=== PATIENT | male | born 1960 | race Caucasian/White ===

== ENCOUNTER 2024-03-27 12:11 | Emergency (ER) | payer BC, MEDICARE, SELFPAY ==
[2024-03-27 12:14] VITALS: BP 118/51; PULSE 88; TEMP 37.5; O2SAT 97; BMI 34.0
--- NOTE | 2024-03-27 12:28 | CT_ITS ---
[address] [address] Patient Name: BHARTI EWST MRN: [id number] date: 1960 Sex: M Assigned Patient Location: ER Current Patient Location: ER Accession/Order Number: [id number] Exam Date: 03/27/2024 13:10 Report Date: 03/27/2024 13:44 At the request of: OMID HOPKINS Procedure: CT abdomen pelvis w con EXAMINATION: CT abdomen pelvis w con HISTORY: abd pain , nausea, vomiting, diarrhea COMPARISON: No relevant comparison available. TECHNIQUE: CT images were created with IV contrast. Axial, Coronal, and Sagittal images. Dose reduction techniques were achieved by using automated exposure control and/or adjustment of mA and/or kV according to patient size and/or use of iterative reconstruction technique. FINDINGS: LUNG BASES: No visible pulmonary or pleural disease. LIVER: No enlargement, atrophy, abnormal density, or significant focal lesion. BILIARY: No visible dilatation or calcification. PANCREAS: No lesion, fluid collection, ductal dilatation, or atrophy. SPLEEN: No enlargement or focal lesion. ADRENALS: No mass or enlargement. KIDNEYS: No mass, obstruction, or calcification. BOWEL/MESENTERY: Moderate wall thickening involving the descending and sigmoid colon with some mild hyperemia and mesenteric stranding. Moderate stool in the right colon. Nonobstructive bowel gas pattern. Normal appendix. AORTA/VASCULAR: No aneurysm or dissection. RETROPERITONEUM: No mass or adenopathy. LYMPH NODES: No adenopathy. URINARY BLADDER: No visible focal wall thickening, lesion, or calculus. PELVIC ORGANS: No visible mass. Pelvic organs appropriate for patient age. ABDOMINAL WALL: No mass or hernia. BONES: No bony lesion or fracture. OTHER: Negative. CT/CT abdomen pelvis w con IMPRESSION: Moderate wall thickening of the descending and sigmoid colon with mild hyperemia and mesenteric stranding. Consider colitis. Electronically authenticated by: LORI PARRY Date: 03/27/2024 13:44
--- NOTE | 2024-03-27 12:31 | ED_ITS ---
HPI - Abdominal Pain General Chief Complaint: Abdominal Pain Stated Complaint: ABDOMINAL PAIN Time Seen by Provider: 03/27/24 12:14 Source: patient Mode of arrival: walk-in History of Present Illness HPI narrative: Six 3-year-old male presents for abdominal pain. He has been having the sharp abdominal pains for months and he is not sure what was different today. He thinks he might be bound up and had a small bowel movement last night. No vomiting or injury. He has not had fever. The sharp pains are all over the abdomen and are intermittent. Related Data Home Medications ?Medication ?Instructions ?Recorded ?Confirmed aspirin 81 mg tablet,delayed 81 mg PO DAILY 03/27/24 03/27/24 release (Adult Low Dose Aspirin) benztropine 2 mg tablet 2 mg PO BID 03/27/24 03/27/24 clozapine 100 mg tablet 150 mg PO QPM 03/27/24 03/27/24 finasteride 5 mg tablet 5 mg PO DAILY 03/27/24 03/27/24 furosemide 20 mg tablet 20 mg PO DAILY 03/27/24 03/27/24 insulin aspart U-100 100 unit/mL 1 sliding scale dose subcut QID 03/27/24 03/27/24 (3 mL) subcutaneous pen (Novolog FlexPen U-100 Insulin aspart) insulin degludec 200 unit/mL (3 70 unit subcut QPM 03/27/24 03/27/24 mL) subcutaneous pen (Tresiba FlexTouch U-200 insulin) levothyroxine 25 mcg tablet 25 mcg PO QAM 03/27/24 03/27/24 lisinopril 10 mg tablet 10 mg PO DAILY 03/27/24 03/27/24 metformin 1,000 mg tablet 1,000 mg PO BID 03/27/24 03/27/24 metoprolol succinate 50 mg 50 mg PO DAILY 03/27/24 03/27/24 tablet,extended release 24 hr multivitamin 1 tab PO DAILY 03/27/24 03/27/24 penicillin V potassium 500 mg 500 mg PO QID 03/27/24 03/27/24 tablet semaglutide 0.25 mg or 0.5 mg (2 0.5 mg subcut QWEEK 03/27/24 03/27/24 mg/3 mL) subcutaneous pen injector (Ozempic) simvastatin 20 mg tablet 20 mg PO QPM 03/27/24 03/27/24 tamsulosin 0.4 mg capsule 0.4 mg PO DAILY 03/27/24 03/27/24 Previous Rx's ?Medication ?Instructions ?Recorded ciprofloxacin HCl 500 mg tablet 500 mg PO Q12H #20 tabs 03/27/24 (Cipro) metronidazole 500 mg tablet 500 mg PO TID #30 tabs 03/27/24 Allergies Allergy/AdvReac Type Severity Reaction Status Date / Time Sulfa (Sulfonamide Allergy Severe Hives Verified 03/27/24 12:19 Antibiotics) Review of Systems ROS Narrative A ten point review of systems is negative except as noted above. PFSH PFSH Social History Little interest or pleasure in doing things: not at all Feeling down, depressed, or hopeless: not at all Exam Narrative Exam Narrative: Nurses note and vital signs reviewed and patient is not hypoxic. General: The patient appears well and in no apparent distress. Patient is resting comfortably on cart. Skin: Warm, dry, no pallor noted. There is no rash noted. Head: Normocephalic, atraumatic Eye: Normal conjunctiva, no drainage Ears, Nose, Mouth, and Throat: oral mucosa is moist. Nares patent. Cardiovascular: Regular Rate and Rhythm Respiratory: Patient is in no distress, no accessory muscle use, lungs are clear to auscultation, no wheezing, rales or rhonchi Back: non-tender, no CVA tenderness bilaterally to percussion. GI: Abdomen is globus. He has no appreciable tenderness on palpation no masses or distention. Musculoskeletal: The patient has no evidence of calf tenderness, no pitting edema, symmetrical pulses noted bilaterally Neurological: A&O, normal speech Psychiatric: Cooperative Constitutional Vital Signs, click to edit/add: Last Vital Signs Temp 99.5 F 03/27/24 12:14 Pulse 88 03/27/24 12:14 Resp 22 H 03/27/24 12:14 BP 118/51 03/27/24 12:14 Pulse Ox 97 03/27/24 12:14 O2 Del Method Room Air 03/27/24 12:14 Course Vital Signs Vital signs: Vital Signs Temperature 99.5 F 03/27/24 12:14 Pulse Rate 88 03/27/24 12:14 Respiratory Rate 22 H 03/27/24 12:14 Blood Pressure 118/51 03/27/24 12:14 Pulse Oximetry 97 03/27/24 12:14 Oxygen Delivery Method Room Air 03/27/24 12:14 Temperature 99.5 F 03/27/24 12:14 Pulse Rate 88 03/27/24 12:14 Respiratory Rate 22 H 03/27/24 12:14 Blood Pressure 118/51 03/27/24 12:14 Pulse Oximetry 97 03/27/24 12:14 Oxygen Delivery Method Room Air 03/27/24 12:14 MDM - Abdominal Pain MDM Narrative Medical decision making narrative: Blood work is nonspecific. WBC is 11,000. CT scan shows mild colitis. At this point I do not not feel that he needs to be admitted to the hospital and he will be discharged home on oral Cipro and Flagyl. Follow-up with his doctor in 1 week, return to ED if symptoms worsen. Treatment diagnosis and follow-up were discussed with the patient. Differential Diagnosis Differential diagnosis: Likely abdominal pain, constipation, diverticulitis, gastroenteritis, pancreatitis and other (Colitis) Lab Data Attestation: I reviewed the patient's lab results. Labs: Lab Results 03/27/24 Range/Units 12:30 WBC 11.3 H (4.0-11.0) 10^3/uL RBC 3.98 L (4.70-6.10) 10^6/uL Hgb 11.8 L (14.0-18.0) g/dL Hct 35.1 L (42.0-54.0) % MCV 88.2 (80.0-94.0) fL MCH 29.6 (25.9-34.0) pg MCHC 33.6 (29.9-35.2) g/dL RDW 12.4 (11.0-15.0) % Plt Count 296 (150-450) 10^3/uL MPV 9.8 (9.5-13.5) fL Neut % (Auto) 73.9 (43.0-75.0) % Lymph % (Auto) 19.2 L (20.5-60.0) % [place] % (Auto) 5.2 (1.7-12.0) % Eos % (Auto) 1.1 (0.9-7.0) % Baso % (Auto) 0.4 (0.2-2.0) % Neut # (Auto) 8.4 H (1.4-6.5) 10^3/uL Lymph # (Auto) 2.2 (1.2-3.8) 10^3/uL [place] # (Auto) 0.6 (0.3-0.8) 10^3/uL Eos # (Auto) 0.1 (0.0-0.7) 10^3/uL Baso # (Auto) 0.0 (0.0-0.1) 10^3/uL Abs Immat Gran (auto) 0.02 (0.00-0.03) 10^3/uL Imm/Tot Granulo (auto) 0.2 (0.0-0.5) % Sodium 138 (136-145) mmol/L Potassium 4.0 (3.5-5.1) mmol/L Chloride 101 (98-107) mmol/L Carbon Dioxide 26.9 (21.0-32.0) mmol/L Anion Gap 14.1 BUN 20.0 H (7.0-18.0) mg/dL Creatinine 1.42 H (0.70-1.30) mg/dL Est GFR ( Amer) >60 (>=60 mL/min/1.73m^2) Est GFR (Non-Af Amer) 50 L (>=60 mL/min/1.73m^2) BUN/Creatinine Ratio 14.1 Glucose 201 H (74-106) mg/dL Calcium 8.5 (8.5-10.1) mg/dL Total Bilirubin 0.5 (0.2-1.0) mg/dL Direct Bilirubin 0.1 (0.0-0.2) mg/dL AST 12 L (15-37) U/L ALT 20 (16-63) U/L Alkaline Phosphatase 73 (46-116) U/L Total Protein 6.4 (6.4-8.2) g/dL Albumin 3.3 L (3.4-5.0) g/dL Globulin 3.1 g/dL Albumin/Globulin Ratio 1.1 Amylase 33 (25-115) U/L Lipase 15.0 L (16.0-77.0) U/L Imaging Data CT scan - abdomen: Radiologist's impression: ITS Impressions Abdomen/Pelvis CT 03/27/24 12:28 IMPRESSION: Moderate wall thickening of the descending and sigmoid colon with mild hyperemia and mesenteric stranding. Consider colitis. Electronically authenticated by: LORI PARRY Date: 03/27/2024 13:44 Discharge Plan Discharge Chief Complaint: Abdominal Pain Clinical Impression: Colitis Patient Disposition: Home, Self-Care Time of Disposition Decision: 13:57 Condition: Good Mode of Transportation: Private Vehicle Prescriptions / Home Meds: New metronidazole 500 mg tablet 500 mg PO TID Qty: 30 0RF ciprofloxacin HCl [Cipro] 500 mg tablet 500 mg PO Q12H Qty: 20 0RF No Action benztropine 2 mg tablet 2 mg PO BID clozapine 100 mg tablet 150 mg PO QPM finasteride 5 mg tablet 5 mg PO DAILY furosemide 20 mg tablet 20 mg PO DAILY insulin aspart U-100 [Novolog FlexPen U-100 Insulin] 100 unit/mL (3 mL) insulin pen 1 sliding scale dose SUBCUT QID insulin degludec [Tresiba FlexTouch U-200] 200 unit/mL (3 mL) insulin pen 70 unit SUBCUT QPM levothyroxine 25 mcg tablet 25 mcg PO QAM metformin 1,000 mg tablet 1,000 mg PO BID metoprolol succinate 50 mg tablet extended release 24 hr 50 mg PO DAILY Ozempic 0.25 mg or 0.5 mg (2 mg/3 mL) pen injector 0.5 mg SUBCUT QWEEK simvastatin 20 mg tablet 20 mg PO QPM tamsulosin 0.4 mg capsule 0.4 mg PO DAILY aspirin [Adult Low Dose Aspirin] 81 mg tablet,delayed release (DR/EC) 81 mg PO DAILY lisinopril 10 mg tablet 10 mg PO DAILY multivitamin Tablet 1 tab PO DAILY penicillin V potassium 500 mg tablet 500 mg PO QID Print Language: [place] Instructions: Colitis (ED) Additional Instructions: See your family doctor in 1 week. Return to ED if symptoms worsen. Referrals: Physician,Non-Staff, MD [Primary Care Provider] - 1 week
[2024-03-27 12:40] LABS: Basophils Percent Auto 0.4 % (0.2-2.0); Eosinophils Absolute Auto 0.1 10^3/uL (0.0-0.7); Eosinophils Percent Auto 1.1 % (0.9-7.0); Hematocrit 35.1 % (42.0-54.0); Hemoglobin 11.8 g/dL (14.0-18.0); Immature Granulocytes Abs Auto 0.02 10^3/uL (0.00-0.03); Immature Granulocytes Pct Auto 0.2 % (0.0-0.5); Lymphocytes Absolute Auto 2.2 10^3/uL (1.2-3.8); Lymphocytes Percent Auto 19.2 % (20.5-60.0); Mean Corpuscular HGB Conc 33.6 g/dL (29.9-35.2); Mean Corpuscular Hemoglobin 29.6 pg (25.9-34.0); Mean Corpuscular Volume 88.2 fL (80.0-94.0); Mean Platelet Volume 9.8 fL (9.5-13.5); Monocytes Absolute Auto 0.6 10^3/uL (0.3-0.8); Monocytes Percent Auto 5.2 % (1.7-12.0); Neutrophils Absolute Auto 8.4 10^3/uL (1.4-6.5); Neutrophils Percent Auto 73.9 % (43.0-75.0); Platelet Count 296 10^3/uL (150-450); Red Blood Count 3.98 10^6/uL (4.70-6.10); Red Cell Distribution Width 12.4 % (11.0-15.0); White Blood Count 11.3 10^3/uL (4.0-11.0)
[2024-03-27 12:57] LABS: Anion Gap 14.1; BUN Creatinine Ratio 14.1; Calcium 8.5 mg/dL (8.5-10.1); Carbon Dioxide 26.9 mmol/L (21.0-32.0); Chloride 101 mmol/L (98-107); Estimated GFR (African America >60 (>=60 mL/min/1.73m^2); Estimated GFR (Non-African Ame 50 (>=60 mL/min/1.73m^2); Glucose 201 mg/dL (74-106); Sodium 138 mmol/L (136-145)
[2024-03-27 12:59] LABS: Alanine Aminotransferase 20 U/L (16-63); Albumin Globulin Ratio 1.1; Albumin Level 3.3 g/dL (3.4-5.0); Alkaline Phosphatase 73 U/L (46-116); Amylase 33 U/L (25-115); Aspartate Amino Transferase 12 U/L (15-37); Bilirubin Direct 0.1 mg/dL (0.0-0.2); Bilirubin Total 0.5 mg/dL (0.2-1.0); Globulin 3.1 g/dL; Total Protein 6.4 g/dL (6.4-8.2)
[2024-03-27 14:02] VITALS: BP 136/87; PULSE 84; O2SAT 99
== END 2024-03-27 14:02 | disposition home or self-care (01) ==
PROVIDERS: Emergency Provider Emergency Medicine
DX: K52.9 Noninfective gastroenteritis and colitis, unspecified (principal)
CPT/HCPCS: 36415; 74177; 80048; 80076; 81001; 82150; 83690; 85025; 99284; Q9967

== ENCOUNTER 2024-12-10 18:16 | Inpatient (IN) | payer MEDICARE, BC, SELFPAY ==
[2024-12-10] VITALS (35 sets, daily range): BP systolic 101–148; BP diastolic 64–68; PULSE 83–104; TEMP 37.4; O2SAT 94–98; BMI 35.4
--- NOTE | 2024-12-10 18:26 | ECG_ITS ---
[facility] Test Date: 2024-12-10 Pat Name: BHARTI WEST Department: Room: - Gender: Male [employer]: : 1960 Requested By: [id number] Order Number: [id number] Reading MD: COLLEEN AKBAR Measurements Intervals [place] Rate: 102 P: 39 TN: 146 QRS: 75 QRSD: 74 T: -10 QT: 340 QTc: 399 Interpretive Statements [address] T wave abnormality consider inferolateral ischemia 9140 abnormal rhythm ECG Compared to ECG 12/15/2020 17:41:32 Sinus rhythm no longer present Electronically Signed On 12-12-2024 13:47:05 EDT by COLLEEN AKBAR
--- NOTE | 2024-12-10 18:26 | XR_ITS ---
[place] [address] Patient Name: BHARTI WEST MRN: [id number] date: 1960 Sex: M Assigned Patient Location: ED.MAIN Current Patient Location: MS Accession/Order Number: [id number] Exam Date: 12/10/2024 19:17 Report Date: 12/11/2024 07:36 At the request of: DAKOTAH ORTIZ MD Procedure: XR chest 1V XR chest 1V 12/10/2024 7:29 PM SIGNS AND SYMPTOMS: ^chest pain after episodes of vomiting PROTOCOL: Frontal radiograph of the chest COMPARISON: 11/16/2018 FINDINGS: The trachea is midline. The heart and mediastinal structures are within normal limits. The lung parenchyma is clear. The bony thorax is intact. Degenerative changes are noted in the shoulders and thoracic spine. XR/XR chest 1V IMPRESSION: No acute cardiopulmonary pathology. Impression dictated by: Brandan Jackson M.D. 12/11/2024 7:36 AM Dictation Location: [facility] Electronically authenticated by: [id number] Y Date: 12/11/2024 07:36
--- OUTSIDE RECORDS SUMMARY | 2024-12-10 18:27 | XMS_ITS | CCD ---
Author Organization [facility] Care Team Providers Care Artist Manager Name Role Phone PHYSICIAN, DEFAULT Unavailable Unavailable PHYSICIAN, DEFAULT Unavailable Unavailable EBRAHEIM, NELA Unavailable Unavailable EBRAHEIM, NELA Unavailable Unavailable SELF, REFERRED Unavailable Unavailable SELF, REFERRED Unavailable Unavailable EBRAHEIM, NELA Unavailable Unavailable EBRAHEIM, NELA Unavailable Unavailable UNKNOWN, PHYSICIAN Unavailable Unavailable SELF, REFERRED Unavailable Unavailable EBRAHEIM, NELA Unavailable Unavailable EBRAHEIM, NELA Unavailable Unavailable SELF, REFERRED Unavailable Unavailable SELF, REFERRED Unavailable Unavailable DE Unavailable Unavailable EBRAHEIM, NELA Unavailable Unavailable DE Unavailable Unavailable NEWTON NINO Unavailable Unavailable CHERIE SHEA Unavailable Unavailable CHERIE SHEA Unavailable Unavailable UNKNOWN, PHYSICIAN Unavailable Unavailable UNKNOWN, PHYSICIAN Unavailable Unavailable Crystal Watson Primary Care Physician Unavaila ble Naun Vieira Attending Physician Unavailable Kim Barargan Admitting Physician Unavailable Kim Barragan Attending Physician Unavailable David Andrade Rounding Physician Unavailable Unavailable Primary Care Provider Unavailaleyda e CRYSTAL WATSON Referring Unavailable DIXON DICKINSON Attending Unavailable JAHAIRA JIMENEZ Consulting Unavailable DR COLIN ZARCO Primary Care Unavailable DIXON DICKINSON Admitting Unavailable DIXON DICKINSON Consulting Unavailable CHENG SHAHID Consulting Unavailable Judy Vieiraa Unavailable MD Crystal Watson Primary Care Provider MD Brendon Garsia Attending Provider [phone] AURELIO Vieira Attending Provider [phone] Whitney Hunt DO Unavailable Samantha Dawn MD Primary Care Provider Whitney Hunt DO Unavailable Crystal Watson MD Primary Care Provider Brendon Garsia MD Attending Provider DEE DEE TIMMONS Attending Unavailable ANA, IMELDA Sanchez Attending Unavailab alexandra TIMMONS, DEE DEE Sanchez Attending Unavailable PEREZ, IMELDA Sanchez Attending Unavailab le ANA, IMELDA Sanchez Attending Unavailab alexandra TIMMONS, DEE DEE Sanchez Attending Unavailable Brendon Garsia Admitting Unavailab Brendon Banda Attending Unavailab Crystal Pollack Primary Care Unavailable MAPUS, TONDRA K Referring Unavailable PCP, NOT IN SYSTEM Primary Care Unavailable ABDULLAHI, TARSHA M Referring Unavailable PCP, NOT IN SYSTEM Primary Care Unavailable ABDULLAHI, TARSHA M Referring Unavailable PCP, NOT IN SYSTEM Primary Care Unavailable ABDULLAHI, TARSHA M Referring Unavailable PCP, NOT IN SYSTEM Primary Care Unavailable MAPUS, TONDRA K Referring Unavailable PCP, NOT IN SYSTEM Primary Care Unavailable ABDULLAHI, TARSHA M Referring Unavailable PCP, NOT IN SYSTEM Primary Care Unavailable ABDULLAHI, TARSHA M Referring Unavailable PCP, NOT IN SYSTEM Primary Care Unavailable ABDULLAHI, TARSHA M Referring Unavailable PCP, NOT IN SYSTEM Primary Care Unavailable ABDULLAHI, TARSHA M Referring Unavailable PCP, NOT IN SYSTEM Primary Care Unavailable ABDULLAHI, TARSHA M Referring Unavailable PCP, NOT IN SYSTEM Primary Care Unavailable ABDULLAHI, TARSHA M Referring Unavailable PCP, NOT IN SYSTEM Primary Care Unavailable ABDULLAHI, TARSHA M Referring Unavailable PCP, NOT IN SYSTEM Primary Care Unavailable ABDULLAHI, TARSHA M Referring Unavailable PCP, NOT IN SYSTEM Primary Care Unavailable Allergies Allergy Classification Reported Allergen(s) Allergy Type Date of Onset Reaction(s) Facility (4 sources) Sulfonamides (Antibiotic); Translations: [SULFA (SULFONAMIDE ANTIBIOTICS)] Drug allergy (disorder) 04-21-19 18 Hives [facility] Repository (1 source) No Known Allergies; Translations: [No Known Allergies] Propensity to adverse reactions (disorder) [facility]ository (13 sources) Sulfamethoxazole / Trimethoprim Drug Allergy Unknown [facility] [employer] Other (1 source) Sulfamethoxazole Drug Allergy 02-09-20 [facility] (1 source) Trimethoprim Drug Allergy 02-09-20 [facility] (16 sources) Sulfonamides (Antibiotic) Drug Allergy 08-12-19 [facility] (17 sources) Iodinated Contrast Media; Translations: [IODINATED CONTRAST MEDIA] Drug Intolerance 11-01-19 [facility] (1 source) Sulfonamides (Antibiotic) Drug allergy (disorder) 09-28-19 [facility] Repository Medications Current Medications Medication Drug Class(es) Dates Sig (Normalized) Sig (Original) Accu-Chek Samreen Plus - (9 sources) Accu-Chek Samreen Plus - USE DIRECTED 4 TIMES A DAY for 90 Active [id number] 200 actuat albuterol 0.09 mg/actuat metered dose inhaler (5 sources) beta2-Adrenergic Agonist Start: 06-19-2024 End: 06-19-2025 take 2 puff(s) by inhalation every four hours for wheezing albuterol HFA 90 mcg/act inhaler Indications: Bronchitis Inhale 2 puffs every 4 (four) hours if needed for wheezing 18 g 06/19/2024 06/19/2025 Active amoxicillin 875 mg / clavulanate 125 mg oral tablet (2 sources) Penicillin-class Antibacterial Start: 06-19-2024 End: 06-26-2024 take 1 tablet by mouth in the morning amoxicillin-clav ulanate (Augmentin) 875-125 MG tablet Indications: Acute right otitis media Take 1 tablet (875 mg) by mouth in the morning and 1 tablet (875 mg) before bedtime. Do all this for 7 days. 14 tablet 06/19/2024 06/26/2024 Active aspirin 81 mg chewable tablet (20 sources) Platelet Aggregation Inhibitor, Nonsteroidal Anti-inflammatory Drug Start: 08-23-2023 take 1 tablet by mouth once daily Aspirin 81 mg tablet,chewable Active 81 MG PO Daily August 23, 2023 12:00am take 1 tablet by mouth once darcie y aspirin (ASPIR) 81 MG EC tablet Take 81 mg by mouth Daily Active take 1 tablet by hellen th every twenty-four hours Aspirin 81 MG 1 tablet Orally Once a day Active benzonatate 100 mg oral capsule (2 sources) Non-narcotic Antitussive Start: 06-19-2024 End: 06-26-2024 take 1 capsule by mouth three times daily as needed for cough benzonatate (Tessalon Perles) 100 MG capsule Indications: Bronchitis Take 1 capsule (100 mg) by mouth 3 (three) times a day as needed for cough for up to 7 days Do not crush or chew. 20 capsule 06/19/2024 06/26/2024 Active benztropine mesylate 2 mg oral tablet (20 sources) Anticholinergic, Antihistamine Start: 03-06-2024 take 1 tablet by mouth twice daily Benztropine 2 mg tablet Active 2 MG PO Twice daily March 06, 2024 1:00am Start: 08-23-2023 End: 03-06-2024 take 1 tablet by mouth twice daily Benztropine 1 mg tablet Discontinued 1 MG PO Twice daily August 23, 2023 12:00am March 06, 2024 3:06pm Start: 11-17-2018 End: 12-09-2018 take 1 mg by mouth at bedtime Benztropine 1 MG Oral Be dtime November 17, 2018 Discontinued Blood-Glucose Sensor (Dexcom G6 Sensor) device (3 sources) Start: 12-19-2023 Blood-Glucose Sensor (Dexcom G6 Sensor) device Active 0 .ROUTE .MEDSUPPLY December 19, 2023 7:14am As directed Change every 10 days SQ Start: 08-23-2023 End: 12-19-2023 Blood-Glucose Sensor (Dexcom G6 Sensor) device Discontinued 0 .ROUTE .MEDSUPPLY August 23, 2023 3:06pm December 19, 2023 7:15am As directed Change every 10 days SQ Start: 07-25-2023 End: 08-23-2023 Blood-Glucose Sensor (Dexcom G6 Sensor) device Discontinued 0 .ROUTE .MEDSUPPLY July 25, 2023 12:00am August 23, 2023 3:07pm As directed Change every 10 days SQ Blood-Glucose Transmitter (Dexcom G6 Transmitter) device (3 sources) Start: 12-19-2023 Blood-Glucose Transmitter (Dexcom G6 Transmitter) device Active 0 .Route December 19, 2023 12:00am As directed Change every 90 days Start: 08-23-2023 End: 11-29-2023 Blood-Glucose Transmitter (D excom G6 Transmitter) device Discontinued 0 .Route August 23, 2023 3:05pm November 29, 2023 1:59pm As directed Change every 90 days Start: 07-25-2023 End: 08-23-2023 Blood-Glucose Transmitter (D excom G6 Transmitter) device Discontinued 0 .Route 1 July 25, 2023 12:00am August 23, 2023 3:07pm As directed Change every 90 days cloZAPine 100 mg oral tablet (20 sources) Atypical Antipsychotic Start: 12-26-2018 take 1 tablet by mouth once daily at bedtime Clozapine 100 mg tablet Active 150 MG PO Daily at bedtime December 26, 2018 12:00am Start: 12-26-2018 take 150 mg by mouth once daily at bedtime Clozapine 150 MG Oral Daily at bedtime December 26, 2018 Active Start: 12-09-2018 End: 12-11-2018 take 1 tablet by mouth once daily at bedtime Clozapine 100 mg Tablet Discontinued 200 MG PO Daily at bedtime December 09, 2018 12:00am December 11, 2018 3:19pm Start: 12-09-2018 End: 12-11-2018 take 200 mg by mouth once daily at bedtime Clozapine 200 MG Oral Daily at bedtime December 09, 2018 December 11, 2018 Discontinued cloZAPine (Cloza ril) 100 MG tablet Take 150 mg by mouth at bedtime Active take 5.5 tablets by mouth once daily cloZAPine 100 MG 11/2 tablet Orally Once a day Active Continuous Blood Gluc Sensor (Dexcom G6 Sensor) misc (16 sources) Start: 08-23-2022 Continuous Blo od Gluc Sensor (Dexcom G6 Sensor) [facility] 08/[facility]/2022 Active Start: 08-23-2022 Continuous Blo od Gluc Sensor (Dexcom G6 Sensor) misc USE DIRECTED AND CHANGE EVERY 10 DAYS 30 08/23/2022 Active Continuous Blood Gluc Transm it (Dexcom G6 transmitter) misc (16 sources) Start: 07-13-2022 Continuous Blo od Gluc Transmit (Dexcom G6 transmitter) misc 07/13/2022 Active Start: 07-13-2022 Continuous Blo od Gluc Transmit (Dexcom G6 transmitter) misc USE DIRECTED UNDER THE SKIN AND CHANGE EVERY 90 DAYS 07/13/2022 Active Dexcom G6 Calender Feeder - (13 sources) Start: 04-21-2020 Dexcom G6 Rece iver - as directed SQ Daily for 365 days Apr, Active Dexcom G6 Sensor - (13 sources) Start: 04-21-2020 Dexcom G6 Sens or - as directed SQ change q 10 days for 90 day(s) E11.8 11 Apr, 2020 Active Dexcom G6 Sensor - USE DIRECTED AND CHANGE EVERY 10 DAYS 30 for 30 Active Dexcom G6 Sensor - USE DIRECTED AND CHANGE EVERY 10 DAYS for 30 Active Dexcom G6 Transmitter - (13 sources) Start: 04-21-2020 Dexcom G6 Whitney smitter - as directed SQ change every 90 days for 90 day(s) E11.65 11 Apr, 2020 Active Start: 04-21-2020 Dexcom G6 Whitney smitter - as directed SQ change Q 3 MO for 90 day(s) E11.8 11 Apr, 2020 Active Dexcom G6 Transm itter - USE DIRECTED UNDER THE SKIN AND CHANGE EVERY 90 DAYS SQ change Q 3 MO for 90 days Active Dexcom G6 Transm itter - USE DIRECTED UNDER THE SKIN AND CHANGE EVERY 90 DAYS for 90 Active docosahexaenoic acid 120 mg / eicosapentaenoic acid 180 mg oral capsule (16 sources) take 1 capsule by mouth once daily omega-3 (Fish Oil) 1000 MG capsule Take 1,000 mg by mouth Daily Active finasteride 5 mg oral tablet (20 sources) 5-alpha Reductase Inhibitor Start: 08-23-19 24 End: 06-06-19 25 take 1 tablet by mouth once daily finasteride (Proscar) 5 MG tablet Indications: Benign prostatic hyperplasia with lower urinary tract symptoms TAKE 1 TABLET BY MOUTH EVERY DAY 90 tablet 3 06/06/2024 Active take 1 tablet by hellen th every twenty-four hours Finasteride 5 MG 1 tablet Orally Once a day for 30 day(s) Active furosemide 20 mg oral tablet (20 sources) Loop Diuretic Start: 07-04-2024 take 1 tablet by mouth once daily furosemide (Lasix) 20 MG tablet Indications: Edema, unspecified type TAKE 1 TABLET BY MOUTH EVERY DAY 90 tablet 1 07/04/2024 Active Start: 12-11-2018 End: 12-11-2018 Furosemide 40 mg Tablet Disc ontinued 20 MG PO Daily 0 December 11, 2018 3:18pm December 11, 2018 10:20pm Start: 12-11-2018 End: 12-12-2018 take 20 mg by mouth once daily Furosemide Discontinued 20 MG PO Daily 0 December 11, 2018 2:18pm December 11, 2018 9:20pm Start: 12-11-2018 End: 03-12-2024 take 1 tablet by mouth once daily furosemide (Lasix) 20 MG tablet Indications: Edema, unspecified type TAKE 1 TABLET BY MOUTH EVERY DAY 90 tablet 1 03/12/2024 Active Start: 12-09-2018 End: 12-11-2018 Furosemide 40 mg Tablet Disc ontinued 20 MG PO BID@0800,1600 December 09, 2018 12:00am December 11, 2018 3:19pm Start: 12-09-2018 End: 12-11-2018 take 20 mg by mouth twice daily Furosemide 20 MG Oral BID@0800,1600 December 09, 2018 Discontinued Start: 11-17-2018 End: 12-09-2018 take 1 tablet by mouth once daily Furosemide 40 mg tablet Discontinued 1 TAB PO Daily November 17, 2018 12:00am December 09, 2018 10:02am Start: 11-17-2018 End: 12-09-2018 take 1 tablet by mouth once daily Furosemide 1 TAB Oral Daily November 17, 2018 December 09, 2018 Discontinued Insulin Aspart U-100 (Novolo g Flexpen U-100 Insulin) 100 unit/mL (3 mL) insulin pen (3 sources) Start: 03-06-2024 Insulin Aspart U-100 (Novolog Flexpen U-100 Insulin) 100 unit/mL (3 mL) insulin pen Active 0 SUBCUT .COMPLEX 105 March 06, 2024 3:33pm 20 units bk, 24 lunch, 32 supper plus ISS 1:7 ac, (hs if >200 half dose) (expect up to 120/day) subcutaneously Start: 06-22-2023 End: 03-06-2024 Insulin Aspart U-100 (Novolo g Flexpen U-100 Insulin) 100 unit/mL (3 mL) insulin pen Discontinued 0 SUBCUT .COMPLEX 105 June 22, 2023 7:52am March 06, 2024 3:34pm 20 units bk, 26 lunch, 32 supper plus ISS 1:7 ac, (hs if >200 half dose) (expect up to 120/day) subcutaneously Start: 06-22-2023 End: 06-22-2023 Insulin Aspart U-100 (Novolo g Flexpen U-100 Insulin) 100 unit/mL (3 mL) insulin pen Discontinued SUBCUT June 22, 2023 12:00am June 22, 2023 7:56am [employer] units bk, 26 lunch, 32 supper plus ISS 1:7 ac, (hs if >200 half dose) (expect up to 120/day) Subcutaneous as directed; Note: Source Status: Taking; Refills: 3; Qty: 105 Milliliter; Provider: Dariel Cleveland Insulin Degludec (Tresiba Flextouch U-200) 200 unit/mL (3 mL) insulin pen (6 sources) Start: 06-14-2024 Insulin Deglud ec (Tresiba Flextouch U-200) 200 unit/mL (3 mL) insulin pen Active 64 UNIT SUBCUT Daily at bedtime June 14, 2024 4:30pm 64 units SQ qhs; (titrate up to max 70 units/day) Start: 03-06-2024 End: 06-14-2024 Insulin Degludec (Tresiba Fl extouch U-200) 200 unit/mL (3 mL) insulin pen Discontinued 70 UNIT SUBCUT Daily at bedtime March 06, 2024 3:04pm June 14, 2024 4:31pm 70 units SQ qhs; (titrate up to max 90 units/day) Start: 11-29-2023 End: 03-06-2024 Insulin Degludec (Tresiba Fl extouch U-200) 200 unit/mL (3 mL) insulin pen Discontinued 68 UNIT SUBCUT Daily at bedtime 45 November 29, 2023 2:23pm March 06, 2024 3:08pm 70 units SQ qhs; (titrate up to max 90 units/day) Start: 11-29-2023 End: 11-29-2023 Insulin Degludec (Tresiba Fl extouch U-200) 200 unit/mL (3 mL) insulin pen Discontinued 68 UNIT SUBCUT Daily at bedtime November 29, 2023 2:15pm November 29, 2023 2:24pm 70 units SQ qhs; (titrate up to max 90 units/day) Start: 11-29-2023 End: 11-29-2023 Insulin Degludec (Tresiba Fl extouch U-200) 200 unit/mL (3 mL) insulin pen Discontinued 70 UNIT SUBCUT Daily at bedtime November 29, 2023 1:55pm November 29, 2023 2:15pm 70 units SQ qhs; (titrate up to max 90 units/day) Start: 06-22-2023 End: 11-29-2023 Insulin Degludec (Tresiba Fl extouch U-200) 200 unit/mL (3 mL) insulin pen Discontinued UNIT SUBCUT June 22, 2023 12:00am November 29, 2023 1:58pm [employer] units SQ qhs; Note: Source Status: Start(titrate up to max 90 units/day); Refills: 3; Qty: 42 Milliliter; Provider: Dariel Magallon ( ) lactulose 667 mg/ml oral solution (16 sources) Osmotic Laxative Start: 01-25-2022 take 10 g by mouth every twenty-four hours as needed lactulose (Chronulac) 10 GM/15ML solution Take 10 g by mouth Daily as needed (for constipation) 01/25/2022 Active levothyroxine sodium 0.025 mg oral tablet (18 sources) l-Thyroxine Start: 11-29-2023 take 1 capsule by mouth once daily Levothyroxine 25 mcg capsule Active 25 MCG PO Daily November 29, 2023 12:00am Start: 01-13-2023 End: 01-09-2024 take 1 tablet by mouth once daily in the morning levothyroxine (Synthroid, Levoxyl) 25 MCG tablet Indications: Acquired hypothyroidism (CMS/HCC) TAKE 1 TABLET BY MOUTH EVERY DAY IN THE MORNING ON EMPTY STOMACH FOR 90 DAYS 90 tablet 3 01/09/2024 Active lisinopril 10 mg oral tablet (20 sources) Angiotensin Converting Enzyme Inhibitor Start: 03-06-2024 take 1 tablet by mouth once daily Lisinopril 10 mg tablet Active 10 MG PO Daily March 06, 2024 1:00am Start: 12-11-2018 End: 11-29-2023 take 1 tablet by mouth once daily Lisinopril 10 mg Tablet Discontinued 10 MG PO Daily December 11, 2018 12:00am November 29, 2023 1:56pm Start: 12-09-2018 End: 12-11-2018 take 1 tablet by mouth once daily Lisinopril 5 mg Tablet Discontinued 5 MG PO Daily December 09, 2018 12:00am December 11, 2018 3:19pm Start: 11-17-2018 End: 12-09-2018 take 1 tablet by mouth once daily Lisinopril 20 mg tablet Discontinued 20 MG PO Daily November 17, 2018 12:00am December 09, 2018 10:01am losartan potassium 25 mg oral tablet (19 sources) Angiotensin 2 Receptor Faye Start: 12-29-2022 End: 01-08-2025 take 1 tablet by mouth once daily in the morning losartan (Cozaar) 25 MG tablet Indications: Essential hypertension (CMS/HCC) TAKE 1 TABLET BY MOUTH EVERY DAY IN THE MORNING 90 tablet 3 01/09/2024 01/08/2025 Active metFORMIN hydrochloride 1000 mg oral tablet (20 sources) Biguanide Start: 11-17-2018 End: 11-29-2023 metFORMIN (Glucophage) 1000 MG tablet Indications: Type 2 diabetes mellitus with stage 2 chronic kidney disease, with long-term current use of insulin (CMS/HCC) TAKE 1 TABLET BY MOUTH TWICE A DAY WITH MEALS 180 tablet 3 12/16/2022 Active 24 hr metoprolol succinate 50 mg extended release oral tablet (20 sources) beta-Adrenergic Faye Start: 12-20-2022 End: 12-13-2023 take 1 tablet by mouth once daily metoprolol succinate XL (Toprol-XL) 50 MG 24 hr tablet Indications: Essential (primary) hypertension (CMS/HCC) TAKE 1 TABLET BY MOUTH EVERY DAY 90 tablet 3 12/13/2023 Active Start: 11-17-2018 End: 08-23-2023 take 1 tablet by mouth once daily Metoprolol Succinate 100 mg tablet extended release 24 hr Discontinued 1 TAB PO Daily November 17, 2018 12:00am August 23, 2023 2:09pm Start: 11-17-2018 take 1 tablet by hellen th once daily Metoprolol Succinate 1 TAB Oral Daily November 17, 2018 Active Multiple Vitamin (multivitamin) tablet (16 sources) take 1 tablet by mouth once daily Multiple Vitamin (multivitamin) tablet Take 1 tablet by mouth Daily Active Multivitamin (One Daily Multivitamin) tablet (1 source) Start: 08-23-2023 take 1 tablet by mouth once daily Multivitamin (One Daily Multivitamin) tablet Active 1 TAB PO Daily August 23, 2023 12:00am Multivitamin preparation (13 sources) take 1 tablet by mouth once daily Multi Vitamin - 1 tablet Orally Once a day Active ozempic (0.25 or 0.5 mg/dose) 2 mg/3ml solution pen-injector (1 source) Start: 05-17-2023 Ozempic (0.25 or 0.5 MG/DOSE) 2 MG/3ML as directed Subcutaneous once weekly for 84 days stop trulicity 4.5mg May, Active Ozempic, 0.25 or 0.5 MG/DOSE, 2 MG/3ML solution pen-injector (16 sources) Start: 08-24-2023 Ozempic, 0.25 or 0.5 MG/DOSE, 2 MG/3ML solution pen-injector 08/24/2023 Active Start: 08-24-2023 inject 0.5 mg by sub cutaneous injection every week Ozempic, 0.25 or 0.5 MG/DOSE, 2 MG/3ML solution pen-injector INJECT 0.5 MG (0.736 ML) SUBCUTANEOUSLY EVERY WEEK FOR 84 DAYS 08/24/2023 Active pen needle, diabetic (BD Lesli 2nd Gen Pen Needle) (1 source) Start: 08-23-2023 pen needle, di abetic (BD Lesli 2nd Gen Pen Needle) Active .Route August 23, 2023 12:00am penicillin v potassium 500 mg oral tablet (1 source) Start: 03-06-2024 End: 06-14-2024 take 1 tablet by mouth four times daily Penicillin V Potassium 500 mg tablet Discontinued 500 MG PO Four times daily March 06, 2024 1:00am June 14, 2024 4:09pm Semaglutide (3 sources) Start: 02-02-2024 Semaglutide (O zempic) 0.25 mg or 0.5 mg (2 mg/3 mL) pen injector Active 0.5 MG SUBCUT every week 9 February 02, 2024 7:38am Start: 08-23-2023 End: 02-02-2024 Semaglutide (Ozempic) 0.25 m g or 0.5 mg (2 mg/3 mL) pen injector Discontinued 0.5 MG SUBCUT every week 9 August 23, 2023 3:04pm February 02, 2024 7:39am Start: 08-23-2023 End: 08-23-2023 Semaglutide (Ozempic) 0.25 m g or 0.5 mg (2 mg/3 mL) pen injector Discontinued 0.5 MG SUBCUT every week August 23, 2023 12:00am August 23, 2023 3:05pm simvastatin 20 mg oral tablet (20 sources) HMG-CoA Reductase Inhibitor Start: 08-23-2023 take 1 tablet by mouth once daily in the evening simvastatin (Zocor) 20 MG tablet Indications: Mixed hyperlipidemia (CMS/HCC) TAKE 1 TABLET BY MOUTH EVERY DAY IN THE EVENING 90 tablet 3 09/30/2023 Active Start: 11-17-2018 End: 12-09-2018 take 1 tablet by mouth once daily Simvastatin 40 mg tablet Discontinued 1 TAB PO Daily November 17, 2018 12:00am December 09, 2018 10:05am take 1 tablet by hellen th every twenty-four hours Simvastatin 20 MG 1 tablet in the evening Orally Once a day Active tamsulosin hydrochloride 0.4 mg oral capsule (20 sources) alpha-Adrenergic Faye Start: 11-29-2023 take 1 capsule by mouth once daily Tamsulosin 0.4 mg capsule Active 0.4 MG PO Daily November 29, 2023 12:00am Start: 01-13-2023 End: 01-09-2024 take 1 capsule by mouth twice daily tamsulosin (Flomax) 0.4 MG 24 hr capsule Indications: Benign prostatic hyperplasia with lower urinary tract symptoms TAKE 1 CAPSULE BY MOUTH TWICE A DAY 180 capsule 3 01/09/2024 Active Start: 12-26-2018 End: 08-23-2023 take 2 capsules by mouth once daily Tamsulosin 0.4 mg Capsule Discontinued 0.8 MG PO Daily December 26, 2018 12:00am August 23, 2023 2:09pm Start: 12-26-2018 take 0.8 mg by mouth once darcie y Tamsulosin 0.8 MG Oral Daily December 26, 2018 Active Start: 12-09-2018 End: 12-26-2018 take 1 capsule by mouth once daily Tamsulosin 0.4 mg Capsule Discontinued 0.4 MG PO Daily December 09, 2018 12:00am December 26, 2018 11:50am Completed/Discontinued Medications Medication Drug Class(es) Dates Sig (Normalized) Sig (Original) acetaminophen 325 mg oral tablet (10 sources) Start: 12-09-2018 End: 12-11-2018 take 2 tablets by mouth every six hours as needed for pain Acetaminophen 325 mg Tablet Discontinued 650 MG PO Q6H as needed for Fever Or Pain December 09, 2018 12:00am December 11, 2018 3:19pm Start: 12-09-2018 End: 12-11-2018 take 650 mg by mouth every six hours as needed for pain Acetaminophen 650 MG Oral Q6H PRN For Fever Or Pain December 09, 2018 December 11, 2018 Discontinued ARIPiprazole 5 mg oral tablet (10 sources) Atypical Antipsychotic Start: 11-17-2018 End: 12-09-2018 take 1 tablet by mouth at bedtime Aripiprazole 5 mg tablet Discontinued 5 MG PO Bedtime November 17, 2018 12:00am December 09, 2018 10:01am atorvastatin 20 mg oral tablet (10 sources) HMG-CoA Reductase Inhibitor Start: 12-09-2018 End: 08-23-2023 take 1 tablet by mouth once daily at bedtime Atorvastatin 20 mg Tablet Discontinued 20 MG PO Daily at bedtime December 09, 2018 12:00am August 23, 2023 2:03pm blood-glucose transmitter (Dexcom G6 Transmitter) (1 source) Start: 08-23-2023 End: 03-06-2024 blood-glucose transmitter (Dexcom G6 Transmitter) Discontinued .Route August 23, 2023 12:00am March 06, 2024 3:10pm cefTRIAXone 1000 mg injection (10 sources) Cephalosporin Antibacterial Start: 12-09-2018 End: 12-11-2018 take 1 g intravenously every twenty-four hours Ceftriaxone 1 gram Recon Soln Discontinued 1 GM IV Q24H December 09, 2018 12:00am December 11, 2018 3:19pm dapagliflozin 10 mg oral tablet (20 sources) Sodium-Glucose Cotransporter 2 Inhibitor Start: 11-17-2018 End: 12-11-2018 take 1 tablet by mouth once daily Dapagliflozin Propanediol 10 mg tablet Discontinued 1 TAB PO Daily November 17, 2018 12:00am December 11, 2018 3:19pm docusate sodium 100 mg oral capsule (10 sources) Start: 12-09-2018 End: 12-26-2018 take 1 capsule by mouth twice daily Docusate Sodium 100 mg Capsule Discontinued 100 MG PO Twice daily December 09, 2018 12:00am December 26, 2018 9:16am 0.5 ml dulaglutide 3 mg/ml auto-injector (20 sources) GLP-1 Receptor Agonist Start: 11-17-2018 End: 08-23-2023 Dulaglutide 1.5 mg/0.5 mL Pen Injector Discontinued 1.5 MG SUBCUT every week December 11, 2018 12:00am August 23, 2023 2:04pm inject 4.5 mg by sub cutaneous injection every week Trulicity 4.5 MG/0.5ML INJECT 4.5MG UNDE R THE SKIN ONCE WEEKLY for 84 E11.65 Active Trulicity 4.5 MG /0.5ML as directed Subcutaneous weekly for 84 days Active famotidine 40 mg oral tablet (10 sources) Histamine-2 Receptor Antagonist Start: 11-17-2018 End: 11-17-2018 Famotidine November 17, 2018 Discontinued Start: 11-17-2018 End: 11-17-2018 Famotidine November 17, 2018 Au inez 2018 Discontinued Start: 11-17-2018 End: 11-17-2018 Famotidine November 17, 2018 Au inez 2018 Discontinued Start: 11-17-2018 End: 11-17-2018 Famotidine November 17, 2018 Di scontinued Start: 11-17-2018 End: 11-17-2018 Famotidine November 17, 2018 Di scontinued Start: 11-17-2018 End: 11-17-2018 Famotidine November 17, 2018 Au inez 2018 Discontinued Start: 11-17-2018 End: 11-17-2018 Famotidine November 17, 2018 Di scontinued Start: 11-17-2018 End: 11-17-2018 Famotidine November 17, 2018 Au inez 2018 Discontinued Start: 11-17-2018 End: 11-17-2018 Famotidine 40 mg tablet Disc ontinued TABLET November 17, 2018 12:00am November 17, 2018 9:00am Start: 11-17-2018 End: 11-17-2018 Famotidine Discontinued TABL ET November 16, 2018 11:00pm November 17, 2018 8:00am FreeStyle Ruddy 2 Sensor Systm - (7 sources) Start: 04-21-2020 FreeStyle Ruddy 2 Sensor Systm - as directed use with ruddy reader change q 14 days, check glucose ac, hs and prn for 28 days Apr, Not-Taking hydrALAZINE hydrochloride 50 mg oral tablet (10 sources) Arteriolar Vasodilator Start: 11-17-2018 End: 12-09-2018 take 1 tablet by mouth twice daily at mealtime Hydralazine 50 mg Tablet Discontinued 50 MG PO Twice daily November 17, 2018 12:00am December 09, 2018 10:01am take with food 3 ml insulin degludec 200 unt/ml pen injector (20 sources) Insulin Analog Start: 11-17-2018 End: 11-17-2018 Insulin Degludec November 17, 2018 Discontinued Start: 11-17-2018 End: 11-17-2018 Insulin Degludec [Tresiba Flextouch U-200] November 17, 2018 November 17, 2018 Discontinued Start: 11-17-2018 End: 11-17-2018 Insulin Degludec [Tresiba Flextouch U-200] November 17, 2018 November 17, 2018 Discontinued Start: 11-17-2018 End: 11-17-2018 Insulin Degludec November 17 019 Discontinued Start: 11-17-2018 End: 11-17-2018 Insulin Degludec November 17 019 Discontinued Start: 11-17-2018 End: 11-17-2018 Insulin Degludec [Tresiba Flextouch U-200] November 17, 2018 November 17, 2018 Discontinued Start: 11-17-2018 End: 11-17-2018 Insulin Degludec November 17 019 Discontinued Start: 11-17-2018 End: 11-17-2018 Insulin Degludec [Tresiba Flextouch U-200] November 17, 2018 November 17, 2018 Discontinued Start: 11-17-2018 End: 11-17-2018 Insulin Degludec (Tresiba Flextouch U-200) 200 unit/mL (3 mL) insulin pen Discontinued November 17, 2018 12:00am November 17, 2018 8:54am Start: 11-17-2018 End: 12-09-2018 Insulin Degludec (Tresiba Flextouch U-200) 200 unit/mL (3 mL) Insulin Pen Discontinued 70 UNIT SUBCUT Bedtime November 17, 2018 12:00am December 09, 2018 10:03am insulin degludec (Tresiba FlexTouch) 100 UNIT/ML injection Inject 90 Units under the skin at bedtime. Active inject 70 [IU] by coleman bcutaneous injection once daily at bedtime Tresiba FlexTouch 200 UNIT/ML 70 units SQ qhs for 90 days (titrate up to max 90 units/day) Active inject 68 [IU] by coleman bcutaneous injection once daily at bedtime Tresiba FlexTouch 200 UNIT/ML 68 units SQ qhs for 90 days (titrate up to 90 units/day) Active inject 88 [IU] by coleman bcutaneous injection once daily at bedtime Tresiba FlexTouch 200 UNIT/ML 88 units SQ qhs for 90 days (titrate up to 100 units/day) Active inject 90 [IU] by coleman bcutaneous injection once daily at bedtime Tresiba FlexTouch 200 UNIT/ML 90 units SQ qhs for 90 day(s) (titrate up to 100 units/day) Active inject 86 [IU] by coleman bcutaneous injection once daily at bedtime Tresiba FlexTouch 200 UNIT/ML 86 units SQ qhs (titrate up to 100 units/day) Active inject 85 [IU] by coleman bcutaneous injection once daily at bedtime Tresiba FlexTouch 200 UNIT/ML 85 units Subcutaneous qhs for 90 day(s) titrate up to 100 units/day Active 3 ml insulin detemir 100 unt/ml pen injector (20 sources) Insulin Analog Start: 12-26-2018 End: 06-22-2023 Insulin Detemir U-100 (Levemir Flextouch U-100 Insuln) 100 unit/mL (3 mL) Insulin Pen Discontinued 45 UNITS SUBCUT Twice daily 2 December 26, 2018 12:00am June 22, 2023 7:43am Start: 12-11-2018 End: 12-26-2018 Insulin Detemir U-100 (Levem ir Flextouch U100 Insulin) 100 unit/mL (3 mL) Insulin Pen Discontinued 35 UNIT SUBCUT Twice daily 0 December 11, 2018 3:18pm December 26, 2018 11:49am Start: 12-09-2018 End: 12-11-2018 Insulin Detemir U-100 (Levem ir Flextouch U-100 Insuln) 100 unit/mL (3 mL) Insulin Pen Discontinued 70 UNITS SUBCUT Every morning December 09, 2018 12:00am December 11, 2018 3:19pm Start: 12-09-2018 End: 12-11-2018 Insulin Detemir U-100 (Levem ir Flextouch U-100 Insuln) 100 unit/mL (3 mL) Insulin Pen Discontinued 60 UNITS SUBCUT Daily at bedtime December 09, 2018 12:00am December 11, 2018 3:19pm 3 ml insulin aspart, human 100 unt/ml pen injector (20 sources) Insulin Analog Start: 11-17-2018 End: 06-22-2023 Insulin Aspart U-100 (Novolog Flexpen U-100 Insulin) 100 unit/mL (3 mL) Insulin Pen Discontinued 0 UNITS SUBCUT Before meals and at bedtime as needed for Hyperglycemia December 11, 2018 12:00am December 11, 2018 11:39pm Please contact the information source for Protocol details. Start: 11-17-2018 End: 12-09-2018 inject 17 [IU] by subcutaneous injection once daily at breakfast Insulin Aspart U-100 100 unit/mL (3 mL) insulin pen Discontinued 17 UNITS SUBCUT Daily with breakfast November 17, 2018 12:00am December 09, 2018 10:02am Start: 11-17-2018 End: 12-09-2018 inject 22 [IU] by subcutaneous injection once daily at lunch Insulin Aspart U-100 100 unit/mL (3 mL) insulin pen Discontinued 22 UNITS SUBCUT Daily with lunch November 17, 2018 12:00am December 09, 2018 10:03am Start: 11-17-2018 End: 12-11-2018 inject 28 [IU] by subcutaneous injection once daily Insulin Aspart U-100 100 unit/mL (3 mL) insulin pen Discontinued 28 UNITS SUBCUT Daily with supper November 17, 2018 12:00am December 09, 2018 10:03am Start: 11-17-2018 End: 12-11-2018 Insulin Aspart U-100 100 uni t/mL (3 mL) insulin pen Discontinued 0 units SUBCUT THREE TIMES DAILY WITH MEALS November 17, 2018 12:00am December 11, 2018 3:19pm Please contact the information source for Protocol details. NovoLOG FlexPen 100 UNIT/ML 20 units bk, 26 lunch, 32 supper plus ISS 1:7 ac, (hs if >200 half dose) (expect up to 120/day) Subcutaneous as directed for 90 day(s) Active levoFLOXacin 750 mg oral tablet (6 sources) Quinolone Antimicrobial Start: 12-11-2018 End: 12-26-2018 take 1 tablet by mouth every twenty-four hours Levofloxacin 750 mg Tablet Discontinued 750 MG PO Q24H 7 7 December 11, 2018 12:00am December 26, 2018 9:16am meloxicam 15 mg oral tablet (10 sources) Nonsteroidal Anti-inflammatory Drug Start: 11-17-2018 End: 11-17-2018 Meloxicam November 17, 2018 Discontinued Start: 11-17-2018 End: 11-17-2018 Meloxicam November 17, 2018Nov Discontinued Start: 11-17-2018 End: 11-17-2018 Meloxicam November 17, 2018Nov Discontinued Start: 11-17-2018 End: 11-17-2018 Meloxicam November 17, 2018 Dis continued Start: 11-17-2018 End: 11-17-2018 Meloxicam November 17, 2018 Dis continued Start: 11-17-2018 End: 11-17-2018 Meloxicam November 17, 2018Nov Discontinued Start: 11-17-2018 End: 11-17-2018 Meloxicam November 17, 2018 Dis continued Start: 11-17-2018 End: 11-17-2018 Meloxicam November 17, 2018Nov us2018 Discontinued Start: 11-17-2018 End: 11-17-2018 Meloxicam 15 mg tablet Disco ntinued TABLET November 17, 2018 12:00am November 17, 2018 8:58am Start: 11-17-2018 End: 11-17-2018 Meloxicam Discontinued TABLE T November 16, 2018 11:00pm November 17, 2018 7:58am OLANZapine 5 mg oral tablet (6 sources) Atypical Antipsychotic Start: 12-11-2018 End: 12-26-2018 take 1 tablet by mouth once daily at bedtime Olanzapine (Zyprexa) 5 mg Tablet Discontinued 5 MG PO Daily at bedtime December 11, 2018 12:00am December 26, 2018 9:16am sucralfate 100 mg/ml oral suspension (10 sources) Aluminum Complex Start: 11-17-2018 End: 11-17-2018 Sucralfate [Carafate] November 17, 2018 November 17, 2018 Discontinued Start: 11-17-2018 End: 11-17-2018 Sucralfate November 17, 2018 Di scontinued Start: 11-17-2018 End: 11-17-2018 Sucralfate November 17, 2018 Di scontinued Start: 11-17-2018 End: 11-17-2018 Sucralfate [Carafate] November 17, 2018 November 17, 2018 Discontinued Start: 11-17-2018 End: 11-17-2018 Sucralfate [Carafate] November 17, 2018 November 17, 2018 Discontinued Start: 11-17-2018 End: 11-17-2018 Sucralfate November 17, 2018 Di scontinued Start: 11-17-2018 End: 11-17-2018 Sucralfate [Carafate] November 17, 2018 November 17, 2018 Discontinued Start: 11-17-2018 End: 11-17-2018 Sucralfate November 17, 2018 Di scontinued Start: 11-17-2018 End: 11-17-2018 Sucralfate (Carafate) 100 mg /mL suspension Discontinued SUSPENSION November 17, 2018 12:00am November 17, 2018 8:59am traZODone hydrochloride 50 mg oral tablet (20 sources) Serotonin Reuptake Inhibitor Start: 11-17-2018 End: 11-22-2018 take 1 tablet by mouth once daily at bedtime Trazodone 100 mg Tablet Discontinued 100 MG PO Daily at bedtime November 17, 2018 12:00am November 22, 2018 8:35am Start: 11-17-2018 End: 11-22-2018 take 1 tablet by mouth at bedtime Trazodone 50 mg tablet Discontinued 50 MG PO Bedtime November 17, 2018 12:00am November 22, 2018 8:35am insomnia Problems Active Problems Problem Classification Problem Date Documented Da te Episodic/Chronic Abdominal pain (1 source) Left lower quadrant pain; Translations: [LEFT LOWER QUADRANT PAIN] Onset: 12-25-2020 Episodic Acute and unspecified renal failure (3 sources) Acute kidney failure, unspecified; Translations: [Acute renal failure syndrome] Onset: 12-25-2020 11-18-2018 Episodic Administrative/social admission (20 sources) Dietary management surveillance; Translations: [Dietary counseling and surveillance] Onset: 02-17-2021 Resolved: 12-23-2021 Episodic Chronic kidney disease (20 sources) Chronic kidney disease stage 3; Translations: [Stage 3 chronic kidney disease] Onset: 08-11-2022 12-15-2018 Chronic Chronic obstructive pulmonary disease and bronchiectasis (2 sources) Bronchitis; Translations: [Bronchitis, not specified as acute or chronic] 06-19-2024 Episodic Crushing injury or internal injury (4 sources) Injury of kidney Episodic Diabetes mellitus with complications (20 sources) Disorder due to type 2 diabetes mellitus; Translations: [Type 2 diabetes mellitus with unspecified complications] Onset: 10-26-2016 Resolved: 08-31-2023 Chronic Diabetes mellitus without complication (20 sources) Type 2 diabetes mellitus without complications; Translations: [Diabetes mellitus] Onset: 10-10-2017 12-15-2018 Chronic Diseases of white blood cells (3 sources) Leukocytosis; Translations: [Elevated white blood cell count, unspecified] 12-18-2018 Chronic Disorders of lipid metabolism (20 sources) Hyperlipidemia; Translations: [Hyperlipidemia, unspecified] Onset: 12-25-2020 Resolved: 12-23-2021 Chronic Esophageal disorders (1 source) Gastro-esophageal reflux disease without esophagitis; Translations: [GASTRO-ESOPHAGEAL REFLUX DISEASE WITHOUT ESOPHAGITIS] Onset: 10-10-2017 Chronic Essential hypertension (20 sources) Essential (primary) hypertension; Translations: [Hypertensive disorder] Onset: 10-10-2017 Resolved: 12-23-2021 Chronic Fever of unknown origin (8 sources) Fever; Translations: [Fever, unspecified] 12-19-2018 Episodic Fluid and electrolyte disorders (7 sources) Hyponatremia; Translations: [Dehydration] Onset: 12-25-2020 12-15-2018 Episodic Genitourinary symptoms and ill-defined conditions (19 sources) Retention of urine; Translations: [Painful urging to urinate] Onset: 02-17-2021 Resolved: 12-23-2021 Episodic Hyperplasia of prostate (20 sources) Benign prostatic hyperplasia; Translations: [Benign prostatic hyperplasia with lower urinary tract symptoms] Onset: 01-07-2020 08-11-2022 Chronic Influenza (2 sources) Influenza due to Influenza A virus; Translations: [Influenza due to other identified influenza virus with other respiratory manifestations] 06-19-2024 Episodic Mycoses (3 sources) Onychomycosis due to dermatophyte ; Translations: [Tinea unguium] 01-02-2024 Episodic Noninfectious gastroenteritis (3 sources) Noninfective gastroenteritis and colitis, unspecified; Translations: [NONINFECTIVE GE AND COLITIS UNS] Onset: 12-15-2020 Episodic Nutritional deficiencies (20 sources) Vitamin D deficiency; Translations: [Vitamin D deficiency, unspecified] Onset: 08-11-2022 08-11-2022 Chronic Other aftercare (2 sources) long term care pharmacist (current) use of aspirin; Translations: [UNDERGROUND DISTRIBUTION ENGINEER (CURRENT) USE OF ASPIRIN] Onset: 10-10-2017 Episodic Other connective tissue disease (4 sources) Unspecified rotator cuff tear or rupture of right shoulder, not specified as traumatic; Translations: [UNSP ROTATR-CUFF TEAR/RUPTR OF RIGHT SHOULDER, NOT TRAUMA] Onset: 01-19-2018 Episodic Other connective tissue disease (6 sources) Pain in toe; Translations: [Pain in right toe(s)] 01-02-2024 Episodic Other diseases of bladder and urethra (16 sources) Neurogenic bladder; Translations: [Neuromuscular dysfunction of bladder, unspecified] Onset: 08-11-2022 08-11-2022 Chronic Other endocrine disorders (13 sources) Drug-induced hypoglycemia without coma; Translations: [Drug-induced hypoglycemia without coma] Chronic Other gastrointestinal disorders (16 sources) Chronic idiopathic constipation; Translations: [Chronic idiopathic constipation] Onset: 08-11-2022 08-11-2022 Chronic Other gastrointestinal disorders (3 sources) Diarrhea; Translations: [Diarrhea, unspecified] 12-15-2018 Episodic Other hematologic conditions (6 sources) ESR raised; Translations: [Elevated erythrocyte sedimentation rate] 12-04-2018 Episodic Other hereditary and degenerative nervous system conditions (16 sources) Extrapyramidal disease; Translations: [Extrapyramidal and movement disorder, unspecified] Onset: 08-11-2022 08-11-2022 Chronic Other hereditary and degenerative nervous system conditions (16 sources) Extrapyramidal movements; Translations: [Extrapyramidal and movement disorder, unspecified] Onset: 01-07-2018 09-02-2022 Chronic Other nervous system disorders (4 sources) Lesion of ulnar nerve, right upper limb; Translations: [LESION OF ULNAR NERVE, RIGHT UPPER LIMB] Onset: 10-10-2017 Chronic Other nutritional; endocrine; and metabolic disorders (1 source) Morbid (severe) obesity due to excess calories; Translations: [MORBID SEVERE OBES D/T EXCESS NANCY] Onset: 12-25-2020 Chronic Other nutritional; endocrine; and metabolic disorders (3 sources) Body mass index (BMI) 35.0-35.9, adult; Translations: [BODY MASS INDEX BMI 35.0-35.9 ADULT] Onset: 12-25-2020 Resolved: 09-22-2021 Chronic Other nutritional; endocrine; and metabolic disorders (13 sources) Obesity; Translations: [Obesity, unspecified] Chronic Other nutritional; endocrine; and metabolic disorders (20 sources) Obese class II; Translations: [Body mass index (BMI) 37.0-37.9, adult] Chronic Other nutritional; endocrine; and metabolic disorders (13 sources) Obese class I; Translations: [Body mass index (BMI) 34.0-34.9, adult] Chronic Other nutritional; endocrine; and metabolic disorders (4 sources) Body mass index (BMI) 36.0-36.9, adult Onset: 02-17-2021 Resolved: 12-23-2021 Chronic Other nutritional; endocrine; and metabolic disorders (4 sources) Body mass index (BMI) 37.0-37.9, adult; Translations: [Body Mass Index 37.0-37.9, adult] Chronic Other nutritional; endocrine; and metabolic disorders (18 sources) Morbid obesity; Translations: [Morbid (severe) obesity due to excess calories] Onset: 08-11-2022 08-11-2022 Chronic Other nutritional; endocrine; and metabolic disorders (2 sources) Body mass index 30+ - obesity; Translations: [Body mass index (BMI) 36.0-36.9, adult] 11-29-2023 Chronic Other screening for suspected conditions (not mental disorders or infectious disease) (3 sources) Raised prostate specific antigen; Translations: [Elevated prostate specific antigen [PSA]] 12-20-2018 Episodic Other skin disorders (13 sources) Foot callus; Translations: [Corns and callosities] Episodic Other skin disorders (3 sources) Dystrophia unguium; Translations: [Nail dystrophy] 01-02-2024 Episodic Other upper respiratory infections (2 sources) Viral upper respiratory tract infection; Translations: [Acute upper respiratory infection, unspecified] 06-19-2024 Episodic Otitis media and related conditions (2 sources) Acute right otitis media; Translations: [Otitis media, unspecified, right ear] 06-19-2024 Episodic Residual codes; unclassified (4 sources) Transient altered mental status Episodic Residual codes; unclassified (2 sources) Transient alteration of awareness; Translations: [Transient alteration of awareness] 11-29-2018 Episodic Residual codes; unclassified (1 source) Edema; Translations: [Edema, unspecified] 03-07-2024 Episodic Schizophrenia and other psychotic disorders (20 sources) Schizophrenia; Translations: [Schizoaffective disorder] Onset: 12-23-2017 08-11-2022 Chronic Schizophrenia and other psychotic disorders (2 sources) Acute schizophrenic episode; Translations: [Brief psychotic disorder] 12-15-2018 Episodic Septicemia (except in labor) (8 sources) Sepsis; Translations: [Sepsis, unspecified organism] 12-09-2018 Episodic Spondylosis; intervertebral disc disorders; other back problems (1 source) Other cervical disc degeneration at C5-C6 level; Translations: [OTHER CERVICAL DISC DEGENERATION AT C5-C6 LEVEL] Onset: 09-08-2017 Thyroid disorders (17 sources) Acquired hypothyroidism; Translations: [Hypothyroidism, unspecified] Onset: 08-11-2022 08-11-2022 Chronic Unclassified (2 sources) Unknown / UNK(Unknown) Onset: 09-08-2017 Unclassified (1 source) CONTACT W/AND (SUSP) EXPOS COVID-19; Translations: [CONTACT W/AND (SUSP) EXPOS COVID-19] Onset: 12-25-2020 Urinary tract infections (6 sources) Urinary tract infectious disease; Translations: [Urinary tract infection, site not specified] 12-15-2018 Episodic Past or Other Problems Problem Classification Problem Date Documented Da te Episodic/Chronic Allergic reactions (1 source) Allergy status to sulfonamides status; Translations: [ALLERGY STATUS TO SULFONAMIDES STATUS] Onset: 10-10-2017 Episodic Diseases of mouth; excluding dental (16 sources) Excessive salivation; Translations: [Disturbances of salivary secretion] Onset: 08-11-2022 Resolved: 08-30-2024 08-11-2022 Episodic Nutritional deficiencies (12 sources) Deficiency of other specified B group vitamins; Translations: [Cobalamin deficiency] Onset: 02-17-2021 Resolved: 12-23-2021 Episodic Other aftercare (12 sources) nursing home (current) use of insulin; Translations: [UNDERGROUND DISTRIBUTION ENGINEER (CURRENT) USE OF INSULIN] Onset: 10-10-2017 Resolved: 12-23-2021 Episodic Other aftercare (2 sources) Other rat exterminator (current) drug therapy; Translations: [OTH UNDERGROUND DISTRIBUTION ENGINEER CURRENT DRUG THERAPY] Onset: 12-25-2020 Episodic Other aftercare (20 sources) Long-term current use of insulin; Translations: [long term care pharmacist (current) use of insulin] Onset: 02-16-2016 09-02-2022 Episodic Other and unspecified benign neoplasm (16 sources) History of polyp of colon; Translations: [History of colonic polyps] Onset: 01-08-2021 09-02-2022 Episodic Other diseases of kidney and ureters (16 sources) Disorder of urinary tract; Translations: [Other obstructive and reflux uropathy] Onset: 08-11-2022 08-11-2022 Episodic Other non-traumatic joint disorders (4 sources) Pain in unspecified shoulder; Translations: [PAIN IN UNSPECIFIED SHOULDER] Onset: 09-08-2017 Episodic Other non-traumatic joint disorders (16 sources) Shoulder pain; Translations: [Pain in unspecified shoulder] Onset: 09-08-2017 Resolved: 08-31-2023 08-31-2023 Episodic Residual codes; unclassified (16 sources) Acute confusion; Translations: [Disorientation, unspecified] Onset: 10-29-2017 Resolved: 08-30-2024 09-02-2022 Episodic Residual codes; unclassified (16 sources) Confusional state; Translations: [Disorientation, unspecified] Onset: 12-23-2017 Resolved: 08-30-2024 09-02-2022 Episodic Screening or history of mental health and substance abuse (1 source) Personal history of nicotine dependence; Translations: [PERSONAL HISTORY OF NICOTINE DEPENDENCE] Onset: 10-10-2017 Episodic Results Test Name Value Interpretation Reference Range Facility CBC WITH AUTO DIFFERENTIALon 11-09-2024 BASOPHILS ABSOLUTE COUNT (10*3/UL) BY AUTOMATED COUNT 0.1 10*3/uL Normal 0.0-0.2 [facility] Comment on above: Performed By: #### 2 4331-1, CMP, TSHR, 2131-12 #### [facility] ([id number]) [address], [address] [place] [address] BASOPHILS RELATIVE PERCENT BY AUTOMATED COUNT 1.0 % Normal [facility] Comment on above: Performed By: #### 2 4331-1, CMP, TSHR, 2131-12 #### [facility] ([id number]) [address] [place] [address] CELLAVISION DIFFERENTIAL TYPE AUTOMATED DIFFERENTIAL Normal [facility] Comment on above: Performed By: #### 2 4331-1, CMP, TSHR, 2131-12 #### [facility] ([id number]) [address] [address] Eosinophils (Bld) [#/Vol] 0.3 10*3/uL Normal 0.0-0.4 [facility] Comment on above: Performed By: #### 2 4331-1, CMP, TSHR, 2131-12 #### [facility] ([id number]) [address] [place] [address] EOSINOPHILS RELATIVE PERCENT BY AUTOMATED COUNT 3.3 % Normal [facility] Comment on above: Performed By: #### 2 4331-1, CMP, TSHR, 2131-12 #### [facility] ([id number]) [address] [address] [place] [address] Erythrocyte distribution width (RBC) [Ratio] 13.6 % Normal 11.5-15 [facility] Comment on above: Performed By: #### 2 4331-1, CMP, TSHR, 2131-12 #### [facility] ([id number]) [address] [place] [address] Hematocrit (Bld) [Volume fraction] 37.5 % Low 39-50 [facility] Comment on above: Performed By: #### 2 4331-1, CMP, TSHR, 2131-12 #### [facility] ([id number]) [address] [facility] [place] [address] Hemoglobin (Bld) [Mass/Vol] 12.9 g/dL Low 13-17 [facility] Comment on above: Performed By: #### 2 4331-1, CMP, TSHR, 2131-12 #### [facility] ([id number]) [address] [facility] [address] [place] [address] LYMPHOCYTES ABSOLUTE COUNT (10*3/UL) BY AUTOMATED COUNT 2.9 10*3/uL Normal 1.0-3.5 [facility] Comment on above: Performed By: #### 2 4331-1, CMP, TSHR, 2131-12 #### [facility] ([id number]) [address] [facility] [address] [place] [address] LYMPHOCYTES RELATIVE PERCENT BY AUTOMATED COUNT 31.4 % Normal [facility] Comment on above: Performed By: #### 2 4331-1, CMP, TSHR, 2131-12 #### [facility] ([id number]) [address] [address] [place] [address] MCH (RBC) [Entitic mass] 30.0 pg Normal 27-34 [facility] Comment on above: Performed By: #### 2 4331-1, CMP, TSHR, 2131-12 #### [facility] ([id number]) [address] [place] [address] MCHC (RBC) [Mass/Vol] 34.5 g/dL Normal 32-36 [facility] Comment on above: Performed By: #### 2 4331-1, CMP, TSHR, 2131-12 #### [facility] ([id number]) [address] [address] [place] [address] MCV (RBC) [Entitic vol] 87 fL Normal 80-100 [facility] Comment on above: Performed By: #### 2 4331-1, CMP, TSHR, 2131-12 #### [facility] ([id number]) [address] [place] [address] MONOCYTES ABSOLUTE COUNT (10*3/UL) BY AUTOMATED COUNT 0.7 10*3/uL Normal 0.0-0.9 [facility] Comment on above: Performed By: #### 2 4331-1, CMP, TSHR, 2131-12 #### [facility] ([id number]) [address] [place] [address] MONOCYTES RELATIVE PERCENT BY AUTOMATED COUNT 7.6 % Normal [facility] Comment on above: Performed By: #### 2 4331-1, CMP, TSHR, 2131-12 #### [facility] ([id number]) [address] [facility] [address] [place] [address] NEUTROPHILS ABSOLUTE COUNT BY AUTOMATED COUNT 5.2 10*3/uL Normal 1.5-6.6 [facility] Comment on above: Performed By: #### 2 4331-1, CMP, TSHR, 2131-12 #### [facility] ([id number]) [address] [place] [address] NEUTROPHILS RELATIVE PERCENT BY AUTOMATED COUNT 56.7 % Normal [facility] Comment on above: Performed By: #### 2 4331-1, CMP, TSHR, 2131-12 #### [facility] ([id number]) [address] [address] [place] [address] Platelet mean volume (Bld) [Entitic vol] 8.2 fL Normal 7-12 [facility] Comment on above: Performed By: #### 2 4331-1, CMP, TSHR, 2131-12 #### [facility] ([id number]) [address] [address] [place] [address] Platelets (Bld) [#/Vol] 294 10*3/uL Normal 150-450 [facility] Comment on above: Performed By: #### 2 4331-1, CMP, TSHR, 2131-12 #### [facility] ([id number]) [address], [address] [place] [address] RBC COUNT 4.31 X10E12/L Normal 4.1-5.7 [facility] Comment on above: Performed By: #### 2 4331-1, CMP, TSHR, 2131-12 #### [facility] ([id number]) [address], [address] [place] [address] WBC (Bld) [#/Vol] 9.2 10*3/uL Normal 4-11 [facility] Comment on above: Performed By: #### 2 4331-1, CMP, TSHR, 2131-12 #### [facility] ([id number]) [address], [facility] [address] [place] [address] CBC WITH AUTO DIFFERENTIALon 10-08-2024 BASOPHILS ABSOLUTE COUNT (10*3/UL) BY AUTOMATED COUNT 0.1 10*3/uL Normal 0.0-0.2 [facility] Comment on above: Performed By: #### 2 4331-1, CMP, TSHR, 2131-12 #### [facility] ([id number]) [address], [facility] [address] [place] [address] BASOPHILS RELATIVE PERCENT BY AUTOMATED COUNT 1.0 % Normal [facility] Comment on above: Performed By: #### 2 4331-1, CMP, TSHR, 2131-12 #### [facility] ([id number]) [address], [facility] [address] [place] [address] CELLAVISION DIFFERENTIAL TYPE AUTOMATED DIFFERENTIAL Normal [facility] Comment on above: Performed By: #### 2 4331-1, CMP, TSHR, 2131-12 #### [facility] ([id number]) [address] [address] [place] [address] Eosinophils (Bld) [#/Vol] 0.3 10*3/uL Normal 0.0-0.4 [facility] Comment on above: Performed By: #### 2 4331-1, CMP, TSHR, 2131-12 #### [facility] ([id number]) [address], [address] [place] [address] EOSINOPHILS RELATIVE PERCENT BY AUTOMATED COUNT 3.5 % Normal [facility] Comment on above: Performed By: #### 2 4331-1, CMP, TSHR, 2131-12 #### [facility] ([id number]) [address], [facility] [address] [place] [address] Erythrocyte distribution width (RBC) [Ratio] 13.6 % Normal 11.5-15 [facility] Comment on above: Performed By: #### 2 4331-1, CMP, TSHR, 2131-12 #### [facility] ([id number]) [address] [address] [place] [address] Hematocrit (Bld) [Volume fraction] 36.6 % Low 39-50 [facility] Comment on above: Performed By: #### 2 4331-1, CMP, TSHR, 2131-12 #### [facility] ([id number]) [address] [address] [place] [address] Hemoglobin (Bld) [Mass/Vol] 12.7 g/dL Low 13-17 [facility] Comment on above: Performed By: #### 2 4331-1, CMP, TSHR, 2131-12 #### [facility] ([id number]) [address], [address] [place] [address] LYMPHOCYTES ABSOLUTE COUNT (10*3/UL) BY AUTOMATED COUNT 2.4 10*3/uL Normal 1.0-3.5 [facility] Comment on above: Performed By: #### 2 4331-1, CMP, TSHR, 2131-12 #### [facility] ([id number]) [address] [address] [place] [address] LYMPHOCYTES RELATIVE PERCENT BY AUTOMATED COUNT 33.5 % Normal [facility] Comment on above: Performed By: #### 2 4331-1, CMP, TSHR, 2131-12 #### [facility] ([id number]) [address], [address] [place] [address] MCH (RBC) [Entitic mass] 30.0 pg Normal 27-34 [facility] Comment on above: Performed By: #### 2 4331-1, CMP, TSHR, 2131-12 #### [facility] ([id number]) [address], [address] [place] [address] MCHC (RBC) [Mass/Vol] 34.6 g/dL Normal 32-36 [facility] Comment on above: Performed By: #### 2 4331-1, CMP, TSHR, 2131-12 #### [facility] ([id number]) [address], [address] [place] [address] MCV (RBC) [Entitic vol] 87 fL Normal 80-100 [facility] Comment on above: Performed By: #### 2 4331-1, CMP, TSHR, 2131-12 #### [facility] ([id number]) [address], [address] [place] [address] MONOCYTES ABSOLUTE COUNT (10*3/UL) BY AUTOMATED COUNT 0.4 10*3/uL Normal 0.0-0.9 [facility] Comment on above: Performed By: #### 2 4331-1, CMP, TSHR, 2131-12 #### [facility] ([id number]) [address], [address] [place] [address] MONOCYTES RELATIVE PERCENT BY AUTOMATED COUNT 5.7 % Normal [facility] Comment on above: Performed By: #### 2 4331-1, CMP, TSHR, 2131-12 #### [facility] ([id number]) [address], [address] [place] [address] NEUTROPHILS ABSOLUTE COUNT BY AUTOMATED COUNT 4.1 10*3/uL Normal 1.5-6.6 [facility] Comment on above: Performed By: #### 2 4331-1, CMP, TSHR, 2131-12 #### [facility] ([id number]) [address] [address] NEUTROPHILS RELATIVE PERCENT BY AUTOMATED COUNT 56.3 % Normal [facility] Comment on above: Performed By: #### 2 4331-1, CMP, TSHR, 2131-12 #### [facility] ([id number]) [address] [address] Platelet mean volume (Bld) [Entitic vol] 8.1 fL Normal 7-12 [facility] Comment on above: Performed By: #### 2 4331-1, CMP, TSHR, 2131-12 #### [facility] ([id number]) [address] [address] Platelets (Bld) [#/Vol] 246 10*3/uL Normal 150-450 [facility] Comment on above: Performed By: #### 2 4331-1, CMP, TSHR, 2131-12 #### [facility] ([id number]) [address] [address] RBC COUNT 4.22 X10E12/L Normal 4.1-5.7 [facility] Comment on above: Performed By: #### 2 4331-1, CMP, TSHR, 2131-12 #### [facility] ([id number]) [address] [address] WBC (Bld) [#/Vol] 7.2 10*3/uL Normal 4-11 [facility] Comment on above: Performed By: #### 2 4331-1, CMP, TSHR, 2131-12 #### [facility] ([id number]) [address] [address] CBC WITH AUTO DIFFERENTIALon 09-10-2024 BASOPHILS ABSOLUTE COUNT (10*3/UL) BY AUTOMATED COUNT 0.1 10*3/uL Normal 0.0-0.2 [facility] Comment on above: Performed By: #### 2 4331-1, CMP, TSHR, 2131-12 #### [facility] ([id number]) [address] [address] [place] [address] BASOPHILS RELATIVE PERCENT BY AUTOMATED COUNT 1.9 % Normal [facility] Comment on above: Performed By: #### 2 4331-1, CMP, TSHR, 2131-12 #### [facility] ([id number]) [address] [address] [place] [address] CELLAVISION DIFFERENTIAL TYPE AUTOMATED DIFFERENTIAL Normal [facility] Comment on above: Performed By: #### 2 4331-1, CMP, TSHR, 2131-12 #### [facility] ([id number]) [address] [address] [place] [address] Eosinophils (Bld) [#/Vol] 0.3 10*3/uL Normal 0.0-0.4 [facility] Comment on above: Performed By: #### 2 4331-1, CMP, TSHR, 2131-12 #### [facility] ([id number]) [address] [address] [place] [address] EOSINOPHILS RELATIVE PERCENT BY AUTOMATED COUNT 4.1 % Normal [facility] Comment on above: Performed By: #### 2 4331-1, CMP, TSHR, 2131-12 #### [facility] ([id number]) [address] [address] [place] [address] Erythrocyte distribution width (RBC) [Ratio] 13.9 % Normal 11.5-15 [facility] Comment on above: Performed By: #### 2 4331-1, CMP, TSHR, 2131-12 #### [facility] ([id number]) [address], [facility] [address] [place] [address] Hematocrit (Bld) [Volume fraction] 36.4 % Low 39-50 [facility] Comment on above: Performed By: #### 2 4331-1, CMP, TSHR, 2131-12 #### [facility] ([id number]) [address], [facility] [address] [place] [address] Hemoglobin (Bld) [Mass/Vol] 12.4 g/dL Low 13-17 [facility] Comment on above: Performed By: #### 2 4331-1, CMP, TSHR, 2131-12 #### [facility] ([id number]) [address], [facility] [address] [place] [address] LYMPHOCYTES ABSOLUTE COUNT (10*3/UL) BY AUTOMATED COUNT 2.7 10*3/uL Normal 1.0-3.5 [facility] Comment on above: Performed By: #### 2 4331-1, CMP, TSHR, 2131-12 #### [facility] ([id number]) [address] [address] [place] [address] LYMPHOCYTES RELATIVE PERCENT BY AUTOMATED COUNT 35.2 % Normal [facility] Comment on above: Performed By: #### 2 4331-1, CMP, TSHR, 2131-12 #### [facility] ([id number]) [address], [facility] [address] [place] [address] MCH (RBC) [Entitic mass] 29.7 pg Normal 27-34 [facility] Comment on above: Performed By: #### 2 4331-1, CMP, TSHR, 2131-12 #### [facility] ([id number]) [address] [address] [place] [address] MCHC (RBC) [Mass/Vol] 34.0 g/dL Normal 32-36 [facility] Comment on above: Performed By: #### 2 4331-1, CMP, TSHR, 2131-12 #### [facility] ([id number]) [address], [address] [place] [address] MCV (RBC) [Entitic vol] 88 fL Normal 80-100 [facility] Comment on above: Performed By: #### 2 4331-1, CMP, TSHR, 2131-12 #### [facility] ([id number]) [address], [facility] [address] [place] [address] MONOCYTES ABSOLUTE COUNT (10*3/UL) BY AUTOMATED COUNT 0.5 10*3/uL Normal 0.0-0.9 [facility] Comment on above: Performed By: #### 2 4331-1, CMP, TSHR, 2131-12 #### [facility] ([id number]) [address], [facility] [address] [place] [address] MONOCYTES RELATIVE PERCENT BY AUTOMATED COUNT 6.7 % Normal [facility] Comment on above: Performed By: #### 2 4331-1, CMP, TSHR, 2131-12 #### [facility] ([id number]) [address] [address] [place] [address] NEUTROPHILS ABSOLUTE COUNT BY AUTOMATED COUNT 4.0 10*3/uL Normal 1.5-6.6 [facility] Comment on above: Performed By: #### 2 4331-1, CMP, TSHR, 2131-12 #### [facility] ([id number]) [address], [facility] [address] [place] [address] NEUTROPHILS RELATIVE PERCENT BY AUTOMATED COUNT 52.1 % Normal [facility] Comment on above: Performed By: #### 2 4331-1, CMP, TSHR, 2131-12 #### [facility] ([id number]) [address] [address] [place] [address] Platelet mean volume (Bld) [Entitic vol] 8.3 fL Normal 7-12 [facility] Comment on above: Performed By: #### 2 4331-1, CMP, TSHR, 2131-12 #### [facility] ([id number]) [address], [address] [place] [address] Platelets (Bld) [#/Vol] 235 10*3/uL Normal 150-450 [facility] Comment on above: Performed By: #### 2 4331-1, CMP, TSHR, 2131-12 #### [facility] ([id number]) [address], [address] [place] [address] RBC COUNT 4.16 X10E12/L Normal 4.1-5.7 [facility] Comment on above: Performed By: #### 2 4331-1, CMP, TSHR, 2131-12 #### [facility] ([id number]) [address], [address] [place] [address] WBC (Bld) [#/Vol] 7.6 10*3/uL Normal 4-11 [facility] Comment on above: Performed By: #### 2 4331-1, CMP, TSHR, 2131-12 #### [facility] ([id number]) [address] [place] [address] CBC WITH AUTO DIFFERENTIALon 08-10-2024 BASOPHILS ABSOLUTE COUNT (10*3/UL) BY AUTOMATED COUNT 0.1 10*3/uL Normal [facility] Comment on above: Performed By: #### 2 4331-1, CMP, TSHR, 2131-12 #### [facility] ([id number]) [address] [place] [address] BASOPHILS RELATIVE PERCENT BY AUTOMATED COUNT 1.0 % Normal [facility] Comment on above: Performed By: #### 2 4331-1, CMP, TSHR, 2131-12 #### [facility] ([id number]) [address], [address] [place] [address] CELLAVISION DIFFERENTIAL TYPE AUTOMATED DIFFERENTIAL Normal [facility] Comment on above: Performed By: #### 2 4331-1, CMP, TSHR, 2131-12 #### [facility] ([id number]) [address] [address] [place] [address] Eosinophils (Bld) [#/Vol] 0.3 10*3/uL Normal [facility] Comment on above: Performed By: #### 2 4331-1, CMP, TSHR, 2131-12 #### [facility] ([id number]) [address], [facility] [address] [place] [address] EOSINOPHILS RELATIVE PERCENT BY AUTOMATED COUNT 4.1 % Normal [facility] Comment on above: Performed By: #### 2 4331-1, CMP, TSHR, 2131-12 #### [facility] ([id number]) [address] [address] [place] [address] Erythrocyte distribution width (RBC) [Ratio] 14.0 % Normal 11.5-15 [facility] Comment on above: Performed By: #### 2 4331-1, CMP, TSHR, 2131-12 #### [facility] ([id number]) [address] [address] [place] [address] Hematocrit (Bld) [Volume fraction] 36.8 % Low 39-50 [facility] Comment on above: Performed By: #### 2 4331-1, CMP, TSHR, 2131-12 #### [facility] ([id number]) [address] [address] [place] [address] Hemoglobin (Bld) [Mass/Vol] 12.3 g/dL Low 13-17 [facility] Comment on above: Performed By: #### 2 4331-1, CMP, TSHR, 2131-12 #### [facility] ([id number]) [address] [address] [place] [address] LYMPHOCYTES ABSOLUTE COUNT (10*3/UL) BY AUTOMATED COUNT 2.3 10*3/uL Normal [facility] Comment on above: Performed By: #### 2 4331-1, CMP, TSHR, 2131-12 #### [facility] ([id number]) [address] [address] [place] [address] LYMPHOCYTES RELATIVE PERCENT BY AUTOMATED COUNT 31.3 % Normal [facility] Comment on above: Performed By: #### 2 4331-1, CMP, TSHR, 2131-12 #### [facility] ([id number]) [address] [address] [place] [address] MCH (RBC) [Entitic mass] 29.6 pg Normal 27-34 [facility] Comment on above: Performed By: #### 2 4331-1, CMP, TSHR, 2131-12 #### [facility] ([id number]) [address] [address] [place] [address] MCHC (RBC) [Mass/Vol] 33.5 g/dL Normal 32-36 [facility] Comment on above: Performed By: #### 2 4331-1, CMP, TSHR, 2131-12 #### [facility] ([id number]) [address] [address] [place] [address] MCV (RBC) [Entitic vol] 88 fL Normal 80-100 [facility] Comment on above: Performed By: #### 2 4331-1, CMP, TSHR, 2131-12 #### [facility] ([id number]) [address] [address] [place] [address] MONOCYTES ABSOLUTE COUNT (10*3/UL) BY AUTOMATED COUNT 0.5 10*3/uL Normal [facility] Comment on above: Performed By: #### 2 4331-1, CMP, TSHR, 2131-12 #### [facility] ([id number]) [address] [address] [place] [address] MONOCYTES RELATIVE PERCENT BY AUTOMATED COUNT 7.3 % Normal [facility] Comment on above: Performed By: #### 2 4331-1, CMP, TSHR, 2131-12 #### [facility] ([id number]) [address] [address] [place] [address] NEUTROPHILS ABSOLUTE COUNT BY AUTOMATED COUNT 4.1 10*3/uL Normal [facility] Comment on above: Performed By: #### 2 4331-1, CMP, TSHR, 2131-12 #### [facility] ([id number]) [address] [address] [place] [address] NEUTROPHILS RELATIVE PERCENT BY AUTOMATED COUNT 56.3 % Normal [facility] Comment on above: Performed By: #### 2 4331-1, CMP, TSHR, 2131-12 #### [facility] ([id number]) [address] [address] [place] [address] Platelet mean volume (Bld) [Entitic vol] 8.8 fL Normal 7-12 [facility] Comment on above: Performed By: #### 2 4331-1, CMP, TSHR, 2131-12 #### [facility] ([id number]) [address] [address] [place] [address] Platelets (Bld) [#/Vol] 253 10*3/uL Normal 150-450 [facility] Comment on above: Performed By: #### 2 4331-1, CMP, TSHR, 2131-12 #### [facility] ([id number]) [address] [address] [place] [address] RBC COUNT 4.17 X10E12/L Normal 4.1-5.7 [facility] Comment on above: Performed By: #### 2 4331-1, CMP, TSHR, 2131-12 #### [facility] ([id number]) [address] [address] [place] [address] WBC (Bld) [#/Vol] 7.3 10*3/uL Normal 4-11 [facility] Comment on above: Performed By: #### 2 4331-1, CMP, TSHR, 2131-12 #### [facility] ([id number]) [address] [place] [address] HbA1c HPLC (Bld) [Mass fract ion]on 06-14-2024 HbA1c (Bld) [Mass fraction] Hemoglobin A1c/Hemoglobin.total in Blood by HPLC [facility] No Panel Informationon 06-14 Bedside Glucose 119 [facility] CBC AND AUTO DIFFon 06-10-19 25 ABSOLUTE BASOPHIL 0.1 X10E9/L Normal 0.0-0.2 [facility] Comment on above: Performed By: #### 2 4331-1, CMP, TSHR, 2131-12 #### [facility] ([id number]) [address], [address] [place] [address] ABSOLUTE NEUTROPHIL 4.1 X10E9/L Normal 1.5-6.6 [facility] Comment on above: Performed By: #### 2 4331-1, CMP, TSHR, 2131-12 #### [facility] ([id number]) [address] [place] [address] Basophils/100 WBC (Bld) 0.8 % Normal [facility] Comment on above: Performed By: #### 2 4331-1, CMP, TSHR, 2131-12 #### [facility] ([id number]) [address] [place] [address] Eosinophils (Bld) [#/Vol] 0.2 10*3/uL Normal 0.0-0.4 [facility] Comment on above: Performed By: #### 2 4331-1, CMP, TSHR, 2131-12 #### [facility] ([id number]) [address] [place] [address] Eosinophils/100 WBC (Bld) 2.7 % Normal [facility] Comment on above: Performed By: #### 2 4331-1, CMP, TSHR, 2131-12 #### [facility] ([id number]) [address] [address] [place] [address] Erythrocyte distribution width (RBC) [Ratio] 14.0 % Normal 11.5-15.0 [facility] Comment on above: Performed By: #### 2 4331-1, CMP, TSHR, 2131-12 #### [facility] ([id number]) [address] [address] [place] [address] Hematocrit (Bld) [Volume fraction] 36.7 % Low 39-49 [facility] Comment on above: Performed By: #### 2 4331-1, CMP, TSHR, 2131-12 #### [facility] ([id number]) [address] [address] [place] [address] Hemoglobin (Bld) [Mass/Vol] 12.3 g/dL Low 13.0-17.0 [facility] Comment on above: Performed By: #### 2 4331-1, CMP, TSHR, 2131-12 #### [facility] ([id number]) [address] [address] [place] [address] Lymphocytes (Bld) [#/Vol] 2.7 10*3/uL Normal 1.0-3.5 [facility] Comment on above: Performed By: #### 2 4331-1, CMP, TSHR, 2131-12 #### [facility] ([id number]) [address] [address] [place] [address] Lymphocytes/100 WBC (Bld) 36.4 % Normal [facility] Comment on above: Performed By: #### 2 4331-1, CMP, TSHR, 2131-12 #### [facility] ([id number]) [address] [address] [place] [address] MCH (RBC) [Entitic mass] 30.1 pg Normal 27-34 [facility] Comment on above: Performed By: #### 2 4331-1, CMP, TSHR, 2131-12 #### [facility] ([id number]) [address] [place] [address] MCHC (RBC) [Mass/Vol] 33.6 g/dL Normal 32-36 [facility] Comment on above: Performed By: #### 2 4331-1, CMP, TSHR, 2131-12 #### [facility] ([id number]) [address] [facility] [address] [place] [address] MCV (RBC) [Entitic vol] 90 fL Normal 80-100 [facility] Comment on above: Performed By: #### 2 4331-1, CMP, TSHR, 2131-12 #### [facility] ([id number]) [address], [facility] [address] [place] [address] Monocytes (Bld) [#/Vol] 0.4 10*3/uL Normal 0-0.9 [facility] Comment on above: Performed By: #### 2 4331-1, CMP, TSHR, 2131-12 #### [facility] ([id number]) [address], [facility] [address] [place] [address] Monocytes/100 WBC (Bld) 5.3 % Normal [facility] Comment on above: Performed By: #### 2 4331-1, CMP, TSHR, 2131-12 #### [facility] ([id number]) [address], [facility] [address] [place] [address] Neutrophils/100 WBC (Bld) 54.8 % Normal [facility] Comment on above: Performed By: #### 2 4331-1, CMP, TSHR, 2131-12 #### [facility] ([id number]) [address] [place] [address] Platelet mean volume (Bld) [Entitic vol] 8.2 fL Normal 7-12 [facility] Comment on above: Performed By: #### 2 4331-1, CMP, TSHR, 2131-12 #### [facility] ([id number]) [address], [facility] [address] [place] [address] Platelets (Bld) [#/Vol] 262 10*3/uL Normal 150-450 [facility] Comment on above: Performed By: #### 2 4331-1, CMP, TSHR, 2131-12 #### [facility] ([id number]) [address], [facility] [address] [place] [address] RBC COUNT 4.10 X10E12/L Normal 4.10-5.70 [facility] Comment on above: Performed By: #### 2 4331-1, CMP, TSHR, 2131-12 #### [facility] ([id number]) [address], [facility] [address] [place] [address] WBC (Bld) [#/Vol] 7.5 10*3/uL Normal 4.0-11.0 [facility] Comment on above: Performed By: #### 2 4331-1, CMP, TSHR, 2131-12 #### [facility] ([id number]) [address], [facility] [address] [place] [address] CBC AND AUTO DIFFon 05-14-19 25 ABSOLUTE BASOPHIL 0.0 X10E9/L Normal 0.0-0.2 [facility] Comment on above: Performed By: #### 2 4331-1, CMP, TSHR, 2131-12 #### [facility] ([id number]) [address], [facility] [address] [place] [address] ABSOLUTE NEUTROPHIL 4.5 X10E9/L Normal 1.5-6.6 [facility] Comment on above: Performed By: #### 2 4331-1, CMP, TSHR, 2131-12 #### [facility] ([id number]) [address], [address] [place] [address] Basophils/100 WBC (Bld) 0.6 % Normal [facility] Comment on above: Performed By: #### 2 4331-1, CMP, TSHR, 2131-12 #### [facility] ([id number]) [address], [address] [place] [address] Eosinophils (Bld) [#/Vol] 0.3 10*3/uL Normal 0.0-0.4 [facility] Comment on above: Performed By: #### 2 4331-1, CMP, TSHR, 2131-12 #### [facility] ([id number]) [address], [address] [place] [address] Eosinophils/100 WBC (Bld) 4.0 % Normal [facility] Comment on above: Performed By: #### 2 4331-1, CMP, TSHR, 2131-12 #### [facility] ([id number]) [address] [address] [place] [address] Erythrocyte distribution width (RBC) [Ratio] 14.2 % Normal 11.5-15.0 [facility] Comment on above: Performed By: #### 2 4331-1, CMP, TSHR, 2131-12 #### [facility] ([id number]) [address], [address] [place] [address] Hematocrit (Bld) [Volume fraction] 36.2 % Low 39-49 [facility] Comment on above: Performed By: #### 2 4331-1, CMP, TSHR, 2131-12 #### [facility] ([id number]) [address], [address] [place] [address] Hemoglobin (Bld) [Mass/Vol] 12.2 g/dL Low 13.0-17.0 [facility] Comment on above: Performed By: #### 2 4331-1, CMP, TSHR, 2131-12 #### [facility] ([id number]) [address] [address] [place] [address] Lymphocytes (Bld) [#/Vol] 1.9 10*3/uL Normal 1.0-3.5 [facility] Comment on above: Performed By: #### 2 4331-1, CMP, TSHR, 2131-12 #### [facility] ([id number]) [address] [address] [place] [address] Lymphocytes/100 WBC (Bld) 25.8 % Normal [facility] Comment on above: Performed By: #### 2 4331-1, CMP, TSHR, 2131-12 #### [facility] ([id number]) [address] [address] [place] [address] MCH (RBC) [Entitic mass] 30.4 pg Normal 27-34 [facility] Comment on above: Performed By: #### 2 4331-1, CMP, TSHR, 2131-12 #### [facility] ([id number]) [address] [address] [place] [address] MCHC (RBC) [Mass/Vol] 33.8 g/dL Normal 32-36 [facility] Comment on above: Performed By: #### 2 4331-1, CMP, TSHR, 2131-12 #### [facility] ([id number]) [address] [address] [place] [address] MCV (RBC) [Entitic vol] 90 fL Normal 80-100 [facility] Comment on above: Performed By: #### 2 4331-1, CMP, TSHR, 2131-12 #### [facility] ([id number]) [address], [address] [place] [address] Monocytes (Bld) [#/Vol] 0.5 10*3/uL Normal 0-0.9 [facility] Comment on above: Performed By: #### 2 4331-1, CMP, TSHR, 2131-12 #### [facility] ([id number]) [address], [address] [place] [address] Monocytes/100 WBC (Bld) 6.7 % Normal [facility] Comment on above: Performed By: #### 2 4331-1, CMP, TSHR, 2131-12 #### [facility] ([id number]) [address], [address] [place] [address] Neutrophils/100 WBC (Bld) 62.9 % Normal [facility] Comment on above: Performed By: #### 2 4331-1, CMP, TSHR, 2131-12 #### [facility] ([id number]) [address], [address] [place] [address] Platelet mean volume (Bld) [Entitic vol] 8.9 fL Normal 7-12 [facility] Comment on above: Performed By: #### 2 4331-1, CMP, TSHR, 2131-12 #### [facility] ([id number]) [address], [address] [place] [address] Platelets (Bld) [#/Vol] 269 10*3/uL Normal 150-450 [facility] Comment on above: Performed By: #### 2 4331-1, CMP, TSHR, 2131-12 #### [facility] ([id number]) [address], [address] [place] [address] RBC COUNT 4.03 X10E12/L Low 4.10-5.70 [facility] Comment on above: Performed By: #### 2 4331-1, CMP, TSHR, 2131-12 #### [facility] ([id number]) [address], [address] [place] [address] WBC (Bld) [#/Vol] 7.2 10*3/uL Normal 4.0-11.0 [facility] Comment on above: Performed By: #### 2 4331-1, CMP, TSHR, 2131-12 #### [facility] ([id number]) [address], [address] [place] [address] CBC AND AUTO DIFFon 04-12-19 25 ABSOLUTE BASOPHIL 0.1 X10E9/L Normal 0.0-0.2 [facility] Comment on above: Performed By: #### 2 4331-1, CMP, TSHR, 2131-12 #### [facility] ([id number]) [address], [address] [place] [address] ABSOLUTE NEUTROPHIL 6.2 X10E9/L Normal 1.5-6.6 [facility] Comment on above: Performed By: #### 2 4331-1, CMP, TSHR, 2131-12 #### [facility] ([id number]) [address], [address] [place] [address] Basophils/100 WBC (Bld) 0.7 % Normal [facility] Comment on above: Performed By: #### 2 4331-1, CMP, TSHR, 2131-12 #### [facility] ([id number]) [address], [address] [place] [address] Eosinophils (Bld) [#/Vol] 0.3 10*3/uL Normal 0.0-0.4 [facility] Comment on above: Performed By: #### 2 4331-1, CMP, TSHR, 2131-12 #### [facility] ([id number]) [address], [address] [place] [address] Eosinophils/100 WBC (Bld) 3.4 % Normal [facility] Comment on above: Performed By: #### 2 4331-1, CMP, TSHR, 2131-12 #### [facility] ([id number]) [address] [address] [place] [address] Erythrocyte distribution width (RBC) [Ratio] 14.0 % Normal 11.5-15.0 [facility] Comment on above: Performed By: #### 2 4331-1, CMP, TSHR, 2131-12 #### [facility] ([id number]) [address] [address] [place] [address] Hematocrit (Bld) [Volume fraction] 39.2 % Normal 39-49 [facility] Comment on above: Performed By: #### 2 4331-1, CMP, TSHR, 2131-12 #### [facility] ([id number]) [address] [address] [place] [address] Hemoglobin (Bld) [Mass/Vol] 13.1 g/dL Normal 13.0-17.0 [facility] Comment on above: Performed By: #### 2 4331-1, CMP, TSHR, 2131-12 #### [facility] ([id number]) [address] [address] Lymphocytes (Bld) [#/Vol] 2.2 10*3/uL Normal 1.0-3.5 [facility] Comment on above: Performed By: #### 2 4331-1, CMP, TSHR, 2131-12 #### [facility] ([id number]) [address] [address] [place] [address] Lymphocytes/100 WBC (Bld) 23.4 % Normal [facility] Comment on above: Performed By: #### 2 4331-1, CMP, TSHR, 2131-12 #### [facility] ([id number]) [address] [address] [place] [address] MCH (RBC) [Entitic mass] 30.1 pg Normal 27-34 [facility] Comment on above: Performed By: #### 2 4331-1, CMP, TSHR, 2131-12 #### [facility] ([id number]) [address], [address] [place] [address] MCHC (RBC) [Mass/Vol] 33.5 g/dL Normal 32-36 [facility] Comment on above: Performed By: #### 2 4331-1, CMP, TSHR, 2131-12 #### [facility] ([id number]) [address], [facility] [address] [place] [address] MCV (RBC) [Entitic vol] 90 fL Normal 80-100 [facility] Comment on above: Performed By: #### 2 4331-1, CMP, TSHR, 2131-12 #### [facility] ([id number]) [address] [address] [place] [address] Monocytes (Bld) [#/Vol] 0.7 10*3/uL Normal 0-0.9 [facility] Comment on above: Performed By: #### 2 4331-1, CMP, TSHR, 2131-12 #### [facility] ([id number]) [address], [facility] [address] [place] [address] Monocytes/100 WBC (Bld) 7.3 % Normal [facility] Comment on above: Performed By: #### 2 4331-1, CMP, TSHR, 2131-12 #### [facility] ([id number]) [address], [facility] [address] [place] [address] Neutrophils/100 WBC (Bld) 65.2 % Normal [facility] Comment on above: Performed By: #### 2 4331-1, CMP, TSHR, 2131-12 #### [facility] ([id number]) [address], [address] [place] [address] Platelet mean volume (Bld) [Entitic vol] 8.6 fL Normal 7-12 [facility] Comment on above: Performed By: #### 2 4331-1, CMP, TSHR, 2131-12 #### [facility] ([id number]) [address], [address] [place] [address] Platelets (Bld) [#/Vol] 251 10*3/uL Normal 150-450 [facility] Comment on above: Performed By: #### 2 4331-1, CMP, TSHR, 2131-12 #### [facility] ([id number]) [address], [address] [place] [address] RBC COUNT 4.36 X10E12/L Normal 4.10-5.70 [facility] Comment on above: Performed By: #### 2 4331-1, CMP, TSHR, 2131-12 #### [facility] ([id number]) [address] [place] [address] WBC (Bld) [#/Vol] 9.5 10*3/uL Normal 4.0-11.0 [facility] Comment on above: Performed By: #### 2 4331-1, CMP, TSHR, 2131-12 #### [facility] ([id number]) [address], [address] [place] [address] CBC AND AUTO DIFFon 03-19-20 24 ABSOLUTE BASOPHIL 0.1 X10E9/L Normal 0.0-0.2 [facility] Comment on above: Performed By: #### 2 4331-1, CMP, TSHR, 2131-12 #### [facility] ([id number]) [address], [address] [place] [address] ABSOLUTE NEUTROPHIL 5.0 X10E9/L Normal 1.5-6.6 [facility] Comment on above: Performed By: #### 2 4331-1, CMP, TSHR, 2131-12 #### [facility] ([id number]) [address], [address] [place] [address] Basophils/100 WBC (Bld) 1.5 % Normal [facility] Comment on above: Performed By: #### 2 4331-1, CMP, TSHR, 2131-12 #### [facility] ([id number]) [address] [address] [place] [address] Eosinophils (Bld) [#/Vol] 0.3 10*3/uL Normal 0.0-0.4 [facility] Comment on above: Performed By: #### 2 4331-1, CMP, TSHR, 2131-12 #### [facility] ([id number]) [address] [address] [place] [address] Eosinophils/100 WBC (Bld) 3.7 % Normal [facility] Comment on above: Performed By: #### 2 4331-1, CMP, TSHR, 2131-12 #### [facility] ([id number]) [address], [facility] [address] [place] [address] Erythrocyte distribution width (RBC) [Ratio] 13.4 % Normal 11.5-15.0 [facility] Comment on above: Performed By: #### 2 4331-1, CMP, TSHR, 2131-12 #### [facility] ([id number]) [address] [address] [place] [address] Hematocrit (Bld) [Volume fraction] 38.5 % Low 39-49 [facility] Comment on above: Performed By: #### 2 4331-1, CMP, TSHR, 2131-12 #### [facility] ([id number]) [address] [address] [place] [address] Hemoglobin (Bld) [Mass/Vol] 12.8 g/dL Low 13.0-17.0 [facility] Comment on above: Performed By: #### 2 4331-1, CMP, TSHR, 2131-12 #### [facility] ([id number]) [address], [address] [place] [address] Lymphocytes (Bld) [#/Vol] 3.1 10*3/uL Normal 1.0-3.5 [facility] Comment on above: Performed By: #### 2 4331-1, CMP, TSHR, 2131-12 #### [facility] ([id number]) [address] [address] Lymphocytes/100 WBC (Bld) 33.8 % Normal [facility] Comment on above: Performed By: #### 2 4331-1, CMP, TSHR, 2131-12 #### [facility] ([id number]) [address] [address] MCH (RBC) [Entitic mass] 30.2 pg Normal 27-34 [facility] Comment on above: Performed By: #### 2 4331-1, CMP, TSHR, 2131-12 #### [facility] ([id number]) [address] [address] MCHC (RBC) [Mass/Vol] 33.3 g/dL Normal 32-36 [facility] Comment on above: Performed By: #### 2 4331-1, CMP, TSHR, 2131-12 #### [facility] ([id number]) [address] [address] MCV (RBC) [Entitic vol] 91 fL Normal 80-100 [facility] Comment on above: Performed By: #### 2 4331-1, CMP, TSHR, 2131-12 #### [facility] ([id number]) [address] [address] Monocytes (Bld) [#/Vol] 0.6 10*3/uL Normal 0-0.9 [facility] Comment on above: Performed By: #### 2 4331-1, CMP, TSHR, 2131-12 #### [facility] ([id number]) [address] [address] [place] [address] Monocytes/100 WBC (Bld) 6.9 % Normal [facility] Comment on above: Performed By: #### 2 4331-1, CMP, TSHR, 2131-12 #### [facility] ([id number]) [address] [address] [place] [address] Neutrophils/100 WBC (Bld) 54.1 % Normal [facility] Comment on above: Performed By: #### 2 4331-1, CMP, TSHR, 2131-12 #### [facility] ([id number]) [address] [address] [place] [address] Platelet mean volume (Bld) [Entitic vol] 8.6 fL Normal 7-12 [facility] Comment on above: Performed By: #### 2 4331-1, CMP, TSHR, 2131-12 #### [facility] ([id number]) [address] [address] [place] [address] Platelets (Bld) [#/Vol] 333 10*3/uL Normal 150-450 [facility] Comment on above: Performed By: #### 2 4331-1, CMP, TSHR, 2131-12 #### [facility] ([id number]) [address] [address] [place] [address] RBC COUNT 4.24 X10E12/L Normal 4.10-5.70 [facility] Comment on above: Performed By: #### 2 4331-1, CMP, TSHR, 2131-12 #### [facility] ([id number]) [address] [address] [place] [address] WBC (Bld) [#/Vol] 9.2 10*3/uL Normal 4.0-11.0 [facility] Comment on above: Performed By: #### 2 4331-1, CMP, TSHR, 2131-12 #### [facility] ([id number]) [address] [place] [address] HbA1c (Bld) [Mass fraction]o n 03-01-2024 [facility] e Laboratory - Hematology and Cell countson 03-01-2024 HbA1c (Bld) [Mass fraction] 6.7 % [facility] COMPREHENSIVE METABOLIC PANE Benjamin 02-24-2024 Albumin [Mass/Vol] 4.1 g/dL Normal 3.2-5.3 [facility] Comment on above: Performed By: #### C MP, 2131-12, TSHR, 17128-3 #### [facility] ([id number]) [address], [address] [place] [address] ALP [Catalytic activity/Vol] 64 U/L Normal 39-130 [facility] Comment on above: Performed By: #### Buffy TURPIN, 2131-12, TSHR, 51692-1 #### [facility] ([id number]) [address], [address] [place] [address] ALT [Catalytic activity/Vol] 23 U/L Normal 0-40 [facility] Comment on above: Performed By: #### C MP, 2131-12, TSHR, 33761-5 #### [facility] ([id number]) [address], [address] [place] [address] Anion gap [Moles/Vol] 10 mmol/L Normal 5-15 [facility] Comment on above: Performed By: #### C MP, 2131-12, TSHR, 05745-2 #### [facility] ([id number]) [address], [address] [place] [address] AST [Catalytic activity/Vol] 22 U/L Normal 0-41 [facility] Comment on above: Performed By: #### C MP, 2131-12, TSHR, 01520-4 #### [facility] ([id number]) [address], [address] [place] [address] Bilirubin [Mass/Vol] 0.5 mg/dL Normal 0.3-1.2 [facility] Comment on above: Performed By: #### C PAPI, 2131-12, TSHR, 72016-6 #### [facility] ([id number]) [address], [address] [place] [address] Calcium [Mass/Vol] 10.4 mg/dL Normal 8.5-10.5 [facility] Comment on above: Performed By: #### C PAPI, 2131-12, TSHR, 62892-8 #### [facility] ([id number]) [address], [address] [place] [address] Chloride [Moles/Vol] 96 mmol/L Low 98-109 [facility] Comment on above: Performed By: #### Buffy TURPIN, 2131-12, TSHR, 34204-5 #### [facility] ([id number]) [address], [address] [place] [address] CO2 [Moles/Vol] 28 mmol/L Normal 22-32 [facility] Comment on above: Performed By: #### Buffy TURPIN, 2131-12, TSHR, 07808-6 #### [facility] ([id number]) [address] [place] [address] Creatinine [Mass/Vol] 1.07 mg/dL Normal 0.60-1.30 [facility] Comment on above: Result Comment: METH OD TRACEABLE TO IDMS STANDARD Performed By: #### Buffy TURPIN, 2131-12, TSHR, 45119-3 #### [facility] ([id number]) [address] [place] [address] GFR/1.73 sq M.predicted among non-blacks MDRD (S/P/Bld) [Vol rate/Area] 77 mL/min/{1.73_m2} Normal >59 [facility] Comment on above: Result Comment: Reported eGFR is based on the CKD-EPI 2020 equation that does not use a race coefficient. Performed By: #### C PAPI, 2131-12, TSHR, 41720-5 #### [facility] ([id number]) [address] [place] [address] Glucose [Mass/Vol] 163 mg/dL High 65-99 [facility] Comment on above: Performed By: #### C PAPI, 2131-12, TSHR, 23402-7 #### [facility] ([id number]) [address] [address] [place] [address] Potassium [Moles/Vol] 4.4 mmol/L Normal 3.5-5.0 [facility] Comment on above: Performed By: #### C PAPI, 2131-12, TSHR, 93564-7 #### [facility] ([id number]) [address] [place] [address] Protein [Mass/Vol] 6.6 g/dL Normal 6.0-8.0 [facility] Comment on above: Performed By: #### C PAPI, 2131-12, TSHR, 83395-3 #### [facility] ([id number]) [address] [address] [place] [address] Sodium [Moles/Vol] 134 mmol/L Normal 134-146 [facility] Comment on above: Performed By: #### C PAPI, 2131-12, TSHR, 45006-2 #### [facility] ([id number]) [address] [address] [place] [address] Urea nitrogen [Mass/Vol] 12 mg/dL Normal 5-27 [facility] Comment on above: Performed By: #### C PAPI, 2131-12, TSHR, 07624-0 #### [facility] ([id number]) [address] [place] [address] Lipid 1996 panelon 4 Cholesterol [Mass/Vol] 111 mg/dL Low 150-200 [facility] Comment on above: Performed By: ###Javan Baer MP, 2131-12, TSHR, 13037-5 #### [facility] ([id number]) [address] [place] [address] Cholesterol in HDL [Mass/Vol] 29 mg/dL Low >39 [facility] Comment on above: Result Comment: HDL <40 mg/dL - High Risk HDL > or = 40mg/dL- Desirable HDL >60 mg/dL - Negative Risk Performed By: ###Javan Baer MP, 2131-12, TSHR, 95081-4 #### [facility] ([id number]) [address] [place] [address] Cholesterol in LDL [Mass/Vol] 18 mg/dL Normal <130 [facility] Comment on above: Result Comment: LDL <100 mg/dL - Desirable LDL >160 mg/dL - High Risk Performed By: ###Javan Baer MP, 2131-12, TSHR, 30629-4 #### [facility] ([id number]) [address] [place] [address] Cholesterol in VLDL [Mass/Vol] 64 mg/dL High 0-30 [facility] Comment on above: Performed By: ###Javan Baer MP, 2131-12, TSHR, 86509-7 #### [facility] ([id number]) [address] [place] [address] CHOLESTEROL:HDL 3.8 Normal 1.0-5.0 [facility] Comment on above: Performed By: #### C MP, 2131-12, TSHR, 93431-6 #### [facility] ([id number]) [address] [place] [address] Triglyceride [Mass/Vol] 320 mg/dL High 27-150 [facility] Comment on above: Performed By: #### C MP, 2131-12, TSHR, 27473-5 #### [facility] ([id number]) [address] [place] [address] MICROALBUMIN - ALBUMIN:CREAT ININE URINE RATIOon 02-24-2024 ALB/CREAT RATIO 22.5 mg/g creat Normal 0.0-30.0 [facility] Comment on above: Performed By: #### 2 4331-1, CMP, TSHR, 2131-12 #### [facility] ([id number]) [address] [place] [address] Albumin DL <= 20 mg/L (U) [Mass/Vol] 0.7 mg/dL Normal 0.0-1.9 [facility] Comment on above: Performed By: #### 2 4331-1, CMP, TSHR, 2131-12 #### [facility] ([id number]) [address] [place] [address] URINE CREAT 31.05 mg/dL Normal [facility] Comment on above: Performed By: #### 2 4331-1, CMP, TSHR, 2131-12 #### [facility] ([id number]) [address] [place] [address] TSH WITH REFLEXon 02-24-2024 TSH 3.56 uIU/mL Normal 0.49-4.67 [facility] Comment on above: Performed By: #### 2 4331-1, CMP, TSHR, 2131-12 #### [facility] ([id number]) [address] [place] [address] VITAMIN B12on 02-24-2024 Cobalamin (Vitamin B12) [Mass/Vol] 442 pg/mL Normal 180-914 [facility] Comment on above: Performed By: #### 2 4331-1, CMP, TSHR, 2131-12 #### [facility] ([id number]) [address] [place] [address] CBC AND AUTO DIFFon 02-13-20 24 ABSOLUTE BASOPHIL 0.1 X10E9/L Normal 0.0-0.2 [facility] Comment on above: Performed By: #### C BCA #### [facility] ([id number]) [address] [place] [address] ABSOLUTE NEUTROPHIL 4.0 X10E9/L Normal 1.5-6.6 [facility] Comment on above: Performed By: #### C BCA #### [facility] ([id number]) [address] [address] [place] [address] Basophils/100 WBC (Bld) 0.9 % Normal [facility] Comment on above: Performed By: #### C BCA #### [facility] ([id number]) [address] [address] [place] [address] Eosinophils (Bld) [#/Vol] 0.2 10*3/uL Normal 0.0-0.4 [facility] Comment on above: Performed By: #### C BCA #### [facility] ([id number]) [address] [address] [place] [address] Eosinophils/100 WBC (Bld) 2.9 % Normal [facility] Comment on above: Performed By: #### C BCA #### [facility] ([id number]) [address] [place] [address] Erythrocyte distribution width (RBC) [Ratio] 13.7 % Normal 11.5-15.0 [facility] Comment on above: Performed By: #### C BCA #### [facility] ([id number]) [address] [place] [address] Hematocrit (Bld) [Volume fraction] 35.8 % Low 39-49 [facility] Comment on above: Performed By: #### C BCA #### [facility] ([id number]) [address] [place] [address] Hemoglobin (Bld) [Mass/Vol] 12.5 g/dL Low 13.0-17.0 [facility] Comment on above: Performed By: #### C BCA #### [facility] ([id number]) [address] [place] [address] Lymphocytes (Bld) [#/Vol] 2.4 10*3/uL Normal 1.0-3.5 [facility] Comment on above: Performed By: #### C BCA #### [facility] ([id number]) [address] [place] [address] Lymphocytes/100 WBC (Bld) 34.0 % Normal [facility] Comment on above: Performed By: #### C BCA #### [facility] ([id number]) [address] [place] [address] MCH (RBC) [Entitic mass] 30.8 pg Normal 27-34 [facility] Comment on above: Performed By: #### C BCA #### [facility] ([id number]) [address] [place] [address] MCHC (RBC) [Mass/Vol] 34.8 g/dL Normal 32-36 [facility] Comment on above: Performed By: #### C BCA #### [facility] ([id number]) [address] [place] [address] MCV (RBC) [Entitic vol] 89 fL Normal 80-100 [facility] Comment on above: Performed By: #### C BCA #### [facility] ([id number]) [address] [place] [address] Monocytes (Bld) [#/Vol] 0.5 10*3/uL Normal 0-0.9 [facility] Comment on above: Performed By: #### C BCA #### [facility] ([id number]) [address] [place] [address] Monocytes/100 WBC (Bld) 6.7 % Normal [facility] Comment on above: Performed By: #### C BCA #### [facility] ([id number]) [address] [place] [address] Neutrophils/100 WBC (Bld) 55.5 % Normal [facility] Comment on above: Performed By: #### C BCA #### [facility] ([id number]) [address] [place] [address] Platelet mean volume (Bld) [Entitic vol] 8.2 fL Normal 7-12 [facility] Comment on above: Performed By: #### C BCA #### [facility] ([id number]) [address] [place] [address] Platelets (Bld) [#/Vol] 277 10*3/uL Normal 150-450 [facility] Comment on above: Performed By: #### C BCA #### [facility] ([id number]) [address] [place] [address] RBC COUNT 4.04 X10E12/L Low 4.10-5.70 [facility] Comment on above: Performed By: #### C BCA #### [facility] ([id number]) [address], [address] [place] [address] WBC (Bld) [#/Vol] 7.2 10*3/uL Normal 4.0-11.0 [facility] Comment on above: Performed By: #### C BCA #### [facility] ([id number]) [address], [address] [place] [address] CBC AND AUTO DIFFon 01-12-20 ABSOLUTE BASOPHIL 0.1 X10E9/L Normal 0.0-0.2 [facility] Comment on above: Performed By: #### C BCA #### [facility] ([id number]) [address], [address] [place] [address] ABSOLUTE NEUTROPHIL 4.5 X10E9/L Normal 1.5-6.6 [facility] Comment on above: Performed By: #### C BCA #### [facility] ([id number]) [address], [address] [place] [address] Basophils/100 WBC (Bld) 1.3 % Normal [facility] Comment on above: Performed By: #### C BCA #### [facility] ([id number]) [address], [address] [place] [address] Eosinophils (Bld) [#/Vol] 0.3 10*3/uL Normal 0.0-0.4 [facility] Comment on above: Performed By: #### C BCA #### [facility] ([id number]) [address], [address] [place] [address] Eosinophils/100 WBC (Bld) 3.5 % Normal [facility] Comment on above: Performed By: #### C BCA #### [facility] ([id number]) [address], [address] [place] [address] Erythrocyte distribution width (RBC) [Ratio] 13.4 % Normal 11.5-15.0 [facility] Comment on above: Performed By: #### C BCA #### [facility] ([id number]) [address], [address] [place] [address] Hematocrit (Bld) [Volume fraction] 36.8 % Low 39-49 [facility] Comment on above: Performed By: #### C BCA #### [facility] ([id number]) [address], [address] [place] [address] Hemoglobin (Bld) [Mass/Vol] 12.6 g/dL Low 13.0-17.0 [facility] Comment on above: Performed By: #### C BCA #### [facility] ([id number]) [address], [address] [place] [address] Lymphocytes (Bld) [#/Vol] 2.3 10*3/uL Normal 1.0-3.5 [facility] Comment on above: Performed By: #### C BCA #### [facility] ([id number]) [address], [address] [place] [address] Lymphocytes/100 WBC (Bld) 30.2 % Normal [facility] Comment on above: Performed By: #### C BCA #### [facility] ([id number]) [address], [address] [place] [address] MCH (RBC) [Entitic mass] 30.7 pg Normal 27-34 [facility] Comment on above: Performed By: #### C BCA #### [facility] ([id number]) [address], [address] [place] [address] MCHC (RBC) [Mass/Vol] 34.3 g/dL Normal 32-36 [facility] Comment on above: Performed By: #### C BCA #### [facility] ([id number]) [address], [address] [place] [address] MCV (RBC) [Entitic vol] 89 fL Normal 80-100 [facility] Comment on above: Performed By: #### C BCA #### [facility] ([id number]) [address], [address] [place] [address] Monocytes (Bld) [#/Vol] 0.5 10*3/uL Normal 0-0.9 [facility] Comment on above: Performed By: #### C BCA #### [facility] ([id number]) [address], [address] [place] [address] Monocytes/100 WBC (Bld) 6.6 % Normal [facility] Comment on above: Performed By: #### C BCA #### [facility] ([id number]) [address], [address] [place] [address] Neutrophils/100 WBC (Bld) 58.4 % Normal [facility] Comment on above: Performed By: #### C BCA #### [facility] ([id number]) [address], [address] [place] [address] Platelet mean volume (Bld) [Entitic vol] 8.2 fL Normal 7-12 [facility] Comment on above: Performed By: #### C BCA #### [facility] ([id number]) [address], [address] [place] [address] Platelets (Bld) [#/Vol] 274 10*3/uL Normal 150-450 [facility] Comment on above: Performed By: #### C BCA #### [facility] ([id number]) [address], [address] [place] [address] RBC COUNT 4.12 X10E12/L Normal 4.10-5.70 [facility] Comment on above: Performed By: #### C BCA #### [facility] ([id number]) [address], [address] [place] [address] WBC (Bld) [#/Vol] 7.7 10*3/uL Normal 4.0-11.0 [facility] Comment on above: Performed By: #### C BCA #### [facility] ([id number]) [address], [address] [place] [address] CBC AND AUTO DIFFon 12-14-19 24 ABSOLUTE BASOPHIL 0.1 X10E9/L Normal 0.0-0.2 [facility] Comment on above: Performed By: #### C BCA #### [facility] ([id number]) [address], [address] [place] [address] ABSOLUTE NEUTROPHIL 5.0 X10E9/L Normal 1.5-6.6 [facility] Comment on above: Performed By: #### C BCA #### [facility] ([id number]) [address], [address] [place] [address] Basophils/100 WBC (Bld) 0.8 % Normal [facility] Comment on above: Performed By: #### C BCA #### [facility] ([id number]) [address], [address] [place] [address] Eosinophils (Bld) [#/Vol] 0.2 10*3/uL Normal 0.0-0.4 [facility] Comment on above: Performed By: #### C BCA #### [facility] ([id number]) [address], [address] [place] [address] Eosinophils/100 WBC (Bld) 2.8 % Normal [facility] Comment on above: Performed By: #### C BCA #### [facility] ([id number]) [address], [address] [place] [address] Erythrocyte distribution width (RBC) [Ratio] 13.6 % Normal 11.5-15.0 [facility] Comment on above: Performed By: #### C BCA #### [facility] ([id number]) [address], [address] [place] [address] Hematocrit (Bld) [Volume fraction] 36.0 % Low 39-49 [facility] Comment on above: Performed By: #### C BCA #### [facility] ([id number]) [address], [address] [place] [address] Hemoglobin (Bld) [Mass/Vol] 12.4 g/dL Low 13.0-17.0 [facility] Comment on above: Performed By: #### C BCA #### [facility] ([id number]) [address] [address] [place] [address] Lymphocytes (Bld) [#/Vol] 2.6 10*3/uL Normal 1.0-3.5 [facility] Comment on above: Performed By: #### C BCA #### [facility] ([id number]) [address] [address] [place] [address] Lymphocytes/100 WBC (Bld) 31.1 % Normal [facility] Comment on above: Performed By: #### C BCA #### [facility] ([id number]) [address], [address] [place] [address] MCH (RBC) [Entitic mass] 30.4 pg Normal 27-34 [facility] Comment on above: Performed By: #### C BCA #### [facility] ([id number]) [address] [address] [place] [address] MCHC (RBC) [Mass/Vol] 34.3 g/dL Normal 32-36 [facility] Comment on above: Performed By: #### C BCA #### [facility] ([id number]) [address] [address] [place] [address] MCV (RBC) [Entitic vol] 89 fL Normal 80-100 [facility] Comment on above: Performed By: #### C BCA #### [facility] ([id number]) [address], [address] [place] [address] Monocytes (Bld) [#/Vol] 0.4 10*3/uL Normal 0-0.9 [facility] Comment on above: Performed By: #### C BCA #### [facility] ([id number]) [address], [address] [place] [address] Monocytes/100 WBC (Bld) 4.5 % Normal [facility] Comment on above: Performed By: #### C BCA #### [facility] ([id number]) [address], [address] [place] [address] Neutrophils/100 WBC (Bld) 60.8 % Normal [facility] Comment on above: Performed By: #### C BCA #### [facility] ([id number]) [address], [address] [place] [address] Platelet mean volume (Bld) [Entitic vol] 8.3 fL Normal 7-12 [facility] Comment on above: Performed By: #### C BCA #### [facility] ([id number]) [address], [address] [place] [address] Platelets (Bld) [#/Vol] 272 10*3/uL Normal 150-450 [facility] Comment on above: Performed By: #### C BCA #### [facility] ([id number]) [address], [address] [place] [address] RBC COUNT 4.07 X10E12/L Low 4.10-5.70 [facility] Comment on above: Performed By: #### C BCA #### [facility] ([id number]) [address], [address] [place] [address] WBC (Bld) [#/Vol] 8.3 10*3/uL Normal 4.0-11.0 [facility] Comment on above: Performed By: #### C BCA #### [facility] ([id number]) [address], [address] [place] [address] COMPREHENSIVE METABOLIC PANE Benjamin 12-02-2023 Albumin [Mass/Vol] 4.2 g/dL Normal 3.2-5.3 [facility] Comment on above: Performed By: #### 2 4331-1, CMP, TSHR, 2131-12 #### [facility] ([id number]) [address], [address] [place] [address] ALP [Catalytic activity/Vol] 56 U/L Normal 39-130 [facility] Comment on above: Performed By: #### 2 4331-1, CMP, TSHR, 2131-12 #### [facility] ([id number]) [address], [address] [place] [address] ALT [Catalytic activity/Vol] 34 U/L Normal 0-40 [facility] Comment on above: Performed By: #### 2 4331-1, CMP, TSHR, 2131-12 #### [facility] ([id number]) [address], [address] [place] [address] Anion gap [Moles/Vol] 10 mmol/L Normal 5-15 [facility] Comment on above: Performed By: #### 2 4331-1, CMP, TSHR, 2131-12 #### [facility] ([id number]) [address], [address] [place] [address] AST [Catalytic activity/Vol] 32 U/L Normal 0-41 [facility] Comment on above: Performed By: #### 2 4331-1, CMP, TSHR, 2131-12 #### [facility] ([id number]) [address], [address] [place] [address] Bilirubin [Mass/Vol] 0.5 mg/dL Normal 0.3-1.2 [facility] Comment on above: Performed By: #### 2 4331-1, CMP, TSHR, 2131-12 #### [facility] ([id number]) [address], [address] [place] [address] Calcium [Mass/Vol] 9.5 mg/dL Normal 8.5-10.5 [facility] Comment on above: Performed By: #### 2 4331-1, CMP, TSHR, 2131-12 #### [facility] ([id number]) [address], [facility] [address] [place] [address] Chloride [Moles/Vol] 99 mmol/L Normal 98-109 [facility] Comment on above: Performed By: #### 2 4331-1, CMP, TSHR, 2131-12 #### [facility] ([id number]) [address], [address] [place] [address] CO2 [Moles/Vol] 27 mmol/L Normal 22-32 [facility] Comment on above: Performed By: #### 2 4331-1, CMP, TSHR, 2131-12 #### [facility] ([id number]) [address], [facility] [address] [place] [address] Creatinine [Mass/Vol] 1.04 mg/dL Normal 0.60-1.30 [facility] Comment on above: Result Comment: METH OD TRACEABLE TO IDMS STANDARD Performed By: #### 2 4331-1, CMP, TSHR, 2131-12 #### [facility] ([id number]) [address], [facility] [address] [place] [address] GFR/1.73 sq M.predicted among non-blacks MDRD (S/P/Bld) [Vol rate/Area] 80 mL/min/{1.73_m2} Normal >59 [facility] Comment on above: Result Comment: Reported eGFR is based on the CKD-EPI 2020 equation that does not use a race coefficient. Performed By: #### 2 4331-1, CMP, TSHR, 2131-12 #### [facility] ([id number]) [address], [address] [place] [address] Glucose [Mass/Vol] 131 mg/dL High 65-99 [facility] Comment on above: Performed By: #### 2 4331-1, CMP, TSHR, 2131-12 #### [facility] ([id number]) [address], [address] [place] [address] Potassium [Moles/Vol] 4.2 mmol/L Normal 3.5-5.0 [facility] Comment on above: Performed By: #### 2 4331-1, CMP, TSHR, 2131-12 #### [facility] ([id number]) [address], [address] [place] [address] Protein [Mass/Vol] 6.6 g/dL Normal 6.0-8.0 [facility] Comment on above: Performed By: #### 2 4331-1, CMP, TSHR, 2131-12 #### [facility] ([id number]) [address], [address] [place] [address] Sodium [Moles/Vol] 136 mmol/L Normal 134-146 [facility] Comment on above: Performed By: #### 2 4331-1, CMP, TSHR, 2131-12 #### [facility] ([id number]) [address], [address] [place] [address] Urea nitrogen [Mass/Vol] 8 mg/dL Normal 5-27 [facility] Comment on above: Performed By: #### 2 4331-1, CMP, TSHR, 2131-12 #### [facility] ([id number]) [address], [address] [place] [address] Lipid 1996 panelon 4 Cholesterol [Mass/Vol] 106 mg/dL Low 150-200 [facility] Comment on above: Performed By: #### 2 4331-1, CMP, TSHR, 2131-12 #### [facility] ([id number]) [address], [address] [place] [address] Cholesterol in HDL [Mass/Vol] 29 mg/dL Low >39 [facility] Comment on above: Result Comment: HDL <40 mg/dL - High Risk HDL > or = 40mg/dL- Desirable HDL >60 mg/dL - Negative Risk Performed By: #### 2 4331-1, CMP, TSHR, 2131-12 #### [facility] ([id number]) [address], [address] [place] [address] Cholesterol in LDL [Mass/Vol] 10 mg/dL Normal <130 [facility] Comment on above: Result Comment: LDL <100 mg/dL - Desirable LDL >160 mg/dL - High Risk Performed By: #### 2 4331-1, CMP, TSHR, 2131-12 #### [facility] ([id number]) [address], [address] [place] [address] Cholesterol in VLDL [Mass/Vol] 67 mg/dL High 0-30 [facility] Comment on above: Performed By: #### 2 4331-1, CMP, TSHR, 2131-12 #### [facility] ([id number]) [address], [address] [place] [address] CHOLESTEROL:HDL 3.7 Normal 1.0-5.0 [facility] Comment on above: Performed By: #### 2 4331-1, CMP, TSHR, 2131-12 #### [facility] ([id number]) [address], [address] [place] [address] Triglyceride [Mass/Vol] 337 mg/dL High 27-150 [facility] Comment on above: Performed By: #### 2 4331-1, CMP, TSHR, 2131-12 #### [facility] ([id number]) [address], [address] [place] [address] MICROALBUMIN - ALBUMIN:CREAT ININE URINE RATIOon 12-02-2023 ALB/CREAT RATIO NOT CALCULATED Normal 0.0-30.0 [facility] Comment on above: Result Comment: Result for Albumin/Creatinine Ratio cannot be reliably calculated because urine albumin and or urine creatinine is below the detection limit of the assay. Performed By: #### M ALBU #### [facility] ([id number]) [address], [address] [place] [address] Albumin DL <= 20 mg/L (U) [Mass/Vol] mg/dL Normal 0.0-1.9 [facility] Comment on above: Performed By: #### M ALBU #### [facility] ([id number]) [address], [address] [place] [address] URINE CREAT 34.06 mg/dL Normal [facility] Comment on above: Performed By: #### M ALBU #### [facility] ([id number]) [address], [address] [place] [address] TSH WITH REFLEXon 12-02-2023 TSH 4.31 uIU/mL Normal 0.49-4.67 [facility] Comment on above: Performed By: #### 2 4331-1, CMP, TSHR, 2131-12 #### [facility] ([id number]) [address], [address] [place] [address] VITAMIN B12on 12-02-2023 Cobalamin (Vitamin B12) [Mass/Vol] 403 pg/mL Normal 180-914 [facility] Comment on above: Performed By: #### 2 4331-1, CMP, TSHR, 2131-12 #### [facility] ([id number]) [address] [facility], [address] [place] [address] A1C HEMOGLOBINon 05-17-2023 HbA1c (Bld) [Mass fraction] 6.8 % [employer] Other Glucose - FINGER [employer]on Glucose [Mass/Vol] 182 mg/dL [employer] Other HbA1c (Bld) [Mass fraction]o n 05-17-2023 A1C HEMOGLOBIN [facility] Other A1C HEMOGLOBINon 02-08-2023 HbA1c (Bld) [Mass fraction] 5.9 % [employer] Other Glucose - FINGER STICKon Glucose [Mass/Vol] 209 mg/dL [employer] Other HbA1c (Bld) [Mass fraction]o n 02-08-2023 A1C HEMOGLOBIN [facility] Other A1C HEMOGLOBINon 11-04-2022 HbA1c (Bld) [Mass fraction] 7.2 % [employer] Other Glucose - FINGER STICKon Glucose [Mass/Vol] 137 mg/dL [employer] Other HbA1c (Bld) [Mass fraction]o n 11-04-2022 A1C HEMOGLOBIN [facility] Other A1C HEMOGLOBINon 07-07-2022 HbA1c (Bld) [Mass fraction] 6.1 % [employer] Other Glucose - FINGER STICKon Glucose [Mass/Vol] 212 mg/dL [employer] Other HbA1c (Bld) [Mass fraction]o n 07-07-2022 A1C HEMOGLOBIN [facility] Other A1C HEMOGLOBINon 03-31-2022 HbA1c (Bld) [Mass fraction] 7.1 % [employer] Other Glucose - FINGER STICKon Glucose [Mass/Vol] 151 mg/dL [employer] Other HbA1c (Bld) [Mass fraction]o n 03-31-2022 A1C HEMOGLOBIN [facility] Other A1C HEMOGLOBINon 12-23-2021 HbA1c (Bld) [Mass fraction] 7.1 % [employer] Other Glucose - FINGER STICKon Glucose [Mass/Vol] 304 mg/dL [employer] Other HbA1c (Bld) [Mass fraction]o n 12-23-2021 A1C HEMOGLOBIN [facility] Other A1C HEMOGLOBINon 09-22-2021 HbA1c (Bld) [Mass fraction] 7 % [employer] Other Glucose - FINGER STICKon Glucose [Mass/Vol] 186 mg/dL [employer] Other HbA1c (Bld) [Mass fraction]o n 09-22-2021 A1C HEMOGLOBIN [facility] Other A1C HEMOGLOBINon 05-27-2021 HbA1c (Bld) [Mass fraction] 6.8 % [employer] Other Glucose - FINGER STICKon Glucose [Mass/Vol] 205 mg/dL [employer] Other HbA1c (Bld) [Mass fraction]o n 05-27-2021 A1C HEMOGLOBIN [facility] Other A1C HEMOGLOBINon 02-17-2021 HbA1c (Bld) [Mass fraction] 7.2 % [employer] Other Glucose - FINGER STICKon Glucose [Mass/Vol] 165 mg/dL [employer] Other HbA1c (Bld) [Mass fraction]o n 02-17-2021 A1C HEMOGLOBIN [facility] Other CBC AUTO DIFFon 12-17-2020 BASO # 0.1 103/ul Normal 0.0-0.1 [facility] Comment on above: Performed By: #### L IPA, HSTROPN, CMP #### [facility] [address] [place] [address] Naseem Marychuy Basophils/100 WBC (Bld) 1.3 % Normal 0.2-2.0 [facility] Comment on above: Performed By: #### L IPA, HSTROPN, CMP #### [facility] [address] [place] [address] Naseem Marychuy EO # 0.3 103/ul Normal 0.0-0.7 [facility] Comment on above: Performed By: #### L IPA, HSTROPN, CMP #### [facility] [address] [place] [address] Naseem Marychuy Eosinophils/100 WBC (Bld) 4.1 % Normal 0.9-7.0 [facility] Comment on above: Performed By: #### L IPA, HSTROPN, CMP #### [facility] [address] [place] [address] Naseem Marychuy Erythrocyte distribution width (RBC) [Ratio] 12.8 % Normal 11.0-15.0 [facility] Comment on above: Performed By: #### L IPA, HSTROPN, CMP #### [facility] [address] [place] [address] Naseem Marychuy Hematocrit (Bld) [Volume fraction] 31.4 % Critically low 42.0-54.0 [facility] Comment on above: Performed By: #### L IPA, HSTROPN, CMP #### [facility] [address] [place] [address] Naseem Marychuy Hemoglobin (Bld) [Mass/Vol] 10.3 g/dL Critically low 14.0-18.0 [facility] Comment on above: Performed By: #### L IPA, HSTROPN, CMP #### [facility] [address] [place] [address] Naseem Marychuy IG # 0.01 10e3/ul Normal 0.00-0.03 [facility] Comment on above: Performed By: #### L KIRIT JOSHUA, CMP #### [facility] [address] [place] [address] Naseem Marychuy IG % 0.1 % Normal 0.0-0.5 [facility] Comment on above: Performed By: #### L KIRIT JOSHUA, CMP #### [facility] [address] [place] [address] Naseem Marychuy LYMPH # 2.6 103/ul Normal 1.2-3.8 [facility] Comment on above: Performed By: #### L KIRIT JOSHUA, CMP #### [facility] [address] [place] [address] Naseem Marychuy Lymphocytes/100 WBC (Bld) 33.8 % Normal 20.5-60.0 [facility] Comment on above: Performed By: #### L KIRIT JOSHUA, CMP #### [facility] [address] [place] [address] Naseem Marychuy MANUAL DIFF REQ NO Normal [facility] Comment on above: Performed By: #### L KIRIT JOSHUA, CMP #### [facility] [address] [place] [address] Naseem Marychuy MCH (RBC) [Entitic mass] 29.6 pg Normal 25.9-34.0 [facility] Comment on above: Performed By: #### L KIRIT JOSHUA, CMP #### [facility] [address] [place] [address] Naseem Marychuy MCHC (RBC) [Mass/Vol] 32.8 g/dL Normal 29.9-35.2 [facility] Comment on above: Performed By: #### L KIRIT JOSHUA, CMP #### [facility] [address] [place] [address] Naseem Marychuy MCV (RBC) [Entitic vol] 90.2 fL Normal 80.0-94.0 [facility] Comment on above: Performed By: #### L IPA, HSTROPN, CMP #### [facility] [address] [place] [address] Naseem Marychuy MONO # 0.7 103/ul Normal 0.3-0.8 [facility] Comment on above: Performed By: #### L IPA, HSTROPN, CMP #### [facility] [address] [place] [address] Naseem Marychuy Monocytes/100 WBC (Bld) 8.4 % Normal 1.7-12.0 [facility] Comment on above: Performed By: #### L IPA, HSTROPN, CMP #### [facility] [address] [place] [address] Naseem Marychuy NEUT # 4.1 103/ul Normal 1.4-6.5 [facility] Comment on above: Performed By: #### L IPA, HSTROPN, CMP #### [facility] [address] [place] [address] Naseem Marychuy Neutrophils/100 WBC (Bld) 52.3 % Normal 43.0-75.0 [facility] Comment on above: Performed By: #### L IPA, HSTROPN, CMP #### [facility] [address] [place] [address] Naseem Marychuy Platelet mean volume (Bld) [Entitic vol] 10.0 fL Normal 9.5-13.5 [facility] Comment on above: Performed By: #### L IPA, HSTROPN, CMP #### [facility] [address] [place] [address] Naseem Marychuy PLT 220 103/ul Normal 150-450 [facility] Comment on above: Performed By: #### L IPA, HSTROPN, CMP #### [facility] [address] [place] [address] Naseem Marychuy RBC 3.48 106/ul Critically low 4.70-6.10 [facility] Comment on above: Performed By: #### L IPA, HSTROPN, CMP #### [facility] [address] [place] [address] Naseem Marychuy WBC 7.8 103/ul Normal 4.0-11.0 [facility] Comment on above: Performed By: #### L KIRIT JOSHUA, CMP #### [facility] [address] [place], [place] [address] Naseem Chiangen POINT OF CARE GLUCOSEon Glucose [Mass/Vol] 272 mg/dL Critically high 74-106 T [facility] Comment on above: Performed By: #### L KIRIT JOSHUA, CMP #### [facility] [address] [place], [place] [address] Naseem Perrin PROF 14(COMP METB)on 021 Albumin [Mass/Vol] 3.2 g/dL Critically low 3.5-5.0 [facility] Comment on above: Performed By: #### C MP #### [facility] [address] [place], [place] [address] Naseemkenneth Perrin Albumin/Globulin [Mass ratio] 1.1 {ratio} Normal [facility] Comment on above: Performed By: #### C MP #### [facility] [address] [place], [place] [address] Naseem Marychuy ALP [Catalytic activity/Vol] 73 U/L Normal 38-126 [facility] Comment on above: Performed By: #### C MP #### [facility] [address] [place], [place] [address] Naseem Marychuy ALT [Catalytic activity/Vol] 54 U/L Normal 21-72 [facility] Comment on above: Performed By: #### C MP #### [facility] [address] [place], [place] [address] Naseem Marychuy Anion gap [Moles/Vol] 11.5 mmol/L Normal [facility] Comment on above: Performed By: #### C MP #### [facility] [address] [place], [place] [address] Naseem Marychuy AST [Catalytic activity/Vol] 59 U/L Normal 17-59 [facility] Comment on above: Performed By: #### C MP #### [facility] [address] [place], [place] [address] Naseem Marychuy Bilirubin [Mass/Vol] 0.5 mg/dL Normal 0.2-1.3 [facility] Comment on above: Performed By: #### C MP #### [facility] [address] [address] Naseem Marychuy Calcium [Mass/Vol] 7.9 mg/dL Critically low 8.4-10.2 Th e [facility] Comment on above: Performed By: #### C MP #### [facility] [address] [address] Naseem Marychuy Chloride [Moles/Vol] 104 mmol/L Normal 98-107 [facility] Comment on above: Performed By: #### C MP #### [facility] [address] [address] Naseem Marychuy CO2 [Moles/Vol] 27.5 mmol/L Normal 22.0-30.0 [facility] Comment on above: Performed By: #### C MP #### [facility] [address] [address] Naseem Marychuy Creatinine [Mass/Vol] 1.24 mg/dL Normal 0.66-1.25 [facility] Comment on above: Performed By: #### C MP #### [facility] [address] [place] [address] Naseem Marychuy EGFR-AF SWISS >60 Normal >=60 [facility] Comment on above: Performed By: #### C MP #### [facility] [address] [place] [address] Naseem Marychuy EGFR-NON AF SWISS 59 mL/min/1.73m2 Critically low >=60 [facility] Comment on above: Performed By: #### C MP #### [facility] [address] [id number] Naseem Marychuy Globulin (S) [Mass/Vol] 2.8 g/dL Normal [facility] Comment on above: Performed By: #### C MP #### [facility] [address] [address] Naseem Marychuy Glucose [Mass/Vol] 171 mg/dL Critically high 74-106 T [facility] Comment on above: Performed By: #### C MP #### [facility] [address] [id number] Naseem Marychuy Potassium [Moles/Vol] 4.0 mmol/L Normal 3.4-5.0 [facility] Comment on above: Performed By: #### C MP #### [facility] [address] [id number] Naseem Marychuy Protein [Mass/Vol] 6.0 g/dL Critically low 6.1-8.2 Th [facility] Comment on above: Performed By: #### C MP #### [facility] [address] [id number] Naseem Marychuy Sodium [Moles/Vol] 139 mmol/L Normal 137-[address] [facility] Comment on above: Performed By: #### C MP #### [facility] [address] [id number] Naseem Marychuy Urea nitrogen [Mass/Vol] 14.0 mg/dL Normal 9.0-20.0 [facility] Comment on above: Performed By: #### C MP #### [facility] [address] [id number] Naseem Marychuy Urea nitrogen/Creatinin e [Mass ratio] 11.3 mg/mg Normal [facility] Comment on above: Performed By: #### C MP #### [facility] [address] [id number] Naseem Marychuy CBC AUTO DIFFon 12-16-2020 BASO # 0.1 103/ul Normal 0.0-0.1 [facility] Comment on above: Performed By: #### L IPA, HSTROPN, CMP #### [facility] [address] [id number] Naseem Marychuy Basophils/100 WBC (Bld) 0.8 % Normal 0.2-2.0 [facility] Comment on above: Performed By: #### L IPA, HSTROPN, CMP #### [facility] [address] [id number] Naseem Marychuy EO # 0.3 103/ul Normal 0.0-0.7 [facility] Comment on above: Performed By: #### L IPA HSTRALEXI, CMP #### [facility] [address] [place] [address] Naseem Marychuy Eosinophils/100 WBC (Bld) 2.5 % Normal 0.9-7.0 The [facility] Comment on above: Performed By: #### L IPA HSTROPN, CMP #### [facility] [address] [place] [address] Naseem Marychuy Erythrocyte distribution width (RBC) [Ratio] 13.1 % Normal 11.0-15.0 [facility] Comment on above: Performed By: #### L IPA HSTRALEXI, CMP #### [facility] [address] [place] [address] Naseem Marychuy Hematocrit (Bld) [Volume fraction] 33.6 % Critically low 42.0-54.0 [facility] Comment on above: Performed By: #### L IPA HSTROPN, CMP #### [facility] [address] [place] [address] Naseem Marychuy Hemoglobin (Bld) [Mass/Vol] 11.0 g/dL Critically low 14.0-18.0 [facility] Comment on above: Performed By: #### L IPA HSTROPN, CMP #### [facility] [address] [place] [address] Naseem Marychuy IG # 0.03 10e3/ul Normal 0.00-0.03 [facility] Comment on above: Performed By: #### L IPA HSTROPN, CMP #### [facility] [address] [place] [address] Naseem Marychuy IG % 0.3 % Normal 0.0-0.5 [facility] Comment on above: Performed By: #### L IPA HSTROPN, CMP #### [facility] [address] [place] [address] Naseem Marychuy LYMPH # 3.1 103/ul Normal 1.2-3.8 The [facility] Comment on above: Performed By: #### L IPA, HSTROPN, CMP #### [facility] [address] [address] Naseem Perrin Lymphocytes/100 WBC (Bld) 28.7 % Normal 20.5-60.0 [facility] Comment on above: Performed By: #### L IPA, HSTROPN, CMP #### [facility] [address] [place] [address] Naseem Perrin MANUAL DIFF REQ NO Normal [facility] Comment on above: Performed By: #### L IPA, HSTROPN, CMP #### [facility] [address] [place] [address] Naseem Perrin MCH (RBC) [Entitic mass] 29.3 pg Normal 25.9-34.0 [facility] Comment on above: Performed By: #### L IPA, HSTROPN, CMP #### [facility] [address] [place] [address] Naseem Perrin MCHC (RBC) [Mass/Vol] 32.7 g/dL Normal 29.9-35.2 [facility] Comment on above: Performed By: #### L IPA, HSTROPN, CMP #### [facility] [address] [place] [address] Naseem Perrin MCV (RBC) [Entitic vol] 89.4 fL Normal 80.0-94.0 [facility] Comment on above: Performed By: #### L IPA, HSTROPN, CMP #### [facility] [address] [place] [address] Naseem Perrin MONO # 1.0 103/ul Critically high 0.3-0.8 The [facility] Comment on above: Performed By: #### L IPA, HSTROPN, CMP #### [facility] [address] [place] [address] Naseem Perrin Monocytes/100 WBC (Bld) 9.0 % Normal 1.7-12.0 [facility] Comment on above: Performed By: #### L IPA, HSTROPN, CMP #### [facility] [address] [place] [address] Naseem Perrin NEUT # 6.3 103/ul Normal 1.4-6.5 The [facility] Comment on above: Performed By: #### L SARAH JOSHUATRMARIVELN, CMP #### [facility] [address] [place], [place] [id number] Naseem Perrin Neutrophils/100 WBC (Bld) 58.7 % Normal 43.0-75.0 The [facility] Comment on above: Performed By: #### L IPA HSTROPN, CMP #### [facility] [address] [place], [place] [id number] Naseem Perrin Platelet mean volume (Bld) [Entitic vol] 10.0 fL Normal 9.5-13.5 The [facility] Comment on above: Performed By: #### L IPA HSTROPN, CMP #### [facility] [address] [place] [address] Naseem Perrin PLT 230 103/ul Normal 150-450 [facility] Comment on above: Performed By: #### L IPA HSTROPN, CMP #### [facility] [address] [place], [place] [id number] Naseem Marychuy RBC 3.76 106/ul Critically low 4.70-6.10 The [facility] Comment on above: Performed By: #### L IPA HSTROPN, CMP #### [facility] [address] [place], [place] [id number] Naseem Perrin WBC 10.7 103/ul Normal 4.0-11.0 The [facility] Comment on above: Performed By: #### L IPA, HSTROPN, CMP #### [facility] [address] [place], [place] [id number] Naseem Perrin [facility]on SARS-CoV-2 (COVID-19) RNA DEMETRIUS+probe Ql (Unsp spec) Not detected Normal NOT DETECTED The [facility] Comment on above: Result Comment: This test is not yet approved or cleared by the [place] FDA. When there are no FDA-approved or cleared tests available, and other criteria are met, FDA can make tests available under an emergency access mechanism called an Emergency Use Authorization (EUA). The EUA for this test is supported by the Cliff of Health and Human Service's (HHS's) declaration that circumstances exist to justify the emergency use of in vitro diagnostics for the detection and/or diagnosis of the virus that causes COVID-19. This EUA will remain in effect (meaning this test can be used) for the duration of the COVID-19 declaration justifying emergency of IVDs, unless it is terminated or revoked by FDA (after which the test may no longer be used). When diagnostic testing is negative, the possibility of a false negative should be considered in the context of a patient's recent exposures and the presence of clinical signs and symptoms consistent with SARS-CoV-2. Performed By: #### C VDTBH #### [facility] [address] [place] [address] Naseem Perrin LACTATE/LACTIC ACIDon 2020 Lactate [Moles/Vol] 2.1 mmol/L Critically high 0.7-2.0 [facility] Comment on above: Performed By: #### L IPA, HSTROPN, CMP #### [facility] [address] [place] [address] Naseem Perrin POINT OF CARE GLUCOSEon Glucose [Mass/Vol] 174 mg/dL Critically high 74-106 [facility] Comment on above: Performed By: #### P OCGLUC #### [facility] [address] [place] [address] Naseem Marychuy Glucose [Mass/Vol] 231 mg/dL Critically high 74-106 [facility] Comment on above: Performed By: #### P OCGLUC #### [facility] [address] [place] [address] Naseem Marychuy Glucose [Mass/Vol] 197 mg/dL Critically high 74-106 [facility] Comment on above: Performed By: #### P OCGLUC #### [facility] [address] [place] [address] Naseem Perrin PROF 14(COMP METB)on 021 Albumin [Mass/Vol] 3.2 g/dL Critically low 3.5-5.0 Th [facility] Comment on above: Performed By: #### L IPA, HSTROPN, CMP #### [facility] [address] [place], [place] [id number] Naseem Marychuy Albumin/Globulin [Mass ratio] 1.1 {ratio} Normal [facility] Comment on above: Performed By: #### L IPA, HSTROPN, CMP #### [facility] [address] [place], [place] [id number] Naseem Marychuy ALP [Catalytic activity/Vol] 94 U/L Normal 38-126 [facility] Comment on above: Performed By: #### L IPA HSTROPN, CMP #### [facility] [address] [place] [address] Naseem Marychuy ALT [Catalytic activity/Vol] 37 U/L Normal 21-72 [facility] Comment on above: Performed By: #### L IPA HSTROPN, CMP #### [facility] [address] [place] [address] Naseem Marychuy Anion gap [Moles/Vol] 13.1 mmol/L Normal [facility] Comment on above: Performed By: #### L IPA HSTROPN, CMP #### [facility] [address] [place] [address] Naseem Marychuy AST [Catalytic activity/Vol] 32 U/L Normal 17-59 [facility] Comment on above: Performed By: #### L IPA, HSTROPN, CMP #### [facility] [address] [place], [place] [id number] Naseem Marychuy Bilirubin [Mass/Vol] 0.5 mg/dL Normal 0.2-1.3 [facility] Comment on above: Performed By: #### L IPA, HSTROPN, CMP #### [facility] [address] [place], [place] [id number] Naseem Marychuy Calcium [Mass/Vol] 8.2 mg/dL Critically low 8.4-10.2 Th [facility] Comment on above: Performed By: #### L IPA, HSTROPN, CMP #### [facility] [address] [address] Naseem Marychuy Chloride [Moles/Vol] 104 mmol/L Normal 98-107 [facility] Comment on above: Performed By: #### L IPA, HSTROPN, CMP #### [facility] [address] [address] Naseem Marychuy CO2 [Moles/Vol] 24.7 mmol/L Normal 22.0-30.0 [facility] Comment on above: Performed By: #### L IPA, HSTROPN, CMP #### [facility] [address] [address] Naseem Marychuy Creatinine [Mass/Vol] 2.18 mg/dL Critically high 0.66-1.25 The [facility] Comment on above: Performed By: #### L IPA, HSTROPN, CMP #### [facility] [address] [address] Naseem Marychuy EGFR-AF SWISS 37 mL/min/1.73m2 Critically low >=60 [facility] Comment on above: Performed By: #### L IPA, HSTROPN, CMP #### [facility] [address] [address] Naseem Marychuy EGFR-NON AF SWISS 31 mL/min/1.73m2 Critically low >=60 The [facility] Comment on above: Performed By: #### L IPA, HSTROPN, CMP #### [facility] [address] [address] Naseem Marychuy Globulin (S) [Mass/Vol] 2.8 g/dL Normal [facility] Comment on above: Performed By: #### L IPA, HSTROPN, CMP #### [facility] [address] [address] Naseem Marychuy Glucose [Mass/Vol] 159 mg/dL Critically high 74-106 T [facility] Comment on above: Performed By: #### L IPA, HSTROPN, CMP #### [facility] [address] [address] Naseem Marychuy Potassium [Moles/Vol] 3.8 mmol/L Normal 3.4-5.0 [facility] Comment on above: Performed By: #### L IPA HSTROPN, CMP #### [facility] [address] [address] Naseem Marychuy Protein [Mass/Vol] 6.0 g/dL Critically low 6.1-8.2 Th [facility] Comment on above: Performed By: #### L IPA HSTROPN, CMP #### [facility] [address] [place] [address] Naseem Marychuy Sodium [Moles/Vol] 138 mmol/L Normal 137-[address] [facility] Comment on above: Performed By: #### L JOSIANE HSTROPMario Alberto, CMP #### [facility] [address] [place] [address] Naseem Marychuy Urea nitrogen [Mass/Vol] 28.0 mg/dL Critically high 9.0-20.0 [facility] Comment on above: Performed By: #### L JOSIANE HSTROPN, CMP #### [facility] [address] [place] [address] Naseem Marychuy Urea nitrogen/Creatinin e [Mass ratio] 12.8 mg/mg Normal [facility] Comment on above: Performed By: #### L JOSIANE HSTROPMario Alberto, CMP #### [facility] [address] [place] [address] Naseem Marychuy UA RANDOMon 12-16-2020 Bilirubin Ql (U) Negative Normal NEGATIVE [facility] Comment on above: Performed By: #### L IPA HSTROPN, CMP #### [facility] [address] [place] [address] Naseem Marychuy Clarity (U) CLEAR Normal CLEAR The [facility] Comment on above: Performed By: #### L IPA HSTROPN, CMP #### [facility] [address] [place] [address] Naseem Marychuy Color (U) YELLOW Normal YELLOW The [facility] Comment on above: Performed By: #### L IPA HSTROPN, CMP #### [facility] [address] [place], [place] [id number] Naseem Marychuy Glucose Ql (U) Negative Normal NEGATIVE [facility] Comment on above: Performed By: #### L IPA, HSTROPN, CMP #### [facility] [address] [place] [address] Naseem Marychuy Hemoglobin Ql (U) Negative Normal NEGATIVE [facility] Comment on above: Performed By: #### L IPA, HSTROPN, CMP #### [facility] [address] [address] Naseem Marychuy Ketones Ql (U) Negative Normal NEGATIVE [facility] Comment on above: Performed By: #### L IPA, HSTROPN, CMP #### [facility] [address] [place] [address] Naseem Marychuy LEUKOCYTES Negative Normal NEGATIVE [facility] Comment on above: Performed By: #### L IPA, HSTROPN, CMP #### [facility] [address] [place] [address] Naseem Marychuy Nitrite Ql (U) Negative Normal NEGATIVE [facility] Comment on above: Performed By: #### L IPA, HSTROPN, CMP #### [facility] [address] [place] [address] Naseem Marychuy pH (U) 5.5 [pH] Normal 5-9 [facility] Comment on above: Performed By: #### L IPA, HSTROPN, CMP #### [facility] [address] [place] [address] Naseem Marychuy SPEC GRAVITY >=1.030 Abnormal 1.005-<=1.[address] [place] [address] Comment on above: Performed By: #### L IPA, HSTROPN, CMP #### [facility] [address] [place] [address] Naseem Marychuy UA PROTEIN TRACE Normal NEGATIVE/ TRACE [facility] Comment on above: Performed By: #### L IPA, HSTROPN, CMP #### [facility] [address] [place] [address] Naseem Marychuy Urobilinogen Qn (U) 0.2 {Dalia'U}/dL Normal 0.2 - 1.0 [facility] Comment on above: Performed By: #### L IPA HSTROPN, CMP #### [facility] [address] [place] [address] Naseem Perrin ASYMPTOMATIC COVID-19 ANTIGE Non 12-15-2020 EUA Statement SEE BELOW Normal [facility] Comment on above: Result Comment: This test has not been FDA cleared or approved, but has been authorized by the FDA under an Emergency Use Authorization (EUA) for use by authorized laboratories certified under CLIA that meet the requirements to perform moderate or high complexity testing. This test has been authorized only for the detection of proteins from SARS-CoV-2, not for any other viruses or pathogens. The emergency use of this test is authorized for the duration of the declaration that circumstances exist justifying the authorization of emergency use of in vitro diagnostic tests for detection and/or diagnosis of Covid-19 under section 564(b)(1) of the Act, 21 U.S.C. 360bbb-3(b)(1), unless the declaration is terminated or authorization is revoked sooner. Performed By: #### L IPA HSTROPN, CMP #### [facility] [address] [place], [place] [id number] Naseem Perrin SARS-CoV-2 (COVID-19) RNA DEMETRIUS+probe Ql (Unsp spec) Negative Normal NEGATIVE [facility] Comment on above: Result Comment: Nega tive results are presumptive. They do not preclude infection and should not be used as the sole basis for treatment decisions. Additional confirmatory testing by a molecular method should be considered. Performed By: #### L IPA HSTROPN, CMP #### [facility] [address] [place], [place] [id number] Naseem Perrin CBC AUTO DIFFon 12-15-2020 BASO # 0.1 103/ul Normal 0.0-0.1 [facility] Comment on above: Performed By: #### L IPA HSTROPN, CMP #### [facility] [address] [place] [address] Naseem Perrin Basophils/100 WBC (Bld) 0.4 % Normal 0.2-2.0 [facility] Comment on above: Performed By: #### L IPA HSTROPN, CMP #### [facility] [address] [place] [address] Naseem Marychuy EO # 0.0 103/ul Normal 0.0-0.7 [facility] Comment on above: Performed By: #### L IPA HSTROPN, CMP #### [facility] [address] [place] [address] Naseem Marychuy Eosinophils/100 WBC (Bld) 0.1 % Critically low 0.9-7.0 [facility] Comment on above: Performed By: #### L IPA HSTROPN, CMP #### [facility] [address] [place] [address] Naseemkenneth Chiangen Erythrocyte distribution width (RBC) [Ratio] 13.1 % Normal 11.0-15.0 [facility] Comment on above: Performed By: #### L IPA HSTROPN, CMP #### [facility] [address] [place] [address] Naseemkenneth Chiangen Hematocrit (Bld) [Volume fraction] 37.1 % Critically low 42.0-54.0 [facility] Comment on above: Performed By: #### L IPA HSTROPN, CMP #### [facility] [address] [place] [address] Naseemkenneth Perrin Hemoglobin (Bld) [Mass/Vol] 12.7 g/dL Critically low 14.0-18.0 [facility] Comment on above: Performed By: #### L IPA HSTROPN, CMP #### [facility] [address] [place] [address] Naseem Marychuy IG # 0.05 10e3/ul Critically high 0.00-0.03 The [facility] Comment on above: Performed By: #### L IPA HSTROPN, CMP #### [facility] [address] [place] [address] Naseem Marychuy IG % 0.4 % Normal 0.0-0.5 [facility] Comment on above: Performed By: #### L IPA HSTROPN, CMP #### [facility] [address] [place] [address] Naseem Marychuy LYMPH # 2.3 103/ul Normal 1.2-3.8 [facility] Comment on above: Performed By: #### L IPA, HSTROPN, CMP #### [facility] [address] [address] Naseem Marychuy Lymphocytes/100 WBC (Bld) 15.9 % Critically low 20.5-60.0 [facility] Comment on above: Performed By: #### L IPA, HSTROPN, CMP #### [facility] [address] [place], [place] [address] Naseem Marychuy MANUAL DIFF REQ NO Normal [facility] Comment on above: Performed By: #### L IPA, HSTROPN, CMP #### [facility] [address] [place] [address] Naseem Marychuy MCH (RBC) [Entitic mass] 29.8 pg Normal 25.9-34.0 [facility] Comment on above: Performed By: #### L IPA, HSTROPN, CMP #### [facility] [address] [place], [place] [address] Naseem Marychuy MCHC (RBC) [Mass/Vol] 34.2 g/dL Normal 29.9-35.2 [facility] Comment on above: Performed By: #### L IPA, HSTROPN, CMP #### [facility] [address] [place] [address] Naseem Marychuy MCV (RBC) [Entitic vol] 87.1 fL Normal 80.0-94.0 [facility] Comment on above: Performed By: #### L IPA, HSTROPN, CMP #### [facility] [address] [place] [address] Naseem Marychuy MONO # 1.2 103/ul Critically high 0.3-0.8 [facility] Comment on above: Performed By: #### L IPA, HSTROPN, CMP #### [facility] [address] [place] [address] Naseem Marychuy Monocytes/100 WBC (Bld) 8.1 % Normal 1.7-12.0 [facility] Comment on above: Performed By: #### L JOSIANE HSTRALEXI, CMP #### [facility] [address] [address] Naseem Perrin NEUT # 10.7 103/ul Critically high 1.4-6.5 [facility] Comment on above: Performed By: #### L JOSIANE HSTRMARIVELN, CMP #### [facility] [address] [address] Naseem Chiangen Neutrophils/100 WBC (Bld) 75.1 % Critically high 43.0-75.0 [facility] Comment on above: Performed By: #### L JOSIANE HSTRALEXI, CMP #### [facility] [address] [place] [address] Naseem Perrin Platelet mean volume (Bld) [Entitic vol] 9.8 fL Normal 9.5-13.5 [facility] Comment on above: Performed By: #### L JOSIANE HSTROPN, CMP #### [facility] [address] [address] Naseem Marychuy PLT 294 103/ul Normal 150-450 [facility] Comment on above: Performed By: #### L JOSIANE HSTROPN, CMP #### [facility] [address] [place] [address] Naseem Marychuy RBC 4.26 106/ul Critically low 4.70-6.10 [facility] Comment on above: Performed By: #### L IPA HSTROPN, CMP #### [facility] [address] [place], [place] [address] Naseem Marychuy WBC 14.3 103/ul Critically high 4.0-11.0 [facility] Comment on above: Performed By: #### L IPA HSTROPN, CMP #### [facility] [address] [place], [place] [id number] Naseem Marychuy CT ABD/PELVIS WO CONon 12-15 CT ABD/PELVIS WO CON EXAM: CT abdomen and Pelvis without contrast dated 12/15/2020 6:37 PM EDT HISTORY: 60-year-old male with acute epigastric pain and diarrhea with dizziness. Hypotension reported. Increased creatinine reported Previous dated 03/11/2019. TECHNIQUE: Multidetector spiral CT of the abdomen was performed from lung bases to pubic symphysis. Imaging was performed without IV contrast. Axial, coronal and sagittal multiplanar reformats were obtained from the axial data set by the technologist. Dose reduction techniques were achieved by using automated exposure control and/or adjustment of mA and/or kV according to patient size and/or use of iterative reconstruction technique. FINDINGS: Evaluation of solid organs is limited due to lack of intravenous contrast use. Significant motion artifact is noted in the upper abdomen which obscures evaluation for subtle pathology. There is left basilar atelectasis noted with no large pericardial or pleural effusion. Trace pericardial effusion is likely physiologic. Spleen and adrenal glands are unremarkable. Gallbladder wall thickening and slightly increased intraluminal attenuation may be present however motion artifact significantly obscures evaluation. Mild hepatic steatosis is noted with no focal lesion. Pancreas: The pancreas is atrophic but otherwise unremarkable with trace edema along the pancreatic head and neck not excluded however this may represent artifact from motion Adrenal Glands: Unremarkable Kidneys: Bilateral perinephric fat stranding and edema is appreciated without an acute obstructive uropathy identified. No nephroureterolithiasis. No hydronephrosis. Bladder wall thickening is noted. Bowel: The stomach is grossly normal in appearance. Small bowel and colon are normal in caliber and distribution. The appendix is normal in caliber without findings of acute appendicitis identified. There is moderate thickening involving the transverse colon and colonic mural thickening is noted involving the cecum and at the hepatic flexure. Fluid-filled and mildly thickened descending colon is appreciated with slight adjacent edema along its course extending to the rectosigmoid and no focal collection identified. No findings of obstruction. Ascites: Absent Lymphadenopathy: No mesenteric, retroperitoneal or periportal lymphadenopathy. Stable slightly prominent neelam hepatis lymph nodes are nonspecific. Abdominal Wall and Mesentery: Fat-containing ventral umbilical hernia defect on image 11 through 15 of series 5 with no acute complication appreciated. Areas of stranding and edema along the ventral abdominal wall in the subcutaneous fat may represent postprocedural change, and findings appear similar to the previous exam. Vasculature: The visualized abdominal aorta is normal in size and caliber. Evaluation of abdominal and pelvic vessels is limited due to lack of intravenous contrast. Pelvic Organs: Unremarkable on CT imaging with calcifications noted in the prostate gland. Musculoskeletal: No aggressive focal bony lesions, acute fractures or dislocation. Multilevel degenerative changes are noted in the thoracic spine with areas of spurring and moderate degenerative disc disease at L5-S1 with vacuum phenomenon is again appreciated. IMPRESSION: Infectious or inflammatory colitis is suggested as described above. No findings of obstruction. No drainable fluid collection. Mild thickening or underdistention of the bladder for which laboratory correlation for infection is suggested. Mild hepatic steatosis and motion artifact slightly obscuring evaluation of the gallbladder however mild wall thickening is not excluded. Consider correlation with targeted ultrasound if indicated for better characterization. Nonacute findings as noted. Electronically authenticated by: CHENG SHAHID Date: 2020-12-15 20:14 Normal The [facility] LACTATE/LACTIC ACIDon 2020 Lactate [Moles/Vol] 2.8 mmol/L Critically high 0.7-2.0 [facility] Comment on above: Result Comment: Test repeated. Critical value verified. Performed By: #### L IPA HSTROPN, CMP #### [facility] [address] [place] [address] Naseem Perrin LIPASEon 12-15-2020 Lipase [Catalytic activity/Vol] 53.0 U/L Normal 23.0-300.0 [facility] Comment on above: Performed By: #### L JOSIANE HSTROPN, CMP #### [facility] [address] [place], [place] [id number] Naseem Perrin PROF 14(COMP METB)on 021 Albumin [Mass/Vol] 3.8 g/dL Normal 3.5-5.0 [facility] Comment on above: Performed By: #### L IPA HSTROPN, CMP #### [facility] [address] [place], [place] [id number] Naseem Perrin Albumin/Globulin [Mass ratio] 1.2 {ratio} Normal [facility] Comment on above: Performed By: #### L IPA HSTROPN, CMP #### [facility] [address] [place], [place] [id number] Naseem Marychuy ALP [Catalytic activity/Vol] 127 U/L Critically high 38-126 [facility] Comment on above: Performed By: #### L IPA, HSTROPN, CMP #### [facility] [address] [address] Naseem Marychuy ALT [Catalytic activity/Vol] 34 U/L Normal 21-72 [facility] Comment on above: Performed By: #### L IPA, HSTROPN, CMP #### [facility] [address] [place] [address] Naseem Marychuy Anion gap [Moles/Vol] 18.1 mmol/L Normal [facility] Comment on above: Performed By: #### L IPA, HSTROPN, CMP #### [facility] [address] [place] [address] Naseem Marychuy AST [Catalytic activity/Vol] 35 U/L Normal 17-59 [facility] Comment on above: Performed By: #### L IPA, HSTROPN, CMP #### [facility] [address] [place] [address] Naseem Marychuy Bilirubin [Mass/Vol] 0.6 mg/dL Normal 0.2-1.3 [facility] Comment on above: Performed By: #### L IPA, HSTROPN, CMP #### [facility] [address] [place] [address] Naseem Marychuy Calcium [Mass/Vol] 8.9 mg/dL Normal 8.4-10.2 [facility] Comment on above: Performed By: #### L IPA, HSTROPN, CMP #### [facility] [address] [place] [address] Naseem Marychuy Chloride [Moles/Vol] 99 mmol/L Normal 98-107 [facility] Comment on above: Performed By: #### L IPA, HSTROPN, CMP #### [facility] [address] [place] [address] Naseem Marychuy CO2 [Moles/Vol] 22.9 mmol/L Normal 22.0-30.0 [facility] Comment on above: Performed By: #### L IPA, HSTROPN, CMP #### [facility] [address] [place], [place] [id number] Naseem Marychuy Creatinine [Mass/Vol] 3.47 mg/dL Critically high 0.66-1.25 [facility] Comment on above: Performed By: #### L IPA HSTROPN, CMP #### [facility] [address] [address] Naseem Marychuy EGFR-AF SWISS 22 mL/min/1.73m2 Critically low >=60 [facility] Comment on above: Performed By: #### L IPA HSTROPN, CMP #### [facility] [address] [address] Naseem Marychuy EGFR-NON AF SWISS 18 mL/min/1.73m2 Critically low >=60 [facility] Comment on above: Performed By: #### L IPA, HSTROPN, CMP #### [facility] [address] [place] [address] Naseem Marychuy Globulin (S) [Mass/Vol] 3.3 g/dL Normal [facility] Comment on above: Performed By: #### L IPA, HSTROPN, CMP #### [facility] [address] [address] Naseem Marychuy Glucose [Mass/Vol] 249 mg/dL Critically high 74-106 T [facility] Comment on above: Performed By: #### L IPA, HSTROPN, CMP #### [facility] [address] [place] [address] Naseem Marychuy Potassium [Moles/Vol] 5.0 mmol/L Normal 3.4-5.0 [facility] Comment on above: Performed By: #### L IPA, HSTROPN, CMP #### [facility] [address] [place] [address] Naseem Marychuy Protein [Mass/Vol] 7.1 g/dL Normal 6.1-8.[address] [facility] Comment on above: Performed By: #### L IPA, HSTROPN, CMP #### [facility] [address] [place] [address] Naseem Marychuy Sodium [Moles/Vol] 135 mmol/L Critically low 137-145 Th e [facility] Comment on above: Performed By: #### L IPA HSTROPN, CMP #### [facility] [address] [place] [address] Naseem Perrin Urea nitrogen [Mass/Vol] 29.0 mg/dL Critically high 9.0-20.0 [facility] Comment on above: Performed By: #### L IPA HSTROPN, CMP #### [facility] [address] [place] [address] Naseem Perrin Urea nitrogen/Creatinin e [Mass ratio] 8.4 mg/mg Normal [facility] Comment on above: Performed By: #### L IPASARAHTROPN, CMP #### [facility] [address] [place] [address] Naseem Perrin PROTIMEon 12-15-2020 INR Coag (PPP) [Relative time] 1.02 {INR} Normal [facility] Comment on above: Performed By: #### P TT, PT #### [facility] [address] [place] [address] Naseem Perrin INR GUIDELINES SEE BELOW Normal [facility] Comment on above: Result Comment: ALICIA RED INR: 2.0 - 3.0 CONDITIONS NOT LISTED BELOW 2.5 - 3.5 FOR PROSTHETIC HEART VALVE REPLACEMENT 2.5 - 3.5 RECURRENT THROMBOSIS Performed By: #### P TT, PT #### [facility] [address] [place] [address] Naseemkenneth Perrin PT Coag (PPP) [Time] 11.0 s Normal 9.0-11.6 [facility] Comment on above: Performed By: #### P TT, PT #### [facility] [address] [place] [address] Naseem Perrin PTTon 12-15-2020 aPTT Coag (Bld) [Time] 25.3 s Normal 22.3-36.2 [facility] Comment on above: Performed By: #### P TT, PT #### [facility] [address] [place] [address] Naseem Perrin TROPONIN, HIGH SENSITIVITYon 12-15-2020 HSTROP 9.4 pg/mL Normal 4.0-42.2 [facility] Comment on above: Result Comment: CUT- OFF POINTS HAVE BEEN ESTABLISHED BASED ON THE FOURTH UNIVERSAL DEFINITIONS OF MYOCARDIAL INFARCTION. THE UPPER REFERENCE LIMIT (URL) OF TROPONIN, DEFINED THE 99TH PERCENTILE OF cTnI DISTRIBUTION IN A REFERENCE POPULATION, HAS BEEN CONFIRMED THE DECISION THRESHOLD FOR [place] DIAGNOSIS. Performed By: #### L IPA, HSTROPN, CMP #### [facility] [address] [place], [place] [address] Naseem Perrin CBC Auto Differentialon Basophils (Bld) [#/Vol] 0.09 10*3/uL [employer] Phone: Basophils/100 WBC (Bld) 2 % 0 - 2 % [employer] Phone: Differential Type NOT REPORTED [employer] Phone: Eosinophils (Bld) [#/Vol] 0.41 10*3/uL [employer] Phone: Eosinophils/100 WBC (Bld) 7 % High 1 - 4 % [employer] Phone: Erythrocyte distribution width (RBC) [Ratio] 13.2 % 11.8 - 14.4 % [employer] Phone: Hematocrit (Bld) [Volume fraction] 38.8 % Low 40.7 - 50.3 % [employer] Phone: Hemoglobin (Bld) [Mass/Vol] 12.8 g/dL Low 13 - 17 g/dL [employer] Phone: Immature granulocytes (Bld) [#/Vol] 0 % 0 [employer] Phone: Immature granulocytes (Bld) [#/Vol] 10*3/uL [employer] Phone: Interpretation and review of laboratory results Abnormal [employer] Phone: Lymphocytes (Bld) [#/Vol] 1.86 10*3/uL [employer] Phone: Lymphocytes/100 WBC (Bld) 31 % 24 - 43 % [employer] Phone: MCH (RBC) [Entitic mass] 29.6 pg 25.2 - 33.5 pg [employer] Phone: MCHC (RBC) [Mass/Vol] 33.0 g/dL 28.4 - 34.8 g/dL [employer] Work Phone: MCV (RBC) [Entitic vol] 89.8 fL 82.6 - 102.9 fL [employer] Work Phone: Monocytes (Bld) [#/Vol] 0.42 10*3/uL [employer] Phone: Monocytes/100 WBC (Bld) 7 % 3 - 12 % [employer] Work Phone: Platelet mean volume (Bld) [Entitic vol] 10.7 fL 8.1 - 13.5 fL [employer] Work Phone: Platelets (Bld) [#/Vol] 287 10*3/uL [employer] Phone: Platelets (Bld) [#/Vol] NOT REPORTED [employer] Phone: RBC (Bld) [#/Vol] 4.32 10*6/uL 4.21 - 5.7 7 m/uL [employer] Work Phone: RBC morphology finding Nom (Bld) NOT REPORTED [employer] Phone: Segmented neutrophils/100 WBC (Bld) 53 % 36 - 65 % [employer] Work Phone: Segs Absolute [employer] Work Phone: WBC (Bld) [#/Vol] 6.0 10*3/uL [employer] Work Phone: WBC (Bld) [#/Vol] 0.0 10*3/uL 0.0 per 10 0 WBC [facility] Work Phone: WBC Morphology NOT REPORTED [facility] Work Phone: CBC with Diffon 05-14-2019 Abs. Basophil 0.09 k/uL Normal 0.00-0.20 [facility] Comment on above: Performed By: #### C DP #### [address] [place], [place] [address] Local Delivery Driver: Juan Zuluaga MD Abs.Imm.Granulocyt e <0.03 Normal 0.00-0.30 [facility] Comment on above: Performed By: #### C DP #### [address] [place], [place] [address] Local Delivery Driver: Juan Zuluaga MD Abs.Neutrophil (Seg) 3.23 k/uL Normal 1.50-8.10 [facility] Comment on above: Performed By: #### C DP #### [address] [place] [address] Local Delivery Driver: Juan Zuluaga MD Basophils/100 WBC (Bld) 2 % Normal 0-2 [facility] Comment on above: Performed By: #### C DP #### [address] [place] [address] Local Delivery Driver: Juan Zuluaga MD Eosinophils (Bld) [#/Vol] 0.41 10*3/uL Normal 0.00-0.44 [facility] Comment on above: Performed By: #### C DP #### [address] [place], [place] [id number] Local Delivery Driver: Juan Zuluaga MD Eosinophils/100 WBC (Bld) 7 % High 1-4 [facility] Comment on above: Performed By: #### C DP #### [facility] [address] [place], [place] [id number] Local Delivery Driver: Juan Zuluaga MD Erythrocyte distribution width (RBC) [Ratio] 13.2 % Normal 11.8-14.4 [facility] Comment on above: Performed By: #### C DP #### [facility] [address] [place], [place] [address] Local Delivery Driver: Juan Zuluaga MD Hematocrit (Bld) [Volume fraction] 38.8 % Low 40.7-50.3 [facility] Comment on above: Performed By: #### C DP #### [facility] [address] [place], [place] [address] Local Delivery Driver: Juan Zuluaga MD Hemoglobin (Bld) [Mass/Vol] 12.8 g/dL Low 13.0-17.0 [facility] Comment on above: Performed By: #### C DP #### [facility] [address] [place], [place] [address] Local Delivery Driver: Juan Zuluaga MD Immature granulocytes (Bld) [#/Vol] 0 % Normal 0 [facility] Comment on above: Performed By: #### C DP #### [facility] [address] [place], [place] [address] Local Delivery Driver: Juan Zuluaga MD Lymphocytes (Bld) [#/Vol] 1.86 10*3/uL Normal 1.10-3.70 [facility] Comment on above: Performed By: #### C DP #### [facility] [address] [place], [place] [address] Local Delivery Driver: Juan Zuluaga MD Lymphocytes/100 WBC (Bld) 31 % Normal 24-43 [facility] Comment on above: Performed By: #### C DP #### [facility] [address] [place], [facility] Local Delivery Driver: Juan Zuluaga MD MCH (RBC) [Entitic mass] 29.6 pg Normal 25.2-33.5 [facility] Comment on above: Performed By: #### C DP #### [facility] [address] [place] [id number] Local Delivery Driver: Juan Zuluaga MD MCHC (RBC) [Mass/Vol] 33.0 g/dL Normal 28.4-34.8 [facility] Comment on above: Performed By: #### C DP #### [facility] [address] [place] [address] Local Delivery Driver: Juan Zuluaga MD MCV (RBC) [Entitic vol] 89.8 fL Normal 82.6-102.9 [facility] Comment on above: Performed By: #### C DP #### [facility] [address] [place] [id number] Local Delivery Driver: Juan Zuluaga MD Monocytes (Bld) [#/Vol] 0.42 10*3/uL Normal 0.10-1.20 [facility] Comment on above: Performed By: #### C DP #### [facility] [address] [place], [place] [phone] Local Delivery Driver: Juan Zuluaga MD Monocytes/100 WBC (Bld) 7 % Normal 3-12 [facility] Comment on above: Performed By: #### C DP #### [facility] [address] [place] [phone] Local Delivery Driver: Juan Zuluaga MD Neutrophil (Seg) 53 % Normal 36-65 [facility] Comment on above: Performed By: #### C DP #### [facility] [address] [place] [id number] Local Delivery Driver: Juan Zuluaga MD NRBC Automated 0.0 per 100 WBC Normal 0.0 [facility] Comment on above: Performed By: #### C DP #### [facility] [address] [place] [phone] Local Delivery Driver: Juan Zuluaga MD Platelet mean volume (Bld) [Entitic vol] 10.7 fL Normal 8.1-13.5 [facility] Comment on above: Performed By: #### C DP #### [facility] [address] [place], [place] [address] Local Delivery Driver: Juan Zuluaga MD Platelets (Bld) [#/Vol] 287 10*3/uL Normal 138-453 [facility] Comment on above: Performed By: #### C DP #### [facility] [address] [place], [facility] Local Delivery Driver: Juan Zuluaga MD RBC (Bld) [#/Vol] 4.32 10*6/uL Normal 4.21-5.77 [facility] Comment on above: Performed By: #### C DP #### [facility] [address] [place], [facility] Local Delivery Driver: Juan Zuluaga MD WBC (Bld) [#/Vol] 6.0 10*3/uL Normal 3.5-11.3 [facility] Comment on above: Performed By: #### C DP #### [facility] [address] [place], [facility] Local Delivery Driver: Juan Zuluaga MD Auto Diff Performed NOT REPORTED Normal [facility] Comment on above: Performed By: #### C DP #### [facility] [address] [place], [facility] Local Delivery Driver: Juan Zuluaga MD Platelets (Bld) [#/Vol] NOT REPORTED Normal [facility] Comment on above: Performed By: #### C DP #### [facility] [address] [place], [facility] Local Delivery Driver: Juan Zuluaga MD RBC morphology finding Nom (Bld) NOT REPORTED Normal [facility] Comment on above: Performed By: #### C DP #### [facility] [address] [place], [facility] Local Delivery Driver: Juan Zuluaga MD WBC Morphology NOT REPORTED Normal [facility] Comment on above: Performed By: #### C DP #### [facility] [address] [place] [address] Local Delivery Driver: Juan Zuluaga MD Laboratory Studieson 019 Vancomycin trough [Mass/Vol] 15.1 ug/mL 10.0-20.0 [facility] Comment on above: Last dose: - Glucose [Mass/Vol] 96 mg/dL [facility] Comment on above: Random Glucose Refer ence Range is dependent on time and content of last meal. Glucose of more than 200 mg/dL in a nonstressed, ambulatory subject supports the diagnosis of Diabetes Mellitus. Glucose [Mass/Vol] Glu2: cleaned meter [facility] Basophils (Bld) [#/Vol] 0.1 10*3/uL 0.0-0.2 [facility] Basophils/100 WBC (Bld) 0.7 % [facility] Calcium [Mass/Vol] 8.2 mg/dL 8.2-10.2 [facility] Chloride [Moles/Vol] 105 mmol/L 95-114 [facility] CO2 [Moles/Vol] 25.2 mmol/L 22.0-30.0 [facility] Creatinine [Mass/Vol] 1.11 mg/dL 0.64-1.27 [facility] Eosinophils (Bld) [#/Vol] 0.6 10*3/uL High 0.0-0.45 [facility] Eosinophils/100 WBC (Bld) 7.6 % [facility] Erythrocyte distribution width (RBC) [Ratio] 13.6 % 12.0-14.8 [facility] GFR/1.73 sq M predicted among non-blacks MDRD (S/P/Bld) [Vol rate/Area] mL/min/{1.73_m2} [facility] GFR/1.73 sq M.predicted MDRD (S/P/Bld) [Vol rate/Area] mL/min/{1.73_m2} [facility] Comment on above: GFR estimated refere nce range: According to KDOQI guidelines, <60 ml/min/1.73m2 is sufficient to diagnose a patient with chronic kidney disease. Glucose [Mass/Vol] 54 mg/dL Low 70-100 [facility] Comment on above: ADA recommended refe rence range Random Glucose Reference Range is dependent on time and content of last meal. Glucose of more than 200 mg/dL in a nonstressed, ambulatory subject supports the diagnosis of Diabetes Mellitus. Hematocrit (Bld) [Volume fraction] 32.0 % Low 38.8-50.0 [facility] Hemoglobin (Bld) [Mass/Vol] 11.0 g/dL Low 13.0-17.0 [facility] Lymphocytes (Bld) [#/Vol] 1.2 10*3/uL 1.00-4.8 [facility] Lymphocytes/100 WBC (Bld) 13.9 % [facility] MCH (RBC) [Entitic mass] 30.2 pg 27.5-35.2 [facility] MCHC (RBC) [Mass/Vol] 34.3 g/dL 32.5-35.6 [facility] MCV (RBC) [Entitic vol] 88.0 fL 83.5-101 [facility] Monocytes (Bld) [#/Vol] 0.5 10*3/uL 0.0-0.8 [facility] Monocytes/100 WBC (Bld) 6.3 % [facility] Neutrophils (Bld) [#/Vol] 6.0 10*3/uL 1.8-7.7 [facility] Neutrophils/100 WBC (Bld) 71.5 % [facility] Nucleated RBC/100 WBC (Bld) [Ratio] 0.0 % 0-0.5 [facility] Creatinine Clearance (Chem [id number] [facility] Platelet mean volume (Bld) [Entitic vol] 7.9 fL 6.6-10.1 [facility] Platelets (Bld) [#/Vol] 273 10*3/uL 150-450 [facility] Potassium [Moles/Vol] 3.5 mmol/L 3.5-5.1 [facility] RBC (Bld) [#/Vol] 3.64 10*6/uL Low 3.90-5.60 [facility] Sodium [Moles/Vol] 140 mmol/L 136-146 [facility] Urea nitrogen [Mass/Vol] 16 mg/dL 9-23 [facility] WBC (Bld) [#/Vol] 8.4 10*3/uL 4.5-11.0 [facility] Laboratory Studieson 019 Glucose [Mass/Vol] 110 mg/dL [facility] Comment on above: Random Glucose Refer ence Range is dependent on time and content of last meal. Glucose of more than 200 mg/dL in a nonstressed, ambulatory subject supports the diagnosis of Diabetes Mellitus. Basophils (Bld) [#/Vol] 0.1 10*3/uL 0.0-0.2 [facility] Basophils/100 WBC (Bld) 0.7 % [facility] Calcium [Mass/Vol] 8.2 mg/dL 8.2-10.2 [facility] Chloride [Moles/Vol] 103 mmol/L 95-114 [facility] CO2 [Moles/Vol] 24.7 mmol/L 22.0-30.0 [facility] Creatinine [Mass/Vol] 1.42 mg/dL High 0.64-1.27 [facility] Eosinophils (Bld) [#/Vol] 0.5 10*3/uL High 0.0-0.45 [facility] Eosinophils/100 WBC (Bld) 3.6 % [facility] Erythrocyte distribution width (RBC) [Ratio] 13.5 % 12.0-14.8 [facility] GFR/1.73 sq M predicted among non-blacks MDRD (S/P/Bld) [Vol rate/Area] 51 mL/min/{1.73_m2} [facility] GFR/1.73 sq M.predicted MDRD (S/P/Bld) [Vol rate/Area] mL/min/{1.73_m2} [facility] Comment on above: GFR estimated refere nce range: According to KDOQI guidelines, <60 ml/min/1.73m2 is sufficient to diagnose a patient with chronic kidney disease. Glucose [Mass/Vol] 77 mg/dL 70-100 [facility] Comment on above: Delta: 258 on -0650 ADA recommended reference range Random Glucose Reference Range is dependent on time and content of last meal. Glucose of more than 200 mg/dL in a nonstressed, ambulatory subject supports the diagnosis of Diabetes Mellitus. Hematocrit (Bld) [Volume fraction] 33.0 % Low 38.8-50.0 [facility] Hemoglobin (Bld) [Mass/Vol] 11.0 g/dL Low 13.0-17.0 [facility] Lymphocytes (Bld) [#/Vol] 1.5 10*3/uL 1.00-4.8 [facility] Lymphocytes/100 WBC (Bld) 10.3 % [facility] MCH (RBC) [Entitic mass] 29.4 pg 27.5-35.2 [facility] MCHC (RBC) [Mass/Vol] 33.2 g/dL 32.5-35.6 [facility] MCV (RBC) [Entitic vol] 88.6 fL 83.5-101 [facility] Monocytes (Bld) [#/Vol] 0.9 10*3/uL High 0.0-0.8 [facility] Monocytes/100 WBC (Bld) 6.1 % [facility] Neutrophils (Bld) [#/Vol] 11.6 10*3/uL High 1.8-7.7 [facility] Neutrophils/100 WBC (Bld) 79.3 % [facility] Nucleated RBC/100 WBC (Bld) [Ratio] 0.0 % 0-0.5 [facility] Creatinine Clearance (Chem [id number] [facility] Platelet mean volume (Bld) [Entitic vol] 7.9 fL 6.6-10.1 [facility] Platelets (Bld) [#/Vol] 271 10*3/uL 150-450 [facility] Potassium [Moles/Vol] 3.3 mmol/L Low 3.5-5.1 [facility] RBC (Bld) [#/Vol] 3.73 10*6/uL Low 3.90-5.60 [facility] Sodium [Moles/Vol] 137 mmol/L 136-146 [facility] Troponin I.cardiac [Mass/Vol] ng/mL 0-0.02 [facility] Comment on above: DARRYL [place] Cut off value > or equal to 0.03 ng/mL in conjunction with clinical conditions of myocardial infarction. (www.escardio.org/guidelines) Urea nitrogen [Mass/Vol] 30 mg/dL High - [facility] WBC (Bld) [#/Vol] 14.6 10*3/uL High 4.5-11.0 [facility] Laboratory Studieson 019 Glucose [Mass/Vol] Glu2: cleaned meter [facility] MRI SHOULDER WO CONTRAST RIG HTon 01-19-2018 [facility] SH[facility]AST RIGHT [facility] [address] [place] [address] ==Patient Name: BHARTI COLLIER : 1960ex: MAge: Race: WhiteMRN: [id number]. Location: Patient Status: Date: 12/30/2017 10:15:00 AMCompleted Date: 01/19/2018 09:16 AMRequesting Provider: CHERIE SHEA Attending Provider: Report Copy To: Signs & Symptoms: M75.101 Unsp rotatr-cuff tear/ruptr of right shoulder, not trauma [id number]: [place] No FB per patient phone [phone] Needs F/U appointment with ortho no pc per Lilliam @ [facility] cpt code 30923 call ref# [id number] auth #[id number] dates 01/03/18-04/03/18 cpt code 91906 *mla 01/10 pendingComments: , , , Ordering Provider - CHERIE SHEA PA-C , Exam: MRI SHOULDER WO CONTRAST RIGHTAccession #: [id number] =========MRI SHOULDER WO CONTRAST RIGHT 01/19/2018 9:16 AM EDT SIGNS AND SYMPTOMS: M75.101 Unsp rotatr-cuff tear/ruptr of right shoulder, not trauma I10 TECHNOLOGIST COMMENTS: c/o right shoulder pain 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 COMPARISON: None. FINDINGS: Skeleton: Artifact from previous presumed decompression surgery. Lateral tilt to the acromion with anterolateral subacromial space measuring 5 mm. Benign area of bony irregularity along the proximal humerus. Muscles: Fatty change within the teres minor and to a lesser degree lateral deltoid. Supraspinatus, infraspinatus and subscapularis are relatively well-maintained. Rotator cuff tendons: Supraspinatus tendinitis with small insertional tear but no retraction. Some thickening and scarring from previous surgery. Mild infraspinatus tendinitis. Subscapularis is intact. Glenoid labrum: Mild superior labral degenerative change. Long head biceps: Intact. Joint cavity: Small effusion. Mild to moderate subacromial subdeltoid bursitis. IMPRESSION: 1. Status post rotator cuff repair and decompression surgery with small anterior supraspinatus tear but only minor retraction as well as some musculotendinous scarring. Series 5 image 8 and series 7 image 11. Accompanying bursitis. Mild infraspinatus tendinitis. 2. Residual lateral impingement due to acromial tilt with narrowing to 5 mm. Series 5 image 10 and series 7 image 11. 3. Superior labral degeneration but intact long head biceps. Electronically signed by:Lex Benitez. Transcribed by: [email or web address], User Resident: Electronically Signed by: LEX BENITEZ @ 01/19/2018 11:02 AM Normal [facility] Comment on above: Order Comment: , , V iews (X-RAY, SHOULDER): Radiologic Protocol , , , Ordering Provider - NELA TAN MD , Rendering Provider - NELA TAN MD , Operative Reporton 8 Operative Report MR#: [id number] [facility] Pt. Name: Bharti Collier Room #: 0C Discharge Date: Birthdate: 1960 OPERATIVE REPORTDATE OF SURGERY: 10/10/2017SURGEON: Nela Tan M.D.ASSISTANTS:1. Dr. Paniagua.2. Dr. Alexander.3. Dr. Delgadillo.PREOPERATIVE DIAGNOSIS: Right cubital tunnel syndrome.POSTOPERATIVE DIAGNOSIS: Right cubital tunnel syndrome with ulnar nervesubluxation.PROCEDU RE PERFORMED:1. Right ulnar nerve decompression at the elbow.2. Right ulnar nerve transposition at the elbow.IMPLANTS: None.SPECIMENS: None.ANESTHESIA: General.COMPLICATIONS: None.CLINICAL SUMMARY: The patient is a 57-year-old male who has a rightcubital tunnel syndrome documented by EMG. He has failed conservativetreatment for this and has opted to go for surgical intervention and signeda surgical consent in the clinic.DESCRIPTION OF PROCEDURE: The patient was seen in the preop holding area.Informed consent was confirmed. The operative site was marked. He wastaken back to the operating room, placed supine on the operating table.General anesthesia was smoothly induced. The operative extremity wasprepped and draped in the standard sterile fashion. We began our procedurewith surgical time-out indicating correct procedure, site, andadministration of antibiotics. We then began by incising the skin usingthe knife over the cubital tunnel. We dissected down using Metzenbaum tothe level of Kunz's ligament and the FCU fascia. This was opened atthis level distally. The ulnar nerve was found, it was traced proximally.Care was taken to avoid injury at any point. We released the head of thefascia of the FCU, Kunz's ligament and completely proximally. The nervewas free at this point, however, with motion, it is subluxed. So at thispoint, we cleared the bed in flexor wad and made a nice bed forthe nerve to rest in. We then closed the fascia back over this in a loosemanner that was ensured not to provide any compression on the nerve. Thenerve was gently resting in the location and no longer subluxed. The woundwas then thoroughly irrigated with sterile saline and Betadine and closedusing 3-0 Vicryl sutures, followed by 3-0 Novafil sutures. Sterile drydressing and a well-padded splint was then applied and he was wokensmoothly from anesthesia and taken to the PACU in good condition.Dr. Tan was present throughout all critical portions of the procedureand immediately available at all times.Electronically Signed by:Nela Tan M.D. 10/12/2017 12:34 P Nela Tan M.D. I was present for the giordano and critical portions and I was otherwiseimmediately available to assist. Date Dict: 10/10/2017/02:03 Maximilian/Nick Paniagua M.D.Date Trans: 10/11/2017 12:35 A/Joann_JN:[id number] Normal [facility] POC GLUCOSE LABon 10-10-2017 Glucose mass conc 127 mg/dL High 70-100 [facility] Comment on above: Performed By: #### 8 [id number] ####[facility] [place] [address], [facility] Glucose mass conc 151 mg/dL High 70-100 [facility] Comment on above: Performed By: #### 8 5499 ####[facility] [place] [address], [facility] APTTon 10-06-2017 aPTT Coag time (Bld) 32.4 s Normal 25.0-35.0 [facility] Comment on above: Result Comment: ALL RESULTS MUST BE INTERPRETED WITH RESPECT TO BLOOD DRAWING ARTIFACTOR DILUTION ERROR OF ANTICOAGULANT AT THE TIME OF SAMPLING.THE APTT SHOULD NOT BE USED TO MONITOR UNFRACTIONATED HEPARIN THERAPY, THIS LABORATORY NO LONGER HAS AN ESTABLISHED THERAPEUTIC RANGE BASEDON THE APTT. IT IS RECOMMENDED THAT THE UFH - HEPARIN ASSAY (ANTI-XAACTIVITY) BE USED FOR THIS PURPOSE. Performed By: #### 5 6101, [id number] ####[facility] [facility] [place] [address], [facility] BASIC METABOLIC PANELon 09-10 Calcium mass conc 9.0 mg/dL Normal 8.6-10.3 [facility] Comment on above: Performed By: #### 0 0071 ####[facility] [facility] [place] [address], [facility] Chloride molar conc 100 mmol/L Normal 98-107 [facility] Comment on above: Performed By: #### 0 0071 ####[facility] [place] [address], [facility] CO2 molar conc 27 mmol/L Normal 21-31 [facility] Comment on above: Performed By: #### 0 0071 ####[facility] [place] [address], [facility] Creatinine mass conc 1.15 mg/dL Normal 0.70-1.30 [facility] Comment on above: Performed By: #### 0 0071 ####[facility] [place] [address], [facility] GFR/1.73 sq M predicted among blacks MDRD vol rate/area (S/P/Bld) mL/min/{1.73_m2} Normal >60 [facility] Comment on above: Performed By: #### 0 0071 ####[facility] [facility].[place] GFR/1.73 sq M predicted among non-blacks MDRD vol rate/area (S/P/Bld) mL/min/{1.73_m2} Normal >60 [facility] Comment on above: Performed By: #### 0 0071 ####[facility] [facility] [place] [address], [facility] Glucose mass conc 164 mg/dL High 70-100 [facility] Comment on above: Performed By: #### 0 0071 ####[facility] [facility].[address] Potassium molar conc 4.3 mmol/L Normal 3.5-5.1 [facility] Comment on above: Performed By: #### 0 0071 ####[facility] [facility].[address] Sodium molar conc 133 mmol/L Low 136-145 [facility] Comment on above: Performed By: #### 0 0071 ####[facility] [facility].[address] Urea nitrogen mass conc 15 mg/dL Normal 7-25 [facility] Comment on above: Performed By: #### 0 0071 ####[facility] [facility] [place] [address], [facility] CBC W/DIFFon 10-06-2017 ABS BASOPHILS 0.1 10*3/uL Normal 0.0-0.2 [facility] Comment on above: Performed By: #### 5 0103 ####[facility] [facility].[address] ABS IMM GRANS 0.1 10*3/uL Normal 0.0-0.2 [facility] Comment on above: Performed By: #### 5 3 ####[facility] [place] [address], [facility] ABS NEUTROPHILS 9.5 10*3/uL High 1.6-7.6 The [place] Comment on above: Performed By: #### 5 0103 ####[facility] [facility].[address] Basophils Auto #/vol (Bld) 0.6 % Normal 0.0-1.0 [facility] Comment on above: Performed By: #### 5 0103 ####[facility] [facility].[address] Eosinophils Auto #/vol (Bld) 0.1 10*3/uL Normal 0.0-0.5 [facility] Comment on above: Performed By: #### 5 0103 ####[facility] Eosinophils/100 WBC Auto (Bld) 1.0 % Normal 0.0-6.0 [facility] Comment on above: Performed By: #### 3 ####[facility] Erythrocyte distribution width Auto Ratio (RBC) 12.1 % Normal 11.5-15.0 [facility] Comment on above: Performed By: #### 3 ####[facility] [facility].[address] Hematocrit Auto Volume Fraction (Bld) 37.2 % Low 39.0-50.0 [facility] Comment on above: Performed By: #### 3 ####[facility] Hemoglobin mass conc (Bld) 12.4 g/dL Low 13.0-17.0 [facility] Comment on above: Performed By: #### 3 ####[facility] IMMATURE GRANS 0.4 % Normal 0.0-1.[address] [facility] Comment on above: Performed By: #### 5 0103 ####[facility] Lymphocytes Auto #/vol (Bld) 1.8 10*3/uL Normal 1.2-4.0 [facility] Comment on above: Performed By: #### 5 0103 ####[facility] Lymphocytes/100 WBC Auto (Bld) 14.4 % Low 20.0-45.0 [facility] Comment on above: Performed By: #### 5 3 ####[facility] MCH Auto Entitic mass (RBC) 30.5 pg Normal 27.0-33.0 [facility] Comment on above: Performed By: #### 3 ####[facility] MCHC Auto mass conc (RBC) 33.3 g/dL Normal 32.0-35.0 [facility] Comment on above: Performed By: #### 3 ####[facility] MCV Auto Entitic volume (RBC) 91.6 fL Normal 82.0-98.0 [facility] Comment on above: Performed By: #### 3 ####[facility] Monocytes Auto #/vol (Bld) 1.0 10*3/uL Normal 0.1-1.0 [facility] Comment on above: Performed By: #### 3 ####[facility] MONOS 7.9 % Normal 5.0-12.0 [facility] Comment on above: Performed By: #### 5 0103 ####[facility] [place] [address], [facility] Neutrophils/100 WBC Auto (Bld) 75.7 % High 40.0-72.0 [facility] Comment on above: Performed By: #### 5 0103 ####[facility] [facility].[address] Nucleated RBC/100 WBC Ratio (Bld) 0 % Normal 0-0 [facility] Comment on above: Performed By: #### 5 0103 ####[facility] [facility].[address] PLAT CNT 287 10*3/uL Normal 150-400 [facility] Comment on above: Performed By: #### 5 0103 ####[facility] [facility].[address] RBC Auto #/vol (Bld) 4.06 10*6/uL Low 4.20-5.70 [facility] Comment on above: Performed By: #### 5 0103 ####[facility] [facility].[address] WBC Auto #/vol (Bld) 12.60 10*3/uL High 4.00-10.60 [facility] Comment on above: Performed By: #### 5 0103 ####[facility] [facility].[address] PROTHROMBIN TIMEon 8 INR Coag RelTime (PPP) 1.00 {INR} Normal 0.91-1.16 [facility] Comment on above: Result Comment: ACCC P RECOMMENDED INR FOR WARFARIN THERAPY CONDITION INRPROPHYLAXIS OF VENOUS THROMBOSIS 2-3(HIGH-RISK SURGERY)TREATMENT OF VENOUS THROMBOSIS 2-3TREATMENT OF PULMONARY EMBOLISM 2-3PREVENTION OF SYSTEMIC EMBOLISM: 2-3 ACUTE MYOCARDIAL INFARCTION TISSUE HEART VALVES VALVULAR HEART DISEASE ATRIAL FIBRILLATION RECURRENT SYSTEMIC EMBOLISMMECHANICAL HEART VALVE 2.5-3.5 FROM: ORAL ANTICOAGULANTS. MECHANISM OF ACTION, CLINICALEFFECTIVENESS, AND OPTIMAL THERAPEUTIC RANGE. [id number];108:231S-246S. Performed By: #### 5 6101, [address] ####[address] Prothrombin time (PT) Coag time (PPP) 13.2 s Normal 12.3-14.8 [facility] Comment on above: Result Comment: ALL RESULTS MUST BE INTERPRETED WITH RESPECT TO BLOOD DRAWING ARTIFACTOR DILUTION ERROR OF ANTICOAGULANT AT THE TIME OF SAMPLING. Performed By: #### 5 6101, [address] ####[address] [facility]2017 CERVICAL SPINE 4 OR 5 VIEWS [facility] [address] [place] [address] ==Patient Name: BHARTI COLLIER : 1960ex: MAge: Race: WhiteMRN: [id number]. Location: 84Patient Status: OVisit #: [id number] Date: 09/08/2017 10:15:00 AMCompleted Date: 09/08/2017 10:14 AMRequesting Provider: NELA TAN Attending Provider: NELA TAN Report Copy To: Signs & Symptoms: M25.519 Pain in unspecified shoulder [id number]: AthenaComments: , , Views (X-RAY, CERVICAL SPINE): AP, Lateral, Odontoid, Flexion, Extension , , , Ordering Provider - NELA TAN MD , Rendering Provider - NELA TAN MD , Exam: CERVICAL SPINE 4 OR 5 VIEWSAccession #: [id number] =========CERVICAL SPINE 4 OR 5 VIEWS 09/08/2017 10:14 AM EDT SIGNS AND SYMPTOMS: M25.519 Pain in unspecified shoulder I10 TECHNOLOGIST COMMENTS: complains of bilateral shoulder pain and neck pain limited ROM QUESTION FOR THE RADIOLOGIST: , , Views (X-RAY, CERVICAL SPINE): AP, Lateral, Odontoid, Flexion, Extension , , , Ordering Provider - NELA TAN MD , Rendering Provider - NELA TAN MD , PROTOCOLS: AP,Odontoid, Lateral, Flexion and Extension views. COMPARISON: None FINDINGS: The bones are in anatomic alignment. There is preservation of the vertebral body heights. There is some mild disc space narrowing at C5-C6 There is no fracture or destructive lesion. Flexion-extension views show normal range of motion and no pathologic vertebral body movement. IMPRESSION: Mild disc space narrowing at C5-C6. Approved by:Joel Lemon on 09/08/2017 11:33 AM EDT. I, Kelli Rodriguez, have reviewed the images and report and concur with these findings. Electronically signed by:Kelli Rodriguez. Transcribed by: [email or web address], User Resident: JOEL LEMONElectronically Signed by: KELLI RODRIGUEZ @ 09/08/2017 02:59 PMI personally read this/these film(s) with this resident Normal [facility] Comment on above: Order Comment: , , V iews (X-RAY, CERVICAL SPINE): AP, Lateral, Odontoid, Flexion, Extension , , , Ordering Provider - NELA TAN MD , Rendering Provider - NELA TAN MD , SHOULDER LEFTon 09-08-2017 SHOULDER LEFT [facility] [address] [place] [address] ==Patient Name: BHARTI COLLIER : 1960ex: MAge: Race: WhiteMRN: [id number]. Location: 84Patient Status: OVisit #: [id number] Date: 09/08/2017 10:15:00 AMCompleted Date: 09/08/2017 10:14 AMRequesting Provider: NELA TAN Attending Provider: NELA TAN Report Copy To: Signs & Symptoms: M25.519 Pain in unspecified shoulder F85Bzzmkoy: AthenaComments: , , Views (X-RAY, SHOULDER): Radiologic Protocol , , , Ordering Provider - NELA TAN MD , Rendering Provider - NELA TAN MD , Exam: SHOULDER LEFTAccession #: [id number] =========SHOULDER RIGHT, SHOULDER LEFT 09/08/2017 10:14 AM EDT SIGNS AND SYMPTOMS: M25.519 Pain in unspecified shoulder I10 TECHNOLOGIST COMMENTS: complains of bilateral shoulder pain and neck pain limited ROM QUESTION FOR THE RADIOLOGIST: , , Views (X-RAY, SHOULDER): Radiologic Protocol , , , Ordering Sarah TAN MD , Rendering Sarah TAN MD , PROTOCOL: AP,Grashey and Axillary views were obtained. COMPARISON: None FINDINGS: Soft tissues:Heterotopic ossifications along the subacromial areas, more conspicuous on the right Bones:Narrowing of bilateral subacromial spaces, worse on the right Joints:Mild AC joint widening on the right, possibly postoperativeMild AC joint spurring on the leftMinimal bilateral glenohumeral osteoarthritisHumeral lucency on right may indicate tenodesis anchor IMPRESSION: 1. Minimal glenohumeral arthritis2. Suspicion of rotator cuff pathology bilaterally with postoperative changes on the right Electronically signed by:Lex Benitez. Transcribed by: [email or web address], User Resident: Electronically Signed by: LEX BENITEZ @ 09/08/2017 02:07 PM Normal [facility] Comment on above: Order Comment: , , V iews (X-RAY, SHOULDER): Radiologic Protocol , , , Ordering Sarah TAN MD , Rendering Sarah TAN MD , SHOULDER RIGHTon 09-08-2017 SHOULDER RIGHT [facility] [address] [place] [address] ==Patient Name: BHARTI COLLIER : 1960ex: MAge: Race: WhiteMRN: [id number]. Location: 84Patient Status: OVisit #: [id number] Date: 09/08/2017 10:15:00 AMCompleted Date: 09/08/2017 10:14 AMRequesting Provider: NELA TAN Attending Provider: NELA TAN Report Copy To: Signs & Symptoms: M25.519 Pain in unspecified shoulder Q02Zfuniwx: AthenaComments: , , Views (X-RAY, SHOULDER): Radiologic Protocol , , , Ordering Provider Pollo TAN MD , Rendering Provider - NELA TAN MD , Exam: SHOULDER RIGHTAccession #: [id number] =========SHOULDER RIGHT, SHOULDER LEFT 09/08/2017 10:14 AM EDT SIGNS AND SYMPTOMS: M25.519 Pain in unspecified shoulder I10 TECHNOLOGIST COMMENTS: complains of bilateral shoulder pain and neck pain limited ROM QUESTION FOR THE RADIOLOGIST: , , Views (X-RAY, SHOULDER): Radiologic Protocol , , , Ordering Provider - NELA TAN MD , Rendering Provider - NELA TAN MD , PROTOCOL: AP,Grashey and Axillary views were obtained. COMPARISON: None FINDINGS: Soft tissues:Heterotopic ossifications along the subacromial areas, more conspicuous on the right Bones:Narrowing of bilateral subacromial spaces, worse on the right Joints:Mild AC joint widening on the right, possibly postoperativeMild AC joint spurring on the leftMinimal bilateral glenohumeral osteoarthritisHumeral lucency on right may indicate tenodesis anchor IMPRESSION: 1. Minimal glenohumeral arthritis2. Suspicion of rotator cuff pathology bilaterally with postoperative changes on the right Electronically signed by:Lex Benitez. Transcribed by: [email or web address], User Resident: Electronically Signed by: LEX BENITEZ @ 09/08/2017 02:07 PM [place] [facility] Comment on above: Order Comment: , , V iews (X-RAY, SHOULDER): Radiologic Protocol , , , Ordering Provider - NELA TAN MD , Rendering Provider - NELA TAN MD , Vital Signs Date Time Vital Sign Value Performing Clinician Facility 09-04-2024 15:17-0400 Body height 175.3 cm Dee Dee Candelario DPM Work Phone: [facility] 09-04-2024 15:17-0400 Body mass index (BMI) [Ratio] 34.7 kg/m2 Dee Dee Timmons DPM Work Phone: [facility] 09-04-2024 15:17-0400 Body weight 106.59 kg Dee Dee Candelario DPM Work Phone: [facility] 06-19-2024 14:01-0400 Body height 167.6 cm Imelda Perez CLEARING DISTRIBUTION CLERK Work Phone: [facility] 06-19-2024 14:01-0400 Body mass index (BMI) [Ratio] 37.77 kg/m2 Imelda Perez CLEARING DISTRIBUTION CLERK Work Phone: [facility] 06-19-2024 14:01-0400 Body temperature 99.1 [degF] Imelda Perez CLEARING DISTRIBUTION CLERK Work Phone: [facility] 06-19-2024 14:01-0400 Body weight 106.14 kg Imelda Perez CLEARING DISTRIBUTION CLERK Work Phone: [facility] 06-19-2024 14:01-0400 Diastolic blood pressure 60 mm[Hg] Imelda Sosak CLEARING DISTRIBUTION CLERK Work Phone: [facility] 06-19-2024 14:01-0400 Heart rate 79 /min Imelda Sosak CLEARING DISTRIBUTION CLERK Work Phone: [facility] 06-19-2024 14:01-0400 SaO2% (BldA) [Mass fraction] 96 % Imelda Erazotrick CLEARING DISTRIBUTION CLERK Work Phone: [facility] 06-19-2024 14:01-0400 Systolic blood pressure 120 mm[Hg] Imelda Chengerick KWONG Work Phone: [facility] 06-14-2024 15:01-0500 Body height 172.72 cm Crystal Watson MD Work Phone: [facility] 06-14-2024 15:01-0500 Body mass index (BMI) [Ratio] 35.6 kg/m2 Crystal Watson MD Work Phone: [facility] 06-14-2024 15:01-0500 Body weight 106.5 kg Crystal Watson MD Work Phone: [facility] 06-14-2024 15:01-0500 Diastolic blood pressure 44 mm[Hg] Crystal Watson MD Work Phone: [facility] 06-14-2024 15:01-0500 Heart rate 80 /min Crystal Watson MD Work Phone: [facility] 06-14-2024 15:01-0500 Respiratory rate 18 /min Crystal Watson MD Work Phone: [facility] 06-14-2024 15:01-0500 SaO2% (BldA) [Mass fraction] 94 % Crystal Watson MD Work Phone: [facility] 06-14-2024 15:01-0500 Systolic blood pressure 113 mm[Hg] Crystal Watson MD Work Phone: [facility] 05-07-2024 15:20-0500 Body height 167.6 cm Dee Dee CHAVEZM Work Phone: [facility] 05-07-2024 15:20-0500 Body mass index (BMI) [Ratio] 38.9 kg/m2 Dee Dee CHAVEZM Work Phone: [facility] 05-07-2024 15:20-0500 Body weight 109.32 kg Dee Dee CHAVEZM Work Phone: [facility] 03-01-2024 14:00-0500 Body mass index (BMI) [Ratio] 39 kg/m2 Imelda Erazotrick CLEARING DISTRIBUTION CLERK Work Phone: [facility] 03-01-2024 14:00-0500 Body temperature 97.39 [degF] Imelda Erazotrick CLEARING DISTRIBUTION CLERK Work Phone: [facility] 03-01-2024 14:00-0500 Body weight 109.59 kg Imelda Sosak CLEARING DISTRIBUTION CLERK Work Phone: [facility] 03-01-2024 14:00-0500 Diastolic blood pressure 80 mm[Hg] Imelda Erazotrick CLEARING DISTRIBUTION CLERK Work Phone: [facility] 03-01-2024 14:00-0500 Systolic blood pressure 122 mm[Hg] Imelda Erazotrick CLEARING DISTRIBUTION CLERK Work Phone: [facility] 01-02-2024 14:13-0400 Body height 167.6 cm Dee Dee Timmons DPM Work Phone: [facility] 01-02-2024 14:13-0400 Body mass index (BMI) [Ratio] 39.06 kg/m2 Dee Dee Timmons DPM Work Phone: [facility] 01-02-2024 14:13-0400 Body weight 109.77 kg Dee Dee Timmons DPM Work Phone: [facility] 05-17-2023 14:45-0500 Body height 172.72 cm Tondra Mapus Other [employer] Other 05-17-2023 14:45-0500 Body mass index (BMI) [Ratio] 37.04 kg/m2 Tondra Mapus Other [employer] Other 05-17-2023 14:45-0500 Body weight 110.5 kg Tondra Mapus Other [employer] Other 05-17-2023 14:45-0500 Diastolic blood pressure 63 mm[Hg] Tondra Mapus Other [employer] Other 05-17-2023 14:45-0500 Respiratory rate 18 /min Tondra Mapus Other [employer] Other 05-17-2023 14:45-0500 SaO2% (BldA) [Mass fraction] 97 % Tondra Mapus Other [employer] Other 05-17-2023 14:45-0500 Systolic blood pressure 122 mm[Hg] Tondra Mapus Other [employer] Other 02-08-2023 14:30-0400 Body height 172.72 cm Tondra Mapus Other [employer] Other 02-08-2023 14:30-0400 Body mass index (BMI) [Ratio] 37.99 kg/m2 Tondra Mapus Other [employer] Other 02-08-2023 14:30-0400 Body weight 113.35 kg Tondra Mapus Other [employer] Other 02-08-2023 14:30-0400 Diastolic blood pressure 85 mm[Hg] Tondra Mapus Other [employer] Other 02-08-2023 14:30-0400 Respiratory rate 18 /min Tondra Mapus Other [employer] Other 02-08-2023 14:30-0400 SaO2% (BldA) [Mass fraction] 98 % Tondra Mapus Other [employer] Other 02-08-2023 14:30-0400 Systolic blood pressure 144 mm[Hg] Tondra Mapus Other [employer] Other 11-04-2022 14:45-0400 Body height 172.72 cm Tondra Mapus Other [employer] Other 11-04-2022 14:45-0400 Body mass index (BMI) [Ratio] 36.55 kg/m2 Tondra Mapus Other [employer] Other 11-04-2022 14:45-0400 Body weight 109.05 kg Tondra Mapus Other [employer] Other 11-04-2022 14:45-0400 Diastolic blood pressure 70 mm[Hg] Tondra Mapus Other [employer] Other 11-04-2022 14:45-0400 Respiratory rate 18 /min Tondra Mapus Other [employer] Other 11-04-2022 14:45-0400 SaO2% (BldA) [Mass fraction] 100 % Tondra Mapus Other [employer] Other 11-04-2022 14:45-0400 Systolic blood pressure 148 mm[Hg] Tondra Mapus Other [employer] Other 07-07-2022 15:45-0400 Body height 172.72 cm Tondra Mapus Other [employer] Other 07-07-2022 15:45-0400 Body mass index (BMI) [Ratio] 36.62 kg/m2 Tondra Mapus Other [employer] Other 07-07-2022 15:45-0400 Body weight 109.27 kg Tondra Mapus Other [employer] Other 07-07-2022 15:45-0400 Diastolic blood pressure 82 mm[Hg] Tondra Mapus Other [employer] Other 07-07-2022 15:45-0400 Respiratory rate 18 /min Tondra Mapus Other [employer] Other 07-07-2022 15:45-0400 SaO2% (BldA) [Mass fraction] 99 % Tondra Mapus Other [employer] Other 07-07-2022 15:45-0400 Systolic blood pressure 155 mm[Hg] Tondra Mapus Other [employer] Other 03-31-2022 15:15-0500 Body height 172.72 cm Tondra Mapus Other [employer] Other 03-31-2022 15:15-0500 Body mass index (BMI) [Ratio] 37.34 kg/m2 Tondra Mapus Other [employer] Other 03-31-2022 15:15-0500 Body weight 111.4 kg Tondra Mapus Other [employer] Other 03-31-2022 15:15-0500 Diastolic blood pressure 47 mm[Hg] Tondra Mapus Other [employer] Other 03-31-2022 15:15-0500 Respiratory rate 18 /min Tondra Mapus Other [employer] Other 03-31-2022 15:15-0500 SaO2% (BldA) [Mass fraction] 98 % Tondra Mapus Other [employer] Other 03-31-2022 15:15-0500 Systolic blood pressure 125 mm[Hg] Tondra Mapus Other [employer] Other 12-23-2021 14:45-0400 Body height 172.72 cm Tondra Mapus Other [employer] Other 12-23-2021 14:45-0400 Body mass index (BMI) [Ratio] 36.64 kg/m2 Tondra Mapus Other [employer] Other 12-23-2021 14:45-0400 Body weight 109.32 kg Tondra Mapus Other [employer] Other 12-23-2021 14:45-0400 Diastolic blood pressure 66 mm[Hg] Tondra Mapus Other [employer] Other 12-23-2021 14:45-0400 Respiratory rate 20 /min Tondra Mapus Other [employer] Other 12-23-2021 14:45-0400 SaO2% (BldA) [Mass fraction] 98 % Tondra Mapus Other [employer] Other 12-23-2021 14:45-0400 Systolic blood pressure 135 mm[Hg] Tondra Mapus Other [employer] Other 09-22-2021 15:30-0400 Body height 172.72 cm Tondra Mapus Other [employer] Other 09-22-2021 15:30-0400 Body mass index (BMI) [Ratio] 36.03 kg/m2 Tondra Mapus Other [employer] Other 09-22-2021 15:30-0400 Body weight 107.5 kg Tondra Mapus Other [employer] Other 09-22-2021 15:30-0400 Diastolic blood pressure 77 mm[Hg] Tondra Mapus Other [employer] Other 09-22-2021 15:30-0400 Respiratory rate 20 /min Tondra Mapus Other [employer] Other 09-22-2021 15:30-0400 SaO2% (BldA) [Mass fraction] 98 % Tondra Mapus Other [employer] Other 09-22-2021 15:30-0400 Systolic blood pressure 131 mm[Hg] Tondra Mapus Other [employer] Other 05-27-2021 14:45-0500 Body height 172.72 cm Tondra Mapus Other [employer] Other 05-27-2021 14:45-0500 Body mass index (BMI) [Ratio] 35.73 kg/m2 Tondra Mapus Other [employer] Other 05-27-2021 14:45-0500 Body weight 106.6 kg Tondra Mapus Other [employer] Other 05-27-2021 14:45-0500 Diastolic blood pressure 86 mm[Hg] Tondra Mapus Other [employer] Other 05-27-2021 14:45-0500 Respiratory rate 20 /min Tondra Mapus Other [employer] Other 05-27-2021 14:45-0500 SaO2% (BldA) [Mass fraction] 100 % Tondra Mapus Other [employer] Other 05-27-2021 14:45-0500 Systolic blood pressure 147 mm[Hg] Tondra Mapus Other [employer] Other 02-17-2021 14:30-0500 Body height 172.72 cm Tondra Mapus Other [employer] Other 02-17-2021 14:30-0500 Body mass index (BMI) [Ratio] 36.03 kg/m2 Tondra Mapus Other [employer] Other 02-17-2021 14:30-0500 Body weight 107.5 kg Tondra Mapus Other [employer] Other 02-17-2021 14:30-0500 Diastolic blood pressure 78 mm[Hg] Tondra Mapus Other [employer] Other 02-17-2021 14:30-0500 Respiratory rate 16 /min Tondra Mapus Other [employer] Other 02-17-2021 14:30-0500 SaO2% (BldA) [Mass fraction] 98 % Tondra Mapus Other [facility] [employer] Other 02-17-2021 14:30-0500 Systolic blood pressure 136 mm[Hg] Tondra Mapus Other [employer] Other 12-11-2018 18:00-0400 Body Temperature 97.8 [degF] Crystal [facility] 12-11-2018 18:00-0400 BP Diastolic 77 mm[Hg] Crystal Walter [facility] 12-11-2018 18:00-0400 BP Systolic 152 mm[Hg] Crystal Walter [facility] 12-11-2018 18:00-0400 Pulse (Heart Rate) 95 /min [facility] 12-11-2018 18:00-0400 Pulse Oximetry 96 % [facility] 12-11-2018 18:00-0400 Respiratory Rate 18 /min Rcystalvelvet [facility] 12-11-2018 07:57-0400 Body weight 108.5 kg [facility] 12-10-2018 08:00-0400 Body weight 103 kg [facility] 12-10-2018 06:00-0400 Body Temperature 99.2 [degF] [facility] 12-10-2018 06:00-0400 BP Diastolic 74 mm[Hg] Crystal [place] [facility] 12-10-2018 06:00-0400 BP Systolic 143 mm[Hg] Crystal [place] [facility] 12-10-2018 06:00-0400 Pulse (Heart Rate) 87 /min Crystal [place] [facility] 12-10-2018 06:00-0400 Pulse Oximetry 95 % Crystal Walter [facility] 12-10-2018 06:00-0400 Respiratory Rate 18 /min Crystal [place] [facility] 12-09-2018 13:06-0400 BMI (Body Mass Index) 34.7 kg/m2 Crystal Watson [facility] 12-09-2018 13:0400 Height 172.72 cm [facility] NEGATED: Highlighted row BMI (Body Mass Index) [facility] NEGATED: Highlighted row Body Temperature Crystal Watson [facility] NEGATED: Highlighted row Body weight Crystal Watson [facility] NEGATED: Highlighted row BP Diastolic Crystal [facility] NEGATED: Highlighted row BP Systolic [facility] NEGATED: Highlighted row Height [facility] NEGATED: Highlighted row Pulse (Heart Rate) [facility] NEGATED: Highlighted row [facility]ulse [facility] NEGATED: Highlighted row Respiratory Rate [facility] Encounters Encounter Date Encounter Type Care Provider Facility Start: 11-09-2024 ambulatory Brendon Beckford acility:[facility] Start: 11-09-2024 ambulatory [facility] Start: 10-08-2024 ambulatory [facility] Start: 09-10-2024 ambulatory [facility] Start: 09-04-2024 End: 09-04-2024 ambulatory DEE DEE TIMMONS Not Available Start: 09-04-2024 End: 09-04-2024 Patient encounter procedure Dee Dee Timmons DPM Work Phone: [facility] Comment on above: Dermatophytosis of n ail (Primary Dx); Dystrophic nail; Pain around toenail, right foot; Pain around toenail, left foot Start: 09-04-2024 End: 09-04-2024 Bubbaboo flowsrashard Timmons DPM Work Phone: [facility] Start: 09-04-2024 End: 09-04-2024 Bamboo flowsheet Dee Dee Timmons DPM Work Phone: [facility] Start: 08-31-2024 End: 09-10-2024 Follow-up encounter Imelda Perez CLEARING DISTRIBUTION CLERK Work Phone: [facility] Start: 08-30-2024 End: 08-30-2024 ambulatory IMELDA PEREZ Not Available Start: 08-10-2024 ambulatory [facility] Start: 06-19-2024 End: 06-19-2024 Bamboo flowsheet Imelda Perez CLEARING DISTRIBUTION CLERK Work Phone: [facility] Start: 06-19-2024 End: 06-19-2024 Bamboo flowsheet Imelda Perez CLEARING DISTRIBUTION CLERK Work Phone: [facility] Start: 06-19-2024 End: 06-19-2024 Office outpatient visit 25 minutes Imelda Perez CLEARING DISTRIBUTION CLERK Work Phone: [facility] Comment on above: Fever, unspecified f ever cause (Primary Dx); Acute right otitis media; Bronchitis; Viral URI with cough; Influenza A Start: 06-19-2024 End: 06-19-2024 ambulatory IMELDA PEREZ Not Available Start: 06-14-2024 End: 06-14-2024 ambulatory Crystal Watson MD Work Phone: [facility] Work Phone: Start: 06-14-2024 End: 06-14-2024 Patient encounter procedure Crystal Watson MD Work Phone: [facility] Work Phone: Start: 06-13-2024 Registered Recurring Crystal Watson MD Work Phone: [facility] Start: 06-09-2024 End: 06-09-2024 ambulatory [facility] Start: 06-06-2024 End: 06-06-2024 Refill Imelda Perez CLEARING DISTRIBUTION CLERK Work Phone: [facility] Comment on above: Benign prostatic hyp erplasia with lower urinary tract symptoms Start: 05-14-2024 End: 05-14-2024 ambulatory [facility] Start: 05-07-2024 End: 05-07-2024 ambulatory DEE DEE TIMMONS Not Available Start: 05-07-2024 End: 05-07-2024 Patient encounter procedure Dee Dee Timmons DPM Work Phone: [facility] Comment on above: Dermatophytosis of n ail (Primary Dx); Dystrophic nail; Pain around toenail, right foot; Pain around toenail, left foot Start: 04-12-2024 End: 04-12-2024 ambulatory [facility] Start: 03-19-2024 End: 03-19-2024 ambulatory [facility] Start: 03-07-2024 End: 03-12-2024 Refill Whitney Hunt DO Work Phone: [facility] Comment on above: Edema, unspecified t ype Start: 03-01-2024 End: 03-01-2024 Bamboo flowsheet Imelda Perez CLEARING DISTRIBUTION CLERK Work Phone: [facility] Start: 03-01-2024 End: 03-01-2024 Bamboo flowsheet Imelda Perez CLEARING DISTRIBUTION CLERK Work Phone: [facility] Start: 03-01-2024 End: 03-01-2024 Office outpatient visit 25 minutes Imelda Perez CLEARING DISTRIBUTION CLERK Work Phone: [facility] Comment on above: Type 2 diabetes gabe itus with stage 2 chronic kidney disease, with long-term current use of insulin ([facility]) (Primary Dx); Morbid obesity due to excess calories ([facility]) Start: 03-01-2024 End: 03-01-2024 ambulatory IMELDA PEREZ Not Available Start: 02-24-2024 End: 02-24-2024 ambulatory [facility]ONDRA [facility] Start: 02-13-2024 End: 02-13-2024 ambulatory [facility] Start: 01-12-2024 End: 01-12-2024 ambulatory [facility] Start: 01-06-2024 End: 01-09-2024 Refill Whitney G Gilbert DO Work Phone: [facility] Comment on above: Benign prostatic hyp erplasia with lower urinary tract symptoms; Essential hypertension ([facility]/HCC); Acquired hypothyroidism ([facility]/HCC) Start: 01-02-2024 End: 01-02-2024 Patient encounter procedure Dee Dee Timmons DPM Work Phone: [facility] Comment on above: Dermatophytosis of n ail (Primary Dx); Dystrophic nail; Pain around toenail, right foot; Pain around toenail, left foot Start: 01-02-2024 End: 01-02-2024 ambulatory DEE DEE TIMMONS Not Available Start: 01-02-2024 End: 01-02-2024 Bamboo flowsheet Dee Dee Timmons DPM Work Phone: [facility] Start: 01-02-2024 End: 01-02-2024 Bamboo flowsheet Dee Dee Timmons DPM Work Phone: [facility] Start: 12-14-2023 End: 12-14-2023 ambulatory [facility] Start: 12-11-2023 End: 12-13-2023 Refill Whitney G Gilbert DO Work Phone: [facility] Comment on above: Essential (primary) hypertension (CMS/HCC) Start: 12-02-2023 End: 12-02-2023 ambulatory [facility] Start: 05-17-2023 End: 05-17-2023 Discharged Recurring MD [facility] Work Phone: Start: 05-17-2023 (DM) Diabetes Tondra Mapus [facility] Start: 05-17-2023 End: 05-17-2023 ambulatory MD Crystal Watson Work Phone: [employer] Other Start: 02-28-2023 Registered Recurring MD Franko Watson Work Phone: [facility] Start: 02-08-2023 (DM) Diabetes Tondra Mapus [facility] Start: 02-08-2023 End: 02-08-2023 ambulatory Tondra Mapus Other [employer] Other Start: 01-10-2023 End: 01-10-2023 ambulatory Tondra Mapus Other [employer] Other Start: 01-10-2023 Telephone encounter Tondra Mapus [facility] Start: 11-04-2022 (DM) Diabetes Tondra Mapus [facility] Start: 11-04-2022 End: 11-04-2022 ambulatory Tondra Mapus Other [employer] Other Start: 07-07-2022 (DM) Diabetes Tondra Mapus [facility] Start: 07-07-2022 End: 07-07-2022 ambulatory Tondra Mapus Other [employer] Other Start: 03-31-2022 (DM) Diabetes Tondra Mapus [facility] Start: 03-31-2022 End: 03-31-2022 ambulatory Tondra Mapus Other [employer] Other Start: 12-23-2021 (DM) Diabetes Tondra Mapus [facility] Start: 12-23-2021 End: 12-23-2021 ambulatory Tondra Mapus Other [employer] Other Start: 12-22-2021 End: 12-22-2021 ambulatory Tondra Mapus Other [employer] Other Start: 12-22-2021 Telephone encounter Tondra Mapus [facility] Start: 12-21-2021 End: 12-21-2021 ambulatory Tondra Mapus Other [employer] Other Start: 12-21-2021 Telephone encounter Tondra Mapus [facility] Start: 09-22-2021 (DM) Diabetes Tondra Mapus [facility] Start: 09-22-2021 End: 09-22-2021 ambulatory Tondra Mapus Other [employer] Other Start: 05-27-2021 (DM) Diabetes Tondra Mapus [facility] Start: 05-27-2021 End: 05-27-2021 ambulatory Tondra Mapus Other [employer] Other Start: 04-06-2021 End: 04-06-2021 ambulatory Tondra Mapus Other [employer] Other Start: 04-06-2021 Telephone encounter Tondra Mapus [facility] Start: 02-17-2021 (DM) Diabetes Tondra Mapus [facility] Start: 02-17-2021 End: 02-17-2021 ambulatory Tondra Mapus Other [employer] Other Start: 12-15-2020 End: 12-17-2020 Evaluation and management of inpatient DIXON DICKINSON Facility:[facility] Start: 05-14-2019 End: 05-15-2019 Patient encounter procedure CRYSTAL WATSON [facility] Start: 05-14-2019 End: 05-14-2019 Subsequent hospital visit by physician [facility] Start: 12-09-2018 End: 12-11-2018 Evaluation and management of inpatient Crystal Watson [facility] Start: 06-27-2018 Registered Recurring Crystal Watson [facility] Start: 01-19-2018 End: 01-20-2018 Patient encounter CHERIE SHEA Facility:[facility] Start: 10-13-2017 End: 10-13-2017 Discharged Recurring Crystal Watson [facility] Start: 10-10-2017 End: 10-11-2017 Patient encounter NELA TAN Facility:[facility] Start: 10-06-2017 Encounter for preprocedural laboratory examination DEFAULT PHYSICIAN [facility] Start: 10-06-2017 End: 10-07-2017 Patient encounter NELA TAN Facility:[facility] Start: 09-08-2017 End: 09-09-2017 Patient encounter NELA NENA Facility:[facility] Start: 09-01-2017 End: 09-02-2017 Patient encounter DEFAULT PHYSICIAN Facility:[facility] Encounter for preprocedural laboratory examination DEFAULT PHYSICIAN [facility] Procedures Date Procedure Procedure Detail Performing Clinician Start: 03-01-2024 Hemoglobin glycosyla fabrizio a1c Imelda Perez NP Work Phone: Start: 03-12-2021 Colonoscopy Whitney matos DO Work Phone: Start: 05-14-2019 Blood count complete auto&auto difrntl wbc CRYSTAL WATSON Start: 05-14-2019 Blood count complete auto&auto difrntl wbc Crystal Watson Work Phone: Start: 12-09-2018 Plain chest X-ray Nasra Watson Start: 10-10-2017 [facility] Start: 10-10-2017 Neuroplasty &/transposition ulnar nerve elbow NELA TAN Plan of Treatment Date Care Activity Detail Author Start: 03-12-2031 Screening for malign ant neoplasm of colon [facility] Start: 08-30-2025 Medicare Annual Wellness (AWV) Medicare Annual Wellness (AWV) [facility] Start: 03-01-2025 Glaucoma screening Diabetes: R etinopathy Screening [facility] Start: 02-27-2025 End: 02-27-2025 Patient encounter procedure 02/27/2025 2:30 PM EST Office Visit [facility] [address] [place] [phone] Imelda Perez NP [address] [place] [address] [facility] Start: 02-23-2025 Urine screening for protein Diabetes: Urine Protein Screening [facility] Start: 01-02-2025 End: 01-02-2025 Patient encounter procedure 01/02/2025 2:15 PM EDT Procedure Visit [facility] [address] [place] [phone] Dee Dee Timmons DPM [address] [place] [address] [facility] Start: 12-10-2024 Influenza vaccination Influenz a Vaccine (Season Ended) [facility] Start: 12-01-2024 Urine screening for protein Diabetes: Urine Protein Screening [facility] Start: 11-30-2024 Hemoglobin A1c measurement Diabetes: Hemoglobin A1C [facility] Start: 09-04-2024 End: 09-04-2024 Patient encounter procedure 09/04/2024 3:15 PM EDT Procedure Visit [facility] [address] [place] [address] Dee Dee Timmons DPM [address] [place] [address] [facility] Start: 08-30-2024 End: 08-30-2024 Patient encounter procedure 08/30/2024 2:30 PM EDT [facility] [address] [place] [phone] Imelda Perez CLEARING DISTRIBUTION CLERK [address] [place] [address] [facility] Start: 06-19-2024 End: 06-19-2024 Patient encounter procedure 06/19/2024 2:00 PM EDT Office Visit [facility] [address] [place] [phone] Imelda Perez NP [address] [place] [address] Arrived [facility] Comment on above: Arrived Start: 06-01-2024 Hemoglobin A1c measurement Diabetes: Hemoglobin A1C [facility] Start: 05-07-2024 End: 05-07-2024 Patient encounter procedure 05/07/2024 3:15 PM EST Procedure Visit [facility] [address] [place] [phone] Dee Dee Timmons DPKandice [address] [place] [address] [facility] Start: 04-26-2024 Influenza vaccination Influenza Vacc ine (#1) [facility] Comment on above: Postponed from 12/10 (Patient Refused) Start: 03-01-2024 End: 03-01-2024 Patient encounter procedure [facility] Comment on above: Arrived Start: 02-29-2024 Hemoglobin A1c measurement Diabetes: Hemoglobin A1C [facility] Start: 01-02-2024 End: 01-02-2024 Patient encounter procedure [facility] Comment on above: Arrived Start: 12-11-2023 Influenza vaccination Influenza Vacc ine (#1) [facility] Start: 05-17-2020 Glaucoma screening Diabetes: R etinopathy Screening [facility] Start: 12-10-2018 Influenza vaccination Flu vaccine (# 1) [facility] Work Phone: Start: 1960 Screening for malign ant neoplasm of colon [facility] Immunizations Immunization Date Immunization Notes Care Provider Fa cility 01-25-2022 influenza, injectabl e, quadrivalent, preservative free Whitney Gilbert DO Work Phone: [facility] 01-25-2022 influenza virus vacc ine, unspecified formulation Whitney Gilbert DO Work Phone: [facility] 01-07-2021 influenza, injectabl e, quadrivalent, contains preservative Whitney Gilbert DO Work Phone: [facility] 07-31-2020 Moderna SARS-CoV-2 Vaccination Whitney Gilbert DO Work Phone: [facility] 07-23-2020 Pfizer Purple Cap SARS-CoV-2 Vaccination Whitney Gilbert DO Work Phone: [facility] 07-21-2020 COVID-19 Vaccine Pfi zer - Documentation Purposes Only Tondra Mapus Other [facility] 07-01-2020 Pfizer Purple Cap SARS-CoV-2 Vaccination Whitney Gilbert DO Work Phone: [facility] 06-09-2020 COVID-19 Vaccine Pfi zer - Documentation Purposes Only Tondra Mapus Other [facility] 01-07-2020 influenza, injectabl e, quadrivalent, contains preservative Whitney Gilbert DO Work Phone: [facility] 01-01-2019 seasonal influenza, intradermal, preservative free Whitney Gilbert DO Work Phone: [facility] 12-03-2017 seasonal influenza, intradermal, preservative free Whitney Gilbert DO Work Phone: [facility] 01-24-2017 pneumococcal conjuga te vaccine, 13 valent Whitney Gilbert DO Work Phone: [facility] 02-16-2016 influenza, injectabl e, quadrivalent, preservative free Whitney Gilbert DO Work Phone: [facility] 01-16-2015 influenza, seasonal, injectable Tondra Mapus Other [facility] 04-11-2008 pneumococcal polysaccharide vaccine, 23 valent Whitney Hunt DO Work Phone: [facility] Payers Date Payer Category Payer Unknown [id number] 2022 Self-pay 2020 Medicare [id number] 2019 [facility] er Subscriber Plan / Payer (Effective 2019-Present) Name: BlocktonAyden barretteileen Sanchez Relation to Subscriber: Self Name: Bharti Collier Payer ID: Not on file Type: Not on file Address: [place] [id number] 2019 Unknown 2019 Unknown [employer] xxxxxxxxxxxxxxx 2019-Present Indemnity xxxxxxxxxxxxxxx [id number] 2017 Worker's Compensation [id number] 1959 Unknown [id number] 2.16840.1.658345.3.579.2 .647 1959 Unknown [id number] 2.16.840.1.760706.3.579.2 .647 1959 Unknown [id number] 2.16840.1.202297.3.579.2 .647 1959 Unknown [id number] 2.16.840.1.870975.3.579.2 .647 1959 Unknown [id number] 2.16840.1.932054.3.579.2 .647 1959 Unknown [id number] 2.16.840.1.802817.3.579.2 .173 1959 Unknown [id number] 2.16.840.1.901265.3.579.2 .593 1959 Unknown [id number] 2.16.840.1.018130.3.579.2 .1259 1959 Unknown [id number] 2.16.840.1.117688.3.579.2 .1259 1959 Unknown [id number] 2.16.840.1.695947.3.579.2 .1259 1959 Unknown [id number] 2.16.840.1.362924.3.579.2 .9 1959 Unknown [id number] 2.16.840.1.755881.3.579.2 .1259 1959 Unknown [id number] 2.16840.1.410273.3.579.2 .1259 1959 Unknown [id number] 2.16.840.1.242241.3.579.2 .1286 1959 Unknown [id number] 2.16.840.1.618636.3.579.2 .1286 1959 Unknown [id number] 2.16.840.1.259456.3.579.2 .1286 1959 Unknown [id number] 2.16.840.1.557792.3.579.2 .128 1959 Unknown [id number] 2.16.840.1.003696.3.579.2 .1286 1959 Unknown [id number] 2.16.840.1.843964.3.579.2 .1285 1959 Unknown [id number] 2.16.840.1.071279.3.579.2 .1286 1959 Unknown [id number] 2.16.840.1.969136.3.579.2 .1286 1959 Unknown [id number] 2.16.840.1.882741.3.579.2 .1286 1959 Unknown [id number] 2.16.840.1.419900.3.579.2 .1286 1959 Unknown [id number] 2.16.840.1.372638.3.579.2 .1285 1959 Unknown [id number] 2.16.840.1.485712.3.579.2 .1286 1959 Unknown [id number] 2.16.840.1.607955.3.579.2 .1286 1960 [place] [id number] 1960 Medicare [id number] Unknown [id number] Unknown [id number] 2.16.840.1.221953.3.579.2 .531 Social History Date Type Detail Facility Tobacco smoking stat us [facility] Unknown if ever smoked [employer] Phone: Start: 1960 Sex Assigned At Not on file [facility] [employer] Phone: Start: 09-02-2022 End: 08-30-2024 Sex Assigned At [facility] Start: 12-21-2018 Tobacco smoking stat [facility] Never smoked tobacco (finding) [facility] Start: 1960 Sex Assigned At Male F [facility] Start: 08-23-2023 End: 01-02-2024 Tobacco smoking status DEIS Ex-smoker [facility] Start: 04-11-1973 End: 04-11-1999 History of tobacco use Current smoker [facility] Start: 04-11-1973 End: 04-11-1999 History of tobacco use Cigarette Smoker [facility] Start: 09-02-2022 End: 01-02-2024 Tobacco use and exposure Smokeless tobacco non-user [facility] Start: 01-02-2024 End: 08-30-2024 Alcoholic beverage intake Current drinker of alcohol (finding) [facility] Start: 09-02-2022 End: 08-30-2024 History of Social function [facility] Within the last year , have you been afraid of your partner or ex-partner? No [facility] Are you now , , , , never or living with a partner? [facility] How often to you hav e a drink containing alcohol? Never [facility] How many standard drinks containing alcohol do you have on a typical day? Patient does not drink [facility] Do you feel stress - tense, restless, nervous, or anxious, or unable to sleep at night because your mind is troubled all the time - these days [OSQ] Not at all [facility] (I/We) worried [facility] (my/our) food would run out before (I/we) got money to buy more. Never true [facility] Start: 09-01-2022 Tobacco Comment Last smoked 10 - 15 years [facility] Start: 09-01-2022 Alcohol Comment caffeine intak e: 2-3 cups per day [facility] Start: 06-14-2024 Sex Male (finding) [facility] Procedure Code Equipment Code Equipment Origin al Text Equipment Identifier Dates Start: 11-03-2017 Clinical Notes 02-17-2021 to 09-10-2024 Telephone Encounter - Yanet Edwards - 09/10/2024 12:30 PM EDTTelephone Encounter - Yanet Edwards - 09/10/2024 12:30 PM EDTResult Encounter Note - Imelda Perez NP - 08/31/2024 8:25 AM EDT Note Date & Type Note Facility 09-10-2024 Telephone encount er Note Pt notified of results [facility] 09-10-2024 Miscellaneous Notes Formattin g of this note might be different from the original. Pt notified of results Let patient know his blood sugar result and his hgba1c. Labs are stable documented in this encounter [facility] 09-04-2024 History of Presen t illness Narrative Images from the original note were not included. Subjective Patient ID: Bharti Collier is a 63 y.o. male who presents for DM Foot Care (Established patient presents in office today for routine diabetic nail care. PCP: Ana Perez LV 08/30/24, A1C: 6.2 (08/2024), BS: 98, 151). HPI HPI Onychomycosis/Toenail Fungus: Symptomatic toenail deformity. Requesting nail care. Location: Symptomatic/problematic ingrown toenail deformity bilateral great toes. Duration: Insidious, fairly chronic condition . Severity of symptoms: mild-moderate; impacting his ability to wear most shoes comfortably. Onset: gradual, without injury or trauma. Status: Stable deformity, again problematic/symptomatic several weeks or so, impacting his ability to walk comfortably. Context: hard to trim , hard to reach ; self-care is difficult, ineffective and not practical; exposing patient to considerable risk. Family members unable to provide effective care. Characteristics: discolored, thickened, pain , ingrowing, pressure; without bleeding or drainage. Relieved by: Palliative care provides effective transient symptom relief. Previous Treatment: palliative care as noted. Risk factors: type II diabetes/IDDM. Status post CVA. Comorbidities. Polypharmacy. Aspirin therapy. Mobility and flexibility limitations. Toenail deformity. Shoe trauma and related complications. Aggravated by: shoe gear , pressure, walking, snagging on clothing etc. . Medications Current Outpatient Medications: albuterol HFA 90 mcg/act inhaler, Inhale 2 puffs every 4 (four) hours if needed for wheezing, Disp: 18 g, Rfl: 0 aspirin (ASPIR) 81 MG EC tablet, Take 81 mg by mouth Daily, Disp: , Rfl: benztropine (Cogentin) 1 MG tablet, Take 1 mg by mouth in the morning and 1 mg before bedtime., Disp: , Rfl: cloZAPine (Clozaril) 100 MG tablet, Take 150 mg by mouth at bedtime, Disp: , Rfl: Continuous Blood Gluc Sensor (Dexcom G6 Sensor) misc, , Disp: , Rfl: Continuous Blood Gluc Transmit (Dexcom G6 transmitter) misc, , Disp: , Rfl: dapagliflozin (Farxiga) 10 MG, , Disp: , Rfl: finasteride (Proscar) 5 MG tablet, TAKE 1 TABLET BY MOUTH EVERY DAY, Disp: 90 tablet, Rfl: 3 furosemide (Lasix) 20 MG tablet, TAKE 1 TABLET BY MOUTH EVERY DAY, Disp: 90 tablet, Rfl: 1 insulin aspart (NovoLOG FLEXPEN) 100 UNIT/ML pen, Inject 20 Units under the skin Daily as needed for high blood sugar (per sliding scale), Disp: , Rfl: insulin degludec (Tresiba FlexTouch) 100 UNIT/ML injection, Inject 90 Units under the skin at bedtime. (Patient taking differently: Inject 60 Units under the skin at bedtime), Disp: , Rfl: insulin pen needle 32G x 6 mm [facility], Inject 1 each under the skin Daily, Disp: , Rfl: lactulose (Chronulac) 10 GM/15ML solution, Take 10 g by mouth Daily as needed (for constipation), Disp: , Rfl: levothyroxine (Synthroid, Levoxyl) 25 MCG tablet, TAKE 1 TABLET BY MOUTH EVERY DAY IN THE MORNING ON EMPTY STOMACH FOR 90 DAYS, Disp: 90 tablet, Rfl: 3 losartan (Cozaar) 25 MG tablet, TAKE 1 TABLET BY MOUTH EVERY DAY IN THE MORNING, Disp: 90 tablet, Rfl: 3 metFORMIN (Glucophage) 1000 MG tablet, TAKE 1 TABLET BY MOUTH TWICE A DAY WITH MEALS, Disp: 180 tablet, Rfl: 3 metoprolol succinate XL (Toprol-XL) 50 MG 24 hr tablet, TAKE 1 TABLET BY MOUTH EVERY DAY, Disp: 90 tablet, Rfl: 3 Multiple Vitamin (multivitamin) tablet, Take 1 tablet by mouth Daily, Disp: , Rfl: omega-3 (Fish Oil) 1000 MG capsule, Take 1,000 mg by mouth Daily, Disp: , Rfl: Ozempic, 0.25 or 0.5 MG/DOSE, 2 MG/3ML solution pen-injector, , Disp: , Rfl: simvastatin (Zocor) 20 MG tablet, TAKE 1 TABLET BY MOUTH EVERY DAY IN THE EVENING, Disp: 90 tablet, Rfl: 3 tamsulosin (Flomax) 0.4 MG 24 hr capsule, TAKE 1 CAPSULE BY MOUTH TWICE A DAY, Disp: 180 capsule, Rfl: 3 Allergies Iodinated contrast media and Sulfa antibiotics Past Surgical History Past Surgical History: Procedure Laterality Date COLONOSCOPY 07/16/[address] ANGIOGRAM HEART CORONARY 10/31/2017 CT ANGIOGRAM TAVR 10/31/2017 ELBOW SURGERY 2017 KNEE SURGERY Right PROSTATE BIOPSY 02/2019 one biopsy pos for HGPIN ROTATOR CUFF REPAIR 2003 3 surgeries on right rot cuff, post op staph infection, 1999 L shoulder rot cuff surgery Family History Family History Problem Relation Name Age of Onset Breast cancer Mother Other (lumbar spinal stenosis) Mother Hypertension Mother Cancer Mother Hypertension Father Diabetes Father Heart disease Father Other (cholecystectomy) Brother older brother Melanoma Brother Heart disease Paternal Grandfather Objective General Examination: GENERAL EXAMINATION: Alert and oriented. Pleasant disposition. FOOT EXAM: Date of Last Foot Exam 09/04/2024 Sensory testing performed: sensations normal Sensory and motor testing performed: strength normal Pedal pulse taking performed: 2+ Vascular: DORSALIS PEDIS PULSE: bilaterally, 2/4. POSTERIOR TIBIAL PULSE: bilaterally, 2/4. TEMPERATURE GRADIENT: warm to warm. EDEMA: Unremarkable for ankle edema. CAPILLARY FILLING TIME(sec): capillary fill intact bilateral digits less than 3 secs. Neurologic: MUSCLE POWER: No focal deficits. SHARP SENSATION: Tactile and soft touch sensation intact. SEMMES-ODALIS 5.07 MONOFILAMENT: Intact all points plantarly. Dermatologic: SKIN FINDINGS: Intact, without trophic change . HYPERTROPHIC LESION: Non-inflamed pinch callus lesion right great toe. NAIL PATHOLOGY: Bilateral great toes: Stable DSO/pincer toenail deformity: Toenail dystrophy, elongation, thickening, discoloration; the distal margins are incurvated/cryptotic, keratotic, tender, non-inflamed, without drainage.. INGROWN NAIL PATHOLOGY: bilateral great toes as noted. INTERDIGITAL MACERATION: Clean, dry, non-inflamed. ULCER: no sign of ulceration or open wound . SKIN PATHOLOGY: texture, turgor, hair growth, within normal limits . Ankle / Foot: RANGE OF MOTION: Functional ankle and subtalar joint range of motion . Radiology: Assessment/Plan 1. Symptomatic onychodystrophy/mycosis bilateral great toes 2. IDDM Plan: Notes: Conservative and palliative is preferred and again indicated; remains well satisfied. There remains no interest in PO therapy, topical therapy is dificult and not practical. Diabetic education and assessment Procedure: Toenail debridement: Aseptic technique: Hand and power instrumentation: Onychodebridement in length and thickness, with curettage of any cryptotic margins, all periungual debris; providing effective symptom and pressure relief; reducing shoe and digital trauma. This note was created with the assistance of a speech recognition program. While intending to generate a timely document that accurately reflects the content of the visit, no guarantee can be provided that every grammatical or spelling mistake has been or will be identified or corrected. Thank you for your understanding. Dee Dee Timmons DPM documented in this encounter [facility] 09-04-2024 Instructions Dee Dee Timmons DPM - 09/04/2024 3:15 PM EDT As noted documented in this encounter [facility] 08-31-2024 Progress note Formatting of t his note might be different from the original. Let patient know his blood sugar result and his hgba1c. Labs are stable [facility] 06-19-2024 History of Presen t illness Narrative Bharti Collier is a 63 y.o. male presents with chief complaint of URI HPI: Upper Respiratory Infection Patient complains of symptoms of a URI. Symptoms include fever-duration 1 day, headache , lightheadedness, nasal congestion, nausea without vomiting, post nasal drip, sneezing, sore throat, and wheezing. Onset of symptoms was 4 days ago, and has been gradually improving since that time. Treatment to date: none. URI Associated symptoms include congestion, coughing and wheezing. Pertinent negatives include no chest pain. SUBJECTIVE: MEDICATIONS: Current Outpatient Medications Medication Instructions aspirin (ASPIR) 81 mg, Daily benztropine (COGENTIN) 1 mg, 2 times daily cloZAPine (CLOZARIL) 150 mg, Nightly Continuous Blood Gluc Sensor (Dexcom G6 Sensor) misc USE DIRECTED AND CHANGE EVERY 10 DAYS 30 Continuous Blood Gluc Transmit (Dexcom G6 transmitter) misc USE DIRECTED UNDER THE SKIN AND CHANGE EVERY 90 DAYS dapagliflozin (Farxiga) 10 MG finasteride (PROSCAR) 5 mg, Oral, Daily furosemide (LASIX) 20 mg, Oral, Daily insulin pen needle 32G x 6 mm misc 1 each, Daily lactulose (CHRONULAC) 10 g, Daily PRN levothyroxine (Synthroid, Levoxyl) 25 MCG tablet TAKE 1 TABLET BY MOUTH EVERY DAY IN THE MORNING ON EMPTY STOMACH FOR 90 DAYS losartan (Cozaar) 25 MG tablet TAKE 1 TABLET BY MOUTH EVERY DAY IN THE MORNING metFORMIN (Glucophage) 1000 MG tablet TAKE 1 TABLET BY MOUTH TWICE A DAY WITH MEALS metoprolol succinate XL (Toprol-XL) 50 MG 24 hr tablet TAKE 1 TABLET BY MOUTH EVERY DAY Multiple Vitamin (multivitamin) tablet 1 tablet, Oral, Daily NovoLOG FLEXPEN 20 Units, Daily PRN omega-3 (FISH OIL) 1,000 mg, Daily Ozempic, 0.25 or 0.5 MG/DOSE, 2 MG/3ML solution pen-injector INJECT 0.5 MG (0.736 ML) SUBCUTANEOUSLY EVERY WEEK FOR 84 DAYS simvastatin (ZOCOR) 20 mg, Oral, Every evening tamsulosin (FLOMAX) 0.4 mg, Oral, 2 times daily Tresiba FlexTouch 90 Units, Nightly REVIEW OF SYMPTOMS: Review of Systems Constitutional: Positive for fatigue and fever. HENT: Positive for congestion and sinus pressure. Respiratory: Positive for cough and wheezing. Negative for shortness of breath. Cardiovascular: Negative for chest pain and palpitations. Gastrointestinal: Negative. Genitourinary: Negative. Musculoskeletal: Negative. Skin: Negative. Neurological: Negative. OBJECTIVE: Visit Vitals BP 120/60 (BP Location: Left arm, Patient Position: Sitting, BP Cuff Size: Large adult) Pulse 79 Temp 99.1 F (Tympanic) Ht 5' 6 Wt 234 lb SpO2 96% BMI 37.77 kg/m Smoking Status Former BSA 2.22 m Physical Exam Vitals and nursing note reviewed. Constitutional: Appearance: He is well-developed. HENT: Head: Normocephalic. Right Ear: Hearing normal. A middle ear effusion is present. Tympanic membrane is injected. Left Ear: Hearing normal. A middle ear effusion is present. Nose: Congestion and rhinorrhea present. Mouth/Throat: Mouth: Mucous membranes are moist. Pharynx: Posterior oropharyngeal erythema present. No oropharyngeal exudate. Tonsils: No tonsillar exudate. Cardiovascular: Rate and Rhythm: Normal rate and regular rhythm. Heart sounds: Normal heart sounds. Pulmonary: Effort: Pulmonary effort is normal. Breath sounds: Examination of the right-upper field reveals decreased breath sounds. Examination of the left-upper field reveals decreased breath sounds. Examination of the right-lower field reveals wheezing. Examination of the left-lower field reveals wheezing. Decreased breath sounds and wheezing present. Abdominal: General: Abdomen is flat. There is no distension. Tenderness: There is no abdominal tenderness. Musculoskeletal: Cervical back: Neck supple. Lymphadenopathy: Cervical: Right cervical: No superficial cervical adenopathy. Left cervical: No superficial cervical adenopathy. Skin: General: Skin is warm. Capillary Refill: Capillary refill takes less than 2 seconds. Neurological: General: No focal deficit present. Mental Status: He is alert and oriented to person, place, and time. ASSESSMENT AND PLAN: Assessment/Plan Diagnoses and all orders for this visit: Fever, unspecified fever cause Acute right otitis media - amoxicillin-clavulanate (Augmentin) 875-125 MG tablet; Take 1 tablet (875 mg) by mouth in the morning and 1 tablet (875 mg) before bedtime. Do all this for 7 days. Bronchitis - albuterol HFA 90 mcg/act inhaler; Inhale 2 puffs every 4 (four) hours if needed for wheezing - benzonatate (Tessalon Perles) 100 MG capsule; Take 1 capsule (100 mg) by mouth 3 (three) times a day as needed for cough for up to 7 days Do not crush or chew. Viral URI with cough Influenza A Most likely viral in nature, will need to run its course. Educated patient viral infections such as colds/flus do not respond to abx and typically do not begin to improve until 7-10 days into the illness. Discussed symptomatic treatment with patient. Humidifier at bedside to moisten area. Push fluids. Rest. Good handwashing. Follow up if symptoms do not improve. To ER for markedly worsening symptoms. documented in this encounter [facility] 05-07-2024 History of Presen t illness Narrative Images from the original note were not included. Subjective Patient ID: Bharti Collier is a 63 y.o. male who presents for Nail care (Bharti Collier is a 63 y.o. male who presents for DM Foot Care (PCP: Ana KIRBY 03/01/24, A1C: 6.6 BS: 191, SS: 10)). HPI HPI Onychomycosis/Toenail Fungus: Symptomatic toenail deformity. Requesting nail care. Location: Symptomatic/problematic ingrown toenail deformity bilateral great toes. Duration: Insidious, fairly chronic condition . Severity of symptoms: mild-moderate; impacting his ability to wear most shoes comfortably. Onset: gradual, without injury or trauma. Status: Stable deformity, again problematic/symptomatic several weeks or so, impacting his ability to walk comfortably. Context: hard to trim , hard to reach ; self-care is difficult, ineffective and not practical; exposing patient to considerable risk. Family members unable to provide effective care. Characteristics: discolored, thickened, pain , ingrowing, pressure; without bleeding or drainage. Relieved by: Palliative care provides effective transient symptom relief. Previous Treatment: palliative care as noted. Risk factors: type II diabetes/IDDM. Status post CVA. Comorbidities. Polypharmacy. Aspirin therapy. Mobility and flexibility limitations. Toenail deformity. Shoe trauma and related complications. Aggravated by: shoe gear , pressure, walking, snagging on clothing etc. . Medications Current Outpatient Medications: aspirin (ASPIR) 81 MG EC tablet, Take 81 mg by mouth in the morning., Disp: , Rfl: benztropine (Cogentin) 1 MG tablet, Take 1 mg by mouth in the morning and 1 mg before bedtime., Disp: , Rfl: cloZAPine (Clozaril) 100 MG tablet, Take 150 mg by mouth at bedtime., Disp: , Rfl: Continuous Blood Gluc Sensor (Dexcom G6 Sensor) misc, USE DIRECTED AND CHANGE EVERY 10 DAYS 30, Disp: , Rfl: Continuous Blood Gluc Transmit (Dexcom G6 transmitter) misc, USE DIRECTED UNDER THE SKIN AND CHANGE EVERY 90 DAYS, Disp: , Rfl: dapagliflozin (Farxiga) 10 MG, Farxiga 10 mg tablet (Patient not taking: Reported on 03/01/2024), Disp: , Rfl: finasteride (Proscar) 5 MG tablet, TAKE 1 TABLET BY MOUTH EVERY DAY, Disp: 90 tablet, Rfl: 3 furosemide (Lasix) 20 MG tablet, TAKE 1 TABLET BY MOUTH EVERY DAY, Disp: 90 tablet, Rfl: 1 insulin aspart (NovoLOG FLEXPEN) 100 UNIT/ML pen, Inject 20 Units under the skin Daily as needed for high blood sugar (per sliding scale)., Disp: , Rfl: insulin degludec (Tresiba FlexTouch) 100 UNIT/ML injection, Inject 90 Units under the skin at bedtime., Disp: , Rfl: insulin pen needle 32G x 6 mm misc, Inject 1 each under the skin in the morning., Disp: , Rfl: lactulose (Chronulac) 10 GM/15ML solution, Take 10 g by mouth Daily as needed (for constipation)., Disp: , Rfl: levothyroxine (Synthroid, Levoxyl) 25 MCG tablet, TAKE 1 TABLET BY MOUTH EVERY DAY IN THE MORNING ON EMPTY STOMACH FOR 90 DAYS, Disp: 90 tablet, Rfl: 3 losartan (Cozaar) 25 MG tablet, TAKE 1 TABLET BY MOUTH EVERY DAY IN THE MORNING (Patient not taking: Reported on 03/01/2024), Disp: 90 tablet, Rfl: 3 metFORMIN (Glucophage) 1000 MG tablet, TAKE 1 TABLET BY MOUTH TWICE A DAY WITH MEALS, Disp: 180 tablet, Rfl: 3 metoprolol succinate XL (Toprol-XL) 50 MG 24 hr tablet, TAKE 1 TABLET BY MOUTH EVERY DAY, Disp: 90 tablet, Rfl: 3 Multiple Vitamin (multivitamin) tablet, Take 1 tablet by mouth Daily, Disp: , Rfl: omega-3 (Fish Oil) 1000 MG capsule, Take 1,000 mg by mouth in the morning., Disp: , Rfl: Ozempic, 0.25 or 0.5 MG/DOSE, 2 MG/3ML solution pen-injector, INJECT 0.5 MG (0.736 ML) SUBCUTANEOUSLY EVERY WEEK FOR 84 DAYS, Disp: , Rfl: simvastatin (Zocor) 20 MG tablet, TAKE 1 TABLET BY MOUTH EVERY DAY IN THE EVENING, Disp: 90 tablet, Rfl: 3 tamsulosin (Flomax) 0.4 MG 24 hr capsule, TAKE 1 CAPSULE BY MOUTH TWICE A DAY (Patient not taking: Reported on 03/01/2024), Disp: 180 capsule, Rfl: 3 Allergies Iodinated contrast media and Sulfa antibiotics Past Surgical History Past Surgical History: Procedure Laterality Date COLONOSCOPY 07/16/[address] ANGIOGRAM HEART CORONARY 10/31/2017 CT ANGIOGRAM TAVR 10/31/2017 ELBOW SURGERY 2017 KNEE SURGERY Right PROSTATE BIOPSY 02/2019 one biopsy pos for HGPIN ROTATOR CUFF REPAIR 2003 3 surgeries on right rot cuff, post op staph infection, 1998 L shoulder rot cuff surgery Family History Family History Problem Relation Name Age of Onset Breast cancer Mother Other (lumbar spinal stenosis) Mother Hypertension Mother Cancer Mother Hypertension Father Diabetes Father Heart disease Father Other (cholecystectomy) Brother older brother Melanoma Brother Heart disease Paternal Grandfather Objective General Examination: GENERAL EXAMINATION: Alert and oriented. Pleasant cooperative disposition. FOOT EXAM: Date of Last Foot Exam 05/07/2024 Sensory testing performed: sensations normal Sensory and motor testing performed: strength normal Pedal pulse taking performed: 2+ Vascular: DORSALIS PEDIS PULSE: bilaterally, 2/4. POSTERIOR TIBIAL PULSE: bilaterally, 2/4. TEMPERATURE GRADIENT: warm to warm. EDEMA: Unremarkable for ankle edema. CAPILLARY FILLING TIME(sec): capillary fill intact bilateral digits less than 3 secs. Neurologic: MUSCLE POWER: No focal deficits. SHARP SENSATION: Tactile and soft touch sensation intact. SEMMES-ODALIS 5.07 MONOFILAMENT: Intact all points plantarly. Dermatologic: SKIN FINDINGS: Intact, without trophic change . HYPERTROPHIC LESION: Non-inflamed pinch callus lesion right great toe. NAIL PATHOLOGY: Bilateral great toes: Stable DSO/pincer toenail deformity: Toenail dystrophy, elongation, thickening, discoloration; the distal margins are incurvated/cryptotic, keratotic, tender, non-inflamed, without drainage.. INGROWN NAIL PATHOLOGY: bilateral great toes as noted. INTERDIGITAL MACERATION: Clean, dry, non-inflamed. ULCER: no sign of ulceration or open wound . SKIN PATHOLOGY: texture, turgor, hair growth, within normal limits . Ankle / Foot: RANGE OF MOTION: Functional ankle and subtalar joint range of motion . Radiology: Assessment/Plan 1. Symptomatic onychodystrophy/mycosis bilateral great toes 2. IDDM Plan: Notes: Conservative and palliative is preferred and again indicated; remains well satisfied. There remains no interest in PO therapy, topical therapy is dificult and not practical. Diabetic education and assessment Procedure: Toenail debridement: Aseptic technique: Hand and power instrumentation: Onychodebridement in length and thickness, with curettage of any cryptotic margins, all periungual debris; providing effective symptom and pressure relief; reducing shoe and digital trauma. This note was created with the assistance of a speech recognition program. While intending to generate a timely document that accurately reflects the content of the visit, no guarantee can be provided that every grammatical or spelling mistake has been or will be identified or corrected. Thank you for your understanding. Dee Dee Timmons DPM documented in this encounter [facility] 03-01-2024 History of Presen t illness Narrative Images from the original note were not included. Bharti Collier is a 63 y.o. male presents with chief complaint of Diabetes HPI: HPI Patient is present for a 6 month follow up for DM. Patient states his blood sugar right now is 213. He states his blood sugars have been good. SUBJECTIVE: MEDICATIONS: Current Outpatient Medications Medication Instructions aspirin (ASPIR) 81 mg, Oral, Daily benztropine (COGENTIN) 1 mg, Oral, 2 times daily cloZAPine (CLOZARIL) 150 mg, Oral, Nightly Continuous Blood Gluc Sensor (Dexcom G6 Sensor) misc USE DIRECTED AND CHANGE EVERY 10 DAYS 30 Continuous Blood Gluc Transmit (Dexcom G6 transmitter) misc USE DIRECTED UNDER THE SKIN AND CHANGE EVERY 90 DAYS dapagliflozin (Farxiga) 10 MG Farxiga 10 mg tablet finasteride (PROSCAR) 5 mg, Oral, Daily furosemide (LASIX) 20 mg, Oral, Daily insulin pen needle 32G x 6 mm misc 1 each, Subcutaneous, Daily lactulose (CHRONULAC) 10 g, Oral, Daily PRN levothyroxine (Synthroid, Levoxyl) 25 MCG tablet TAKE 1 TABLET BY MOUTH EVERY DAY IN THE MORNING ON EMPTY STOMACH FOR 90 DAYS losartan (Cozaar) 25 MG tablet TAKE 1 TABLET BY MOUTH EVERY DAY IN THE MORNING metFORMIN (Glucophage) 1000 MG tablet TAKE 1 TABLET BY MOUTH TWICE A DAY WITH MEALS metoprolol succinate XL (Toprol-XL) 50 MG 24 hr tablet TAKE 1 TABLET BY MOUTH EVERY DAY Multiple Vitamin (multivitamin) tablet 1 tablet, Oral, Daily NovoLOG FLEXPEN 20 Units, Subcutaneous, Daily PRN omega-3 (FISH OIL) 1,000 mg, Oral, Daily Ozempic, 0.25 or 0.5 MG/DOSE, 2 MG/3ML solution pen-injector INJECT 0.5 MG (0.736 ML) SUBCUTANEOUSLY EVERY WEEK FOR 84 DAYS simvastatin (ZOCOR) 20 mg, Oral, Every evening tamsulosin (FLOMAX) 0.4 mg, Oral, 2 times daily Tresiba FlexTouch 90 Units, Subcutaneous, Nightly I have reviewed and reconciled the history and medication list with the patient today. REVIEW OF SYMPTOMS: Review of Systems Constitutional: Negative for fatigue. HENT: Negative. Respiratory: Negative. Negative for cough, shortness of breath and wheezing. Cardiovascular: Negative for chest pain and palpitations. Gastrointestinal: Negative. Genitourinary: Negative. Skin: Negative. Neurological: Negative. Psychiatric/Behavioral: Negative. OBJECTIVE: Visit Vitals Smoking Status Former Physical Exam Vitals and nursing note reviewed. Cardiovascular: Rate and Rhythm: Normal rate and regular rhythm. Pulses: Normal pulses. Heart sounds: Normal heart sounds. Pulmonary: Effort: Pulmonary effort is normal. Breath sounds: Normal breath sounds. Abdominal: General: Abdomen is flat. Bowel sounds are normal. Palpations: Abdomen is soft. Musculoskeletal: General: Normal range of motion. Cervical back: Normal range of motion and neck supple. Skin: General: Skin is warm and dry. Neurological: General: No focal deficit present. Mental Status: He is oriented to person, place, and time. ASSESSMENT AND PLAN: Assessment/Plan Diagnoses and all orders for this visit: Type 2 diabetes mellitus with stage 2 chronic kidney disease, with long-term current use of insulin (CMS/HCC)-stable continue on current medications - POCT glycosylated hemoglobin (Hb A1C) docked device Morbid obesity due to excess calories (CMS/HCC) documented in this encounter [facility] 01-06-2024 Telephone encount er Note Needs an appointment to refill medication [facility] 01-06-2024 Miscellaneous Notes Formattin g of this note might be different from the original. Needs an appointment to refill medication documented in this encounter [facility] 01-02-2024 History of Presen t illness Narrative Images from the original note were not included. Subjective Patient ID: Bharti Collier is a 63 y.o. male who presents for Nail care (Bharti Collier is a 63 y.o. male who presents for DM Foot Care (PCP: Ana KIRBY 08/31/23, A1C: 6.6 BS: 186, SS: 10).). HPI HPI Onychomycosis/Toenail Fungus: Symptomatic toenail deformity. Requesting nail care. Location: Symptomatic/problematic ingrown toenail deformity bilateral great toes. Duration: Insidious, fairly chronic condition . Severity of symptoms: mild-moderate; impacting his ability to wear most shoes comfortably. Onset: gradual, without injury or trauma. Status: Stable deformity, again problematic/symptomatic several weeks or so, impacting his ability to walk comfortably. Context: hard to trim , hard to reach ; self-care is difficult, ineffective and not practical; exposing patient to considerable risk. Family members unable to provide effective care. Characteristics: discolored, thickened, pain , ingrowing, pressure; without bleeding or drainage. Relieved by: Palliative care provides effective transient symptom relief. Previous Treatment: palliative care as noted. Risk factors: type II diabetes/IDDM. Status post CVA. Comorbidities. Polypharmacy. Aspirin therapy. Mobility and flexibility limitations. Toenail deformity. Shoe trauma and related complications. Aggravated by: shoe gear , pressure, walking, snagging on clothing etc. . Medications Current Outpatient Medications: aspirin (ASPIR) 81 MG EC tablet, Take 81 mg by mouth in the morning., Disp: , Rfl: benztropine (Cogentin) 1 MG tablet, Take 1 mg by mouth in the morning and 1 mg before bedtime., Disp: , Rfl: cloZAPine (Clozaril) 100 MG tablet, Take 150 mg by mouth at bedtime., Disp: , Rfl: Continuous Blood Gluc Sensor (Dexcom G6 Sensor) misc, USE DIRECTED AND CHANGE EVERY 10 DAYS 30, Disp: , Rfl: Continuous Blood Gluc Transmit (Dexcom G6 transmitter) misc, USE DIRECTED UNDER THE SKIN AND CHANGE EVERY 90 DAYS, Disp: , Rfl: dapagliflozin (Farxiga) 10 MG, Farxiga 10 mg tablet, Disp: , Rfl: finasteride (Proscar) 5 MG tablet, TAKE 1 TABLET BY MOUTH EVERY DAY, Disp: 90 tablet, Rfl: 3 furosemide (Lasix) 20 MG tablet, TAKE 1 TABLET BY MOUTH EVERY DAY, Disp: 90 tablet, Rfl: 3 insulin aspart (NovoLOG FLEXPEN) 100 UNIT/ML pen, Inject 20 Units under the skin Daily as needed for high blood sugar (per sliding scale)., Disp: , Rfl: insulin degludec (Tresiba FlexTouch) 100 UNIT/ML injection, Inject 90 Units under the skin at bedtime., Disp: , Rfl: insulin pen needle 32G x 6 mm misc, Inject 1 each under the skin in the morning., Disp: , Rfl: lactulose (Chronulac) 10 GM/15ML solution, Take 10 g by mouth Daily as needed (for constipation)., Disp: , Rfl: levothyroxine (Synthroid, Levoxyl) 25 MCG tablet, TAKE 1 TABLET BY MOUTH EVERY DAY IN THE MORNING ON EMPTY STOMACH FOR 90 DAYS, Disp: 90 tablet, Rfl: 3 losartan (Cozaar) 25 MG tablet, TAKE 1 TABLET BY MOUTH EVERY DAY IN THE MORNING, Disp: 90 tablet, Rfl: 3 metFORMIN (Glucophage) 1000 MG tablet, TAKE 1 TABLET BY MOUTH TWICE A DAY WITH MEALS, Disp: 180 tablet, Rfl: 3 metoprolol succinate XL (Toprol-XL) 50 MG 24 hr tablet, TAKE 1 TABLET BY MOUTH EVERY DAY, Disp: 90 tablet, Rfl: 3 Multiple Vitamin (multivitamin) tablet, Take 1 tablet by mouth Daily, Disp: , Rfl: omega-3 (Fish Oil) 1000 MG capsule, Take 1,000 mg by mouth in the morning., Disp: , Rfl: Ozempic, 0.25 or 0.5 MG/DOSE, 2 MG/3ML solution pen-injector, INJECT 0.5 MG (0.736 ML) SUBCUTANEOUSLY EVERY WEEK FOR 84 DAYS, Disp: , Rfl: simvastatin (Zocor) 20 MG tablet, TAKE 1 TABLET BY MOUTH EVERY DAY IN THE EVENING, Disp: 90 tablet, Rfl: 3 tamsulosin (Flomax) 0.4 MG 24 hr capsule, TAKE 1 CAPSULE BY MOUTH TWICE A DAY, Disp: 180 capsule, Rfl: 3 Allergies Iodinated contrast media and Sulfa antibiotics Past Surgical History Past Surgical History: Procedure Laterality Date COLONOSCOPY 07/16/[address] ANGIOGRAM HEART CORONARY 10/31/2017 CT ANGIOGRAM TAVR 10/31/2017 ELBOW SURGERY 2017 KNEE SURGERY Right PROSTATE BIOPSY 02/2019 one biopsy pos for HGPIN ROTATOR CUFF REPAIR 2003 3 surgeries on right rot cuff, post op staph infection, 1998 L shoulder rot cuff surgery Family History Family History Problem Relation Name Age of Onset Breast cancer Mother Other (lumbar spinal stenosis) Mother Hypertension Mother Cancer Mother Hypertension Father Diabetes Father Heart disease Father Other (cholecystectomy) Brother older brother Melanoma Brother Heart disease Paternal Grandfather Objective General Examination: GENERAL EXAMINATION: Alert and oriented. Pleasant cooperative disposition. FOOT EXAM: Date of Last Foot Exam 01/02/2024 Sensory testing performed: sensations normal Sensory and motor testing performed: strength normal Pedal pulse taking performed: 2+ Vascular: DORSALIS PEDIS PULSE: bilaterally, 2/4. POSTERIOR TIBIAL PULSE: bilaterally, 2/4. TEMPERATURE GRADIENT: warm to warm. EDEMA: Unremarkable for ankle edema. CAPILLARY FILLING TIME(sec): capillary fill intact bilateral digits less than 3 secs. Neurologic: MUSCLE POWER: No focal deficits. SHARP SENSATION: Tactile and soft touch sensation intact. SEMMES-ODALIS 5.07 MONOFILAMENT: Intact all points plantarly. Dermatologic: SKIN FINDINGS: Intact, without trophic change . HYPERTROPHIC LESION: Non-inflamed pinch callus lesion right great toe. NAIL PATHOLOGY: bilateral great toes: Stable DSO/pincer toenail deformity: Toenail dystrophy, elongation, thickening, discoloration; the distal margins are incurvated/cryptotic, keratotic, tender, non-inflamed, without drainage.. INGROWN NAIL PATHOLOGY: bilateral great toes as noted. INTERDIGITAL MACERATION: Clean, dry, non-inflamed. ULCER: no sign of ulceration or open wound . SKIN PATHOLOGY: texture, turgor, hair growth, within normal limits . Ankle / Foot: RANGE OF MOTION: Functional ankle and subtalar joint range of motion . Radiology: Assessment/Plan 1. Symptomatic onychodystrophy/mycosis bilateral great toes 2. IDDM Plan: Notes: Conservative and palliative is preferred and again indicated; remains well satisfied. There remains no interest in PO therapy, topical therapy is dificult and not practical. Diabetic education and assessment Procedure: Toenail debridement: Aseptic technique: Hand and power instrumentation: Onychodebridement in length and thickness, with curettage of any cryptotic margins, all periungual debris; providing effective symptom and pressure relief; reducing shoe and digital trauma. This note was created with the assistance of a speech recognition program. While intending to generate a timely document that accurately reflects the content of the visit, no guarantee can be provided that every grammatical or spelling mistake has been or will be identified or corrected. Thank you for your understanding. Dee Dee Timmons DPM documented in this encounter [facility] 01-02-2024 Instructions Dee Dee Timmons DPM - 01/02/2024 2:15 PM EDT As noted documented in this encounter [facility] 05-17-2023 Evaluation note Encounter Date Diagnosis Assessment Notes May, Dietary counseling and surveillance (ICD-10 - Z71.3) Eat well, exercise well, be well: dietary and fitness guidelines material was printed, May, Type 2 diabetes mellitus with hyperglycemia (ICD-10 - E11.65) Type 2 diabetes material was printed, Hypoglycemia material was printed 1. Controlled, a Type 2 diabetes with A1c of 6.8% 2. Blood glucose levels according to [employer] g6 cgm download 05/04/2023-2023: Avg glucose 158, >250-2%, >180-25%, 70-180-73%, <70-0%, <54-0%. CV 25.9%. Reviewed download with pt, infrequent incidence of hypoglcyemia. Glucose above target from higher carb load meal. Pt has been having difficulty getting trulicity d/t back order. Recommend switching to ozempic. Pt given sample ozempic, administered first dose 0.25mg. Reviewed ozempic dosing 0.25mg once weekly x4 weeks then 0.5mg once weekly. Recommend he reduce tresiba from 70 to 68 units qhs. Reviewed with pt how to titrate basal/bolus insulin according to fasting am/meal to meal glucose pattern. Pt verbalizes understanding. Note: pt did not tolerate sglt2 class of medication. 3. Patient is alert, oriented and receptive to making changes or counseling. Notes: Seen for an assessment of current glucose pattern, changes in treatment plan, with this time spent in counseling and coordination of care related to diabetes, risks, and benefits of treatment, medications, and side effects. TOPICS REVIEWED: 1. Time was spent reviewing: a. Basic concepts of diabetes, progressive beta cell , concepts of basal/bolus/cor rective insulin requirements. Basal: The goal is fasting blood glucose of 90-130mg. IF fasting blood glucose starts to run under 100mg 3x's/ week, decrease dose by 10%. Bolus: The goal is to hold the blood glucose level steady meal to meal. If pt. is going to have increased physical activity after a meal, decrease the schedule meal dose prior to the activity by 30-50%. If pt. skips a meal do not take this dose. Correction: The goal is to correct an elevated glucose back into the 100-150mg range b. Nutrition: Concepts of healthy diet, encouraged to decrease saturated fat in diet and increase non-starchy vegetables and fruits in diet. BMI: Pt. needs to select one small change to decrease caloric intake or increase physical activity to help decrease weight. c. Correct treatment of hypoglycemia, carry a glucose source at all times on your person, in vehicles, and at bedside. Can use glucose tablets/4, four ounces of pop or juice equal to 15 G of carbohydrate. Blood glucose should be 100 mg/dl or higher when driving. d. ADA glucose goals for age and medical complexity reviewed e. Patient questions addressed 2. Activity/exerci se: Encouraged to start any form of physical activity. Start low level and increase slowly to a minimal goal of 150 minutes/week. Limit activity to what is allowed by other issues such as cardiac, pulmonary or orthopedic restrictions. 3. Standards of care: Reminded to have an annual dilated eye exam, A1C every 3 months, urine testing for microalbumin once/year, check feet daily and report any cuts or sores that do not appear to be healing. 4. Meter: Plan to check blood glucose: Please check blood glucose levels 4 times/day. Back to back meals reveal effectiveness of bolus dosing. 5. [facility]. Contact office if any issues or concerns with patterns of hypoglycemia, hyperglycemia, or diabetes medication issues. 6. Prescriptions: [facility]Ozempic 05/17/23; DME: [facility]None at this time. 7. Prescriptions will not be filled unless you are compliant with follow up appointments or have a follow up appointment scheduled as ordered by your provider. Refills should be requested at the time of your visit. May, Hyperlipidemia (ICD-10 - E78.5) High cholesterol material was printed 01/2023 ldl 35 at goal, Trig. 189- on statin. 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 B 12 411 at target May, BMI 37.0-37.9, adult (ICD-10 - Z68.37) Health and nutrition information material was printed 6 pound weight loss from last visit, continue with weight loss efforts [employer] Other 10-31-2023 Evaluation note* Encounter Date Diagnosis Assessment Notes Treatment Notes Treatment Clinical Notes Jan, Dietary counseling and surveillance (ICD-10 - Z71.3) Eat well, exercise well, be well: dietary and fitness guidelines material was printed, Jan, Type 2 diabetes mellitus with hyperglycemia (ICD-10 - E11.65) Type 2 diabetes material was printed, Hypoglycemia material was printed 1. Controlled, a Type 2 diabetes with A1c of 5.9% 2. Blood glucose levels improved. According to [employer] g6 cgm download 01/26/2023- 023: Avg glucose 165, >250-4%, >180-27%, 70-180-69%, <70-0%, <54-0%. CV 25.2%. Reviewed download with pt, no incidence of hypoglcyemia. Glucose above target from higher carb load meal. Pt has reduce insulin dose down from last visit from 88 to 70 units qhs. Reviewed with pt how to titrate basal/bolus insulin according to fasting am/meal to meal glucose pattern. Pt verbalizes understanding. Note: pt did not tolerate sglt2 class of medication. 3. Patient is alert, oriented and receptive to making changes or counseling. Notes: Seen for an assessment of current glucose pattern, changes in treatment plan, with this time spent in counseling and coordination of care related to diabetes, risks, and benefits of treatment, medications, and side effects. TOPICS REVIEWED: 1. Time was spent reviewing: a. Basic concepts of diabetes, progressive beta cell , concepts of basal/bolus/correc tive insulin requirements. Basal: The goal is fasting blood glucose of 90-130mg. IF fasting blood glucose starts to run under 100mg 3x's/ week, decrease dose by 10%. Bolus: The goal is to hold the blood glucose level steady meal to meal. If pt. is going to have increased physical activity after a meal, decrease the schedule meal dose prior to the activity by 30-50%. If pt. skips a meal do not take this dose. Correction: The goal is to correct an elevated glucose back into the 100-150mg range b. Nutrition: Concepts of healthy diet, encouraged to decrease saturated fat in diet and increase non-starchy vegetables and fruits in diet. BMI: Pt. needs to select one small change to decrease caloric intake or increase physical activity to help decrease weight. c. Correct treatment of hypoglycemia, carry a glucose source at all times on your person, in vehicles, and at bedside. Can use glucose tablets/4, four ounces of pop or juice equal to 15 G of carbohydrate. Blood glucose should be 100 mg/dl or higher when driving. d. ADA glucose goals for age and medical complexity reviewed e. Patient questions addressed 2. Activity/exercise: Encouraged to start any form of physical activity. Start low level and increase slowly to a minimal goal of 150 minutes/week. Limit activity to what is allowed by other issues such as cardiac, pulmonary or orthopedic restrictions. 3. Standards of care: Reminded to have an annual dilated eye exam, A1C every 3 months, urine testing for microalbumin once/year, check feet daily and report any cuts or sores that do not appear to be healing. 4. Meter: Plan to check blood glucose: Please check blood glucose levels 4 times/day. Back to back meals reveal effectiveness of bolus dosing. 5. [facility] 3 [facility]. Contact office if any issues or concerns with patterns of hypoglycemia, hyperglycemia, or diabetes medication issues. 6. Prescriptions: Will call when needed. 7. Prescriptions will not be filled unless you are compliant with follow up appointments or have a follow up appointment scheduled as ordered by your provider. Refills should be requested at the time of your visit. Jan, Hyperlipidemia (ICD-10 - E78.5) High cholesterol material was printed 01/2023 ldl 35 at goal, Trig. 189- on statin. Jan, HTN (hypertension) (ICD-10 - I10) About hypertension material was printed on ivan- above target; f/u with pcp for further recommendation. Jan, nursing home current use of insulin (ICD-10 - Z79.4) Jan, Vitamin B 12 deficiency (ICD-10 - E53.8) Good food sources of vitamin B12 material was printed, 11/2021 Vit. B 12 411 at target Jan, BMI 37.0-37.9, adult (ICD-10 - Z68.37) Health and nutrition information material was printed [employer] Other 07-27-2023 Evaluation note* Encounter Date Diagnosis Assessment Notes Treatment Notes Treatment Clinical Notes Oct, Dietary counseling and surveillance (ICD-10 - Z71.3) Eat well, exercise well, be well: dietary and fitness guidelines material was printed, Oct, Type 2 diabetes mellitus with hyperglycemia (ICD-10 - E11.65) Type 2 diabetes material was printed, Hypoglycemia material was printed 1. Uncontrolled, a Type 2 diabetes with A1c of 7.2% 2. Blood glucose levels slightly higher. According to [employer] g6 cgm download 10/22/2022- 3: Avg glucose 154, >250-4%, >180-29%, 70-180-67%, <70-0%, <54-0%. CV 33.4%. Reviewed download with pt, no incidence of hypoglcyemia. Noted several readings <100 recommend reducing tresiba from 90 to 88 units once daily. Pt reports was advised by pcp to restart metformin. Pt reports has been without trulicity for a week, waiting on pharmacy to call when available. Reviewed with pt how to titrate basal/bolus insulin according to fasting am/meal to meal glucose pattern. Pt verbalizes understanding. Note: pt did not tolerate sglt2 class of medication. 3. Patient is alert, oriented and receptive to making changes or counseling. Notes: Seen for an assessment of current glucose pattern, changes in treatment plan, with this time spent in counseling and coordination of care related to diabetes, risks, and benefits of treatment, medications, and side effects. TOPICS REVIEWED: 1. Time was spent reviewing: a. Basic concepts of diabetes, progressive beta cell , concepts of basal/bolus/correc tive insulin requirements. Basal: The goal is fasting blood glucose of 90-130mg. IF fasting blood glucose starts to run under 100mg 3x's/ week, decrease dose by 10%. Bolus: The goal is to hold the blood glucose level steady meal to meal. If pt. is going to have increased physical activity after a meal, decrease the schedule meal dose prior to the activity by 30-50%. If pt. skips a meal do not take this dose. Correction: The goal is to correct an elevated glucose back into the 100-150mg range b. Nutrition: Concepts of healthy diet, encouraged to decrease saturated fat in diet and increase non-starchy vegetables and fruits in diet. BMI: Pt. needs to select one small change to decrease caloric intake or increase physical activity to help decrease weight. c. Correct treatment of hypoglycemia, carry a glucose source at all times on your person, in vehicles, and at bedside. Can use glucose tablets/4, four ounces of pop or juice equal to 15 G of carbohydrate. Blood glucose should be 100 mg/dl or higher when driving. d. ADA glucose goals for age and medical complexity reviewed e. Patient questions addressed 2. Activity/exercise: Encouraged to start any form of physical activity. Start low level and increase slowly to a minimal goal of 150 minutes/week. Limit activity to what is allowed by other issues such as cardiac, pulmonary or orthopedic restrictions. 3. Standards of care: Reminded to have an annual dilated eye exam, A1C every 3 months, urine testing for microalbumin once/year, check feet daily and report any cuts or sores that do not appear to be healing. 4. Meter: Plan to check blood glucose: Please check blood glucose levels 4 times/day. Back to back meals reveal effectiveness of bolus dosing. 5. [facility]. Contact office if any issues or concerns with patterns of hypoglycemia, hyperglycemia, or diabetes medication issues. 6. Prescriptions: None at this time. 7. Prescriptions will not be filled unless you are compliant with follow up appointments or have a follow up appointment scheduled as ordered by your provider. Refills should be requested at the time of your visit. Oct, Hyperlipidemia (ICD-10 - E78.5) High cholesterol material was printed 11/2021 ldl 57 at goal, Trig. 237- on statin. Oct, HTN (hypertension) (ICD-10 - I10) About hypertension material was printed on ivan- above target; f/u with pcp for further recommendation. 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 B 12 411 at target Oct, Albuminuria (ICD-10 - R80.9) Protein, urine material was printed Reviewed importance of glucose/bp control to prevent further nephropathy. Oct, BMI 36.0-36.9,adult (ICD-10 - Z68.36) Health and nutrition information material was printed [employer] Other 03-29-2023 Evaluation note* Encounter Date Diagnosis Assessment Notes Treatment Notes Treatment Clinical Notes Jun, Dietary counseling and surveillance (ICD-10 - Z71.3) Eat well, exercise well, be well: dietary and fitness guidelines material was printed, Jun, Type 2 diabetes mellitus with hyperglycemia (ICD-10 - E11.65) Type 2 diabetes material was printed 1. Controlled, a Type 2 diabetes with A1c of 6.1% 2. Blood glucose levels imrpved. According to dexcom g6 cgm download 06/24/2022- 3: Avg glucose 155, >250-2%, >180-22%, 70-180-76%, <70-0%, <54-0%. CV 27.4%. Reviewed download with pt, isolated incident of hypoglcyemia 69. Overall glucose pattern improved. Pt has been without trulicity 4.5mg at least 1-2 weeks, reports when he went to pick it up was told they didn't have it. Called pharmacy today and is available and pharmacist will get rx ready- recommend he restart trulcity 4.5mg once weekly. Reviewed with pt how to titrate basal/bolus insulin according to fasting am/meal to meal glucose pattern. Pt verbalizes understanding. Note: pt did not tolerate sglt2 class of medication. Pt has taken metformin 2000mg in the past. 3. Patient is alert, oriented and receptive to making changes or counseling. Notes: Seen for an assessment of current glucose pattern, changes in treatment plan, with this time spent in counseling and coordination of care related to diabetes, risks, and benefits of treatment, medications, and side effects. TOPICS REVIEWED: 1. Time was spent reviewing: a. Basic concepts of diabetes, progressive beta cell , concepts of basal/bolus/correc tive insulin requirements. Basal: The goal is fasting blood glucose of 90-130mg. IF fasting blood glucose starts to run under 100mg 3x's/ week, decrease dose by 10%. Bolus: The goal is to hold the blood glucose level steady meal to meal. If pt. is going to have increased physical activity after a meal, decrease the schedule meal dose prior to the activity by 30-50%. If pt. skips a meal do not take this dose. Correction: The goal is to correct an elevated glucose back into the 100-150mg range b. Nutrition: Concepts of healthy diet, encouraged to decrease saturated fat in diet and increase non-starchy vegetables and fruits in diet. BMI: Pt. needs to select one small change to decrease caloric intake or increase physical activity to help decrease weight. c. Correct treatment of hypoglycemia, carry a glucose source at all times on your person, in vehicles, and at bedside. Can use glucose tablets/4, four ounces of pop or juice equal to 15 G of carbohydrate. Blood glucose should be 100 mg/dl or higher when driving. d. ADA glucose goals for age and medical complexity reviewed e. Patient questions addressed 2. Activity/exercise: Encouraged to start any form of physical activity. Start low level and increase slowly to a minimal goal of 150 minutes/week. Limit activity to what is allowed by other issues such as cardiac, pulmonary or orthopedic restrictions. 3. Standards of care: Reminded to have an annual dilated eye exam, A1C every 3 months, urine testing for microalbumin once/year, check feet daily and report any cuts or sores that do not appear to be healing. 4. Meter: Plan to check blood glucose: Please check blood glucose levels 4 times/day. Back to back meals reveal effectiveness of bolus dosing. 5. [facility] Contact office if any issues or concerns with patterns of hypoglycemia, hyperglycemia, or diabetes medication issues. 6. Prescriptions: see above 7. Prescriptions will not be filled unless you are compliant with follow up appointments or have a follow up appointment scheduled as ordered by your provider. Refills should be requested at the time of your visit. Jun, Hyperlipidemia (ICD-10 - E78.5) High cholesterol material was printed 11/2021 ldl 57 at goal, Trig. 237- on statin. Jun, HTN (hypertension) (ICD-10 - I10) About hypertension material was printed on ivan- above target; f/u with pcp for further recommendation. 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 B 12 411 at target Jun, Albuminuria (ICD-10 - R80.9) Protein, urine material was printed Reviewed importance of glucose/bp control to prevent further nephropathy. Jun, Hypoglycemia associated with type 2 diabetes mellitus (ICD-10 - E11.649) Hypoglycemia material was printed see above Jun, BMI 36.0-36.9,adult (ICD-10 - Z68.36) Health and nutrition information material was printed 5 pound weight loss from last visit, continue with weight loss efforts [employer] Other 12-21-2022 Evaluation note* Encounter Date Diagnosis Assessment Notes Treatment Notes Treatment Clinical Notes Mar, Dietary counseling and surveillance (ICD-10 - Z71.3) Eat well, exercise well, be well: dietary and fitness guidelines material was printed, Mar, Type 2 diabetes mellitus with hyperglycemia (ICD-10 - E11.65) Type 2 diabetes material was printed 1. Uncontrolled, a Type 2 diabetes with A1c of 7.1% 2. Blood glucose levels above target. According to dexcom g6 cgm download 03/18/2022-03/31/20 22: Avg glucose 233, >250-33.4%, >180-73.5%, 70-180-26.5%, <70-0., <54-0%. CV 33.1%, SD 77. Reviewed download with pt, readings above target. pt has been without trulicity 4.5mg at least 1-2 weeks, reports when he went to pick it up was told they didn't have it- did not notify office.Discussed with pt d/t backorder will recommend 1.5mg once weekly until 4.5mg dose becomes available, be agreeable. Pt was given sample trulicity 1.5mg x2 pens and administered first dose in office. Note: pt did not tolerate sglt2 class of medication. 3. Patient is alert, oriented and receptive to making changes or counseling. Notes: Seen for an assessment of current glucose pattern, changes in treatment plan, with this time spent in counseling and coordination of care related to diabetes, risks, and benefits of treatment, medications, and side effects. TOPICS REVIEWED: 1. Time was spent reviewing: a. Basic concepts of diabetes, progressive beta cell , concepts of basal/bolus/correc tive insulin requirements. Basal: The goal is fasting blood glucose of 90-130mg. IF fasting blood glucose starts to run under 100mg 3x's/ week, decrease dose by 10%. Bolus: The goal is to hold the blood glucose level steady meal to meal. If pt. is going to have increased physical activity after a meal, decrease the schedule meal dose prior to the activity by 30-50%. If pt. skips a meal do not take this dose. Correction: The goal is to correct an elevated glucose back into the 100-150mg range b. Nutrition: Concepts of healthy diet, encouraged to decrease saturated fat in diet and increase non-starchy vegetables and fruits in diet. BMI: Pt. needs to select one small change to decrease caloric intake or increase physical activity to help decrease weight. c. Correct treatment of hypoglycemia, carry a glucose source at all times on your person, in vehicles, and at bedside. Can use glucose tablets/4, four ounces of pop or juice equal to 15 G of carbohydrate. Blood glucose should be 100 mg/dl or higher when driving. d. ADA glucose goals for age and medical complexity reviewed e. Patient questions addressed 2. Activity/exercise: Encouraged to start any form of physical activity. Start low level and increase slowly to a minimal goal of 150 minutes/week. Limit activity to what is allowed by other issues such as cardiac, pulmonary or orthopedic restrictions. 3. Standards of care: Reminded to have an annual dilated eye exam, A1C every 3 months, urine testing for microalbumin once/year, check feet daily and report any cuts or sores that do not appear to be healing. 4. Meter: Plan to check blood glucose: Please check blood glucose levels 4 times/day. Back to back meals reveal effectiveness of bolus dosing. 5. [facility]. Contact office if any issues or concerns with patterns of hypoglycemia, hyperglycemia, or diabetes medication issues. 6. Prescriptions: V.O. RX for Trulicity 1.5mg/0.5ml weekly for 28 days while 4.5mg/0.5ml is unavailable phoned to [facility]: Gurinder. Pt was given sample trulicity 1.5mg x2 pens and administered first dose today while in office. 7. Prescriptions will not be filled unless you are compliant with follow up appointments or have a follow up appointment scheduled as ordered by your provider. Refills should be requested at the time of your visit. Mar, Hyperlipidemia (ICD-10 - E78.5) High cholesterol material was printed 11/2021 ldl 57 at goal, Trig. 237- on statin. Mar, HTN (hypertension) (ICD-10 - I10) About hypertension material was printed on ivan. Mar, nursing home current use of insulin (ICD-10 - Z79.4) Mar, Vitamin B 12 deficiency (ICD-10 - E53.8) Good food sources of vitamin B12 material was printed, 11/2021 Vit. B 12 411 at target Mar, Albuminuria (ICD-10 - R80.9) Protein, urine material was printed Reviewed importance of glucose/bp control to prevent further nephropathy. Mar, Hypoglycemia associated with type 2 diabetes mellitus (ICD-10 - E11.649) Hypoglycemia material was printed see above Mar, BMI 37.0-37.9, adult (ICD-10 - Z68.37) Health and nutrition information material was printed [employer] Other 09-14-2022 Evaluation note* Encounter Date Diagnosis Assessment Notes Treatment Notes Treatment Clinical Notes Dec, Dietary counseling and surveillance (ICD-10 - Z71.3) Eat well, exercise well, be well: dietary and fitness guidelines material was printed, Dec, Type 2 diabetes mellitus with hyperglycemia (ICD-10 - E11.65) Type 2 diabetes material was printed 1. Uncontrolled, a Type 2 diabetes with A1c of 7.1% 2. Blood glucose levels above target. According to dexcom g6 cgm download 12/01/2021-12/14/2021 : Avg glucose 211, >250-31.2%, >180-62.2%, 70-180-37.5%, <70-0.3%, <54-0.1%. CV 32.4%, SD 68. Reviewed download with pt, readings above target hs early am. Pt admits he drinks two flavored coffee drinks before he goes to bed and sometimes will eat bowl of cereal. Recommend he reduce carb load before bedtime for improved glycemia or he will need to take 15 units of insulin for higher carb snacking at hs. Pt had reported his reciever for cgm wasn't working in talking with pt he brought reciever with him and is working ok it is his transmitter that has . Pt was given sample dexcom g6 cgm transmitter/sensor and he entered new transmitter/sensor codes into public services librarian and started cgm successfully. Notified dexcom rep that pt's transmitter is ok no need for replacement at this time. Reviewed with pt target fasting am/meal to meal glucose pattern 90/130 bedtime 120/180. Pt verbalizes understanding. Note: pt did not tolerate sglt2 class of medication. 3. Patient is alert, oriented and receptive to making changes or counseling. Notes: Seen for 45 minutes for an assessment of current glucose pattern, changes in treatment plan, with this time spent in counseling and coordination of care related to diabetes, risks, and benefits of treatment, medications, and side effects. TOPICS REVIEWED: 1. Time was spent reviewing: a. Basic concepts of diabetes, progressive beta cell , concepts of basal/bolus/correc tive insulin requirements. Basal: The goal is fasting blood glucose of 90-130mg. IF fasting blood glucose starts to run under 100mg 3x's/ week, decrease dose by 10%. Bolus: The goal is to hold the blood glucose level steady meal to meal. If pt. is going to have increased physical activity after a meal, decrease the schedule meal dose prior to the activity by 30-50%. If pt. skips a meal do not take this dose. Correction: The goal is to correct an elevated glucose back into the 100-150mg range b. Nutrition: Concepts of healthy diet, encouraged to decrease saturated fat in diet and increase non-starchy vegetables and fruits in diet. BMI: Pt. needs to select one small change to decrease caloric intake or increase physical activity to help decrease weight. c. Correct treatment of hypoglycemia, carry a glucose source at all times on your person, in vehicles, and at bedside. Can use glucose tablets/4, four ounces of pop or juice equal to 15 G of carbohydrate. Blood glucose should be 100 mg/dl or higher when driving. d. ADA glucose goals for age and medical complexity reviewed e. Patient questions addressed 2. Activity/exercise: Encouraged to start any form of physical activity. Start low level and increase slowly to a minimal goal of 150 minutes/week. Limit activity to what is allowed by other issues such as cardiac, pulmonary or orthopedic restrictions. 3. Standards of care: Reminded to have an annual dilated eye exam, A1C every 3 months, urine testing for microalbumin once/year, check feet daily and report any cuts or sores that do not appear to be healing. 4. Meter: Plan to check blood glucose: Please check blood glucose levels 4 times/day. Back to back meals reveal effectiveness of bolus dosing. 5. [facility]. Contact office if any issues or concerns with patterns of hypoglycemia, hyperglycemia, or diabetes medication issues. 6. Prescriptions: Sample dexcom g6 cgm/transmitter given and applied today Dec, Hyperlipidemia (ICD-10 - E78.5) High cholesterol material was printed 11/2021 ldl 57 at goal, Trig. 237- on statin. Dec, HTN (hypertension) (ICD-10 - I10) About hypertension material was printed on ivan. 14 Dec, 2021 long term care pharmacist current use of insulin (ICD-10 - Z79.4) Dec, Vitamin B 12 deficiency (ICD-10 - E53.8) Good food sources of vitamin B12 material was printed, 11/2021 Vit. B 12 411 at target Dec, Albuminuria (ICD-10 - R80.9) Protein, urine material was printed 12/2020 m/a cr ratio 31. 8 m/a cr ratio improved. Reviewed importance of glucose/bp control to prevent further nephropathy. 14 Dec, 2021 Hypoglycemia associated with type 2 diabetes mellitus (ICD-10 - E11.649) Hypoglycemia material was printed see above Dec, BMI 36.0-36.9,adult (ICD-10 - Z68.36) Health and nutrition information material was printed [employer] Other 2022 Evaluation note* Encounter Date Diagnosis Assessment Notes Treatment Notes Treatment Clinical Notes Dec, Type 2 diabetes mellitus with unspecified complications (ICD-10 - E11.8) [employer] Other 09-12-2022 Evaluation note* Encounter Date Diagnosis Assessment Notes Treatment Notes Treatment Clinical Notes Dec, Type 2 diabetes mellitus with hyperglycemia (ICD-10 - E11.65) [employer] Other 06-14-2022 Evaluation note* Encounter Date Diagnosis Assessment Notes Treatment Notes Treatment Clinical Notes Sep, Dietary counseling and surveillance (ICD-10 - Z71.3) Eat well, exercise well, be well: dietary and fitness guidelines material was printed, Sep, Type 2 diabetes mellitus with hyperglycemia (ICD-10 - E11.65) Type 2 diabetes material was printed 1. Controlled, a Type 2 diabetes with A1c of 7% 2. Blood glucose levels improved from last visit. According to dexcom g6 cgm download 09/09/2021-10/22/2021 : Avg glucose 156, >250-5.1%, >180-24.9%, 70-180-74.5%, <70-0.6%, <54-0.2%. CV 29.6%, SD 46. Reviewed download with pt, readings above target usually from higher carb load. Isolated incident of hypoglycemia from smaller than expected meal. Note: pt did not tolerate sglt2 class of medication. 3. Patient is alert, oriented and receptive to making changes or counseling. Notes: Seen for an assessment of current glucose pattern, changes in treatment plan, with this time spent in counseling and coordination of care related to diabetes, risks, and benefits of treatment, medications, and side effects. TOPICS REVIEWED: 1. Time was spent reviewing: a. Basic concepts of diabetes, progressive beta cell , concepts of basal/bolus/correc tive insulin requirements. Basal: The goal is fasting blood glucose of 90-130mg. IF fasting blood glucose starts to run under 100mg 3x's/ week, decrease dose by 10%. Bolus: The goal is to hold the blood glucose level steady meal to meal. If pt. is going to have increased physical activity after a meal, decrease the schedule meal dose prior to the activity by 30-50%. If pt. skips a meal do not take this dose. Correction: The goal is to correct an elevated glucose back into the 100-150mg range b. Nutrition: Concepts of healthy diet, encouraged to decrease saturated fat in diet and increase non-starchy vegetables and fruits in diet. BMI: Pt. needs to select one small change to decrease caloric intake or increase physical activity to help decrease weight. c. Correct treatment of hypoglycemia, carry a glucose source at all times on your person, in vehicles, and at bedside. Can use glucose tablets/4, four ounces of pop or juice equal to 15 G of carbohydrate. Blood glucose should be 100 mg/dl or higher when driving. d. ADA glucose goals for age and medical complexity reviewed e. Patient questions addressed 2. Activity/exercise: Encouraged to start any form of physical activity. Start low level and increase slowly to a minimal goal of 150 minutes/week. Limit activity to what is allowed by other issues such as cardiac, pulmonary or orthopedic restrictions. 3. Standards of care: Reminded to have an annual dilated eye exam, A1C every 3 months, urine testing for microalbumin once/year, check feet daily and report any cuts or sores that do not appear to be healing. 4. Meter: Plan to check blood glucose: Please check blood glucose levels 4 times/day. Back to back meals reveal effectiveness of bolus dosing. 5. [facility]. Contact office if any issues or concerns with patterns of hypoglycemia, hyperglycemia, or diabetes medication issues. 6. Prescriptions: None needed. Sep, Hyperlipidemia (ICD-10 - E78.5) High cholesterol material was printed 12/2020 ldl 57 at goal, on statin. Sep, HTN (hypertension) (ICD-10 - I10) About hypertension material was printed on ivan. 14 Sep, 2021 long term care pharmacist current use of insulin (ICD-10 - Z79.4) Sep, Vitamin B 12 deficiency (ICD-10 - E53.8) Good food sources of vitamin B12 material was printed, 12/2020 Vit. B 12 528 at target Sep, Albuminuria (ICD-10 - R80.9) Protein, urine material was printed 12/2020 m/a cr ratio 31, reviewed importance of glucose/bp control to prevent further nephropathy. Sep, Hypoglycemia associated with type 2 diabetes mellitus (ICD-10 - E11.649) Hypoglycemia material was printed see above Sep, BMI 35.0-35.9,adult (ICD-10 - Z68.35) Health and nutrition information material was printed [employer] Other 02-16-2022 Evaluation note* Encounter Date Diagnosis Assessment Notes Treatment Notes Treatment Clinical Notes May, Dietary counseling and surveillance (ICD-10 - Z71.3) Eat well, exercise well, be well: dietary and fitness guidelines material was printed, May, Type 2 diabetes mellitus with hyperglycemia (ICD-10 - E11.65) Type 2 diabetes material was printed 1. Controlled, a Type 2 diabetes with A1c of 6.8% 2. Blood glucose levels improved from last visit. According to dexcom g6 cgm download 05/14/2021-05/27/2021 : Avg glucose 181, >250-9.5%, >180-50.5%, 70-180-49.3%, <70-0.1%, <54-0%. CV 29.9%, SD 52. Reviewed download with pt, readings above target postprandial supper from higher carb meal, admits he is still drinking 2% milk, recommend he try to reduce milk intake this is equivelent to drinking a regular soda. Also recommend lower glycemic carb load for improved postprandial glycemia i.e. non starchy vegetables/lean protien. Pt to talk with art educator to troubleshoot dexcom g6. Note: pt did not tolerate sglt2 class of medication. 3. Patient is alert, oriented and receptive to making changes or counseling. Notes: Seen for an assessment of current glucose pattern, changes in treatment plan, with this time spent in counseling and coordination of care related to diabetes, risks, and benefits of treatment, medications, and side effects. TOPICS REVIEWED: 1. Time was spent reviewing: a. Basic concepts of diabetes, progressive beta cell , concepts of basal/bolus/correc tive insulin requirements. Basal: The goal is fasting blood glucose of 90-130mg. IF fasting blood glucose starts to run under 100mg 3x's/ week, decrease dose by 10%. Bolus: The goal is to hold the blood glucose level steady meal to meal. If pt. is going to have increased physical activity after a meal, decrease the schedule meal dose prior to the activity by 30-50%. If pt. skips a meal do not take this dose. Correction: The goal is to correct an elevated glucose back into the 100-150mg range b. Nutrition: Concepts of healthy diet, encouraged to decrease saturated fat in diet and increase non-starchy vegetables and fruits in diet. BMI: Pt. needs to select one small change to decrease caloric intake or increase physical activity to help decrease weight. c. Correct treatment of hypoglycemia, carry a glucose source at all times on your person, in vehicles, and at bedside. Can use glucose tablets/4, four ounces of pop or juice equal to 15 G of carbohydrate. Blood glucose should be 100 mg/dl or higher when driving. d. ADA glucose goals for age and medical complexity reviewed e. Patient questions addressed 2. Activity/exercise: Encouraged to start any form of physical activity. Start low level and increase slowly to a minimal goal of 150 minutes/week. Limit activity to what is allowed by other issues such as cardiac, pulmonary or orthopedic restrictions. 3. Standards of care: Reminded to have an annual dilated eye exam, A1C every 3 months, urine testing for microalbumin once/year, check feet daily and report any cuts or sores that do not appear to be healing. 4. Meter: Plan to check blood glucose: Please check blood glucose levels 4 times/day. Back to back meals reveal effectiveness of bolus dosing. 5. [facility]. Contact office if any issues or concerns with patterns of hypoglycemia, hyperglycemia, or diabetes medication issues. 6. Prescriptions: Sample dexcom g6 transmitter/sensor given today. May, Hyperlipidemia (ICD-10 - E78.5) High cholesterol material was printed 12/2020 ldl 57 at goal, on statin. May, HTN (hypertension) (ICD-10 - I10) About hypertension material was printed on ivan. May, long term care pharmacist current use of insulin (ICD-10 - Z79.4) May, Vitamin B 12 deficiency (ICD-10 - E53.8) Good food sources of vitamin B12 material was printed, 12/2020 Vit. B 12 528 at target May, Albuminuria (ICD-10 - R80.9) Protein, urine material was printed 12/2020 m/a cr ratio 31, reviewed importance of glucose/bp control to prevent further nephropathy. May, Hypoglycemia associated with type 2 diabetes mellitus (ICD-10 - E11.649) Hypoglycemia material was printed see above May, BMI 35.0-35.9,adult (ICD-10 - Z68.35) Health and nutrition information material was printed 2 pound weight loss from last visit, continue with weight loss efforts May, Mann Linares stated th at he had trouble with 2 dexcom sensors recently. He had one fail to warm up and one that didnt release from the applicator. I had him show me his technique of applying the sensor and transmitter using a demo device. He did well other than not making sure the square end of the transmitter was inserted first. I advised him to call [employer] customer service to get replacement sensors, He was given a sample in case of other failures. 15 minutes was spent re-educating the patient by Evelia Sultana RN. [employer] Other 11-09-2021 Evaluation note* Encounter Date Diagnosis Assessment Notes Treatment Notes Treatment Clinical Notes Feb, Dietary counseling and surveillance (ICD-10 - Z71.3) Eat well, exercise well, be well: dietary and fitness guidelines material was printed, Feb, Type 2 diabetes mellitus with hyperglycemia (ICD-10 - E11.65) Type 2 diabetes material was printed 1. Uncontrolled, a Type 2 diabetes with A1c of 7.2% 2. Blood glucose levels improved from last visit. According to dexcom g6 cgm download 02/04/2021-02/18/20 21: Avg glucose 194, >250-13.4%, >180-59.4%, 70-180-40.5%, <70-0.1%, <54-0%. CV 27.5%. Reviewed download with pt, readings above target postprandial/fasti ng am. Recommend lower glycemic carb load for improved postprandial glycemia i.e. non starchy vegetables/lean protien. Recommend increasing tresiba to 86 units qhs. No further changes. Note: pt did not tolerate sglt2 class of medication. 3. Patient is alert, oriented and receptive to making changes or counseling. Notes: Seen for an assessment of current glucose pattern, changes in treatment plan, with this time spent in counseling and coordination of care related to diabetes, risks, and benefits of treatment, medications, and side effects. TOPICS REVIEWED: 1. Time was spent reviewing: a. Basic concepts of diabetes, progressive beta cell , concepts of basal/bolus/correc tive insulin requirements. Basal: The goal is fasting blood glucose of 90-130mg. IF fasting blood glucose starts to run under 100mg 3x's/ week, decrease dose by 10%. Bolus: The goal is to hold the blood glucose level steady meal to meal. If pt. is going to have increased physical activity after a meal, decrease the schedule meal dose prior to the activity by 30-50%. If pt. skips a meal do not take this dose. Correction: The goal is to correct an elevated glucose back into the 100-150mg range b. Nutrition: Concepts of healthy diet, encouraged to decrease saturated fat in diet and increase non-starchy vegetables and fruits in diet. BMI: Pt. needs to select one small change to decrease caloric intake or increase physical activity to help decrease weight. c. Correct treatment of hypoglycemia, carry a glucose source at all times on your person, in vehicles, and at bedside. Can use glucose tablets/4, four ounces of pop or juice equal to 15 G of carbohydrate. Blood glucose should be 100 mg/dl or higher when driving. d. ADA glucose goals for age and medical complexity reviewed e. Patient questions addressed 2. Activity/exercise: Encouraged to start any form of physical activity. Start low level and increase slowly to a minimal goal of 150 minutes/week. Limit activity to what is allowed by other issues such as cardiac, pulmonary or orthopedic restrictions. 3. Standards of care: Reminded to have an annual dilated eye exam, A1C every 3 months, urine testing for microalbumin once/year, check feet daily and report any cuts or sores that do not appear to be healing. 4. Meter: Plan to check blood glucose: Please check blood glucose levels 4 times/day. Back to back meals reveal effectiveness of bolus dosing. 5. [facility]. Contact office if any issues or concerns with patterns of hypoglycemia, hyperglycemia, or diabetes medication issues. 6. Prescriptions: Will call when needed. Feb, Hyperlipidemia (ICD-10 - E78.5) High cholesterol material was printed 12/2020 ldl 57 at goal, on statin. Feb, HTN (hypertension) (ICD-10 - I10) About hypertension material was printed on ivan. Feb, nursing home current use of insulin (ICD-10 - Z79.4) Feb, Vitamin B 12 deficiency (ICD-10 - E53.8) Good food sources of vitamin B12 material was printed, 12/2020 Vit. B 12 528 at target Feb, Albuminuria (ICD-10 - R80.9) Protein, urine material was printed 12/2020 m/a cr ratio 31, reviewed importance of glucose/bp control to prevent further nephropathy. Feb, Hypoglycemia associated with type 2 diabetes mellitus (ICD-10 - E11.649) Hypoglycemia material was printed see above Feb, BMI 36.0-36.9,adult (ICD-10 - Z68.36) Health and nutrition information material was printed 13 pound weight loss from last visit, continue with weight loss efforts [employer] Other Evaluation noteNo InformationNort [employer] Other Evaluation noteNo assessment information available [facility] Work Phone: Evaluaevff note* Diagnosis Type 2 diabetes mellitus with stage 2 chronic kidney disease, with long-term current use of insulin ([facility])- Primary Morbid obesity due to excess calories ([facility]) documented in this encounter [facility] HealthcareEvaluation note* Diagnosis Edema, unspecified type documented in this encounter [facility] HealthcareEvaluation note* Diagnosis Essential (primary) hypertension ([facility]) Unspecified essential hypertension documented in this encounter [facility] HealthcareEvaluation note* Diagnosis Dermatophytosis of nail- Primary Dystrophic nail Other specified disease of nail Pain around toenail, right foot Pain around toenail, left foot documented in this encounter [facility] HealthcareEvaluation note* Diagnosis Benign prostatic hyperplasia with lower urinary tract symptoms Essential hypertension (CMS/HCC) Unspecified essential hypertension Acquired hypothyroidism ([facility]) Unspecified hypothyroidism documented in this encounter [facility] HealthcareEvaluation note* Diagnosis Benign prostatic hyperplasia with lower urinary tract symptoms documented in this encounter [facility] note* Diagnosis Fever, unspecified fever cause- Primary Acute right otitis media Bronchitis Bronchitis, not specified as acute or chronic Viral URI with cough Influenza A Influenza with other respiratory manifestations documented in this encounter [facility] HealthcareEvaluation note* Diagnosis Onset Date Resolution Status Admit Date Adult BMI 37.0-37.9 kg/sq m acute June 14, 2024 2:48pm Dietary counseling and surveillance acute June 14, 2024 2:48pm Vitamin B 12 deficiency acute M 2024 2:48pm Diabetes chronic June 14 2:48pm HTN (hypertension) chronic June 14, 2024 2:48pm Hyperlipidemia chronic June 14, 2024 2:48pm [facility] Work Phone: Evaluation note* Diagnosis Dermatophytosis of nail- Primary Dystrophic nail Other specified disease of nail Pain around toenail, right foot Pain around toenail, left foot documented in this encounter [facility] HealthcareHistory general Narrative - Reported* Type Description Date Medical History DM2 Medical History HYPERLIPEDEMIA Medical History HTN Medical History Schizophrenic Surgical History bi-lat rotator cuff surgery 201 0 Surgical History right knee surgery 2004 Surgical History ulna nerve right arm 10-09-17 Hospitalization History Depression 1989 Hospitalization History Mental Issues 2018 [employer] Other Summary Purpose Family History No Family History Records Found Relationship Condition Age at Onset Recorded Date/T jaciel father Unknown Type 2 diabetes mellitus Unknown Diabetes mellitus Unknown Not Specified Unknown Relationship Condition Age at Onset Recorded Date/T jaciel father Unknown Type 2 diabetes mellitus Unknown Diabetes mellitus Unknown mother Unknown Advance Directives No Advanced Directives Records Found Advance Directive Response Recorded Date/ Time Advance Directives No August 05 8 4:50pm Documents on File Type Date Recorded 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 Advance Directives and Living Will Power of Environmental Technical Officer Advance Directive Response Recorded Date/ Time Advance Directives No August 05 018 3:50pm Advance Directive Response Recorded Date/ Time Advance Directives No August 05 018 4:50pm Chief Complaint and Reason for Visit Chief Complaint DM type II with unspecified complications Chief Complaint Admit Date June 13, 2024 1:13 pm 3 month / dexcom June 14, 2024 2:48 pm Reason for Visit Admit Date Adult BMI 37.0-37.9 kg/sq m June 14 2:48pm Dietary counseling and surveillance [facility] 2024 2:48pm Vitamin B 12 deficiency June 14, 2024 2:48pm Diabetes June 14, 2024 2:48 pm HTN (hypertension) June 14, 2024 2:48 pm Hyperlipidemia June 14, 2024 2:48 pm Additional Source Comments (unrecognized sect ion and content) No Status Records FoundNo Status Records FoundNo Status Records FoundNo Status Records FoundNo Status Records FoundNo Status Records Found INFORMATION SOURCE (unrecogn ized section and content) DATE CREATED AUTHOR 02/23/2018 [facility] DATE CREATED AUTHOR AUTHOR'S ORGANIZ ATION 05/14/2019 [facility]ital DATE CREATED AUTHOR AUTHOR'S ORGANIZ ATION 12/26/2020 [facility] pital DATE CREATED AUTHOR AUTHOR'S ORGANIZ ATION 09/06/2024 [facility] EPIC DATE CREATED AUTHOR AUTHOR'S ORGANIZ ATION 11/12/2024 [facility] DATE CREATED AUTHOR AUTHOR'S ORGANIZ ATION 11/17/[address] [facility] REASON FOR VISIT (unrecogniz ed section and content) Reason Comments Diabetes Reason Comments Med Refill Reason Comments Nail ari Collier is a 63 y.o. male who presents for DM Foot Care (PCP: Ana KIRBY 08/31/23, A1C: 6.6 BS: 186, SS: 10). Reason Comments Nail care Bharti Collier is a 63 y.o. male who presents for DM Foot Care (PCP: Ana NV 03/01/24, A1C: 6.6 BS: 191, SS: 10) Reason Comments URI Reason Comments DM Foot Care Established patient presents in office today for routine diabetic nail care. PCP: Ana Perez LV 08/30/24, A1C: 6.2 (08/2024), BS: 98, 151 Care Teams (unrecognized sec tion and content) Team Status: Active Member Role Status Dates Crystal Watson MD Primary Care Provider Active Team Status: Active Member Role Status Dates Crystal Watson MD Primary Care Provider Active Start: February 28, 2023 Brendon Garsia MD Attending Provider Active Start: February 28, 2023 Team Status: Inactive Member Role Status Dates Crystal Watson MD Primary Care Provider Active Start: May 17, 2023 End: May 17, 2023 Naun Vieira APRN Attending Provider Active Start: May 17, 2023 End: May 17, 2023 Artist Manager Relationship Specialty Start Date End Date Whitney Hunt DO [address] [place] [address] PCP - ACO Reach 09/02/22 Samantha Dawn MD [address] [place] [address] PCP - General Family Medicine 05/02/23 Artist Manager Relationship Specialty Start Date End Date Whitney Hunt DO [address] [facility] [place] [address] PCP - ACO Reach 09/02/22 Samantha Dawn MD [address] [place] [address] PCP - General Family Medicine 05/02/23 Artist Manager Relationship Specialty Start Date End Date Whitney Hunt DO [address] [place] [address] PCP - ACO Reach 09/02/22 Samantha Dawn MD [address] [place] [address] PCP - General Family Medicine 05/02/23 Artist Manager Relationship Specialty Start Date End Date GilbertDariencasper ArteagaDO [address] [place] [address] PCP - ACO Reach 09/02/22 Samantha Dawn MD [address] [place] [address] PCP - General Family Medicine 05/02/23 Artist Manager Relationship Specialty Start Date End Date GilbertDariencasper ArteagaDO [address] [place] [address] PCP - ACO Reach 09/02/22 Samantha Dawn MD [address] [place] [address] PCP - General Family Medicine 05/02/23 Artist Manager Relationship Specialty Start Date End Date Whitney Hunt ChandlerDO [address] [place] [address] PCP - ACO Reach 09/02/22 Samantha Dawn MD [address] [place] [address] PCP - General Family Medicine 05/02/23 Artist Manager Relationship Specialty Start Date End Date Samantha Dawn MD [address] [place] [address] PCP - General Family Medicine 05/02/23 Whitney Hunt DO [address] [place] [address] PCP - ACO Reach 05/25/24 Artist Manager Relationship Specialty Start Date End Date Samantha Dawn MD [address] [facility] [place] [address] PCP - General Family Medicine 05/02/23 Whitney Hunt DO [address] [facility] [place] [address] PCP - ACO Reach 05/25/24 Artist Manager Relationship Specialty Start Date End Date Samantha Dawn MD [address] [facility] [place] [address] PCP - General Family Medicine 05/02/23 Whitney Hunt DO [address] [facility] [place] [address] PCP - ACO Reach 05/25/24 Team Status: Active Member Role Status Dates Crystal Watson MD Primary Care Provider Active Start: June 13, 2024 Brendon Garsia MD Attending Provider Active Start: June 13, 2024 Team Status: Inactive Member Role Status Dates Crystal Watson MD Primary Care Provider Active Start: June 14, 2024 End: June 14, 2024 Naun Vieira APRN Attending Provider Active Start: June 14, 2024 End: June 14, 2024 Artist Manager Relationship Specialty Start Date End Date Samantha Dawn MD [address] [place] [address] PCP - General Family Medicine 05/02/23 Artist Manager Relationship Specialty Start Date End Date Samantha Dawn MD [address] [place] [address] PCP - General Family Medicine 05/02/23 Artist Manager Relationship Specialty Start Date End Date Samantha Dawn MD [address] [place], [place] [id number] PCP - General Family Medicine 05/02/23 Goals (unrecognized section and content) Goals may be documented in a n alternate section FOR RECORDS PERTAINING TO PATIENTS WHO ARE OR HAVE BEEN ENROLLED IN A CHEMICAL DEPENDENCY/SUBSTANCEABUSE PROGRAM, SOME INFORMATION MAY BE OMITTED. This clinical summary was aggregated from multiple sources. Caution should be exercised in using it in the provision of clinical care. This summary normalizes information from multiple sources, and as a consequence, information in this document may materially change the coding, format and clinical context of patient data. In addition, data may be omitted in some cases. CLINICAL DECISIONS SHOULD BE BASED ON THE PRIMARY CLINICAL RECORDS. [facility]. provides no warranty or guarantee of the accuracy or completeness of information in this document.
--- NOTE | 2024-12-10 18:28 | ED.GENADUL1 ---
HPI HPI - General Adult General Chief complaint: Nausea/Vomiting/Diarrhea Stated complaint: NAUSEA, VOMITING Time Seen by Provider: 12/10/24 18:17 Source: patient Mode of arrival: ambulance History of Present Illness HPI narrative: The patient is a 64 years old male presented to the ER with a 24-hour history of abdominal pain, the pain according to the patient periumbilical, the patient received Toradol and Zofran by the EMS before arrival The patient mentioned that he has been feeling dizzy since last night so he started throwing up and he has not been able to keep anything down since then, The patient mentioned that this all started after he was eating some fettuccine from [employer], after which she had 2 symptoms but there is nobody else other than him have the symptoms and his daughter lives with him Patient also mentioned that he has been having some chest pain that started after multiple episode of vomiting. Related Data Home Medications ?Medication ?Instructions ?Recorded ?Confirmed aspirin 81 mg tablet,delayed 81 mg PO DAILY 03/27/24 03/27/24 release (Adult Low Dose Aspirin) benztropine 2 mg tablet 2 mg PO BID 03/27/24 03/27/24 clozapine 100 mg tablet 150 mg PO QPM 03/27/24 03/27/24 finasteride 5 mg tablet 5 mg PO DAILY 03/27/24 03/27/24 furosemide 20 mg tablet 20 mg PO DAILY 03/27/24 03/27/24 insulin aspart U-100 100 unit/mL 1 sliding scale dose subcut QID 03/27/24 03/27/24 (3 mL) subcutaneous pen (Novolog FlexPen U-100 Insulin aspart) insulin degludec 200 unit/mL (3 70 unit subcut QPM 03/27/24 03/27/24 mL) subcutaneous pen (Tresiba FlexTouch U-200 insulin) levothyroxine 25 mcg tablet 25 mcg PO QAM 03/27/24 03/27/24 lisinopril 10 mg tablet 10 mg PO DAILY 03/27/24 03/27/24 metformin 1,000 mg tablet 1,000 mg PO BID 03/27/24 03/27/24 metoprolol succinate 50 mg 50 mg PO DAILY 03/27/24 03/27/24 tablet,extended release 24 hr multivitamin 1 tab PO DAILY 03/27/24 03/27/24 penicillin V potassium 500 mg 500 mg PO QID 03/27/24 03/27/24 tablet semaglutide 0.25 mg or 0.5 mg (2 0.5 mg subcut QWEEK 03/27/24 03/27/24 mg/3 mL) subcutaneous pen injector (Ozempic) simvastatin 20 mg tablet 20 mg PO QPM 03/27/24 03/27/24 tamsulosin 0.4 mg capsule 0.4 mg PO DAILY 03/27/24 03/27/24 Previous Rx's ?Medication ?Instructions ?Recorded ciprofloxacin HCl 500 mg tablet 500 mg PO Q12H #20 tabs 03/27/24 (Cipro) metronidazole 500 mg tablet 500 mg PO TID #30 tabs 03/27/24 Allergies Allergy/AdvReac Type Severity Reaction Status Date / Time Sulfa (Sulfonamide Allergy Severe Hives Verified 03/27/24 12:19 Antibiotics) Review of Systems ROS Status of ROS 10 or more systems reviewed and unremarkable except as noted in history and below [facility] Medical History (Updated 12/10/24 @ 18:24 by Lita Brand) Diabetes ?E11.9 - Type 2 diabetes mellitus without complications (ICD-10) Schizophrenia ?F20.9 - Schizophrenia, unspecified (ICD-10) HTN (hypertension) ?I10 - Essential (primary) hypertension (ICD-10) Social History Little interest or pleasure in doing things: not at all Feeling down, depressed, or hopeless: not at all Exam Narrative Exam Narrative: Nurses notes and vital signs reviewed and patient is not hypoxic. General: Well-appearing and in no apparent distress. Skin: Warm, dry, no pallor noted. No rash. Head: Normocephalic, atraumatic. Neck: Supple, non-tender. Cardiovascular: Regular Rate and Rhythm without murmur, gallop or rub. Respiratory: No accessory muscle use or respiratory distress. Lungs are clear to auscultation, no wheezing, rales or rhonchi Chest Wall: no tenderness Back: No midline thoracic or lumbar vertebral tenderness. No CVA tenderness Musculoskeletal: normal ROM, no calf or popliteal tenderness, no lower extremity edema/swelling GI: Abdomen is soft, non-distended. Normal bowel sounds. Left lower quadrant tenderness on palpation Neurological: A&O x4. No cranial nerve dysfunction observed. No truncal ataxia. Moves all extremities. Sensation intact. Psychiatric: Cooperative and interactive. Normal mood and affect. Constitutional Vital Signs, click to edit/add: Last Vital Signs Temp 99.3 F 12/10/24 18:18 Pulse 104 H 12/10/24 18:18 Resp 18 12/10/24 18:18 BP 101/68 12/10/24 18:18 Pulse Ox 96 12/10/24 18:26 O2 Del Method Room Air 12/10/24 18:26 Course Vital Signs Vital signs: Vital Signs Temperature 99.3 F 12/10/24 18:18 Pulse Rate 104 H 12/10/24 18:18 Respiratory Rate 18 12/10/24 18:18 Blood Pressure 101/68 12/10/24 18:18 Pulse Oximetry 96 12/10/24 18:18 Oxygen Delivery Method Room Air 12/10/24 18:18 Temperature 99.3 F 12/10/24 18:18 Pulse Rate 104 H 12/10/24 18:18 Respiratory Rate 18 12/10/24 18:18 Blood Pressure 101/68 12/10/24 18:18 Pulse Oximetry 96 12/10/24 18:26 Oxygen Delivery Method Room Air 12/10/24 18:26 Medical Decision Making MDM Narrative Medical decision making narrative: The patient presented to us with a symptoms of nausea vomiting and abdominal pain in addition to chest pain that started after vomiting multiple times The patient examination shows left lower quadrant tenderness The patient blood sugar also is elevated around 308 and the patient is diabetic and has not been taking his medication since yesterday Awaiting the results of the workup the patient care was transferred to Discharge Plan Discharge Patient Disposition: Still a Patient
[2024-12-10] MEDS: 0.9 % SODIUM CHLORIDE 1,000 ML 500 ML IV ×2 (18:46→20:22)
[2024-12-10 18:57] LABS: Hematocrit 36.1 % (42.0-54.0); Hemoglobin 12.9 g/dL (14.0-18.0); Immature Granulocytes Abs Auto 0.13 10^3/uL (0.00-0.03); Immature Granulocytes Pct Auto 0.7 % (0.0-0.5); Lymphocytes Absolute Auto 1.3 10^3/uL (1.2-3.8); Mean Corpuscular HGB Conc 35.7 g/dL (29.9-35.2); Mean Corpuscular Hemoglobin 30.6 pg (25.9-34.0); Mean Corpuscular Volume 85.5 fL (80.0-94.0); Platelet Count 354 10^3/uL (150-450); Red Blood Count 4.22 10^6/uL (4.70-6.10); White Blood Count 19.4 10^3/uL (4.0-11.0)
[2024-12-10 19:17] LABS: Alanine Aminotransferase 27 U/L (16-63); Albumin Globulin Ratio 1.0; Albumin Level 3.5 g/dL (3.4-5.0); Alkaline Phosphatase 74 U/L (46-116); Anion Gap 18.6; Aspartate Amino Transferase 19 U/L (15-37); Blood Urea Nitrogen 27.0 mg/dL (7.0-18.0); Calcium 9.0 mg/dL (8.5-10.1); Carbon Dioxide 24.1 mmol/L (21.0-32.0); Chloride 95 mmol/L (98-107); Estimated GFR (African America 28 (>=60 mL/min/1.73m^2); Estimated GFR (Non-African Ame 23 (>=60 mL/min/1.73m^2); Globulin 3.5 g/dL; Glucose 334 mg/dL (74-106); Lipase 25.0 U/L (16.0-77.0); Potassium 4.7 mmol/L (3.5-5.1); Sodium 133 mmol/L (136-145); Total Protein 7.0 g/dL (6.4-8.2)
[2024-12-10] MEDS: MORPHINE SULFATE 2 MG/ML SYRINGE IV (23:11)
[2024-12-10] MEDS: CIPROFLOXACIN IN 5 % DEXTROSE 400 MG/200 ML PREMIX 200 MG IV (23:12)
[2024-12-10 23:35] LABS: Lactate/Lactic Acid 3.2 mmol/L (0.4-2.0)
[2024-12-11] VITALS (7 sets, daily range): BP systolic 131–175; BP diastolic 55–78; PULSE 73–82; TEMP 36.4–37; O2SAT 90–98; BMI 33.3
[2024-12-11 00:28] LABS: Lactate/Lactic Acid 1.8 mmol/L (0.4-2.0)
--- OUTSIDE RECORDS SUMMARY | 2024-12-11 00:36 | XMS_ITS | CCD ---
Author Organization [facility] Care Team Providers Care Airline Pilot Flight Instructor Name Role Phone PHYSICIAN, DEFAULT Unavailable Unavailable PHYSICIAN, DEFAULT Unavailable Unavailable EBRAHEIM, NELA Unavailable Unavailable EBRAHEIM, NELA Unavailable Unavailable SELF, REFERRED Unavailable Unavailable SELF, REFERRED Unavailable Unavailable EBRAHEIM, NELA Unavailable Unavailable EBRAHEIM, NELA Unavailable Unavailable UNKNOWN, PHYSICIAN Unavailable Unavailable SELF, REFERRED Unavailable Unavailable EBRAHEIM, NELA Unavailable Unavailable EBRAHEIM, NELA Unavailable Unavailable SELF, REFERRED Unavailable Unavailable SELF, REFERRED Unavailable Unavailable [place] Unavailable Unavailable EBRAHEIM, NELA Unavailable Unavailable [place] Unavailable Unavailable [place] N[place] Unavailable Unavailable CHERIE SHEA Unavailable Unavailable CHERIE SHEA Unavailable Unavailable UNKNOWN, PHYSICIAN Unavailable Unavailable UNKNOWN, PHYSICIAN Unavailable Unavailable Crystal Watson Primary Care Physician Unavaila ble Naun Vieira Attending Physician Unavailable Kim Barragan Admitting Physician Unavailable Kim Barragan Attending Physician Unavailable David Andrade Rounding Physician Unavailable Unavailable Primary Care Provider Unavailaleyda e CRYSTAL WATSON Referring Unavailable DIXON DICKINSON Attending Unavailable JAHAIRA JIMENEZ Consulting Unavailable DR COLIN ZARCO Primary Care Unavailable DIXON DICKINSON Admitting Unavailable DIXON DICKINSON Consulting Unavailable CHENG SHAHID Consulting Unavailable Judy Vieiraa Unavailable MD Crystal Watson Primary Care Provider MD Brendon Garsia Attending Provider AURELIO Vieira Attending Provider [phone] Whitney Hunt DO Unavailable Samantha Dawn MD [...] Drug allergy (disorder) 04-21-19 18 Hives [facility] Repository (1 source) No Known Allergies; Translations: [No Known Allergies] Propensity to adverse reactions (disorder) [facility] (13 sources) Sulfamethoxazole / Trimethoprim Drug Allergy Unknown aDealio Other (1 source) Sulfamethoxazole Drug Allergy 02-09-20 [facility] (1 source) Trimethoprim Drug Allergy 02-09-20 [facility] (16 sources) Sulfonamides (Antibiotic) Drug Allergy 08-12-19 [facility] (17 sources) Iodinated Contrast Media; Translations: [IODINATED CONTRAST MEDIA] Drug Intolerance 11-01-19 [facility] (1 source) Sulfonamides (Antibiotic) Drug allergy (disorder) 09-28-19 [facility] Repository Medications Current Medications Medication Drug Class(es) Dates Sig (Normalized) Sig (Original) Accu-Chek Samreen Plus - (9 sources) Accu-Chek Samreen Plus - USE DIRECTED 4 TIMES A DAY for 90 Active [id number] actuat albuterol 0.09 mg/actuat metered dose [...] Blo od Gluc Sensor (Dexcom [facility] Sensor[facility] 08[facility]22 Active Start: 08-23-2022 Continuous Blo od [...] EVERY 90 DAYS 07/13/2022 Active 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) Start: 04-21-2020 Dexcom G6 [...] 08-11-2022 08-11-2022 Chronic Other aftercare (2 sources) editor publications (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) use of aspirin; Translations: [LANDFILL GRADER (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) USE OF ASPIRIN] Onset: 10-10-2017 Episodic [...] Resolved: 12-23-2021 Episodic Other aftercare (12 sources) senior living (current) use of insulin; Translations: [LANDFILL GRADER (CURRENT) USE OF INSULIN] Onset: 10-10-2017 Resolved: 12-23-2021 Episodic Other aftercare (2 sources) 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; Translations: [OTH LANDFILL GRADER CURRENT DRUG THERAPY] Onset: 12-25-2020 Episodic Other aftercare (20 sources) Long-term current use of insulin; Translations: [editor publications (current) use of insulin] Onset: 02-16-2016 09-02-2022 [...] BY AUTOMATED COUNT 0.1 10*3/uL Normal 0.0-0.2 [facility] Comment on above: Performed By: #### 2 4331-1, CMP, TSHR, 2131-12 #### [facility] ([id number]) [address] [place] [address] BASOPHILS RELATIVE PERCENT BY AUTOMATED COUNT 1.0 % Normal [facility] Comment on above: Performed By: #### 2 4331-1, CMP, TSHR, 2131-12 #### [facility] ([id number]) [address] [address] [place] [address] CELLAVISION DIFFERENTIAL TYPE AUTOMATED DIFFERENTIAL Normal [facility] Comment on above: Performed By: #### 2 4331-1, CMP, TSHR, 2131-12 #### [facility] ([id number]) [address] [address] Eosinophils (Bld) [#/Vol] 0.3 10*3/uL Normal 0.0-0.4 [facility] Comment on above: Performed By: #### 2 4331-1, CMP, TSHR, 2131-12 #### [facility] ([id number]) [address] [address] [place] [address] EOSINOPHILS RELATIVE PERCENT BY AUTOMATED COUNT 3.3 % Normal [facility] Comment on above: Performed By: #### 2 4331-1, CMP, TSHR, 2131-12 #### [facility] ([id number]) [address] [address] [place] [address] Erythrocyte distribution width (RBC) [Ratio] 13.6 % Normal 11.5-15 [facility] Comment on above: Performed By: #### 2 4331-1, CMP, TSHR, 2131-12 #### [facility] ([id number]) [address] [address] [place] [address] Hematocrit (Bld) [Volume fraction] 37.5 % Low 39-50 [facility] Comment on above: Performed By: #### 2 4331-1, CMP, TSHR, 2131-12 #### [facility] ([id number]) [address] [address] [place] [address] Hemoglobin (Bld) [Mass/Vol] 12.9 g/dL Low 13-17 [facility] Comment on above: Performed By: #### 2 4331-1, CMP, TSHR, 2131-12 #### [facility] ([id number]) [address] [address] [place] [address] LYMPHOCYTES ABSOLUTE COUNT (10*3/UL) BY AUTOMATED COUNT 2.9 10*3/uL Normal 1.0-3.5 [facility] Comment on above: Performed By: #### 2 4331-1, CMP, TSHR, 2131-12 #### [facility] ([id number]) [address] [address] [place] [address] LYMPHOCYTES RELATIVE PERCENT BY AUTOMATED COUNT 31.4 % Normal [facility] Comment on above: Performed By: #### 2 4331-1, CMP, TSHR, 2131-12 #### [facility] ([id number]) [address] [address] [place] [address] MCH (RBC) [Entitic mass] 30.0 pg Normal 27-34 [facility] Comment on above: Performed By: #### 2 4331-1, CMP, TSHR, 2131-12 #### [facility] ([id number]) [address] [address] [place] [address] MCHC (RBC) [Mass/Vol] 34.5 g/dL Normal 32-36 [facility] Comment on above: Performed By: #### 2 4331-1, CMP, TSHR, 2131-12 #### [facility] ([id number]) [address] [address] [place] [address] MCV (RBC) [Entitic vol] 87 fL Normal 80-100 [facility] Comment on above: Performed By: #### 2 4331-1, CMP, TSHR, 2131-12 #### [facility] ([id number]) [address] [address] [place] [address] MONOCYTES ABSOLUTE COUNT (10*3/UL) BY AUTOMATED COUNT 0.7 10*3/uL Normal 0.0-0.9 [facility] Comment on above: Performed By: #### 2 4331-1, CMP, TSHR, 2131-12 #### [facility] ([id number]) [address] [address] [place] [address] MONOCYTES RELATIVE PERCENT BY AUTOMATED COUNT 7.6 % Normal [facility] Comment on above: Performed By: #### 2 4331-1, CMP, TSHR, 2131-12 #### [facility] ([id number]) [address] [facility] [address] [place] [address] NEUTROPHILS ABSOLUTE COUNT BY AUTOMATED COUNT 5.2 10*3/uL Normal 1.5-6.6 [facility] Comment on above: Performed By: #### 2 4331-1, CMP, TSHR, 2131-12 #### [facility] ([id number]) [address], [address] [place] [address] NEUTROPHILS RELATIVE PERCENT BY AUTOMATED COUNT 56.7 % Normal [facility] Comment on above: Performed By: #### 2 4331-1, CMP, TSHR, 2131-12 #### [facility] ([id number]) [address] [address] [place] [address] Platelet mean volume (Bld) [Entitic vol] 8.2 fL Normal 7-12 [facility] Comment on above: Performed By: #### 2 4331-1, CMP, TSHR, 2131-12 #### [facility] ([id number]) [address] [address] [place] [address] Platelets (Bld) [#/Vol] 294 10*3/uL Normal 150-450 [facility] Comment on above: Performed By: #### 2 4331-1, CMP, TSHR, 2131-12 #### [facility] ([id number]) [address], [address] [place] [address] RBC COUNT 4.31 X10E12/L Normal 4.1-5.7 [facility] Comment on above: Performed By: #### 2 4331-1, CMP, TSHR, 2131-12 #### [facility] ([id number]) [address], [address] [place] [address] WBC (Bld) [#/Vol] 9.2 10*3/uL Normal 4-11 [facility] Comment on above: Performed By: #### 2 4331-1, CMP, TSHR, 2131-12 #### [facility] ([id number]) [address], [facility] [address] [place] [address] CBC WITH AUTO DIFFERENTIALon 10-08-2024 BASOPHILS ABSOLUTE COUNT (10*3/UL) BY AUTOMATED COUNT 0.1 10*3/uL Normal 0.0-0.2 [facility] Comment on above: Performed By: #### 2 4331-1, CMP, TSHR, 2131-12 #### [facility] ([id number]) [address], [facility] [address] [place] [address] BASOPHILS RELATIVE PERCENT BY AUTOMATED COUNT 1.0 % Normal [facility] Comment on above: Performed By: #### 2 4331-1, CMP, TSHR, 2131-12 #### [facility] ([id number]) [address], [facility] [address] [place] [address] CELLAVISION DIFFERENTIAL TYPE AUTOMATED DIFFERENTIAL Normal [facility] Comment on above: Performed By: #### 2 4331-1, CMP, TSHR, 2131-12 #### [facility] ([id number]) [address] [address] [place] [address] Eosinophils (Bld) [#/Vol] 0.3 10*3/uL Normal 0.0-0.4 [facility] Comment on above: Performed By: #### 2 4331-1, CMP, TSHR, 2131-12 #### [facility] ([id number]) [address], [address] [place] [address] EOSINOPHILS RELATIVE PERCENT BY AUTOMATED COUNT 3.5 % Normal [facility] Comment on above: Performed By: #### 2 4331-1, CMP, TSHR, 2131-12 #### [facility] ([id number]) [address], [facility] [address] [place] [address] Erythrocyte distribution width (RBC) [Ratio] 13.6 % Normal 11.5-15 [facility] Comment on above: Performed By: #### 2 4331-1, CMP, TSHR, 2131-12 #### [facility] ([id number]) [address] [address] [place] [address] Hematocrit (Bld) [Volume fraction] 36.6 % Low 39-50 [facility] Comment on above: Performed By: #### 2 4331-1, CMP, TSHR, 2131-12 #### [facility] ([id number]) [address] [address] [place] [address] Hemoglobin (Bld) [Mass/Vol] 12.7 g/dL Low 13-17 [facility] Comment on above: Performed By: #### 2 4331-1, CMP, TSHR, 2131-12 #### [facility] ([id number]) [address], [address] [place] [address] LYMPHOCYTES ABSOLUTE COUNT (10*3/UL) BY AUTOMATED COUNT 2.4 10*3/uL Normal 1.0-3.5 [facility] Comment on above: Performed By: #### 2 4331-1, CMP, TSHR, 2131-12 #### [facility] ([id number]) [address] [address] [place] [address] LYMPHOCYTES RELATIVE PERCENT BY AUTOMATED COUNT 33.5 % Normal [facility] Comment on above: Performed By: #### 2 4331-1, CMP, TSHR, 2131-12 #### [facility] ([id number]) [address], [address] [place] [address] MCH (RBC) [Entitic mass] 30.0 pg Normal 27-34 [facility] Comment on above: Performed By: #### 2 4331-1, CMP, TSHR, 2131-12 #### [facility] ([id number]) [address], [address] [place] [address] MCHC (RBC) [Mass/Vol] 34.6 g/dL Normal 32-36 [facility] Comment on above: Performed By: #### 2 4331-1, CMP, TSHR, 2131-12 #### [facility] ([id number]) [address], [address] [place] [address] MCV (RBC) [Entitic vol] 87 fL Normal 80-100 [facility] Comment on above: Performed By: #### 2 4331-1, CMP, TSHR, 2131-12 #### [facility] ([id number]) [address], [address] [place] [address] MONOCYTES ABSOLUTE COUNT (10*3/UL) BY AUTOMATED COUNT 0.4 10*3/uL Normal 0.0-0.9 [facility] Comment on above: Performed By: #### 2 4331-1, CMP, TSHR, 2131-12 #### [facility] ([id number]) [address], [address] [place] [address] MONOCYTES RELATIVE PERCENT BY AUTOMATED COUNT 5.7 % Normal [facility] Comment on above: Performed By: #### 2 4331-1, CMP, TSHR, 2131-12 #### [facility] ([id number]) [address], [address] [place] [address] NEUTROPHILS ABSOLUTE COUNT BY AUTOMATED COUNT 4.1 10*3/uL Normal 1.5-6.6 [facility] Comment on above: Performed By: #### 2 4331-1, CMP, TSHR, 2131-12 #### [facility] ([id number]) [address] [address] NEUTROPHILS RELATIVE PERCENT BY AUTOMATED COUNT 56.3 % Normal [facility] Comment on above: Performed By: #### 2 4331-1, CMP, TSHR, 2131-12 #### [facility] ([id number]) [address] [address] Platelet mean volume (Bld) [Entitic vol] 8.1 fL Normal 7-12 [facility] Comment on above: Performed By: #### 2 4331-1, CMP, TSHR, 2131-12 #### [facility] ([id number]) [address] [address] Platelets (Bld) [#/Vol] 246 10*3/uL Normal 150-450 [facility] Comment on above: Performed By: #### 2 4331-1, CMP, TSHR, 2131-12 #### [facility] ([id number]) [address] [address] RBC COUNT 4.22 X10E12/L Normal 4.1-5.7 [facility] Comment on above: Performed By: #### 2 4331-1, CMP, TSHR, 2131-12 #### [facility] ([id number]) [address] [address] WBC (Bld) [#/Vol] 7.2 10*3/uL Normal 4-11 [facility] Comment on above: Performed By: #### 2 4331-1, CMP, TSHR, 2131-12 #### [facility] ([id number]) [address] [address] CBC WITH AUTO DIFFERENTIALon 09-10-2024 BASOPHILS ABSOLUTE COUNT (10*3/UL) BY AUTOMATED COUNT 0.1 10*3/uL Normal 0.0-0.2 [facility] Comment on above: Performed By: #### 2 4331-1, CMP, TSHR, 2131-12 #### [facility] ([id number]) [address] [address] [place] [address] BASOPHILS RELATIVE PERCENT BY AUTOMATED COUNT 1.9 % Normal [facility] Comment on above: Performed By: #### 2 4331-1, CMP, TSHR, 2131-12 #### [facility] ([id number]) [address] [address] [place] [address] CELLAVISION DIFFERENTIAL TYPE AUTOMATED DIFFERENTIAL Normal [facility] Comment on above: Performed By: #### 2 4331-1, CMP, TSHR, 2131-12 #### [facility] ([id number]) [address] [address] [place] [address] Eosinophils (Bld) [#/Vol] 0.3 10*3/uL Normal 0.0-0.4 [facility] Comment on above: Performed By: #### 2 4331-1, CMP, TSHR, 2131-12 #### [facility] ([id number]) [address] [address] [place] [address] EOSINOPHILS RELATIVE PERCENT BY AUTOMATED COUNT 4.1 % Normal [facility] Comment on above: Performed By: #### 2 4331-1, CMP, TSHR, 2131-12 #### [facility] ([id number]) [address] [address] [place] [address] Erythrocyte distribution width (RBC) [Ratio] 13.9 % Normal 11.5-15 [facility] Comment on above: Performed By: #### 2 4331-1, CMP, TSHR, 2131-12 #### [facility] ([id number]) [address], [facility] [address] [place] [address] Hematocrit (Bld) [Volume fraction] 36.4 % Low 39-50 [facility] Comment on above: Performed By: #### 2 4331-1, CMP, TSHR, 2131-12 #### [facility] ([id number]) [address], [facility] [address] [place] [address] Hemoglobin (Bld) [Mass/Vol] 12.4 g/dL Low 13-17 [facility] Comment on above: Performed By: #### 2 4331-1, CMP, TSHR, 2131-12 #### [facility] ([id number]) [address], [facility] [address] [place] [address] LYMPHOCYTES ABSOLUTE COUNT (10*3/UL) BY AUTOMATED COUNT 2.7 10*3/uL Normal 1.0-3.5 [facility] Comment on above: Performed By: #### 2 4331-1, CMP, TSHR, 2131-12 #### [facility] ([id number]) [address] [address] [place] [address] LYMPHOCYTES RELATIVE PERCENT BY AUTOMATED COUNT 35.2 % Normal [facility] Comment on above: Performed By: #### 2 4331-1, CMP, TSHR, 2131-12 #### [facility] ([id number]) [address], [facility] [address] [place] [address] MCH (RBC) [Entitic mass] 29.7 pg Normal 27-34 [facility] Comment on above: Performed By: #### 2 4331-1, CMP, TSHR, 2131-12 #### [facility] ([id number]) [address] [address] [place] [address] MCHC (RBC) [Mass/Vol] 34.0 g/dL Normal 32-36 [facility] Comment on above: Performed By: #### 2 4331-1, CMP, TSHR, 2131-12 #### [facility] ([id number]) [address], [address] [place] [address] MCV (RBC) [Entitic vol] 88 fL Normal 80-100 [facility] Comment on above: Performed By: #### 2 4331-1, CMP, TSHR, 2131-12 #### [facility] ([id number]) [address], [facility] [address] [place] [address] MONOCYTES ABSOLUTE COUNT (10*3/UL) BY AUTOMATED COUNT 0.5 10*3/uL Normal 0.0-0.9 [facility] Comment on above: Performed By: #### 2 4331-1, CMP, TSHR, 2131-12 #### [facility] ([id number]) [address], [facility] [address] [place] [address] MONOCYTES RELATIVE PERCENT BY AUTOMATED COUNT 6.7 % Normal [facility] Comment on above: Performed By: #### 2 4331-1, CMP, TSHR, 2131-12 #### [facility] ([id number]) [address] [address] [place] [address] NEUTROPHILS ABSOLUTE COUNT BY AUTOMATED COUNT 4.0 10*3/uL Normal 1.5-6.6 [facility] Comment on above: Performed By: #### 2 4331-1, CMP, TSHR, 2131-12 #### [facility] ([id number]) [address], [facility] [address] [place] [address] NEUTROPHILS RELATIVE PERCENT BY AUTOMATED COUNT 52.1 % Normal [facility] Comment on above: Performed By: #### 2 4331-1, CMP, TSHR, 2131-12 #### [facility] ([id number]) [address] [address] [place] [address] Platelet mean volume (Bld) [Entitic vol] 8.3 fL Normal 7-12 [facility] Comment on above: Performed By: #### 2 4331-1, CMP, TSHR, 2131-12 #### [facility] ([id number]) [address], [address] [place] [address] Platelets (Bld) [#/Vol] 235 10*3/uL Normal 150-450 [facility] Comment on above: Performed By: #### 2 4331-1, CMP, TSHR, 2131-12 #### [facility] ([id number]) [address], [address] [place] [address] RBC COUNT 4.16 X10E12/L Normal 4.1-5.7 [facility] Comment on above: Performed By: #### 2 4331-1, CMP, TSHR, 2131-12 #### [facility] ([id number]) [address], [address] [place] [address] WBC (Bld) [#/Vol] 7.6 10*3/uL Normal 4-11 [facility] Comment on above: Performed By: #### 2 4331-1, CMP, TSHR, 2131-12 #### [facility] ([id number]) [address], [address] [place] [address] CBC WITH AUTO DIFFERENTIALon 08-10-2024 BASOPHILS ABSOLUTE COUNT (10*3/UL) BY AUTOMATED COUNT 0.1 10*3/uL Normal [facility] Comment on above: Performed By: #### 2 4331-1, CMP, TSHR, 2131-12 #### [facility] ([id number]) [address], [address] [place] [address] BASOPHILS RELATIVE PERCENT BY AUTOMATED COUNT 1.0 % Normal [facility] Comment on above: Performed By: #### 2 4331-1, CMP, TSHR, 2131-12 #### [facility] ([id number]) [address], [address] [place] [address] CELLAVISION DIFFERENTIAL TYPE AUTOMATED DIFFERENTIAL Normal [facility] Comment on above: Performed By: #### 2 4331-1, CMP, TSHR, 2131-12 #### [facility] ([id number]) [address] [address] [place] [address] Eosinophils (Bld) [#/Vol] 0.3 10*3/uL Normal [facility] Comment on above: Performed By: #### 2 4331-1, CMP, TSHR, 2131-12 #### [facility] ([id number]) [address], [facility] [address] [place] [address] EOSINOPHILS RELATIVE PERCENT BY AUTOMATED COUNT 4.1 % Normal [facility] Comment on above: Performed By: #### 2 4331-1, CMP, TSHR, 2131-12 #### [facility] ([id number]) [address] [address] [place] [address] Erythrocyte distribution width (RBC) [Ratio] 14.0 % Normal 11.5-15 [facility] Comment on above: Performed By: #### 2 4331-1, CMP, TSHR, 2131-12 #### [facility] ([id number]) [address] [address] [place] [address] Hematocrit (Bld) [Volume fraction] 36.8 % Low 39-50 [facility] Comment on above: Performed By: #### 2 4331-1, CMP, TSHR, 2131-12 #### [facility] ([id number]) [address] [address] [place] [address] Hemoglobin (Bld) [Mass/Vol] 12.3 g/dL Low 13-17 [facility] Comment on above: Performed By: #### 2 4331-1, CMP, TSHR, 2131-12 #### [facility] ([id number]) [address] [address] [place] [address] LYMPHOCYTES ABSOLUTE COUNT (10*3/UL) BY AUTOMATED COUNT 2.3 10*3/uL Normal [facility] Comment on above: Performed By: #### 2 4331-1, CMP, TSHR, 2131-12 #### [facility] ([id number]) [address] [address] [place] [address] LYMPHOCYTES RELATIVE PERCENT BY AUTOMATED COUNT 31.3 % Normal [facility] Comment on above: Performed By: #### 2 4331-1, CMP, TSHR, 2131-12 #### [facility] ([id number]) [address] [address] [place] [address] MCH (RBC) [Entitic mass] 29.6 pg Normal 27-34 [facility] Comment on above: Performed By: #### 2 4331-1, CMP, TSHR, 2131-12 #### [facility] ([id number]) [address] [address] [place] [address] MCHC (RBC) [Mass/Vol] 33.5 g/dL Normal 32-36 [facility] Comment on above: Performed By: #### 2 4331-1, CMP, TSHR, 2131-12 #### [facility] ([id number]) [address] [address] [place] [address] MCV (RBC) [Entitic vol] 88 fL Normal 80-100 [facility] Comment on above: Performed By: #### 2 4331-1, CMP, TSHR, 2131-12 #### [facility] ([id number]) [address] [address] [place] [address] MONOCYTES ABSOLUTE COUNT (10*3/UL) BY AUTOMATED COUNT 0.5 10*3/uL Normal [facility] Comment on above: Performed By: #### 2 4331-1, CMP, TSHR, 2131-12 #### [facility] ([id number]) [address] [address] [place] [address] MONOCYTES RELATIVE PERCENT BY AUTOMATED COUNT 7.3 % Normal [facility] Comment on above: Performed By: #### 2 4331-1, CMP, TSHR, 2131-12 #### [facility] ([id number]) [address] [address] [place] [address] NEUTROPHILS ABSOLUTE COUNT BY AUTOMATED COUNT 4.1 10*3/uL Normal [facility] Comment on above: Performed By: #### 2 4331-1, CMP, TSHR, 2131-12 #### [facility] ([id number]) [address] [address] [place] [address] NEUTROPHILS RELATIVE PERCENT BY AUTOMATED COUNT 56.3 % Normal [facility] Comment on above: Performed By: #### 2 4331-1, CMP, TSHR, 2131-12 #### [facility] ([id number]) [address] [address] [place] [address] Platelet mean volume (Bld) [Entitic vol] 8.8 fL Normal 7-12 [facility] Comment on above: Performed By: #### 2 4331-1, CMP, TSHR, 2131-12 #### [facility] ([id number]) [address] [address] [place] [address] Platelets (Bld) [#/Vol] 253 10*3/uL Normal 150-450 [facility] Comment on above: Performed By: #### 2 4331-1, CMP, TSHR, 2131-12 #### [facility] ([id number]) [address] [address] [place] [address] RBC COUNT 4.17 X10E12/L Normal 4.1-5.7 [facility] Comment on above: Performed By: #### 2 4331-1, CMP, TSHR, 2131-12 #### [facility] ([id number]) [address] [address] [place] [address] WBC (Bld) [#/Vol] 7.3 10*3/uL Normal 4-11 [facility] Comment on above: Performed By: #### 2 4331-1, CMP, TSHR, 2131-12 #### [facility] ([id number]) [address] [place] [address] HbA1c HPLC (Bld) [Mass fract ion]on 06-14-2024 HbA1c (Bld) [Mass fraction] Hemoglobin A1c/Hemoglobin.total in Blood by HPLC [facility] No Panel Informationon 06-14 Bedside Glucose 119 [facility] CBC AND AUTO DIFFon 06-10-19 25 ABSOLUTE BASOPHIL 0.1 X10E9/L Normal 0.0-0.2 [facility] Comment on above: Performed By: #### 2 4331-1, CMP, TSHR, 2131-12 #### [facility] ([id number]) [address], [address] [place] [address] ABSOLUTE NEUTROPHIL 4.1 X10E9/L Normal 1.5-6.6 [facility] Comment on above: Performed By: #### 2 4331-1, CMP, TSHR, 2131-12 #### [facility] ([id number]) [address], [address] [place] [address] Basophils/100 WBC (Bld) 0.8 % Normal [facility] Comment on above: Performed By: #### 2 4331-1, CMP, TSHR, 2131-12 #### [facility] ([id number]) [address], [address] [place] [address] Eosinophils (Bld) [#/Vol] 0.2 10*3/uL Normal 0.0-0.4 [facility] Comment on above: Performed By: #### 2 4331-1, CMP, TSHR, 2131-12 #### [facility] ([id number]) [address], [address] [place] [address] Eosinophils/100 WBC (Bld) 2.7 % Normal [facility] Comment on above: Performed By: #### 2 4331-1, CMP, TSHR, 2131-12 #### [facility] ([id number]) [address] [address] [place] [address] Erythrocyte distribution width (RBC) [Ratio] 14.0 % Normal 11.5-15.0 [facility] Comment on above: Performed By: #### 2 4331-1, CMP, TSHR, 2131-12 #### [facility] ([id number]) [address] [address] [place] [address] Hematocrit (Bld) [Volume fraction] 36.7 % Low 39-49 [facility] Comment on above: Performed By: #### 2 4331-1, CMP, TSHR, 2131-12 #### [facility] ([id number]) [address] [address] [place] [address] Hemoglobin (Bld) [Mass/Vol] 12.3 g/dL Low 13.0-17.0 [facility] Comment on above: Performed By: #### 2 4331-1, CMP, TSHR, 2131-12 #### [facility] ([id number]) [address] [address] [place] [address] Lymphocytes (Bld) [#/Vol] 2.7 10*3/uL Normal 1.0-3.5 [facility] Comment on above: Performed By: #### 2 4331-1, CMP, TSHR, 2131-12 #### [facility] ([id number]) [address] [address] [place] [address] Lymphocytes/100 WBC (Bld) 36.4 % Normal [facility] Comment on above: Performed By: #### 2 4331-1, CMP, TSHR, 2131-12 #### [facility] ([id number]) [address] [address] [place] [address] MCH (RBC) [Entitic mass] 30.1 pg Normal 27-34 [facility] Comment on above: Performed By: #### 2 4331-1, CMP, TSHR, 2131-12 #### [facility] ([id number]) [address] [place] [address] MCHC (RBC) [Mass/Vol] 33.6 g/dL Normal 32-36 [facility] Comment on above: Performed By: #### 2 4331-1, CMP, TSHR, 2131-12 #### [facility] ([id number]) [address], [facility] [address] [place] [address] MCV (RBC) [Entitic vol] 90 fL Normal 80-100 [facility] Comment on above: Performed By: #### 2 4331-1, CMP, TSHR, 2131-12 #### [facility] ([id number]) [address], [facility] [address] [place] [address] Monocytes (Bld) [#/Vol] 0.4 10*3/uL Normal 0-0.9 [facility] Comment on above: Performed By: #### 2 4331-1, CMP, TSHR, 2131-12 #### [facility] ([id number]) [address], [facility] [address] [place] [address] Monocytes/100 WBC (Bld) 5.3 % Normal [facility] Comment on above: Performed By: #### 2 4331-1, CMP, TSHR, 2131-12 #### [facility] ([id number]) [address], [facility] [address] [place] [address] Neutrophils/100 WBC (Bld) 54.8 % Normal [facility] Comment on above: Performed By: #### 2 4331-1, CMP, TSHR, 2131-12 #### [facility] ([id number]) [address] [place] [address] Platelet mean volume (Bld) [Entitic vol] 8.2 fL Normal 7-12 [facility] Comment on above: Performed By: #### 2 4331-1, CMP, TSHR, 2131-12 #### [facility] ([id number]) [address], [facility] [address] [place] [address] Platelets (Bld) [#/Vol] 262 10*3/uL Normal 150-450 [facility] Comment on above: Performed By: #### 2 4331-1, CMP, TSHR, 2131-12 #### [facility] ([id number]) [address], [facility] [address] [place] [address] RBC COUNT 4.10 X10E12/L Normal 4.10-5.70 [facility] Comment on above: Performed By: #### 2 4331-1, CMP, TSHR, 2131-12 #### [facility] ([id number]) [address], [facility] [address] [place] [address] WBC (Bld) [#/Vol] 7.5 10*3/uL Normal 4.0-11.0 [facility] Comment on above: Performed By: #### 2 4331-1, CMP, TSHR, 2131-12 #### [facility] ([id number]) [address], [facility] [address] [place] [address] CBC AND AUTO DIFFon 05-14-19 25 ABSOLUTE BASOPHIL 0.0 X10E9/L Normal 0.0-0.2 [facility] Comment on above: Performed By: #### 2 4331-1, CMP, TSHR, 2131-12 #### [facility] ([id number]) [address], [facility] [address] [place] [address] ABSOLUTE NEUTROPHIL 4.5 X10E9/L Normal 1.5-6.6 [facility] Comment on above: Performed By: #### 2 4331-1, CMP, TSHR, 2131-12 #### [facility] ([id number]) [address], [address] [place] [address] Basophils/100 WBC (Bld) 0.6 % Normal [facility] Comment on above: Performed By: #### 2 4331-1, CMP, TSHR, 2131-12 #### [facility] ([id number]) [address], [address] [place] [address] Eosinophils (Bld) [#/Vol] 0.3 10*3/uL Normal 0.0-0.4 [facility] Comment on above: Performed By: #### 2 4331-1, CMP, TSHR, 2131-12 #### [facility] ([id number]) [address] [place] [address] Eosinophils/100 WBC (Bld) 4.0 % Normal [facility] Comment on above: Performed By: #### 2 4331-1, CMP, TSHR, 2131-12 #### [facility] ([id number]) [address] [address] [place] [address] Erythrocyte distribution width (RBC) [Ratio] 14.2 % Normal 11.5-15.0 [facility] Comment on above: Performed By: #### 2 4331-1, CMP, TSHR, 2131-12 #### [facility] ([id number]) [address], [address] [place] [address] Hematocrit (Bld) [Volume fraction] 36.2 % Low 39-49 [facility] Comment on above: Performed By: #### 2 4331-1, CMP, TSHR, 2131-12 #### [facility] ([id number]) [address], [address] [place] [address] Hemoglobin (Bld) [Mass/Vol] 12.2 g/dL Low 13.0-17.0 [facility] Comment on above: Performed By: #### 2 4331-1, CMP, TSHR, 2131-12 #### [facility] ([id number]) [address] [address] [place] [address] Lymphocytes (Bld) [#/Vol] 1.9 10*3/uL Normal 1.0-3.5 [facility] Comment on above: Performed By: #### 2 4331-1, CMP, TSHR, 2131-12 #### [facility] ([id number]) [address] [address] [place] [address] Lymphocytes/100 WBC (Bld) 25.8 % Normal [facility] Comment on above: Performed By: #### 2 4331-1, CMP, TSHR, 2131-12 #### [facility] ([id number]) [address] [address] [place] [address] MCH (RBC) [Entitic mass] 30.4 pg Normal 27-34 [facility] Comment on above: Performed By: #### 2 4331-1, CMP, TSHR, 2131-12 #### [facility] ([id number]) [address] [address] [place] [address] MCHC (RBC) [Mass/Vol] 33.8 g/dL Normal 32-36 [facility] Comment on above: Performed By: #### 2 4331-1, CMP, TSHR, 2131-12 #### [facility] ([id number]) [address] [address] [place] [address] MCV (RBC) [Entitic vol] 90 fL Normal 80-100 [facility] Comment on above: Performed By: #### 2 4331-1, CMP, TSHR, 2131-12 #### [facility] ([id number]) [address] [place] [address] Monocytes (Bld) [#/Vol] 0.5 10*3/uL Normal 0-0.9 [facility] Comment on above: Performed By: #### 2 4331-1, CMP, TSHR, 2131-12 #### [facility] ([id number]) [address], [address] [place] [address] Monocytes/100 WBC (Bld) 6.7 % Normal [facility] Comment on above: Performed By: #### 2 4331-1, CMP, TSHR, 2131-12 #### [facility] ([id number]) [address] [place] [address] Neutrophils/100 WBC (Bld) 62.9 % Normal [facility] Comment on above: Performed By: #### 2 4331-1, CMP, TSHR, 2131-12 #### [facility] ([id number]) [address] [place] [address] Platelet mean volume (Bld) [Entitic vol] 8.9 fL Normal 7-12 [facility] Comment on above: Performed By: #### 2 4331-1, CMP, TSHR, 2131-12 #### [facility] ([id number]) [address] [place] [address] Platelets (Bld) [#/Vol] 269 10*3/uL Normal 150-450 [facility] Comment on above: Performed By: #### 2 4331-1, CMP, TSHR, 2131-12 #### [facility] ([id number]) [address], [address] [place] [address] RBC COUNT 4.03 X10E12/L Low 4.10-5.70 [facility] Comment on above: Performed By: #### 2 4331-1, CMP, TSHR, 2131-12 #### [facility] ([id number]) [address], [address] [place] [address] WBC (Bld) [#/Vol] 7.2 10*3/uL Normal 4.0-11.0 [facility] Comment on above: Performed By: #### 2 4331-1, CMP, TSHR, 2131-12 #### [facility] ([id number]) [address], [address] [place] [address] CBC AND AUTO DIFFon 04-12-19 25 ABSOLUTE BASOPHIL 0.1 X10E9/L Normal 0.0-0.2 [facility] Comment on above: Performed By: #### 2 4331-1, CMP, TSHR, 2131-12 #### [facility] ([id number]) [address], [address] [place] [address] ABSOLUTE NEUTROPHIL 6.2 X10E9/L Normal 1.5-6.6 [facility] Comment on above: Performed By: #### 2 4331-1, CMP, TSHR, 2131-12 #### [facility] ([id number]) [address], [address] [place] [address] Basophils/100 WBC (Bld) 0.7 % Normal [facility] Comment on above: Performed By: #### 2 4331-1, CMP, TSHR, 2131-12 #### [facility] ([id number]) [address], [address] [place] [address] Eosinophils (Bld) [#/Vol] 0.3 10*3/uL Normal 0.0-0.4 [facility] Comment on above: Performed By: #### 2 4331-1, CMP, TSHR, 2131-12 #### [facility] ([id number]) [address], [address] [place] [address] Eosinophils/100 WBC (Bld) 3.4 % Normal [facility] Comment on above: Performed By: #### 2 4331-1, CMP, TSHR, 2131-12 #### [facility] ([id number]) [address] [address] [place] [address] Erythrocyte distribution width (RBC) [Ratio] 14.0 % Normal 11.5-15.0 [facility] Comment on above: Performed By: #### 2 4331-1, CMP, TSHR, 2131-12 #### [facility] ([id number]) [address] [address] [place] [address] Hematocrit (Bld) [Volume fraction] 39.2 % Normal 39-49 [facility] Comment on above: Performed By: #### 2 4331-1, CMP, TSHR, 2131-12 #### [facility] ([id number]) [address] [address] [place] [address] Hemoglobin (Bld) [Mass/Vol] 13.1 g/dL Normal 13.0-17.0 [facility] Comment on above: Performed By: #### 2 4331-1, CMP, TSHR, 2131-12 #### [facility] ([id number]) [address] [address] Lymphocytes (Bld) [#/Vol] 2.2 10*3/uL Normal 1.0-3.5 [facility] Comment on above: Performed By: #### 2 4331-1, CMP, TSHR, 2131-12 #### [facility] ([id number]) [address] [address] [place] [address] Lymphocytes/100 WBC (Bld) 23.4 % Normal [facility] Comment on above: Performed By: #### 2 4331-1, CMP, TSHR, 2131-12 #### [facility] ([id number]) [address] [address] [place] [address] MCH (RBC) [Entitic mass] 30.1 pg Normal 27-34 [facility] Comment on above: Performed By: #### 2 4331-1, CMP, TSHR, 2131-12 #### [facility] ([id number]) [address] [place] [address] MCHC (RBC) [Mass/Vol] 33.5 g/dL Normal 32-36 [facility] Comment on above: Performed By: #### 2 4331-1, CMP, TSHR, 2131-12 #### [facility] ([id number]) [address], [facility] [address] [place] [address] MCV (RBC) [Entitic vol] 90 fL Normal 80-100 [facility] Comment on above: Performed By: #### 2 4331-1, CMP, TSHR, 2131-12 #### [facility] ([id number]) [address] [address] [place] [address] Monocytes (Bld) [#/Vol] 0.7 10*3/uL Normal 0-0.9 [facility] Comment on above: Performed By: #### 2 4331-1, CMP, TSHR, 2131-12 #### [facility] ([id number]) [address], [facility] [address] [place] [address] Monocytes/100 WBC (Bld) 7.3 % Normal [facility] Comment on above: Performed By: #### 2 4331-1, CMP, TSHR, 2131-12 #### [facility] ([id number]) [address], [facility] [address] [place] [address] Neutrophils/100 WBC (Bld) 65.2 % Normal [facility] Comment on above: Performed By: #### 2 4331-1, CMP, TSHR, 2131-12 #### [facility] ([id number]) [address], [address] [place] [address] Platelet mean volume (Bld) [Entitic vol] 8.6 fL Normal 7-12 [facility] Comment on above: Performed By: #### 2 4331-1, CMP, TSHR, 2131-12 #### [facility] ([id number]) [address], [address] [place] [address] Platelets (Bld) [#/Vol] 251 10*3/uL Normal 150-450 [facility] Comment on above: Performed By: #### 2 4331-1, CMP, TSHR, 2131-12 #### [facility] ([id number]) [address], [address] [place] [address] RBC COUNT 4.36 X10E12/L Normal 4.10-5.70 [facility] Comment on above: Performed By: #### 2 4331-1, CMP, TSHR, 2131-12 #### [facility] ([id number]) [address] [place] [address] WBC (Bld) [#/Vol] 9.5 10*3/uL Normal 4.0-11.0 [facility] Comment on above: Performed By: #### 2 4331-1, CMP, TSHR, 2131-12 #### [facility] ([id number]) [address], [address] [place] [address] CBC AND AUTO DIFFon 03-19-20 24 ABSOLUTE BASOPHIL 0.1 X10E9/L Normal 0.0-0.2 [facility] Comment on above: Performed By: #### 2 4331-1, CMP, TSHR, 2131-12 #### [facility] ([id number]) [address] [place] [address] ABSOLUTE NEUTROPHIL 5.0 X10E9/L Normal 1.5-6.6 [facility] Comment on above: Performed By: #### 2 4331-1, CMP, TSHR, 2131-12 #### [facility] ([id number]) [address], [address] [place] [address] Basophils/100 WBC (Bld) 1.5 % Normal [facility] Comment on above: Performed By: #### 2 4331-1, CMP, TSHR, 2131-12 #### [facility] ([id number]) [address] [address] [place] [address] Eosinophils (Bld) [#/Vol] 0.3 10*3/uL Normal 0.0-0.4 [facility] Comment on above: Performed By: #### 2 4331-1, CMP, TSHR, 2131-12 #### [facility] ([id number]) [address] [address] [place] [address] Eosinophils/100 WBC (Bld) 3.7 % Normal [facility] Comment on above: Performed By: #### 2 4331-1, CMP, TSHR, 2131-12 #### [facility] ([id number]) [address], [facility] [address] [place] [address] Erythrocyte distribution width (RBC) [Ratio] 13.4 % Normal 11.5-15.0 [facility] Comment on above: Performed By: #### 2 4331-1, CMP, TSHR, 2131-12 #### [facility] ([id number]) [address] [address] [place] [address] Hematocrit (Bld) [Volume fraction] 38.5 % Low 39-49 [facility] Comment on above: Performed By: #### 2 4331-1, CMP, TSHR, 2131-12 #### [facility] ([id number]) [address] [address] [place] [address] Hemoglobin (Bld) [Mass/Vol] 12.8 g/dL Low 13.0-17.0 [facility] Comment on above: Performed By: #### 2 4331-1, CMP, TSHR, 2131-12 #### [facility] ([id number]) [address] [place] [address] Lymphocytes (Bld) [#/Vol] 3.1 10*3/uL Normal 1.0-3.5 [facility] Comment on above: Performed By: #### 2 4331-1, CMP, TSHR, 2131-12 #### [facility] ([id number]) [address] [address] Lymphocytes/100 WBC (Bld) 33.8 % Normal [facility] Comment on above: Performed By: #### 2 4331-1, CMP, TSHR, 2131-12 #### [facility] ([id number]) [address] [address] MCH (RBC) [Entitic mass] 30.2 pg Normal 27-34 [facility] Comment on above: Performed By: #### 2 4331-1, CMP, TSHR, 2131-12 #### [facility] ([id number]) [address] [address] MCHC (RBC) [Mass/Vol] 33.3 g/dL Normal 32-36 [facility] Comment on above: Performed By: #### 2 4331-1, CMP, TSHR, 2131-12 #### [facility] ([id number]) [address] [address] MCV (RBC) [Entitic vol] 91 fL Normal 80-100 [facility] Comment on above: Performed By: #### 2 4331-1, CMP, TSHR, 2131-12 #### [facility] ([id number]) [address] [address] Monocytes (Bld) [#/Vol] 0.6 10*3/uL Normal 0-0.9 [facility] Comment on above: Performed By: #### 2 4331-1, CMP, TSHR, 2131-12 #### [facility] ([id number]) [address] [address] [place] [address] Monocytes/100 WBC (Bld) 6.9 % Normal [facility] Comment on above: Performed By: #### 2 4331-1, CMP, TSHR, 2131-12 #### [facility] ([id number]) [address] [address] [place] [address] Neutrophils/100 WBC (Bld) 54.1 % Normal [facility] Comment on above: Performed By: #### 2 4331-1, CMP, TSHR, 2131-12 #### [facility] ([id number]) [address] [address] [place] [address] Platelet mean volume (Bld) [Entitic vol] 8.6 fL Normal 7-12 [facility] Comment on above: Performed By: #### 2 4331-1, CMP, TSHR, 2131-12 #### [facility] ([id number]) [address] [address] [place] [address] Platelets (Bld) [#/Vol] 333 10*3/uL Normal 150-450 [facility] Comment on above: Performed By: #### 2 4331-1, CMP, TSHR, 2131-12 #### [facility] ([id number]) [address] [address] [place] [address] RBC COUNT 4.24 X10E12/L Normal 4.10-5.70 [facility] Comment on above: Performed By: #### 2 4331-1, CMP, TSHR, 2131-12 #### [facility] ([id number]) [address] [address] [place] [address] WBC (Bld) [#/Vol] 9.2 10*3/uL Normal 4.0-11.0 [facility] Comment on above: Performed By: #### 2 4331-1, CMP, TSHR, 2131-12 #### [facility] ([id number]) [address] [place] [address] HbA1c (Bld) [Mass fraction]o n 03-01-2024 [facility] e Laboratory - Hematology and Cell countson 03-01-2024 HbA1c (Bld) [Mass fraction] 6.7 % [facility] COMPREHENSIVE METABOLIC PANE Benjamin 02-24-2024 Albumin [Mass/Vol] 4.1 g/dL Normal 3.2-5.3 [facility] Comment on above: Performed By: #### C MP, 2131-12, TSHR, 19104-6 #### [facility] ([id number]) [address] [place] [address] ALP [Catalytic activity/Vol] 64 U/L Normal 39-130 [facility] Comment on above: Performed By: #### Buffy TURPIN, 2131-12, TSHR, 38702-5 #### [facility] ([id number]) [address], [address] [place] [address] ALT [Catalytic activity/Vol] 23 U/L Normal 0-40 [facility] Comment on above: Performed By: #### C MP, 2131-12, TSHR, 63214-6 #### [facility] ([id number]) [address], [address] [place] [address] Anion gap [Moles/Vol] 10 mmol/L Normal 5-15 [facility] Comment on above: Performed By: #### C MP, 2131-12, TSHR, 75404-4 #### [facility] ([id number]) [address], [address] [place] [address] AST [Catalytic activity/Vol] 22 U/L Normal 0-41 [facility] Comment on above: Performed By: #### C MP, 2131-12, TSHR, 14094-2 #### [facility] ([id number]) [address], [address] [place] [address] Bilirubin [Mass/Vol] 0.5 mg/dL Normal 0.3-1.2 [facility] Comment on above: Performed By: #### C PAPI, 2131-12, TSHR, 49035-6 #### [facility] ([id number]) [address], [address] [place] [address] Calcium [Mass/Vol] 10.4 mg/dL Normal 8.5-10.5 [facility] Comment on above: Performed By: #### C PAPI, 2131-12, TSHR, 38876-4 #### [facility] ([id number]) [address], [address] [place] [address] Chloride [Moles/Vol] 96 mmol/L Low 98-109 [facility] Comment on above: Performed By: #### Buffy TURPIN, 2131-12, TSHR, 16201-6 #### [facility] ([id number]) [address], [address] [place] [address] CO2 [Moles/Vol] 28 mmol/L Normal 22-32 [facility] Comment on above: Performed By: #### Buffy TURPIN, 2131-12, TSHR, 38992-5 #### [facility] ([id number]) [address], [address] [place] [address] Creatinine [Mass/Vol] 1.07 mg/dL Normal 0.60-1.30 [facility] Comment on above: Result Comment: METH OD TRACEABLE TO IDMS STANDARD Performed By: #### Buffy TURPIN, 2131-12, TSHR, 37946-5 #### [facility] ([id number]) [address], [address] [place] [address] GFR/1.73 sq M.predicted among non-blacks MDRD (S/P/Bld) [Vol rate/Area] 77 mL/min/{1.73_m2} Normal >59 [facility] Comment on above: Result Comment: Reported eGFR is based on the CKD-EPI 2020 equation that does not use a race coefficient. Performed By: #### C PAPI, 2131-12, TSHR, 08122-5 #### [facility] ([id number]) [address], [address] [place] [address] Glucose [Mass/Vol] 163 mg/dL High 65-99 [facility] Comment on above: Performed By: #### C PAPI, 2131-12, TSHR, 61237-7 #### [facility] ([id number]) [address] [address] [place] [address] Potassium [Moles/Vol] 4.4 mmol/L Normal 3.5-5.0 [facility] Comment on above: Performed By: #### C PAPI, 2131-12, TSHR, 76473-4 #### [facility] ([id number]) [address] [place] [address] Protein [Mass/Vol] 6.6 g/dL Normal 6.0-8.0 [facility] Comment on above: Performed By: #### C PAPI, 2131-12, TSHR, 36084-2 #### [facility] ([id number]) [address] [address] [place] [address] Sodium [Moles/Vol] 134 mmol/L Normal 134-146 [facility] Comment on above: Performed By: #### C PAPI, 2131-12, TSHR, 74800-2 #### [facility] ([id number]) [address] [address] [place] [address] Urea nitrogen [Mass/Vol] 12 mg/dL Normal 5-27 [facility] Comment on above: Performed By: #### C PAPI, 2131-12, TSHR, 45676-7 #### [facility] ([id number]) [address], [address] [place] [address] Lipid 1996 panelon 4 Cholesterol [Mass/Vol] 111 mg/dL Low 150-200 [facility] Comment on above: Performed By: ###Javan Baer MP, 2131-12, TSHR, 75626-9 #### [facility] ([id number]) [address], [address] [place] [address] Cholesterol in HDL [Mass/Vol] 29 mg/dL Low >39 [facility] Comment on above: Result Comment: HDL <40 mg/dL - High Risk HDL > or = 40mg/dL- Desirable HDL >60 mg/dL - Negative Risk Performed By: ###Javan Baer MP, 2131-12, TSHR, 14036-3 #### [facility] ([id number]) [address], [address] [place] [address] Cholesterol in LDL [Mass/Vol] 18 mg/dL Normal <130 [facility] Comment on above: Result Comment: LDL <100 mg/dL - Desirable LDL >160 mg/dL - High Risk Performed By: ###Javan Baer MP, 2131-12, TSHR, 36862-4 #### [facility] ([id number]) [address], [address] [place] [address] Cholesterol in VLDL [Mass/Vol] 64 mg/dL High 0-30 [facility] Comment on above: Performed By: ###Javan Baer MP, 2131-12, TSHR, 39821-1 #### [facility] ([id number]) [address], [address] [place] [address] CHOLESTEROL:HDL 3.8 Normal 1.0-5.0 [facility] Comment on above: Performed By: #### C MP, 2131-12, TSHR, 69659-7 #### [facility] ([id number]) [address], [address] [place] [address] Triglyceride [Mass/Vol] 320 mg/dL High 27-150 [facility] Comment on above: Performed By: #### C MP, 2131-12, TSHR, 55387-8 #### [facility] ([id number]) [address], [address] [place] [address] MICROALBUMIN - ALBUMIN:CREAT ININE URINE RATIOon 02-24-2024 ALB/CREAT RATIO 22.5 mg/g creat Normal 0.0-30.0 [facility] Comment on above: Performed By: #### 2 4331-1, CMP, TSHR, 2131-12 #### [facility] ([id number]) [address] [place] [address] Albumin DL <= 20 mg/L (U) [Mass/Vol] 0.7 mg/dL Normal 0.0-1.9 [facility] Comment on above: Performed By: #### 2 4331-1, CMP, TSHR, 2131-12 #### [facility] ([id number]) [address], [address] [place] [address] URINE CREAT 31.05 mg/dL Normal [facility] Comment on above: Performed By: #### 2 4331-1, CMP, TSHR, 2131-12 #### [facility] ([id number]) [address] [place] [address] TSH WITH REFLEXon 02-24-2024 TSH 3.56 uIU/mL Normal 0.49-4.67 [facility] Comment on above: Performed By: #### 2 4331-1, CMP, TSHR, 2131-12 #### [facility] ([id number]) [address], [address] [place] [address] VITAMIN B12on 02-24-2024 Cobalamin (Vitamin B12) [Mass/Vol] 442 pg/mL Normal 180-914 [facility] Comment on above: Performed By: #### 2 4331-1, CMP, TSHR, 2131-12 #### [facility] ([id number]) [address], [address] [place] [address] CBC AND AUTO DIFFon 02-13-20 24 ABSOLUTE BASOPHIL 0.1 X10E9/L Normal 0.0-0.2 [facility] Comment on above: Performed By: #### C BCA #### [facility] ([id number]) [address], [address] [place] [address] ABSOLUTE NEUTROPHIL 4.0 X10E9/L Normal 1.5-6.6 [facility] Comment on above: Performed By: #### C BCA #### [facility] ([id number]) [address] [address] [place] [address] Basophils/100 WBC (Bld) 0.9 % Normal [facility] Comment on above: Performed By: #### C BCA #### [facility] ([id number]) [address] [address] [place] [address] Eosinophils (Bld) [#/Vol] 0.2 10*3/uL Normal 0.0-0.4 [facility] Comment on above: Performed By: #### C BCA #### [facility] ([id number]) [address] [address] [place] [address] Eosinophils/100 WBC (Bld) 2.9 % Normal [facility] Comment on above: Performed By: #### C BCA #### [facility] ([id number]) [address], [address] [place] [address] Erythrocyte distribution width (RBC) [Ratio] 13.7 % Normal 11.5-15.0 [facility] Comment on above: Performed By: #### C BCA #### [facility] ([id number]) [address], [address] [place] [address] Hematocrit (Bld) [Volume fraction] 35.8 % Low 39-49 [facility] Comment on above: Performed By: #### C BCA #### [facility] ([id number]) [address], [address] [place] [address] Hemoglobin (Bld) [Mass/Vol] 12.5 g/dL Low 13.0-17.0 [facility] Comment on above: Performed By: #### C BCA #### [facility] ([id number]) [address], [address] [place] [address] Lymphocytes (Bld) [#/Vol] 2.4 10*3/uL Normal 1.0-3.5 [facility] Comment on above: Performed By: #### C BCA #### [facility] ([id number]) [address], [address] [place] [address] Lymphocytes/100 WBC (Bld) 34.0 % Normal [facility] Comment on above: Performed By: #### C BCA #### [facility] ([id number]) [address], [address] [place] [address] MCH (RBC) [Entitic mass] 30.8 pg Normal 27-34 [facility] Comment on above: Performed By: #### C BCA #### [facility] ([id number]) [address], [address] [place] [address] MCHC (RBC) [Mass/Vol] 34.8 g/dL Normal 32-36 [facility] Comment on above: Performed By: #### C BCA #### [facility] ([id number]) [address], [address] [place] [address] MCV (RBC) [Entitic vol] 89 fL Normal 80-100 [facility] Comment on above: Performed By: #### C BCA #### [facility] ([id number]) [address], [address] [place] [address] Monocytes (Bld) [#/Vol] 0.5 10*3/uL Normal 0-0.9 [facility] Comment on above: Performed By: #### C BCA #### [facility] ([id number]) [address], [address] [place] [address] Monocytes/100 WBC (Bld) 6.7 % Normal [facility] Comment on above: Performed By: #### C BCA #### [facility] ([id number]) [address], [address] [place] [address] Neutrophils/100 WBC (Bld) 55.5 % Normal [facility] Comment on above: Performed By: #### C BCA #### [facility] ([id number]) [address], [address] [place] [address] Platelet mean volume (Bld) [Entitic vol] 8.2 fL Normal 7-12 [facility] Comment on above: Performed By: #### C BCA #### [facility] ([id number]) [address], [address] [place] [address] Platelets (Bld) [#/Vol] 277 10*3/uL Normal 150-450 [facility] Comment on above: Performed By: #### C BCA #### [facility] ([id number]) [address], [address] [place] [address] RBC COUNT 4.04 X10E12/L Low 4.10-5.70 [facility] Comment on above: Performed By: #### C BCA #### [facility] ([id number]) [address], [address] [place] [address] WBC (Bld) [#/Vol] 7.2 10*3/uL Normal 4.0-11.0 [facility] Comment on above: Performed By: #### C BCA #### [facility] ([id number]) [address], [address] [place] [address] CBC AND AUTO DIFFon 01-12-20 ABSOLUTE BASOPHIL 0.1 X10E9/L Normal 0.0-0.2 [facility] Comment on above: Performed By: #### C BCA #### [facility] ([id number]) [address], [address] [place] [address] ABSOLUTE NEUTROPHIL 4.5 X10E9/L Normal 1.5-6.6 [facility] Comment on above: Performed By: #### C BCA #### [facility] ([id number]) [address], [address] [place] [address] Basophils/100 WBC (Bld) 1.3 % Normal [facility] Comment on above: Performed By: #### C BCA #### [facility] ([id number]) [address], [address] [place] [address] Eosinophils (Bld) [#/Vol] 0.3 10*3/uL Normal 0.0-0.4 [facility] Comment on above: Performed By: #### C BCA #### [facility] ([id number]) [address], [address] [place] [address] Eosinophils/100 WBC (Bld) 3.5 % Normal [facility] Comment on above: Performed By: #### C BCA #### [facility] ([id number]) [address] [place] [address] Erythrocyte distribution width (RBC) [Ratio] 13.4 % Normal 11.5-15.0 [facility] Comment on above: Performed By: #### C BCA #### [facility] ([id number]) [address] [place] [address] Hematocrit (Bld) [Volume fraction] 36.8 % Low 39-49 [facility] Comment on above: Performed By: #### C BCA #### [facility] ([id number]) [address] [place] [address] Hemoglobin (Bld) [Mass/Vol] 12.6 g/dL Low 13.0-17.0 [facility] Comment on above: Performed By: #### C BCA #### [facility] ([id number]) [address] [place] [address] Lymphocytes (Bld) [#/Vol] 2.3 10*3/uL Normal 1.0-3.5 [facility] Comment on above: Performed By: #### C BCA #### [facility] ([id number]) [address] [place] [address] Lymphocytes/100 WBC (Bld) 30.2 % Normal [facility] Comment on above: Performed By: #### C BCA #### [facility] ([id number]) [address] [place] [address] MCH (RBC) [Entitic mass] 30.7 pg Normal 27-34 [facility] Comment on above: Performed By: #### C BCA #### [facility] ([id number]) [address] [place] [address] MCHC (RBC) [Mass/Vol] 34.3 g/dL Normal 32-36 [facility] Comment on above: Performed By: #### C BCA #### [facility] ([id number]) [address] [place] [address] MCV (RBC) [Entitic vol] 89 fL Normal 80-100 [facility] Comment on above: Performed By: #### C BCA #### [facility] ([id number]) [address] [place] [address] Monocytes (Bld) [#/Vol] 0.5 10*3/uL Normal 0-0.9 [facility] Comment on above: Performed By: #### C BCA #### [facility] ([id number]) [address] [place] [address] Monocytes/100 WBC (Bld) 6.6 % Normal [facility] Comment on above: Performed By: #### C BCA #### [facility] ([id number]) [address] [place] [address] Neutrophils/100 WBC (Bld) 58.4 % Normal [facility] Comment on above: Performed By: #### C BCA #### [facility] ([id number]) [address] [place] [address] Platelet mean volume (Bld) [Entitic vol] 8.2 fL Normal 7-12 [facility] Comment on above: Performed By: #### C BCA #### [facility] ([id number]) [address], [address] [place] [address] Platelets (Bld) [#/Vol] 274 10*3/uL Normal 150-450 [facility] Comment on above: Performed By: #### C BCA #### [facility] ([id number]) [address], [address] [place] [address] RBC COUNT 4.12 X10E12/L Normal 4.10-5.70 [facility] Comment on above: Performed By: #### C BCA #### [facility] ([id number]) [address], [address] [place] [address] WBC (Bld) [#/Vol] 7.7 10*3/uL Normal 4.0-11.0 [facility] Comment on above: Performed By: #### C BCA #### [facility] ([id number]) [address], [address] [place] [address] CBC AND AUTO DIFFon 12-14-19 24 ABSOLUTE BASOPHIL 0.1 X10E9/L Normal 0.0-0.2 [facility] Comment on above: Performed By: #### C BCA #### [facility] ([id number]) [address], [address] [place] [address] ABSOLUTE NEUTROPHIL 5.0 X10E9/L Normal 1.5-6.6 [facility] Comment on above: Performed By: #### C BCA #### [facility] ([id number]) [address] [place] [address] Basophils/100 WBC (Bld) 0.8 % Normal [facility] Comment on above: Performed By: #### C BCA #### [facility] ([id number]) [address] [place] [address] Eosinophils (Bld) [#/Vol] 0.2 10*3/uL Normal 0.0-0.4 [facility] Comment on above: Performed By: #### C BCA #### [facility] ([id number]) [address] [place] [address] Eosinophils/100 WBC (Bld) 2.8 % Normal [facility] Comment on above: Performed By: #### C BCA #### [facility] ([id number]) [address] [place] [address] Erythrocyte distribution width (RBC) [Ratio] 13.6 % Normal 11.5-15.0 [facility] Comment on above: Performed By: #### C BCA #### [facility] ([id number]) [address] [place] [address] Hematocrit (Bld) [Volume fraction] 36.0 % Low 39-49 [facility] Comment on above: Performed By: #### C BCA #### [facility] ([id number]) [address] [place] [address] Hemoglobin (Bld) [Mass/Vol] 12.4 g/dL Low 13.0-17.0 [facility] Comment on above: Performed By: #### C BCA #### [facility] ([id number]) [address] [address] [place] [address] Lymphocytes (Bld) [#/Vol] 2.6 10*3/uL Normal 1.0-3.5 [facility] Comment on above: Performed By: #### C BCA #### [facility] ([id number]) [address] [address] [place] [address] Lymphocytes/100 WBC (Bld) 31.1 % Normal [facility] Comment on above: Performed By: #### C BCA #### [facility] ([id number]) [address] [place] [address] MCH (RBC) [Entitic mass] 30.4 pg Normal 27-34 [facility] Comment on above: Performed By: #### C BCA #### [facility] ([id number]) [address] [address] [place] [address] MCHC (RBC) [Mass/Vol] 34.3 g/dL Normal 32-36 [facility] Comment on above: Performed By: #### C BCA #### [facility] ([id number]) [address] [address] [place] [address] MCV (RBC) [Entitic vol] 89 fL Normal 80-100 [facility] Comment on above: Performed By: #### C BCA #### [facility] ([id number]) [address] [place] [address] Monocytes (Bld) [#/Vol] 0.4 10*3/uL Normal 0-0.9 [facility] Comment on above: Performed By: #### C BCA #### [facility] ([id number]) [address] [place] [address] Monocytes/100 WBC (Bld) 4.5 % Normal [facility] Comment on above: Performed By: #### C BCA #### [facility] ([id number]) [address] [place] [address] Neutrophils/100 WBC (Bld) 60.8 % Normal [facility] Comment on above: Performed By: #### C BCA #### [facility] ([id number]) [address] [place] [address] Platelet mean volume (Bld) [Entitic vol] 8.3 fL Normal 7-12 [facility] Comment on above: Performed By: #### C BCA #### [facility] ([id number]) [address] [place] [address] Platelets (Bld) [#/Vol] 272 10*3/uL Normal 150-450 [facility] Comment on above: Performed By: #### C BCA #### [facility] ([id number]) [address] [place] [address] RBC COUNT 4.07 X10E12/L Low 4.10-5.70 [facility] Comment on above: Performed By: #### C BCA #### [facility] ([id number]) [address] [place] [address] WBC (Bld) [#/Vol] 8.3 10*3/uL Normal 4.0-11.0 [facility] Comment on above: Performed By: #### C BCA #### [facility] ([id number]) [address], [address] [place] [address] COMPREHENSIVE METABOLIC PANE Benjamin 12-02-2023 Albumin [Mass/Vol] 4.2 g/dL Normal 3.2-5.3 [facility] Comment on above: Performed By: #### 2 4331-1, CMP, TSHR, 2131-12 #### [facility] ([id number]) [address] [place] [address] ALP [Catalytic activity/Vol] 56 U/L Normal 39-130 [facility] Comment on above: Performed By: #### 2 4331-1, CMP, TSHR, 2131-12 #### [facility] ([id number]) [address] [place] [address] ALT [Catalytic activity/Vol] 34 U/L Normal 0-40 [facility] Comment on above: Performed By: #### 2 4331-1, CMP, TSHR, 2131-12 #### [facility] ([id number]) [address] [place] [address] Anion gap [Moles/Vol] 10 mmol/L Normal 5-15 [facility] Comment on above: Performed By: #### 2 4331-1, CMP, TSHR, 2131-12 #### [facility] ([id number]) [address] [place] [address] AST [Catalytic activity/Vol] 32 U/L Normal 0-41 [facility] Comment on above: Performed By: #### 2 4331-1, CMP, TSHR, 2131-12 #### [facility] ([id number]) [address] [place] [address] Bilirubin [Mass/Vol] 0.5 mg/dL Normal 0.3-1.2 [facility] Comment on above: Performed By: #### 2 4331-1, CMP, TSHR, 2131-12 #### [facility] ([id number]) [address] [place] [address] Calcium [Mass/Vol] 9.5 mg/dL Normal 8.5-10.5 [facility] Comment on above: Performed By: #### 2 4331-1, CMP, TSHR, 2131-12 #### [facility] ([id number]) [address], [facility] [address] [place] [address] Chloride [Moles/Vol] 99 mmol/L Normal 98-109 [facility] Comment on above: Performed By: #### 2 4331-1, CMP, TSHR, 2131-12 #### [facility] ([id number]) [address] [place] [address] CO2 [Moles/Vol] 27 mmol/L Normal 22-32 [facility] Comment on above: Performed By: #### 2 4331-1, CMP, TSHR, 2131-12 #### [facility] ([id number]) [address], [facility] [address] [place] [address] Creatinine [Mass/Vol] 1.04 mg/dL Normal 0.60-1.30 [facility] Comment on above: Result Comment: METH OD TRACEABLE TO IDMS STANDARD Performed By: #### 2 4331-1, CMP, TSHR, 2131-12 #### [facility] ([id number]) [address], [facility] [address] [place] [address] GFR/1.73 sq M.predicted among non-blacks MDRD (S/P/Bld) [Vol rate/Area] 80 mL/min/{1.73_m2} Normal >59 [facility] Comment on above: Result Comment: Reported eGFR is based on the CKD-EPI 2020 equation that does not use a race coefficient. Performed By: #### 2 4331-1, CMP, TSHR, 2131-12 #### [facility] ([id number]) [address] [place] [address] Glucose [Mass/Vol] 131 mg/dL High 65-99 [facility] Comment on above: Performed By: #### 2 4331-1, CMP, TSHR, 2131-12 #### [facility] ([id number]) [address], [address] [place] [address] Potassium [Moles/Vol] 4.2 mmol/L Normal 3.5-5.0 [facility] Comment on above: Performed By: #### 2 4331-1, CMP, TSHR, 2131-12 #### [facility] ([id number]) [address] [place] [address] Protein [Mass/Vol] 6.6 g/dL Normal 6.0-8.0 [facility] Comment on above: Performed By: #### 2 4331-1, CMP, TSHR, 2131-12 #### [facility] ([id number]) [address] [place] [address] Sodium [Moles/Vol] 136 mmol/L Normal 134-146 [facility] Comment on above: Performed By: #### 2 4331-1, CMP, TSHR, 2131-12 #### [facility] ([id number]) [address] [place] [address] Urea nitrogen [Mass/Vol] 8 mg/dL Normal 5-27 [facility] Comment on above: Performed By: #### 2 4331-1, CMP, TSHR, 2131-12 #### [facility] ([id number]) [address] [place] [address] Lipid 1996 panelon 4 Cholesterol [Mass/Vol] 106 mg/dL Low 150-200 [facility] Comment on above: Performed By: #### 2 4331-1, CMP, TSHR, 2131-12 #### [facility] ([id number]) [address] [place] [address] Cholesterol in HDL [Mass/Vol] 29 mg/dL Low >39 [facility] Comment on above: Result Comment: HDL <40 mg/dL - High Risk HDL > or = 40mg/dL- Desirable HDL >60 mg/dL - Negative Risk Performed By: #### 2 4331-1, CMP, TSHR, 2131-12 #### [facility] ([id number]) [address] [place] [address] Cholesterol in LDL [Mass/Vol] 10 mg/dL Normal <130 [facility] Comment on above: Result Comment: LDL <100 mg/dL - Desirable LDL >160 mg/dL - High Risk Performed By: #### 2 4331-1, CMP, TSHR, 2131-12 #### [facility] ([id number]) [address] [place] [address] Cholesterol in VLDL [Mass/Vol] 67 mg/dL High 0-30 [facility] Comment on above: Performed By: #### 2 4331-1, CMP, TSHR, 2131-12 #### [facility] ([id number]) [address], [address] [place] [address] CHOLESTEROL:HDL 3.7 Normal 1.0-5.0 [facility] Comment on above: Performed By: #### 2 4331-1, CMP, TSHR, 2131-12 #### [facility] ([id number]) [address], [address] [place] [address] Triglyceride [Mass/Vol] 337 mg/dL High 27-150 [facility] Comment on above: Performed By: #### 2 4331-1, CMP, TSHR, 2131-12 #### [facility] ([id number]) [address], [address] [place] [address] MICROALBUMIN - ALBUMIN:CREAT ININE URINE RATIOon 12-02-2023 ALB/CREAT RATIO NOT CALCULATED Normal 0.0-30.[address] [facility] Comment on above: Result Comment: Result for Albumin/Creatinine Ratio cannot be reliably calculated because urine albumin and or urine creatinine is below the detection limit of the assay. Performed By: #### M ALBU #### [facility] ([id number]) [address], [address] [place] [address] Albumin DL <= 20 mg/L (U) [Mass/Vol] mg/dL Normal 0.0-1.9 [facility] Comment on above: Performed By: #### M ALBU #### [facility] ([id number]) [address], [address] [place] [address] URINE CREAT 34.06 mg/dL Normal [facility] Comment on above: Performed By: #### M ALBU #### [facility] ([id number]) [address], [address] [place] [address] TSH WITH REFLEXon 12-02-2023 TSH 4.31 uIU/mL Normal 0.49-4.67 [facility] Comment on above: Performed By: #### 2 4331-1, CMP, TSHR, 2131-12 #### [facility] ([id number]) [address], [address] [place] [address] VITAMIN B12on 12-02-2023 Cobalamin (Vitamin B12) [Mass/Vol] 403 pg/mL Normal 180-914 [facility] Comment on above: Performed By: #### 2 4331-1, CMP, TSHR, 2131-12 #### [facility] ([id number]) [address], [address] [place] [address] A1C HEMOGLOBINon 05-17-2023 HbA1c (Bld) [Mass fraction] 6.8 % [employer] Other Glucose - [facility]ING[employer] Glucose [Mass/Vol] 182 mg/dL [employer] Other HbA1c (Bld) [Mass fraction]o n 05-17-2023 A1C HEMOGLOBIN [employer] Other A1C HEMOGLOBINon 02-08-2023 HbA1c (Bld) [Mass fraction] 5.9 % [employer] Other Glucose - FINGER STICKon Glucose [Mass/Vol] 209 mg/dL [employer] Other HbA1c (Bld) [Mass fraction]o n 02-08-2023 A1C HEMOGLOBIN [employer] Other A1C HEMOGLOBINon 11-04-2022 HbA1c (Bld) [Mass fraction] 7.2 % [employer] Other Glucose - FINGER [employer]ICKon Glucose [Mass/Vol] 137 mg/dL [employer] Other HbA1c (Bld) [Mass fraction]o n 11-04-2022 A1C HEMOGLOBIN [employer] Other A1C HEMOGLOBINon 07-07-2022 HbA1c (Bld) [Mass fraction] 6.1 % [employer] Other Glucose - FINGER STICKon Glucose [Mass/Vol] 212 mg/dL [employer] Other HbA1c (Bld) [Mass fraction]o n 07-07-2022 A1C HEMOGLOBIN [employer] Other A1C HEMOGLOBINon 03-31-2022 HbA1c (Bld) [Mass fraction] 7.1 % [employer] Other Glucose - FINGER [employer]on Glucose [Mass/Vol] 151 mg/dL [employer] Other HbA1c (Bld) [Mass fraction]o n 03-31-2022 A1C HEMOGLOBIN [employer] Other A1C HEMOGLOBINon 12-23-2021 HbA1c (Bld) [Mass fraction] 7.1 % [employer] Other Glucose - FING[employer]on Glucose [Mass/Vol] 304 mg/dL [employer] Other HbA1c (Bld) [Mass fraction]o n 12-23-2021 A1C HEMOGLOBIN [employer] Other A1C HEMOGLOBINon 09-22-2021 HbA1c (Bld) [Mass fraction] 7 % [employer] Other Glucose - FINGER [employer]ICKon Glucose [Mass/Vol] 186 mg/dL [employer] Other HbA1c (Bld) [Mass fraction]o n 09-22-2021 A1C HEMOGLOBIN [employer] Other A1C HEMOGLOBINon 05-27-2021 HbA1c (Bld) [Mass fraction] 6.8 % [employer] Other Glucose - FINGER STICKon Glucose [Mass/Vol] 205 mg/dL [employer] Other HbA1c (Bld) [Mass fraction]o n 05-27-2021 A1C HEMOGLOBIN [employer] Other A1C HEMOGLOBINon 02-17-2021 HbA1c (Bld) [Mass fraction] 7.2 % [employer] Other Glucose - FING[employer]on Glucose [Mass/Vol] 165 mg/dL [employer] Other HbA1c (Bld) [Mass fraction]o n 02-17-2021 A1C HEMOGLOBIN [employer] Other CBC AUTO DIFFon 12-17-2020 BASO # 0.1 103/ul Normal 0.0-0.1 [facility] Comment on above: Performed By: #### L IPA, HSTROPN, CMP #### [facility] [address] [place] [address] Naseem Marychuy Basophils/100 WBC (Bld) 1.3 % Normal 0.2-2.0 [facility] Comment on above: Performed By: #### L IPA, HSTROPN, CMP #### [facility] [address] [place] [address] Naseem Marychuy EO # 0.3 103/ul Normal 0.0-0.7 [facility] Comment on above: Performed By: #### L IPA, HSTROPN, CMP #### [facility] [address] [place] [address] Naseem Marychuy Eosinophils/100 WBC (Bld) 4.1 % Normal 0.9-7.0 [facility] Comment on above: Performed By: #### L IPA, HSTROPN, CMP #### [facility] [address] [place] [address] Naseem Marychuy Erythrocyte distribution width (RBC) [Ratio] 12.8 % Normal 11.0-15.0 [facility] Comment on above: Performed By: #### L IPA, HSTROPN, CMP #### [facility] [address] [place] [address] Naseem Marychuy Hematocrit (Bld) [Volume fraction] 31.4 % Critically low 42.0-54.0 [facility] Comment on above: Performed By: #### L IPA, HSTROPN, CMP #### [facility] [address] [place] [address] Naseem Marychuy Hemoglobin (Bld) [Mass/Vol] 10.3 g/dL Critically low 14.0-18.0 [facility] Comment on above: Performed By: #### L IPA, HSTROPN, CMP #### [facility] [address] [place] [address] Naseem Marychuy IG # 0.01 10e3/ul Normal 0.00-0.03 [facility] Comment on above: Performed By: #### L KIRIT JOSHUA, CMP #### [facility] [address] [place] [address] Naseem Marychuy IG % 0.1 % Normal 0.0-0.5 [facility] Comment on above: Performed By: #### L KIRIT JOSHUA, CMP #### [facility] [address] [place] [address] Naseem Marychuy LYMPH # 2.6 103/ul Normal 1.2-3.8 [facility] Comment on above: Performed By: #### L KIRIT JOSHUA, CMP #### [facility] [address] [place] [address] Naseem Marychuy Lymphocytes/100 WBC (Bld) 33.8 % Normal 20.5-60.0 [facility] Comment on above: Performed By: #### L KIRIT JOSHUA, CMP #### [facility] [address] [place] [address] Naseem Marychuy MANUAL DIFF REQ NO Normal [facility] Comment on above: Performed By: #### L KIRIT JOSHUA, CMP #### [facility] [address] [place] [address] Naseem Marychuy MCH (RBC) [Entitic mass] 29.6 pg Normal 25.9-34.0 [facility] Comment on above: Performed By: #### L KIRIT JOSHUA, CMP #### [facility] [address] [place] [address] Naseem Marychuy MCHC (RBC) [Mass/Vol] 32.8 g/dL Normal 29.9-35.2 [facility] Comment on above: Performed By: #### L KIRIT JOSHUA, CMP #### [facility] [address] [place] [address] Naseem Marychuy MCV (RBC) [Entitic vol] 90.2 fL Normal 80.0-94.0 [facility] Comment on above: Performed By: #### L IPA, HSTROPN, CMP #### [facility] [address] [place] [address] Naseem Marychuy MONO # 0.7 103/ul Normal 0.3-0.8 [facility] Comment on above: Performed By: #### L IPA, HSTROPN, CMP #### [facility] [address] [place] [address] Naseem Marychuy Monocytes/100 WBC (Bld) 8.4 % Normal 1.7-12.0 [facility] Comment on above: Performed By: #### L IPA, HSTROPN, CMP #### [facility] [address] [place] [address] Naseem Marychuy NEUT # 4.1 103/ul Normal 1.4-6.5 [facility] Comment on above: Performed By: #### L IPA, HSTROPN, CMP #### [facility] [address] [place] [address] Naseem Marychuy Neutrophils/100 WBC (Bld) 52.3 % Normal 43.0-75.0 [facility] Comment on above: Performed By: #### L IPA, HSTROPN, CMP #### [facility] [address] [place] [address] Naseem Marychuy Platelet mean volume (Bld) [Entitic vol] 10.0 fL Normal 9.5-13.5 [facility] Comment on above: Performed By: #### L IPA, HSTROPN, CMP #### [facility] [address] [place] [address] Naseem Marychuy PLT 220 103/ul Normal 150-450 [facility] Comment on above: Performed By: #### L IPA, HSTROPN, CMP #### [facility] [address] [place] [address] Naseem Marychuy RBC 3.48 106/ul Critically low 4.70-6.10 [facility] Comment on above: Performed By: #### L IPA, HSTROPN, CMP #### [facility] [address] [place] [address] Naseem Marychuy WBC 7.8 103/ul Normal 4.0-11.0 [facility] Comment on above: Performed By: #### L KIRIT JOSHUA, CMP #### [facility] [address] [place], [place] [id number] Naseem Chiangen POINT OF CARE GLUCOSEon Glucose [Mass/Vol] 272 mg/dL Critically high 74-106 [facility] Comment on above: Performed By: #### L KIRIT JOSHUA, CMP #### [facility] [address] [place], [place] [id number] Naseem Perrin PROF 14(COMP METB)on 021 Albumin [Mass/Vol] 3.2 g/dL Critically low 3.5-5.0 [facility] Comment on above: Performed By: #### C MP #### [facility] [address] [place], [place] [id number] Naseemkenneth Perrin Albumin/Globulin [Mass ratio] 1.1 {ratio} Normal [facility] Comment on above: Performed By: #### C MP #### [facility] [address] [place], [place] [id number] Naseem Marychuy ALP [Catalytic activity/Vol] 73 U/L Normal 38-126 [facility] Comment on above: Performed By: #### C MP #### [facility] [address] [place], [place] [id number] Naseem Marychuy ALT [Catalytic activity/Vol] 54 U/L Normal 21-72 [facility] Comment on above: Performed By: #### C MP #### [facility] [address] [place], [place] [id number] Naseem Marychuy Anion gap [Moles/Vol] 11.5 mmol/L Normal [facility] Comment on above: Performed By: #### C MP #### [facility] [address] [place], [place] [id number] Naseem Marychuy AST [Catalytic activity/Vol] 59 U/L Normal 17-59 [facility] Comment on above: Performed By: #### C MP #### [facility] [address] [place], [place] [id number] Naseem Marychuy Bilirubin [Mass/Vol] 0.5 mg/dL Normal 0.2-1.3 [facility] Comment on above: Performed By: #### C MP #### [facility] [address] [address] Naseem Marychuy Calcium [Mass/Vol] 7.9 mg/dL Critically low 8.4-10.2 Th e [facility] Comment on above: Performed By: #### C MP #### [facility] [address] [address] Naseem Marychuy Chloride [Moles/Vol] 104 mmol/L Normal 98-107 [facility] Comment on above: Performed By: #### C MP #### [facility] [address] [address] Naseem Marychuy CO2 [Moles/Vol] 27.5 mmol/L Normal 22.0-30.0 [facility] Comment on above: Performed By: #### C MP #### [facility] [address] [address] Naseem Marychuy Creatinine [Mass/Vol] 1.24 mg/dL Normal 0.66-1.25 [facility] Comment on above: Performed By: #### C MP #### [facility] [address] [place] [address] Naseem Marychuy EGFR-AF GAMBIAN >60 Normal >=60 [facility] Comment on above: Performed By: #### C MP #### [facility] [address] [place] [address] Naseem Marychuy EGFR-NON AF GAMBIAN 59 mL/min/1.73m2 Critically low >=60 [facility] Comment on above: Performed By: #### C MP #### [facility] [address] [id number] Naseem Marychuy Globulin (S) [Mass/Vol] 2.8 g/dL Normal [facility] Comment on above: Performed By: #### C MP #### [facility] [address] [address] Naseem Marychuy Glucose [Mass/Vol] 171 mg/dL Critically high 74-106 [facility] Comment on above: Performed By: #### C MP #### [facility] [address] [id number] Naseem Marychuy Potassium [Moles/Vol] 4.0 mmol/L Normal 3.4-5.0 [facility] Comment on above: Performed By: #### C MP #### [facility] [address] [id number] Naseem Marychuy Protein [Mass/Vol] 6.0 g/dL Critically low 6.1-8.[address] [facility] Comment on above: Performed By: #### C MP #### [facility] [address] [id number] Naseem Marychuy Sodium [Moles/Vol] 139 mmol/L Normal 137-145 [facility] Comment on above: Performed By: #### C MP #### [facility] [address] [id number] Naseem Marychuy Urea nitrogen [Mass/Vol] 14.0 mg/dL Normal 9.0-20.0 [facility] Comment on above: Performed By: #### C MP #### [facility] [address] [id number] Naseem Marychuy Urea nitrogen/Creatinin e [Mass ratio] 11.3 mg/mg Normal [facility] Comment on above: Performed By: #### C MP #### [facility] [address] [id number] Naseem Marychuy CBC AUTO DIFFon 12-16-2020 BASO # 0.1 103/ul Normal 0.0-0.1 [facility] Comment on above: Performed By: #### L IPA, HSTROPN, CMP #### [facility] [address] [id number] Naseem Marychuy Basophils/100 WBC (Bld) 0.8 % Normal 0.2-2.0 [facility] Comment on above: Performed By: #### L IPA, HSTROPN, CMP #### [facility] [address] [id number] Naseem Marychuy EO # 0.3 103/ul Normal 0.0-0.7 [facility] Comment on above: Performed By: #### L IPA HSTRALEXI, CMP #### [facility] [address] [place] [address] Naseem Marychuy Eosinophils/100 WBC (Bld) 2.5 % Normal 0.9-7.0 [facility] Comment on above: Performed By: #### L IPA HSTROPN, CMP #### [facility] [address] [place] [address] Naseem Marychuy Erythrocyte distribution width (RBC) [Ratio] 13.1 % Normal 11.0-15.0 [facility] Comment on above: Performed By: #### L IPA HSTRALEXI, CMP #### [facility] [address] [place] [address] Naseem Marychuy Hematocrit (Bld) [Volume fraction] 33.6 % Critically low 42.0-54.0 [facility] Comment on above: Performed By: #### L IPA HSTROPN, CMP #### [facility] [address] [place] [address] Naseem Marychuy Hemoglobin (Bld) [Mass/Vol] 11.0 g/dL Critically low 14.0-18.0 [facility] Comment on above: Performed By: #### L IPA HSTROPN, CMP #### [facility] [address] [place] [address] Naseem Marychuy IG # 0.03 10e3/ul Normal 0.00-0.03 [facility] Comment on above: Performed By: #### L IPA HSTROPN, CMP #### [facility] [address] [place] [address] Naseem Marychuy IG % 0.3 % Normal 0.0-0.5 [facility] Comment on above: Performed By: #### L IPA HSTROPN, CMP #### [facility] [address] [place] [address] Naseem Marychuy LYMPH # 3.1 103/ul Normal 1.2-3.8 [facility] Comment on above: Performed By: #### L IPA, HSTROPN, CMP #### [facility] [address] [address] Naseem Perrin Lymphocytes/100 WBC (Bld) 28.7 % Normal 20.5-60.0 [facility] Comment on above: Performed By: #### L IPA, HSTROPN, CMP #### [facility] [address] [place] [address] Naseem Perrin MANUAL DIFF REQ NO Normal [facility] Comment on above: Performed By: #### L IPA, HSTROPN, CMP #### [facility] [address] [place] [address] Naseem Perrin MCH (RBC) [Entitic mass] 29.3 pg Normal 25.9-34.0 [facility] Comment on above: Performed By: #### L IPA, HSTROPN, CMP #### [facility] [address] [place] [address] Naseem Perrin MCHC (RBC) [Mass/Vol] 32.7 g/dL Normal 29.9-35.2 [facility] Comment on above: Performed By: #### L IPA, HSTROPN, CMP #### [facility] [address] [place] [address] Naseem Perrin MCV (RBC) [Entitic vol] 89.4 fL Normal 80.0-94.0 [facility] Comment on above: Performed By: #### L IPA, HSTROPN, CMP #### [facility] [address] [place] [address] Naseem Perrin MONO # 1.0 103/ul Critically high 0.3-0.8 [facility] Comment on above: Performed By: #### L IPA, HSTROPN, CMP #### [facility] [address] [place] [address] Naseem Perrin Monocytes/100 WBC (Bld) 9.0 % Normal 1.7-12.0 [facility] Comment on above: Performed By: #### L IPA, HSTROPN, CMP #### [facility] [address] [place] [address] Naseem Perrin NEUT # 6.3 103/ul Normal 1.4-6.5 [facility] Comment on above: Performed By: #### L SARAH JOSHUATRMARIVELN, CMP #### [facility] [address] [place], [place] [id number] Naseem Perrin Neutrophils/100 WBC (Bld) 58.7 % Normal 43.0-75.0 [facility] Comment on above: Performed By: #### L IPA HSTROPN, CMP #### [facility] [address] [place], [place] [id number] Naseem Perrin Platelet mean volume (Bld) [Entitic vol] 10.0 fL Normal 9.5-13.5 [facility] Comment on above: Performed By: #### L IPA HSTROPN, CMP #### [facility] [address] [place] [address] Naseem Perrin PLT 230 103/ul Normal 150-450 [facility] Comment on above: Performed By: #### L IPA HSTROPN, CMP #### [facility] [address] [place], [place] [address] Naseem Marychuy RBC 3.76 106/ul Critically low 4.70-6.10 [facility] Comment on above: Performed By: #### L IPA HSTROPN, CMP #### [facility] [address] [place], [place] [address] Naseem Perrin WBC 10.7 103/ul Normal 4.0-11.0 [facility] Comment on above: Performed By: #### L IPA, HSTROPN, CMP #### [facility] [address] [place], [place] [id number] Naseem Perrin [facility] SARS-CoV-2 (COVID-19) RNA DEMETRIUS+probe Ql (Unsp spec) Not detected Normal NOT DETECTED [facility] Comment on above: Result Comment: This test is not yet approved or cleared by the [place] FDA. When there are no FDA-approved or cleared tests available, and other criteria are met, FDA can make tests available under an emergency access mechanism called an Emergency Use Authorization (EUA). The EUA for this test is supported by the [place] of Health and Human Service's (HHS's) declaration [...] SARS-CoV-2. Performed By: #### C VDTBH #### [facility] [address] [place] [address] Naseem Perrin LACTATE/LACTIC ACIDon 2020 Lactate [Moles/Vol] 2.1 mmol/L Critically high 0.7-2.0 [facility] Comment on above: Performed By: #### L IPA, HSTROPN, CMP #### [facility] [address] [place] [address] Naseem Perrin POINT OF CARE GLUCOSEon Glucose [Mass/Vol] 174 mg/dL Critically high 74-106 [facility] Comment on above: Performed By: #### P OCGLUC #### [facility] [address] [place] [address] Naseem Marychuy Glucose [Mass/Vol] 231 mg/dL Critically high 74-106 [facility] Comment on above: Performed By: #### P OCGLUC #### [facility] [address] [place] [address] Naseem Marychuy Glucose [Mass/Vol] 197 mg/dL Critically high 74-106 [facility] Comment on above: Performed By: #### P OCGLUC #### [facility] [address] [place] [address] Naseem Perrin PROF 14(COMP METB)on 021 Albumin [Mass/Vol] 3.2 g/dL Critically low 3.5-5.[address] [facility] Comment on above: Performed By: #### L IPA, HSTROPN, CMP #### [facility] [address] [place], [place] [id number] Naseem Marychuy Albumin/Globulin [Mass ratio] 1.1 {ratio} Normal [facility] Comment on above: Performed By: #### L IPA, HSTROPN, CMP #### [facility] [address] [place], [place] [id number] Naseem Marychuy ALP [Catalytic activity/Vol] 94 U/L Normal 38-126 [facility] Comment on above: Performed By: #### L IPA HSTROPN, CMP #### [facility] [address] [place] [address] Naseem Marychuy ALT [Catalytic activity/Vol] 37 U/L Normal 21-72 [facility] Comment on above: Performed By: #### L IPA HSTROPN, CMP #### [facility] [address] [place] [address] Naseem Marychuy Anion gap [Moles/Vol] 13.1 mmol/L Normal [facility] Comment on above: Performed By: #### L IPA HSTROPN, CMP #### [facility] [address] [place] [address] Naseem Marychuy AST [Catalytic activity/Vol] 32 U/L Normal 17-59 [facility] Comment on above: Performed By: #### L IPA, HSTROPN, CMP #### [facility] [address] [place], [place] [address] Naseem Marychuy Bilirubin [Mass/Vol] 0.5 mg/dL Normal 0.2-1.3 [facility] Comment on above: Performed By: #### L IPA, HSTROPN, CMP #### [facility] [address] [place], [place] [address] Naseem Marychuy Calcium [Mass/Vol] 8.2 mg/dL Critically low 8.4-10.[address] [facility] Comment on above: Performed By: #### L IPA, HSTROPN, CMP #### [facility] [address] [address] Naseem Marychuy Chloride [Moles/Vol] 104 mmol/L Normal 98-107 [facility] Comment on above: Performed By: #### L IPA, HSTROPN, CMP #### [facility] [address] [address] Naseem Marychuy CO2 [Moles/Vol] 24.7 mmol/L Normal 22.0-30.0 [facility] Comment on above: Performed By: #### L IPA, HSTROPN, CMP #### [facility] [address] [address] Naseem Marychuy Creatinine [Mass/Vol] 2.18 mg/dL Critically high 0.66-1.25 [facility] Comment on above: Performed By: #### L IPA, HSTROPN, CMP #### [facility] [address] [address] Naseem Marychuy EGFR-AF GAMBIAN 37 mL/min/1.73m2 Critically low >=60 [facility] Comment on above: Performed By: #### L IPA, HSTROPN, CMP #### [facility] [address] [address] Naseem Marychuy EGFR-NON AF GAMBIAN 31 mL/min/1.73m2 Critically low >=60 [facility] Comment on above: Performed By: #### L IPA, HSTROPN, CMP #### [facility] [address] [address] Naseem Marychuy Globulin (S) [Mass/Vol] 2.8 g/dL Normal [facility] Comment on above: Performed By: #### L IPA, HSTROPN, CMP #### [facility] [address] [address] Naseem Marychuy Glucose [Mass/Vol] 159 mg/dL Critically high 74-106 [facility] Comment on above: Performed By: #### L IPA, HSTROPN, CMP #### [facility] [address] [address] Naseem Marychuy Potassium [Moles/Vol] 3.8 mmol/L Normal 3.4-5.0 [facility] Comment on above: Performed By: #### L IPA HSTROPN, CMP #### [facility] [address] [address] Naseem Marychuy Protein [Mass/Vol] 6.0 g/dL Critically low 6.1-8.[address] [facility] Comment on above: Performed By: #### L IPA HSTROPN, CMP #### [facility] [address] [place] [address] Naseem Marychuy Sodium [Moles/Vol] 138 mmol/L Normal 137-145 [facility] Comment on above: Performed By: #### L JOSIANE HSTROPMario Alberto, CMP #### [facility] [address] [place] [address] Naseem Marychuy Urea nitrogen [Mass/Vol] 28.0 mg/dL Critically high 9.0-20.0 [facility] Comment on above: Performed By: #### L JOSIANE HSTROPN, CMP #### [facility] [address] [place] [address] Naseem Marychuy Urea nitrogen/Creatinin e [Mass ratio] 12.8 mg/mg Normal [facility] Comment on above: Performed By: #### L JOSIANE HSTROPMario Alberto, CMP #### [facility] [address] [place] [address] Naseem Marychuy UA RANDOMon 12-16-2020 Bilirubin Ql (U) Negative Normal NEGATIVE [facility] Comment on above: Performed By: #### L IPA HSTROPN, CMP #### [facility] [address] [place] [address] Naseem Marychuy Clarity (U) CLEAR Normal CLEAR [facility] Comment on above: Performed By: #### L IPA HSTROPN, CMP #### [facility] [address] [place] [address] Naseem Marychuy Color (U) YELLOW Normal YELLOW [facility] Comment on above: Performed By: #### L IPA HSTROPN, CMP #### [facility] [address] [place], [place] [id number] Naseem Marychuy Glucose Ql (U) Negative Normal NEGATIVE [facility] Comment on above: Performed By: #### L IPA, HSTROPN, CMP #### [facility] [address] [place] [address] Naseem Marychuy Hemoglobin Ql (U) Negative Normal NEGATIVE [facility] Comment on above: Performed By: #### L IPA, HSTROPN, CMP #### [facility] [address] [address] Naseem Marychuy Ketones Ql (U) Negative Normal NEGATIVE [facility] Comment on above: Performed By: #### L IPA, HSTROPN, CMP #### [facility] [address] [place] [address] Naseem Marychuy LEUKOCYTES Negative Normal NEGATIVE [facility] Comment on above: Performed By: #### L IPA, HSTROPN, CMP #### [facility] [address] [place] [address] Naseem Marychuy Nitrite Ql (U) Negative Normal NEGATIVE [facility] Comment on above: Performed By: #### L IPA, HSTROPN, CMP #### [facility] [address] [place] [address] Naseem Marychuy pH (U) 5.5 [pH] Normal 5-9 [facility] Comment on above: Performed By: #### L IPA, HSTROPN, CMP #### [facility] [address] [place] [address] Naseem Marychuy SPEC GRAVITY >=1.030 Abnormal 1.005-<=1.[address] [place] [address] Comment on above: Performed By: #### L IPA, HSTROPN, CMP #### [facility] [address] [place] [address] Naseem Marychuy UA PROTEIN TRACE Normal NEGATIVE/ TRACE [facility] Comment on above: Performed By: #### L IPA, HSTROPN, CMP #### [facility] [address] [place] [address] Naseem Marychuy Urobilinogen Qn (U) 0.2 {Dalia'U}/dL Normal 0.2 - 1.0 [facility] Comment on above: Performed By: #### L IPA HSTROPN, CMP #### [facility] [address] [place] [address] Naseem Perrin ASYMPTOMATIC COVID-19 ANTIGE Non 12-15-2020 EUA Statement SEE BELOW Normal [facility] Comment on above: Result Comment: This test [...] By: #### L IPA HSTROPN, CMP #### [facility] [address] [place], [place] [id number] Naseem Perrin SARS-CoV-2 (COVID-19) RNA DEMETRIUS+probe Ql (Unsp spec) Negative Normal NEGATIVE [facility] Comment on above: Result Comment: Nega tive results are presumptive. They do not preclude infection and should not be used as the sole basis for treatment decisions. Additional confirmatory testing by a molecular method should be considered. Performed By: #### L IPA HSTROPN, CMP #### [facility] [address] [place], [place] [id number] Naseem Perrin CBC AUTO DIFFon 12-15-2020 BASO # 0.1 103/ul Normal 0.0-0.1 [facility] Comment on above: Performed By: #### L IPA HSTROPN, CMP #### [facility] [address] [place] [address] Naseem Perrin Basophils/100 WBC (Bld) 0.4 % Normal 0.2-2.0 [facility] Comment on above: Performed By: #### L IPA HSTROPN, CMP #### [facility] [address] [place] [address] Naseem Marychuy EO # 0.0 103/ul Normal 0.0-0.7 [facility] Comment on above: Performed By: #### L IPA HSTROPN, CMP #### [facility] [address] [place] [address] Naseem Marychuy Eosinophils/100 WBC (Bld) 0.1 % Critically low 0.9-7.0 [facility] Comment on above: Performed By: #### L IPA HSTROPN, CMP #### [facility] [address] [place] [address] Naseemkenneth Chiangen Erythrocyte distribution width (RBC) [Ratio] 13.1 % Normal 11.0-15.0 [facility] Comment on above: Performed By: #### L IPA HSTROPN, CMP #### [facility] [address] [place] [address] Naseemkenneth Chiangen Hematocrit (Bld) [Volume fraction] 37.1 % Critically low 42.0-54.0 [facility] Comment on above: Performed By: #### L IPA HSTROPN, CMP #### [facility] [address] [place] [address] Naseemkenneth Perrin Hemoglobin (Bld) [Mass/Vol] 12.7 g/dL Critically low 14.0-18.0 [facility] Comment on above: Performed By: #### L IPA HSTROPN, CMP #### [facility] [address] [place] [address] Naseem Marychuy IG # 0.05 10e3/ul Critically high 0.00-0.03 [facility] Comment on above: Performed By: #### L IPA HSTROPN, CMP #### [facility] [address] [place] [address] Naseem Marychuy IG % 0.4 % Normal 0.0-0.5 [facility] Comment on above: Performed By: #### L IPA HSTROPN, CMP #### [facility] [address] [place] [address] Naseem Marychuy LYMPH # 2.3 103/ul Normal 1.2-3.8 [facility] Comment on above: Performed By: #### L IPA, HSTROPN, CMP #### [facility] [address] [address] Naseem Marychuy Lymphocytes/100 WBC (Bld) 15.9 % Critically low 20.5-60.0 [facility] Comment on above: Performed By: #### L IPA, HSTROPN, CMP #### [facility] [address] [place], [place] [id number] Naseem Marychuy MANUAL DIFF REQ NO Normal [facility] Comment on above: Performed By: #### L IPA, HSTROPN, CMP #### [facility] [address] [place] [address] Naseem Marychuy MCH (RBC) [Entitic mass] 29.8 pg Normal 25.9-34.0 [facility] Comment on above: Performed By: #### L IPA, HSTROPN, CMP #### [facility] [address] [place], [place] [id number] Naseem Marychuy MCHC (RBC) [Mass/Vol] 34.2 g/dL Normal 29.9-35.2 [facility] Comment on above: Performed By: #### L IPA, HSTROPN, CMP #### [facility] [address] [place] [address] Naseem Marychuy MCV (RBC) [Entitic vol] 87.1 fL Normal 80.0-94.0 [facility] Comment on above: Performed By: #### L IPA, HSTROPN, CMP #### [facility] [address] [place] [address] Naseem Marychuy MONO # 1.2 103/ul Critically high 0.3-0.8 [facility] Comment on above: Performed By: #### L IPA, HSTROPN, CMP #### [facility] [address] [place] [address] Naseem Marychuy Monocytes/100 WBC (Bld) 8.1 % Normal 1.7-12.0 [facility] Comment on above: Performed By: #### L JOSIANE HSTRALEXI, CMP #### [facility] [address] [address] Naseem Perrin NEUT # 10.7 103/ul Critically high 1.4-6.5 [facility] Comment on above: Performed By: #### L JOSIANE HSTRMARIVELN, CMP #### [facility] [address] [address] Naseem Chiangen Neutrophils/100 WBC (Bld) 75.1 % Critically high 43.0-75.0 [facility] Comment on above: Performed By: #### L JOSIANE HSTRALEXI, CMP #### [facility] [address] [place] [address] Naseem Perrin Platelet mean volume (Bld) [Entitic vol] 9.8 fL Normal 9.5-13.5 [facility] Comment on above: Performed By: #### L JOSIANE HSTROPN, CMP #### [facility] [address] [address] Naseem Marychuy PLT 294 103/ul Normal 150-450 [facility] Comment on above: Performed By: #### L JOSIANE HSTROPN, CMP #### [facility] [address] [place] [address] Naseem Marychuy RBC 4.26 106/ul Critically low 4.70-6.10 [facility] Comment on above: Performed By: #### L IPA HSTROPN, CMP #### [facility] [address] [place], [place] [address] Naseem Marychuy WBC 14.3 103/ul Critically high 4.0-11.0 [facility] Comment on above: Performed By: #### L IPA HSTROPN, CMP #### [facility] [address] [place], [place] [id number] Naseem Marychuy CT ABD/PELVIS WO CONon 12-15 [...] CHENG SHAHID Date: 2020-12-15 20:14 Normal [facility] LACTATE/LACTIC ACIDon 2020 Lactate [Moles/Vol] 2.8 mmol/L Critically high 0.7-2.0 [facility] Comment on above: Result Comment: Test repeated. Critical value verified. Performed By: #### L IPA HSTROPN, CMP #### [facility] [address] [place] [address] Naseem Perrin LIPASEon 12-15-2020 Lipase [Catalytic activity/Vol] 53.0 U/L Normal 23.0-300.0 [facility] Comment on above: Performed By: #### L JOSIANE HSTROPN, CMP #### [facility] [address] [place], [place] [address] Naseem Perrin PROF 14(COMP METB)on 021 Albumin [Mass/Vol] 3.8 g/dL Normal 3.5-5.0 [facility] Comment on above: Performed By: #### L IPA HSTROPN, CMP #### [facility] [address] [place], [place] [address] Naseem Perrin Albumin/Globulin [Mass ratio] 1.2 {ratio} Normal [facility] Comment on above: Performed By: #### L IPA HSTROPN, CMP #### [facility] [address] [place], [place] [address] Naseem Marychuy ALP [Catalytic activity/Vol] 127 U/L Critically high 38-126 [facility] Comment on above: Performed By: #### L IPA, HSTROPN, CMP #### [facility] [address] [address] Naseem Marychuy ALT [Catalytic activity/Vol] 34 U/L Normal 21-72 [facility] Comment on above: Performed By: #### L IPA, HSTROPN, CMP #### [facility] [address] [place] [address] Naseem Marychuy Anion gap [Moles/Vol] 18.1 mmol/L Normal [facility] Comment on above: Performed By: #### L IPA, HSTROPN, CMP #### [facility] [address] [place] [address] Naseem Marychuy AST [Catalytic activity/Vol] 35 U/L Normal 17-59 [facility] Comment on above: Performed By: #### L IPA, HSTROPN, CMP #### [facility] [address] [place] [address] Naseem Marychuy Bilirubin [Mass/Vol] 0.6 mg/dL Normal 0.2-1.3 [facility] Comment on above: Performed By: #### L IPA, HSTROPN, CMP #### [facility] [address] [place] [address] Naseem Marychuy Calcium [Mass/Vol] 8.9 mg/dL Normal 8.4-10.2 [facility] Comment on above: Performed By: #### L IPA, HSTROPN, CMP #### [facility] [address] [place] [address] Naseem Marychuy Chloride [Moles/Vol] 99 mmol/L Normal 98-107 [facility] Comment on above: Performed By: #### L IPA, HSTROPN, CMP #### [facility] [address] [place] [address] Naseem Marychuy CO2 [Moles/Vol] 22.9 mmol/L Normal 22.0-30.0 [facility] Comment on above: Performed By: #### L IPA, HSTROPN, CMP #### [facility] [address] [place], [place] [address] Naseem Marychuy Creatinine [Mass/Vol] 3.47 mg/dL Critically high 0.66-1.25 [facility] Comment on above: Performed By: #### L IPA HSTROPN, CMP #### [facility] [address] [address] Naseem Marychuy EGFR-AF GAMBIAN 22 mL/min/1.73m2 Critically low >=60 [facility] Comment on above: Performed By: #### L IPA HSTROPN, CMP #### [facility] [address] [address] Anseem Marychuy EGFR-NON AF GAMBIAN 18 mL/min/1.73m2 Critically low >=60 [facility] Comment on above: Performed By: #### L IPA, HSTROPN, CMP #### [facility] [address] [place] [address] Naseem Marychuy Globulin (S) [Mass/Vol] 3.3 g/dL Normal [facility] Comment on above: Performed By: #### L IPA, HSTROPN, CMP #### [facility] [address] [address] Naseem Marychuy Glucose [Mass/Vol] 249 mg/dL Critically high 74-106 [facility] Comment on above: Performed By: #### L IPA, HSTROPN, CMP #### [facility] [address] [place] [address] Naseem Marychuy Potassium [Moles/Vol] 5.0 mmol/L Normal 3.4-5.0 [facility] Comment on above: Performed By: #### L IPA, HSTROPN, CMP #### [facility] [address] [place] [address] Naseem Marychuy Protein [Mass/Vol] 7.1 g/dL Normal 6.1-8.2 [facility] Comment on above: Performed By: #### L IPA, HSTROPN, CMP #### [facility] [address] [place] [address] Naseem Marychuy Sodium [Moles/Vol] 135 mmol/L Critically low 137-145 Th e [facility] Comment on above: Performed By: #### L IPA HSTROPN, CMP #### [facility] [address] [place] [address] Naseem Perrin Urea nitrogen [Mass/Vol] 29.0 mg/dL Critically high 9.0-20.0 [facility] Comment on above: Performed By: #### L IPA HSTROPN, CMP #### [facility] [address] [place] [address] Naseem Perrin Urea nitrogen/Creatinin e [Mass ratio] 8.4 mg/mg Normal [facility] Comment on above: Performed By: #### L IPASARAHTROPN, CMP #### [facility] [address] [place] [address] Naseem Perrin PROTIMEon 12-15-2020 INR Coag (PPP) [Relative time] 1.02 {INR} Normal [facility] Comment on above: Performed By: #### P TT, PT #### [facility] [address] [place] [address] Naseem Perrin INR GUIDELINES SEE BELOW Normal The [facility] Comment on above: Result Comment: ALICIA RED INR: 2.0 - 3.0 CONDITIONS NOT LISTED BELOW 2.5 - 3.5 FOR PROSTHETIC HEART VALVE REPLACEMENT 2.5 - 3.5 RECURRENT THROMBOSIS Performed By: #### P TT, PT #### [facility] [address] [place] [address] Naseemkenneth Perrin PT Coag (PPP) [Time] 11.0 s Normal 9.0-11.6 [facility] Comment on above: Performed By: #### P TT, PT #### [facility] [address] [place] [address] Naseem Perrin PTTon 12-15-2020 aPTT Coag (Bld) [Time] 25.3 s Normal 22.3-36.2 [facility] Comment on above: Performed By: #### P TT, PT #### [facility] [address] [place] [address] Naseem Perrin TROPONIN, HIGH SENSITIVITYon 12-15-2020 HSTROP 9.4 pg/mL Normal 4.0-42.2 [facility] Comment on above: Result Comment: CUT- OFF POINTS HAVE BEEN ESTABLISHED BASED ON THE FOURTH UNIVERSAL DEFINITIONS OF MYOCARDIAL INFARCTION. THE UPPER REFERENCE LIMIT (URL) OF TROPONIN, DEFINED THE 99TH PERCENTILE OF cTnI DISTRIBUTION IN A REFERENCE POPULATION, HAS BEEN CONFIRMED THE DECISION THRESHOLD FOR ND DIAGNOSIS. Performed By: #### L IPA, HSTROPN, CMP #### [facility] [address] [place], [place] [address] Naseem Perrin CBC Auto Differentialon Basophils (Bld) [#/Vol] 0.09 10*3/uL [employer] Phone: Basophils/100 WBC (Bld) 2 % 0 - 2 % [employer] Phone: Differential Type NOT REPORTED [employer] Phone: Eosinophils (Bld) [#/Vol] 0.41 10*3/uL [employer] Phone: Eosinophils/100 WBC (Bld) 7 % High 1 - 4 % [employer] Phone: Erythrocyte distribution width (RBC) [Ratio] 13.2 % 11.8 - 14.4 % [employer] Phone: Hematocrit (Bld) [Volume fraction] 38.8 % Low 40.7 - 50.3 % [employer] Phone: Hemoglobin (Bld) [Mass/Vol] 12.8 g/dL Low 13 - 17 g/dL [employer] Phone: Immature granulocytes (Bld) [#/Vol] 0 % 0 [employer] Phone: Immature granulocytes (Bld) [#/Vol] 10*3/uL [employer] Phone: Interpretation and review of laboratory results Abnormal [employer] Phone: Lymphocytes (Bld) [#/Vol] 1.86 10*3/uL [employer] Phone: Lymphocytes/100 WBC (Bld) 31 % 24 - 43 % [employer] Work Phone: MCH (RBC) [Entitic mass] 29.6 pg 25.2 - 33.5 pg [employer] Phone: MCHC (RBC) [Mass/Vol] 33.0 g/dL 28.4 - 34.8 g/dL [employer] Work Phone: MCV (RBC) [Entitic vol] 89.8 fL 82.6 - 102.9 fL [employer] Work Phone: Monocytes (Bld) [#/Vol] 0.42 10*3/uL [employer] Phone: Monocytes/100 WBC (Bld) 7 % 3 - 12 % [employer] Work Phone: Platelet mean volume (Bld) [Entitic vol] 10.7 fL 8.1 - 13.5 fL [employer] Work Phone: Platelets (Bld) [#/Vol] 287 10*3/uL [employer] Phone: Platelets (Bld) [#/Vol] NOT REPORTED [employer] Phone: RBC (Bld) [#/Vol] 4.32 10*6/uL 4.21 - 5.7 7 m/uL [employer] Work Phone: RBC morphology finding Nom (Bld) NOT REPORTED [employer] Phone: Segmented neutrophils/100 WBC (Bld) 53 % 36 - 65 % [employer] Work Phone: Segs Absolute 3.23 [employer] Work Phone: WBC (Bld) [#/Vol] 6.0 10*3/uL [employer] Work Phone: WBC (Bld) [#/Vol] 0.0 10*3/uL 0.0 per 10 0 WBC [facility] Work Phone: WBC Morphology NOT REPORTED [facility] Work Phone: CBC with Diffon 05-14-2019 Abs. Basophil 0.09 k/uL Normal 0.00-0.20 [facility] Comment on above: Performed By: #### C DP #### [address] [place], [place] [address] [employer] Operator: Juan Zuluaga MD Abs.Imm.Granulocyt e <0.03 Normal 0.00-0.30 [facility] Comment on above: Performed By: #### C DP #### [address] [place], [place] [address] [employer] Operator: Juan Zuluaga MD Abs.Neutrophil (Seg) 3.23 k/uL Normal 1.50-8.10 [facility] Comment on above: Performed By: #### C DP #### [address] [place] [address] [employer] Operator: Juan Zuluaga MD Basophils/100 WBC (Bld) 2 % Normal 0-2 [facility] Comment on above: Performed By: #### C DP #### [address] [place] [address] [employer] Operator: Juan Zuluaga MD Eosinophils (Bld) [#/Vol] 0.41 10*3/uL Normal 0.00-0.44 [facility] Comment on above: Performed By: #### C DP #### [address] [place], [place] [id number] [employer] Operator: Juan Zuluaga MD Eosinophils/100 WBC (Bld) 7 % High 1-4 [facility] Comment on above: Performed By: #### C DP #### [facility] [address] [place], [place] [id number] [employer] Operator: Juan Zuluaga MD Erythrocyte distribution width (RBC) [Ratio] 13.2 % Normal 11.8-14.4 [facility] Comment on above: Performed By: #### C DP #### [facility] [address] [place], [place] [address] [employer] Operator: Juan Zuluaga MD Hematocrit (Bld) [Volume fraction] 38.8 % Low 40.7-50.3 [facility] Comment on above: Performed By: #### C DP #### [facility] [address] [place], [place] [address] [employer] Operator: Juan Zuluaga MD Hemoglobin (Bld) [Mass/Vol] 12.8 g/dL Low 13.0-17.0 [facility] Comment on above: Performed By: #### C DP #### [facility] [address] [place], [place] [address] [employer] Operator: Juan Zuluaga MD Immature granulocytes (Bld) [#/Vol] 0 % Normal 0 [facility] Comment on above: Performed By: #### C DP #### [facility] [address] [place], [place] [address] [employer] Operator: Juan Zuluaga MD Lymphocytes (Bld) [#/Vol] 1.86 10*3/uL Normal 1.10-3.70 [facility] Comment on above: Performed By: #### C DP #### [facility] [address] [place], [place] [address] [employer] Operator: Juan Zuluaga MD Lymphocytes/100 WBC (Bld) 31 % Normal 24-43 [facility] Comment on above: Performed By: #### C DP #### [facility] [address] [place], [facility] [employer] Operator: Juan Zuluaga MD MCH (RBC) [Entitic mass] 29.6 pg Normal 25.2-33.5 [facility] Comment on above: Performed By: #### C DP #### [facility] [address] [place] [id number] [employer] Operator: Juan Zuluaga MD MCHC (RBC) [Mass/Vol] 33.0 g/dL Normal 28.4-34.8 [facility] Comment on above: Performed By: #### C DP #### [facility] [address] [place] [address] [employer] Operator: Juan Zuluaga MD MCV (RBC) [Entitic vol] 89.8 fL Normal 82.6-102.9 [facility] Comment on above: Performed By: #### C DP #### [facility] [address] [place] [id number] [employer] Operator: Juan Zuluaga MD Monocytes (Bld) [#/Vol] 0.42 10*3/uL Normal 0.10-1.20 [facility] Comment on above: Performed By: #### C DP #### [facility] [address] [place], [place] [id number] [employer] Operator: Juan Zuluaga MD Monocytes/100 WBC (Bld) 7 % Normal 3-12 [facility] Comment on above: Performed By: #### C DP #### [facility] [address] [place] [id number] [employer] Operator: Juan Zuluaga MD Neutrophil (Seg) 53 % Normal 36-65 [facility] Comment on above: Performed By: #### C DP #### [facility] [address] [place] [id number] [employer] Operator: Juan Zuluaga MD NRBC Automated 0.0 per 100 WBC Normal 0.0 [facility] Comment on above: Performed By: #### C DP #### [facility] [address] [place] [id number] [employer] Operator: Juan Zuluaga MD Platelet mean volume (Bld) [Entitic vol] 10.7 fL Normal 8.1-13.5 [facility] Comment on above: Performed By: #### C DP #### [facility] [address] [place], [place] [address] [employer] Operator: Juan Zuluaga MD Platelets (Bld) [#/Vol] 287 10*3/uL Normal 138-453 [facility] Comment on above: Performed By: #### C DP #### [facility] [address] [place], [facility] [employer] Operator: Juan Zuluaga MD RBC (Bld) [#/Vol] 4.32 10*6/uL Normal 4.21-5.77 [facility] Comment on above: Performed By: #### C DP #### [facility] [address] [place], [facility] [employer] Operator: Juan Zuluaga MD WBC (Bld) [#/Vol] 6.0 10*3/uL Normal 3.5-11.3 [facility] Comment on above: Performed By: #### C DP #### [facility] [address] [place], [facility] [employer] Operator: Juan Zuluaga MD Auto Diff Performed NOT REPORTED Normal [facility] Comment on above: Performed By: #### C DP #### [facility] [address] [place], [facility] [employer] Operator: Juan Zuluaga MD Platelets (Bld) [#/Vol] NOT REPORTED Normal [facility] Comment on above: Performed By: #### C DP #### [facility] [address] [place], [facility]83 [employer] Operator: Juan Zuluaga MD RBC morphology finding Nom (Bld) NOT REPORTED Normal [facility] Comment on above: Performed By: #### C DP #### [facility] [address] [place], [facility] [employer] Operator: Juan Zuluaga MD WBC Morphology NOT REPORTED Normal [facility] Comment on above: Performed By: #### C DP #### [facility] [address] [place] [address] Vacuum Cooker Operator: Juan Zuluaga MD Laboratory Studieson 019 Vancomycin trough [Mass/Vol] 15.1 ug/mL 10.0-20.0 [facility] Comment on above: Last dose: - Glucose [Mass/Vol] 96 mg/dL [facility] Comment on above: Random Glucose Refer ence Range is dependent on time and content of last meal. Glucose of more than 200 mg/dL in a nonstressed, ambulatory subject supports the diagnosis of Diabetes Mellitus. Glucose [Mass/Vol] Glu2: cleaned meter [facility] Basophils (Bld) [#/Vol] 0.1 10*3/uL 0.0-0.2 [facility] Basophils/100 WBC (Bld) 0.7 % [facility] Calcium [Mass/Vol] 8.2 mg/dL 8.2-10.2 [facility] Chloride [Moles/Vol] 105 mmol/L 95-114 [facility] CO2 [Moles/Vol] 25.2 mmol/L 22.0-30.0 [facility] Creatinine [Mass/Vol] 1.11 mg/dL 0.64-1.27 [facility] Eosinophils (Bld) [#/Vol] 0.6 10*3/uL High 0.0-0.45 [facility] Eosinophils/100 WBC (Bld) 7.6 % [facility] Erythrocyte distribution width (RBC) [Ratio] 13.6 % 12.0-14.8 [facility] GFR/1.73 sq M predicted among non-blacks MDRD (S/P/Bld) [Vol rate/Area] mL/min/{1.73_m2} [facility] GFR/1.73 sq M.predicted MDRD (S/P/Bld) [Vol rate/Area] mL/min/{1.73_m2} [facility] Comment on above: GFR estimated refere nce range: According to KDOQI guidelines, <60 ml/min/1.73m2 is sufficient to diagnose a patient with chronic kidney disease. Glucose [Mass/Vol] 54 mg/dL Low 70-100 [facility] Comment on above: ADA recommended refe rence range Random Glucose Reference Range is dependent on time and content of last meal. Glucose of more than 200 mg/dL in a nonstressed, ambulatory subject supports the diagnosis of Diabetes Mellitus. Hematocrit (Bld) [Volume fraction] 32.0 % Low 38.8-50.0 [facility] Hemoglobin (Bld) [Mass/Vol] 11.0 g/dL Low 13.0-17.0 [facility] Lymphocytes (Bld) [#/Vol] 1.2 10*3/uL 1.00-4.8 [facility] Lymphocytes/100 WBC (Bld) 13.9 % [facility] MCH (RBC) [Entitic mass] 30.2 pg 27.5-35.2 [facility] MCHC (RBC) [Mass/Vol] 34.3 g/dL 32.5-35.6 [facility] MCV (RBC) [Entitic vol] 88.0 fL 83.5-101 [facility] Monocytes (Bld) [#/Vol] 0.5 10*3/uL 0.0-0.8 [facility] Monocytes/100 WBC (Bld) 6.3 % [facility] Neutrophils (Bld) [#/Vol] 6.0 10*3/uL 1.8-7.7 [facility] Neutrophils/100 WBC (Bld) 71.5 % [facility] Nucleated RBC/100 WBC (Bld) [Ratio] 0.0 % 0-0.5 [facility] Creatinine Clearance (Chem [id number] [facility] Platelet mean volume (Bld) [Entitic vol] 7.9 fL 6.6-10.1 [facility] Platelets (Bld) [#/Vol] 273 10*3/uL 150-450 [facility] Potassium [Moles/Vol] 3.5 mmol/L 3.5-5.1 [facility] RBC (Bld) [#/Vol] 3.64 10*6/uL Low 3.90-5.60 [facility] Sodium [Moles/Vol] 140 mmol/L 136-146 [facility] Urea nitrogen [Mass/Vol] 16 mg/dL 9-23 [facility] WBC (Bld) [#/Vol] 8.4 10*3/uL 4.5-11.0 [facility] Laboratory Studieson 019 Glucose [Mass/Vol] 110 mg/dL [facility] Comment on above: Random Glucose Refer ence Range is dependent on time and content of last meal. Glucose of more than 200 mg/dL in a nonstressed, ambulatory subject supports the diagnosis of Diabetes Mellitus. Basophils (Bld) [#/Vol] 0.1 10*3/uL 0.0-0.2 [facility] Basophils/100 WBC (Bld) 0.7 % [facility] Calcium [Mass/Vol] 8.2 mg/dL 8.2-10.2 [facility] Chloride [Moles/Vol] 103 mmol/L 95-114 [facility] CO2 [Moles/Vol] 24.7 mmol/L 22.0-30.0 [facility] Creatinine [Mass/Vol] 1.42 mg/dL High 0.64-1.27 [facility] Eosinophils (Bld) [#/Vol] 0.5 10*3/uL High 0.0-0.45 [facility] Eosinophils/100 WBC (Bld) 3.6 % [facility] Erythrocyte distribution width (RBC) [Ratio] 13.5 % 12.0-14.8 [facility] GFR/1.73 sq M predicted among non-blacks MDRD (S/P/Bld) [Vol rate/Area] 51 mL/min/{1.73_m2} [facility] GFR/1.73 sq M.predicted MDRD (S/P/Bld) [Vol rate/Area] mL/min/{1.73_m2} [facility] Comment on above: GFR estimated refere nce range: According to KDOQI guidelines, <60 ml/min/1.73m2 is sufficient to diagnose a patient with chronic kidney disease. Glucose [Mass/Vol] 77 mg/dL 70-100 [facility] Comment on above: Delta: 258 on -0650 ADA recommended reference range Random Glucose Reference Range is dependent on time and content of last meal. Glucose of more than 200 mg/dL in a nonstressed, ambulatory subject supports the diagnosis of Diabetes Mellitus. Hematocrit (Bld) [Volume fraction] 33.0 % Low 38.8-50.0 [facility] Hemoglobin (Bld) [Mass/Vol] 11.0 g/dL Low 13.0-17.0 [facility] Lymphocytes (Bld) [#/Vol] 1.5 10*3/uL 1.00-4.8 [facility] Lymphocytes/100 WBC (Bld) 10.3 % [facility] MCH (RBC) [Entitic mass] 29.4 pg 27.5-35.2 [facility] MCHC (RBC) [Mass/Vol] 33.2 g/dL 32.5-35.6 [facility] MCV (RBC) [Entitic vol] 88.6 fL 83.5-101 [facility] Monocytes (Bld) [#/Vol] 0.9 10*3/uL High 0.0-0.8 [facility] Monocytes/100 WBC (Bld) 6.1 % [facility] Neutrophils (Bld) [#/Vol] 11.6 10*3/uL High 1.8-7.7 [facility] Neutrophils/100 WBC (Bld) 79.3 % [facility] Nucleated RBC/100 WBC (Bld) [Ratio] 0.0 % 0-0.5 [facility] Creatinine Clearance (Chem [id number] [facility] Platelet mean volume (Bld) [Entitic vol] 7.9 fL 6.6-10.1 [facility] Platelets (Bld) [#/Vol] 271 10*3/uL 150-450 [facility] Potassium [Moles/Vol] 3.3 mmol/L Low 3.5-5.1 [facility] RBC (Bld) [#/Vol] 3.73 10*6/uL Low 3.90-5.60 [facility] Sodium [Moles/Vol] 137 mmol/L 136-146 [facility] Troponin I.cardiac [Mass/Vol] ng/mL 0-0.02 [facility] Comment on above: DARRYL ND Cut off value > or equal to 0.03 ng/mL in conjunction with clinical conditions of myocardial infarction. (www.escardio.org/guidelines) Urea nitrogen [Mass/Vol] 30 mg/dL High - [facility] WBC (Bld) [#/Vol] 14.6 10*3/uL High 4.5-11.0 [facility] Laboratory Studieson 019 Glucose [Mass/Vol] Glu2: cleaned meter [facility] MRI SHOULDER WO CONTRAST RIG HTon 01-19-2018 MRI SHOULDER WO CONTRAST RIGHT [facility] [id number] [place] [address] ==Patient Name: BHARTI COLLIER : 1960ex: MAge: Race: WhiteMRN: [id number]. Location: Patient Status: Date: 12/30/2017 10:15:00 AMCompleted Date: 01/19/2018 09:16 AMRequesting Provider: CHERIE SHEA Attending Provider: Report Copy To: Signs & Symptoms: M75.101 Unsp rotatr-cuff tear/ruptr of right shoulder, not trauma [id number]: [place] No FB per patient phone [phone] Needs F/U appointment with ortho no pc per Lilliam @ [employer] cpt code 18046 call ref# [id number] auth #[id number] dates 01/03/18-04/03/18 cpt code 40869 *mla 01/10 pendingComments: , , , Ordering Provider - CHERIE SHEA PA-C , Exam: MRI SHOULDER WO CONTRAST RIGHTAccession #: [id number] =========MRI SHOULDER WO CONTRAST RIGHT 01/19/2018 9:16 [...] biceps. Electronically signed by:Lex Benitez. Transcribed by: [email or web address], User Resident: Electronically Signed by: LEX BENITEZ @ 01/19/2018 11:02 AM Normal [facility] Comment on above: Order Comment: , , V iews (X-RAY, SHOULDER): Radiologic Protocol , , , Ordering Provider - NELA TAN MD , Rendering Provider - NELA TAN MD , Operative Reporton 8 Operative Report MR#: [id number] [facility] Pt. Name: Bharti Collier Room #: [...] 10/10/2017/02:03 Maximilian/Nick Paniagua M.D.Date Trans: 10/11/2017 12:35 A/Joann_JN:[id number] Normal [facility] POC GLUCOSE LABon 10-10-2017 Glucose mass conc 127 mg/dL High 70-100 [facility] Comment on above: Performed By: #### 8 5499 ####[facility] [place] [address], [facility] Glucose mass conc 151 mg/dL High 70-100 [facility] Comment on above: Performed By: #### 8 5499 ####[facility] [place] [address], [facility] APTTon 10-06-2017 aPTT Coag time (Bld) 32.4 s Normal 25.0-35.0 [facility] Comment on above: Result Comment: ALL [...] THIS PURPOSE. Performed By: #### 5 6101, [id number] ####[facility] [place] [address], [facility] BASIC METABOLIC PANELon 09-10 Calcium mass conc 9.0 mg/dL Normal 8.6-10.3 [facility] Comment on above: Performed By: #### 0 0071 ####[facility] [place] [address], [facility] Chloride molar conc 100 mmol/L Normal 98-107 [facility] Comment on above: Performed By: #### 0 0071 ####[facility] [place] [address], [facility] CO2 molar conc 27 mmol/L Normal 21-[address] [facility] Comment on above: Performed By: #### 0 0071 ####[facility] [place] [address], [facility] Creatinine mass conc 1.15 mg/dL Normal 0.70-1.30 [facility] Comment on above: Performed By: #### 0 0071 ####[facility] [place] [address], [facility] GFR/1.73 sq M predicted among blacks MDRD vol rate/area (S/P/Bld) mL/min/{1.73_m2} Normal >60 [facility] Comment on above: Performed By: #### 0 0071 ####[facility] [facility].[place] GFR/1.73 sq M predicted among non-blacks MDRD vol rate/area (S/P/Bld) mL/min/{1.73_m2} Normal >60 [facility] Comment on above: Performed By: #### 0 0071 ####[facility] [place] [address], [facility] Glucose mass conc 164 mg/dL High 70-100 [facility] Comment on above: Performed By: #### 0 0071 ####[facility] [facility].[address] Potassium molar conc 4.3 mmol/L Normal 3.5-5.1 [facility] Comment on above: Performed By: #### 0 0071 ####[facility] [facility] Sodium molar conc 133 mmol/L Low 136-145 [facility] Comment on above: Performed By: #### 0 0071 ####[facility] [facility].[address] Urea nitrogen mass conc 15 mg/dL Normal 7-25 [facility] Comment on above: Performed By: #### 0 0071 ####[facility] [place] [address], [facility] CBC W/DIFFon 10-06-2017 ABS BASOPHILS 0.1 10*3/uL Normal 0.0-0.[address] [facility] Comment on above: Performed By: #### 5 0103 ####[facility] [facility] ABS IMM GRANS 0.1 10*3/uL Normal 0.0-0.[address] [facility] Comment on above: Performed By: #### 5 3 ####[facility] [place] [address], [facility] ABS NEUTROPHILS 9.5 10*3/uL High 1.6-7.6 [facility] Comment on above: Performed By: #### 5 0103 ####[facility] [facility].[address] Basophils Auto #/vol (Bld) 0.6 % Normal 0.0-1.0 [facility] Comment on above: Performed By: #### 5 0103 ####[facility] [facility].[address] Eosinophils Auto #/vol (Bld) 0.1 10*3/uL Normal 0.0-0.5 [facility] Comment on above: Performed By: #### 5 0103 ####[facility] Eosinophils/100 WBC Auto (Bld) 1.0 % Normal 0.0-6.0 [facility] Comment on above: Performed By: #### 3 ####[facility] Erythrocyte distribution width Auto Ratio (RBC) 12.1 % Normal 11.5-15.0 [facility] Comment on above: Performed By: #### 3 ####[facility] [facility].[address] Hematocrit Auto Volume Fraction (Bld) 37.2 % Low 39.0-50.0 [facility] Comment on above: Performed By: #### 3 ####[facility] Hemoglobin mass conc (Bld) 12.4 g/dL Low 13.0-17.0 [facility] Comment on above: Performed By: #### 3 ####[facility] IMMATURE GRANS 0.4 % Normal 0.0-1.[address] [facility] Comment on above: Performed By: #### 5 0103 ####[facility] Lymphocytes Auto #/vol (Bld) 1.8 10*3/uL Normal 1.2-4.0 [facility] Comment on above: Performed By: #### 5 0103 ####[facility] Lymphocytes/100 WBC Auto (Bld) 14.4 % Low 20.0-45.0 [facility] Comment on above: Performed By: #### 5 3 ####[facility] MCH Auto Entitic mass (RBC) 30.5 pg Normal 27.0-33.0 [facility] Comment on above: Performed By: #### 3 ####[facility] MCHC Auto mass conc (RBC) 33.3 g/dL Normal 32.0-35.0 [facility] Comment on above: Performed By: #### 3 ####[facility] MCV Auto Entitic volume (RBC) 91.6 fL Normal 82.0-98.0 [facility] Comment on above: Performed By: #### 3 ####[facility] Monocytes Auto #/vol (Bld) 1.0 10*3/uL Normal 0.1-1.0 [facility] Comment on above: Performed By: #### 3 ####[facility] MONOS 7.9 % Normal 5.0-12.0 [facility] Comment on above: Performed By: #### 5 0103 ####[facility] [place] [address], [facility] Neutrophils/100 WBC Auto (Bld) 75.7 % High 40.0-72.0 [facility] Comment on above: Performed By: #### 5 0103 ####[facility] [facility].[address] Nucleated RBC/100 WBC Ratio (Bld) 0 % Normal 0-0 [facility] Comment on above: Performed By: #### 5 0103 ####[facility] [facility].[address] PLAT CNT 287 10*3/uL Normal 150-[address] [facility] Comment on above: Performed By: #### 5 0103 ####[facility] [facility].[address] RBC Auto #/vol (Bld) 4.06 10*6/uL Low 4.20-5.70 [facility] Comment on above: Performed By: #### 5 0103 ####[facility] [facility].[address] WBC Auto #/vol (Bld) 12.60 10*3/uL High 4.00-10.60 [facility] Comment on above: Performed By: #### 5 0103 ####[facility] [facility].[address] PROTHROMBIN TIMEon 8 INR Coag RelTime (PPP) 1.00 {INR} Normal 0.91-1.16 [facility] Comment on above: Result Comment: ACCC P RECOMMENDED INR FOR WARFARIN THERAPY CONDITION INRPROPHYLAXIS OF VENOUS THROMBOSIS 2-3(HIGH-RISK SURGERY)TREATMENT OF VENOUS THROMBOSIS 2-3TREATMENT OF PULMONARY EMBOLISM 2-3PREVENTION OF SYSTEMIC EMBOLISM: 2-3 ACUTE MYOCARDIAL INFARCTION TISSUE HEART VALVES VALVULAR HEART DISEASE ATRIAL FIBRILLATION RECURRENT SYSTEMIC EMBOLISMMECHANICAL HEART VALVE 2.5-3.5 FROM: ORAL ANTICOAGULANTS. MECHANISM OF ACTION, CLINICALEFFECTIVENESS, AND OPTIMAL THERAPEUTIC RANGE. [id number];108:231S-246S. Performed By: #### 5 6101, [id number] ####[address] Prothrombin time (PT) Coag time (PPP) 13.2 s Normal 12.3-14.8 [facility] Comment on above: Result Comment: ALL RESULTS MUST BE INTERPRETED WITH RESPECT TO BLOOD DRAWING ARTIFACTOR DILUTION ERROR OF ANTICOAGULANT AT THE TIME OF SAMPLING. Performed By: #### 5 6101, [address] ####[address] [facility] 4 [facility]2017 CERVICAL SPINE 4 OR 5 VIEWS [facility] [address] [place] [address] ==Patient Name: BHARTI COLLIER : 1960ex: MAge: Race: WhiteMRN: [id number]. Location: 84Patient Status: OVisit #: [id number] Date: 09/08/2017 10:15:00 AMCompleted Date: 09/08/2017 10:14 AMRequesting Provider: NELA TAN Attending Provider: NELA TAN Report Copy To: Signs & Symptoms: M25.519 Pain in unspecified shoulder [id number]: AthenaComments: , , Views (X-RAY, CERVICAL SPINE): AP, Lateral, Odontoid, Flexion, Extension , , , Ordering Provider - NELA TAN MD , Rendering Provider - NELA TAN MD , Exam: CERVICAL SPINE 4 OR 5 VIEWSAccession #: [id number] =========CERVICAL SPINE 4 OR 5 VIEWS 09/08/2017 [...] findings. Electronically signed by:Kelli Rodriguez. Transcribed by: [email or web address], User Resident: JOEL LEMONElectronically Signed by: KELLI RODRIGUEZ @ 09/08/2017 02:59 PMI personally read this/these film(s) with this resident Normal [facility] Comment on above: Order Comment: , , V iews (X-RAY, CERVICAL SPINE): AP, Lateral, Odontoid, Flexion, Extension , , , Ordering Provider - NELA TAN MD , Rendering Provider - NELA TAN MD , SHOULDER LEFTon 09-08-2017 SHOULDER LEFT [facility] [address] [place] [address] ==Patient Name: BHARTI COLLIER : 1960ex: MAge: Race: WhiteMRN: [id number]. Location: 84Patient Status: OVisit #: [id number] Date: 09/08/2017 10:15:00 AMCompleted Date: 09/08/2017 10:14 AMRequesting Provider: NELA TAN Attending Provider: NELA TAN Report Copy To: Signs & Symptoms: M25.519 Pain in unspecified shoulder [id number]: AthenaComments: , , Views (X-RAY, SHOULDER): Radiologic Protocol , , , Ordering Provider - NELA TAN MD , Rendering Provider - NELA TAN MD , Exam: SHOULDER LEFTAccession #: [id number] =========SHOULDER RIGHT, SHOULDER LEFT 09/08/2017 10:14 AM [...] right Electronically signed by:Lex Benitez. Transcribed by: [email or web address], User Resident: Electronically Signed by: LEX BENITEZ @ 09/08/2017 02:07 PM Normal [facility] Comment on above: Order Comment: , , V iews (X-RAY, SHOULDER): Radiologic Protocol , , , Ordering Sarha TAN MD , Rendering Sarah TAN MD , SHOULDER RIGHTon 09-08-2017 SHOULDER RIGHT [facility] [address] [place] [address] ==Patient Name: BHARTI COLLIER : 1960ex: MAge: Race: WhiteMRN: [id number]. Location: 84Patient Status: OVisit #: [id number] Date: 09/08/2017 10:15:00 AMCompleted Date: 09/08/2017 10:14 AMRequesting Provider: NELA TAN Attending Provider: NELA TAN Report Copy To: Signs & Symptoms: M25.519 Pain in unspecified shoulder [id number]: AthenaComments: , , Views (X-RAY, SHOULDER): Radiologic Protocol , , , Ordering Provider Pollo TAN MD , Rendering Provider - NELA TAN MD , Exam: SHOULDER RIGHTAccession #: [id number] =========SHOULDER RIGHT, SHOULDER LEFT 09/08/2017 10:14 AM [...] right Electronically signed by:Lex Benitez. Transcribed by: [email or web address], User Resident: Electronically Signed by: LEX BENITEZ @ 09/08/2017 02:07 PM [place] [facility] Comment on above: Order Comment: , , V iews (X-RAY, SHOULDER): Radiologic Protocol , , , Ordering Provider - NELA TAN MD , Rendering Provider - NELA TAN MD , Vital Signs Date Time Vital Sign Value Performing Clinician Facility 09-04-2024 15:17-0400 Body height 175.3 cm Dee Dee Candelario DPM Work Phone: [facility] 09-04-2024 15:17-0400 Body mass index (BMI) [Ratio] 34.7 kg/m2 Dee Dee Timmons DPM Work Phone: [facility] 09-04-2024 15:17-0400 Body weight 106.59 kg Dee Dee Candelario DPM Work Phone: [facility] 06-19-2024 14:01-0400 Body height 167.6 cm Imelda Perez [employer] Work Phone: [facility] 06-19-2024 14:01-0400 Body mass index (BMI) [Ratio] 37.77 kg/m2 Imelda Perez [employer] Work Phone: [facility] 06-19-2024 14:01-0400 Body temperature 99.1 [degF] Imelda Perez [employer] Work Phone: [facility] 06-19-2024 14:01-0400 Body weight 106.14 kg Imelda Perez [employer] Work Phone: [facility] 06-19-2024 14:01-0400 Diastolic blood pressure 60 mm[Hg] Imelda Sosak [employer] Work Phone: [facility] 06-19-2024 14:01-0400 Heart rate 79 /min Imelda Sosak [employer] Work Phone: [facility] 06-19-2024 14:01-0400 SaO2% (BldA) [Mass fraction] 96 % Imelda Erazotrick [employer] Work Phone: [facility] 06-19-2024 14:01-0400 Systolic blood pressure 120 mm[Hg] Imelda Chengerick KWONG Work Phone: [facility] 06-14-2024 15:01-0500 Body height 172.72 cm Crystal Watson MD Work Phone: [facility] 06-14-2024 15:01-0500 Body mass index (BMI) [Ratio] 35.6 kg/m2 Crystal Watson MD Work Phone: [facility] 06-14-2024 15:01-0500 Body weight 106.5 kg Crystal Watson MD Work Phone: [facility] 06-14-2024 15:01-0500 Diastolic blood pressure 44 mm[Hg] Crystal Watson MD Work Phone: [facility] 06-14-2024 15:01-0500 Heart rate 80 /min Crystal Watson MD Work Phone: [facility] 06-14-2024 15:01-0500 Respiratory rate 18 /min Crystal Watson MD Work Phone: [facility] 06-14-2024 15:01-0500 SaO2% (BldA) [Mass fraction] 94 % Crystal Watson MD Work Phone: [facility] 06-14-2024 15:01-0500 Systolic blood pressure 113 mm[Hg] Crystal Watson MD Work Phone: [facility] 05-07-2024 15:20-0500 Body height 167.6 cm Dee Dee CHAVEZM Work Phone: [facility] 05-07-2024 15:20-0500 Body mass index (BMI) [Ratio] 38.9 kg/m2 Dee Dee CHAVEZM Work Phone: [facility] 05-07-2024 15:20-0500 Body weight 109.32 kg Dee Dee CHAVEZM Work Phone: [facility] 03-01-2024 14:00-0500 Body mass index (BMI) [Ratio] 39 kg/m2 Imelda Erazotrick [employer] Work Phone: [facility] 03-01-2024 14:00-0500 Body temperature 97.39 [degF] Imelda Erazotrick [employer] Work Phone: [facility] 03-01-2024 14:00-0500 Body weight 109.59 kg Imelda Sosak [employer] Work Phone: [facility] 03-01-2024 14:00-0500 Diastolic blood pressure 80 mm[Hg] Imelda Erazotrick [employer] Work Phone: [facility] 03-01-2024 14:00-0500 Systolic blood pressure 122 mm[Hg] Imelda Erazotrick [employer] Work Phone: [facility] 01-02-2024 14:13-0400 Body height 167.6 cm Dee Dee Timmons DPM Work Phone: [facility] 01-02-2024 14:13-0400 Body mass index (BMI) [Ratio] 39.06 kg/m2 Dee Dee Timmons DPM Work Phone: [facility] 01-02-2024 14:13-0400 Body weight 109.77 kg Dee Dee Timmons DPM Work Phone: [facility] 05-17-2023 14:45-0500 Body height 172.72 cm Tondra Mapus Other [employer] Other 05-17-2023 14:45-0500 Body mass index (BMI) [Ratio] 37.04 kg/m2 Tondra Mapus Other [employer] Other 05-17-2023 14:45-0500 Body weight 110.5 kg Tondra Mapus Other [employer] Other 05-17-2023 14:45-0500 Diastolic blood pressure 63 mm[Hg] Tondra Mapus Other [employer] Other 05-17-2023 14:45-0500 Respiratory rate 18 /min Tondra Mapus Other [employer] Other 05-17-2023 14:45-0500 SaO2% (BldA) [Mass fraction] 97 % Tondra Mapus Other [employer] Other 05-17-2023 14:45-0500 Systolic blood pressure 122 mm[Hg] Tondra Mapus Other [employer] Other 02-08-2023 14:30-0400 Body height 172.72 cm Tondra Mapus Other [employer] Other 02-08-2023 14:30-0400 Body mass index (BMI) [Ratio] 37.99 kg/m2 Tondra Mapus Other [employer] Other 02-08-2023 14:30-0400 Body weight 113.35 kg Tondra Mapus Other [employer] Other 02-08-2023 14:30-0400 Diastolic blood pressure 85 mm[Hg] Tondra Mapus Other [employer] Other 02-08-2023 14:30-0400 Respiratory rate 18 /min Tondra Mapus Other [employer] Other 02-08-2023 14:30-0400 SaO2% (BldA) [Mass fraction] 98 % Tondra Mapus Other [employer] Other 02-08-2023 14:30-0400 Systolic blood pressure 144 mm[Hg] Tondra Mapus Other [employer] Other 11-04-2022 14:45-0400 Body height 172.72 cm Tondra Mapus Other [employer] Other 11-04-2022 14:45-0400 Body mass index (BMI) [Ratio] 36.55 kg/m2 Tondra Mapus Other [employer] Other 11-04-2022 14:45-0400 Body weight 109.05 kg Tondra Mapus Other [employer] Other 11-04-2022 14:45-0400 Diastolic blood pressure 70 mm[Hg] Tondra Mapus Other [employer] Other 11-04-2022 14:45-0400 Respiratory rate 18 /min Tondra Mapus Other [employer] Other 11-04-2022 14:45-0400 SaO2% (BldA) [Mass fraction] 100 % Tondra Mapus Other [employer] Other 11-04-2022 14:45-0400 Systolic blood pressure 148 mm[Hg] Tondra Mapus Other [employer] Other 07-07-2022 15:45-0400 Body height 172.72 cm Tondra Mapus Other [employer] Other 07-07-2022 15:45-0400 Body mass index (BMI) [Ratio] 36.62 kg/m2 Tondra Mapus Other [employer] Other 07-07-2022 15:45-0400 Body weight 109.27 kg Tondra Mapus Other [employer] Other 07-07-2022 15:45-0400 Diastolic blood pressure 82 mm[Hg] Tondra Mapus Other [employer] Other 07-07-2022 15:45-0400 Respiratory rate 18 /min Tondra Mapus Other [employer] Other 07-07-2022 15:45-0400 SaO2% (BldA) [Mass fraction] 99 % Tondra Mapus Other [employer] Other 07-07-2022 15:45-0400 Systolic blood pressure 155 mm[Hg] Tondra Mapus Other [employer] Other 03-31-2022 15:15-0500 Body height 172.72 cm Tondra Mapus Other [employer] Other 03-31-2022 15:15-0500 Body mass index (BMI) [Ratio] 37.34 kg/m2 Tondra Mapus Other [employer] Other 03-31-2022 15:15-0500 Body weight 111.4 kg Tondra Mapus Other [employer] Other 03-31-2022 15:15-0500 Diastolic blood pressure 47 mm[Hg] Tondra Mapus Other [employer] Other 03-31-2022 15:15-0500 Respiratory rate 18 /min Tondra Mapus Other [employer] Other 03-31-2022 15:15-0500 SaO2% (BldA) [Mass fraction] 98 % Tondra Mapus Other [employer] Other 03-31-2022 15:15-0500 Systolic blood pressure 125 mm[Hg] Tondra Mapus Other [employer] Other 12-23-2021 14:45-0400 Body height 172.72 cm Tondra Mapus Other [employer] Other 12-23-2021 14:45-0400 Body mass index (BMI) [Ratio] 36.64 kg/m2 Tondra Mapus Other [employer] Other 12-23-2021 14:45-0400 Body weight 109.32 kg Tondra Mapus Other [employer] Other 12-23-2021 14:45-0400 Diastolic blood pressure 66 mm[Hg] Tondra Mapus Other [employer] Other 12-23-2021 14:45-0400 Respiratory rate 20 /min Tondra Mapus Other [employer] Other 12-23-2021 14:45-0400 SaO2% (BldA) [Mass fraction] 98 % Tondra Mapus Other [employer] Other 12-23-2021 14:45-0400 Systolic blood pressure 135 mm[Hg] Tondra Mapus Other [employer] Other 09-22-2021 15:30-0400 Body height 172.72 cm Tondra Mapus Other [employer] Other 09-22-2021 15:30-0400 Body mass index (BMI) [Ratio] 36.03 kg/m2 Tondra Mapus Other [employer] Other 09-22-2021 15:30-0400 Body weight 107.5 kg Tondra Mapus Other [employer] Other 09-22-2021 15:30-0400 Diastolic blood pressure 77 mm[Hg] Tondra Mapus Other [employer] Other 09-22-2021 15:30-0400 Respiratory rate 20 /min Tondra Mapus Other [employer] Other 09-22-2021 15:30-0400 SaO2% (BldA) [Mass fraction] 98 % Tondra Mapus Other [employer] Other 09-22-2021 15:30-0400 Systolic blood pressure 131 mm[Hg] Tondra Mapus Other [employer] Other 05-27-2021 14:45-0500 Body height 172.72 cm Tondra Mapus Other [employer] Other 05-27-2021 14:45-0500 Body mass index (BMI) [Ratio] 35.73 kg/m2 Tondra Mapus Other [employer] Other 05-27-2021 14:45-0500 Body weight 106.6 kg Tondra Mapus Other [employer] Other 05-27-2021 14:45-0500 Diastolic blood pressure 86 mm[Hg] Tondra Mapus Other [employer] Other 05-27-2021 14:45-0500 Respiratory rate 20 /min Tondra Mapus Other [employer] Other 05-27-2021 14:45-0500 SaO2% (BldA) [Mass fraction] 100 % Tondra Mapus Other [employer] Other 05-27-2021 14:45-0500 Systolic blood pressure 147 mm[Hg] Tondra Mapus Other [employer] Other 02-17-2021 14:30-0500 Body height 172.72 cm Tondra Mapus Other [employer] Other 02-17-2021 14:30-0500 Body mass index (BMI) [Ratio] 36.03 kg/m2 Tondra Mapus Other [employer] Other 02-17-2021 14:30-0500 Body weight 107.5 kg Tondra Mapus Other [employer] Other 02-17-2021 14:30-0500 Diastolic blood pressure 78 mm[Hg] Tondra Mapus Other [employer] Other 02-17-2021 14:30-0500 Respiratory rate 16 /min Tondra Mapus Other [employer] Other 02-17-2021 14:30-0500 SaO2% (BldA) [Mass fraction] 98 % Tondra Mapus Other [employer] [facility] [employer] Other 02-17-2021 14:30-0500 Systolic blood pressure 136 mm[Hg] Tondra Mapus Other [employer] Other 12-11-2018 18:00-0400 Body Temperature 97.8 [degF] Crystal Walter [facility] 12-11-2018 18:00-0400 BP Diastolic 77 mm[Hg] Crystal Walter [facility] 12-11-2018 18:00-0400 BP Systolic 152 mm[Hg] Crystal Walter [facility] 12-11-2018 18:00-0400 Pulse (Heart Rate) 95 /min [facility] 12-11-2018 18:00-0400 Pulse Oximetry 96 % [facility] 12-11-2018 18:00-0400 Respiratory Rate 18 /min Crystalvelvet Watson [facility] 12-11-2018 07:57-0400 Body weight 108.5 kg [facility] 12-10-2018 08:00-0400 Body weight 103 kg [facility] 12-10-2018 06:00-0400 Body Temperature 99.2 [degF] [facility] 12-10-2018 06:00-0400 BP Diastolic 74 mm[Hg] Crystal Deshler [facility] 12-10-2018 06:00-0400 BP Systolic 143 mm[Hg] Crystal Deshler [facility] 12-10-2018 06:00-0400 Pulse (Heart Rate) 87 /min Crystal Deshler [facility] 12-10-2018 06:00-0400 Pulse Oximetry 95 % Crystal Walter [facility] 12-10-2018 06:00-0400 Respiratory Rate 18 /min Crystal Deshler [facility] 12-09-2018 13:06-0400 BMI (Body Mass Index) 34.7 kg/m2 Crystal Watson [facility] 12-09-2018 13:0400 Height 172.72 cm [facility] NEGATED: Highlighted row BMI (Body Mass Index) [facility] NEGATED: Highlighted row Body Temperature Crystal Watson [facility] NEGATED: Highlighted row Body weight Crystal Watson [facility] NEGATED: Highlighted row BP Diastolic Crystal [facility] NEGATED: Highlighted row BP Systolic [facility] NEGATED: Highlighted row Height [facility] NEGATED: Highlighted row Pulse (Heart Rate) [facility] NEGATED: Highlighted row Pulse [facility] NEGATED: Highlighted row Respiratory Rate [facility] Encounters Encounter Date Encounter Type Care Provider Facility Start: 11-09-2024 ambulatory Brendon Beckford acility:[facility] Start: 11-09-2024 ambulatory [facility] Start: 10-08-2024 ambulatory [facility] Start: 09-10-2024 ambulatory [facility] Start: 09-04-2024 End: 09-04-2024 ambulatory DEE DEE TIMMONS Not Available Start: 09-04-2024 End: 09-04-2024 Patient encounter procedure Dee Dee Timmons DPM Work Phone: [facility] Comment on above: Dermatophytosis of n ail (Primary Dx); Dystrophic nail; Pain around toenail, right foot; Pain around toenail, left foot Start: 09-04-2024 End: 09-04-2024 Bubbaboo flowsrashard Timmons DPM Work Phone: [facility] Start: 09-04-2024 End: 09-04-2024 Bamboo flowsheet Dee Dee Timmons DPM Work Phone: [facility] Start: 08-31-2024 End: 09-10-2024 Follow-up encounter Imelda Perez [employer] Work Phone: [facility] Start: 08-30-2024 End: 08-30-2024 ambulatory IMELDA PEREZ Not Available Start: 08-10-2024 ambulatory [facility] Start: 06-19-2024 End: 06-19-2024 Bamboo flowsheet Imelda Perez [employer] Work Phone: [facility] Start: 06-19-2024 End: 06-19-2024 Bamboo flowsheet Imelda Perez [employer] Work Phone: [facility] Start: 06-19-2024 End: 06-19-2024 Office outpatient visit 25 minutes Imelda Perez [employer] Work Phone: [facility] Comment on above: Fever, unspecified f ever cause (Primary Dx); Acute right otitis media; Bronchitis; Viral URI with cough; Influenza A Start: 06-19-2024 End: 06-19-2024 ambulatory IMELDA PEREZ Not Available Start: 06-14-2024 End: 06-14-2024 ambulatory Crystal Watson MD Work Phone: [facility] Work Phone: Start: 06-14-2024 End: 06-14-2024 Patient encounter procedure Crystal Watson MD Work Phone: [facility] Work Phone: Start: 06-13-2024 Registered Recurring Crystal Watson MD Work Phone: [facility] Start: 06-09-2024 End: 06-09-2024 ambulatory [facility] Start: 06-06-2024 End: 06-06-2024 Refill Imelda Perez [employer] Work Phone: [facility] Comment on above: Benign prostatic hyp erplasia with lower urinary tract symptoms Start: 05-14-2024 End: 05-14-2024 ambulatory [facility] Start: 05-07-2024 End: 05-07-2024 ambulatory DEE DEE TIMMONS Not Available Start: 05-07-2024 End: 05-07-2024 Patient encounter procedure Dee Dee Timmons DPM Work Phone: [facility] Comment on above: Dermatophytosis of n ail (Primary Dx); Dystrophic nail; Pain around toenail, right foot; Pain around toenail, left foot Start: 04-12-2024 End: 04-12-2024 ambulatory [facility] Start: 03-19-2024 End: 03-19-2024 ambulatory [facility] Start: 03-07-2024 End: 03-12-2024 Refill Whitney Hunt DO Work Phone: [facility] Comment on above: Edema, unspecified t ype Start: 03-01-2024 End: 03-01-2024 Bamboo flowsheet Imelda Perez [employer] Work Phone: [facility] Start: 03-01-2024 End: 03-01-2024 Bamboo flowsheet Imelda Perez [employer] Work Phone: [facility] Start: 03-01-2024 End: 03-01-2024 Office outpatient visit 25 minutes Imelda Perez [employer] Work Phone: [facility] Comment on above: Type 2 diabetes gabe itus with stage 2 chronic kidney disease, with long-term current use of insulin ([facility]) (Primary Dx); Morbid obesity due to excess calories ([facility]) Start: 03-01-2024 End: 03-01-2024 ambulatory IMELDA PEREZ Not Available Start: 02-24-2024 End: 02-24-2024 ambulatory TONDRA [facility] Start: 02-13-2024 End: 02-13-2024 ambulatory [facility] Start: 01-12-2024 End: 01-12-2024 ambulatory [facility] Start: 01-06-2024 End: 01-09-2024 Refill Whitney G Gilbert DO Work Phone: [facility] Comment on above: Benign prostatic hyp erplasia with lower urinary tract symptoms; Essential hypertension ([facility]/HCC); Acquired hypothyroidism ([facility]/HCC) Start: 01-02-2024 End: 01-02-2024 Patient encounter procedure Dee Dee Timmons DPM Work Phone: [facility] Comment on above: Dermatophytosis of n ail (Primary Dx); Dystrophic nail; Pain around toenail, right foot; Pain around toenail, left foot Start: 01-02-2024 End: 01-02-2024 ambulatory DEE DEE TIMMONS Not Available Start: 01-02-2024 End: 01-02-2024 Bamboo flowsheet Dee Dee Timmons DPM Work Phone: [facility] Start: 01-02-2024 End: 01-02-2024 Bamboo flowsheet Dee Dee Timmons DPM Work Phone: [facility] Start: 12-14-2023 End: 12-14-2023 ambulatory [facility] Start: 12-11-2023 End: 12-13-2023 Refill Whitney G Gilbert DO Work Phone: [facility] Comment on above: Essential (primary) hypertension (CMS/HCC) Start: 12-02-2023 End: 12-02-2023 ambulatory TONDRA [facility] Start: 05-17-2023 End: 05-17-2023 Discharged Recurring MD [facility] Work Phone: Start: 05-17-2023 (DM) Diabetes Tondra Mapus [facility] Start: 05-17-2023 End: 05-17-2023 ambulatory MD Crystal Watson Work Phone: [employer] Other Start: 02-28-2023 Registered Recurring MD Franko Watson Work Phone: [facility] Start: 02-08-2023 (DM) Diabetes Tondra Mapus [facility] Start: 02-08-2023 End: 02-08-2023 ambulatory Tondra Mapus Other [employer] Other Start: 01-10-2023 End: 01-10-2023 ambulatory Tondra Mapus Other [employer] Other Start: 01-10-2023 Telephone encounter Tondra Mapus [facility] Start: 11-04-2022 (DM) Diabetes Tondra Mapus [facility] Start: 11-04-2022 End: 11-04-2022 ambulatory Tondra Mapus Other [employer] Other Start: 07-07-2022 (DM) Diabetes Tondra Mapus [facility] Start: 07-07-2022 End: 07-07-2022 ambulatory Tondra Mapus Other [employer] Other Start: 03-31-2022 (DM) Diabetes Tondra Mapus [facility] Start: 03-31-2022 End: 03-31-2022 ambulatory Tondra Mapus Other [employer] Other Start: 12-23-2021 (DM) Diabetes Tondra Mapus [facility] Start: 12-23-2021 End: 12-23-2021 ambulatory Tondra Mapus Other [employer] Other Start: 12-22-2021 End: 12-22-2021 ambulatory Tondra Mapus Other [employer] Other Start: 12-22-2021 Telephone encounter Tondra Mapus [facility] Start: 12-21-2021 End: 12-21-2021 ambulatory Tondra Mapus Other [employer] Other Start: 12-21-2021 Telephone encounter Tondra Mapus [facility] Start: 09-22-2021 (DM) Diabetes Tondra Mapus [facility] Start: 09-22-2021 End: 09-22-2021 ambulatory Tondra Mapus Other [employer] Other Start: 05-27-2021 (DM) Diabetes Tondra Mapus [facility] Start: 05-27-2021 End: 05-27-2021 ambulatory Tondra Mapus Other [employer] Other Start: 04-06-2021 End: 04-06-2021 ambulatory Tondra Mapus Other [employer] Other Start: 04-06-2021 Telephone encounter Tondra Mapus [facility] Start: 02-17-2021 (DM) Diabetes Tondra Mapus [facility] Start: 02-17-2021 End: 02-17-2021 ambulatory Tondra Mapus Other [employer] Other Start: 12-15-2020 End: 12-17-2020 Evaluation and management of inpatient DIXON DICKINSON Facility:[facility] Start: 05-14-2019 End: 05-15-2019 Patient encounter procedure CRYSTAL WATSON [facility] Start: 05-14-2019 End: 05-14-2019 Subsequent hospital visit by physician [facility] Start: 12-09-2018 End: 12-11-2018 Evaluation and management of inpatient Crystal Watson [facility] Start: 06-27-2018 Registered Recurring Crystal Watson [facility] Start: 01-19-2018 End: 01-20-2018 Patient encounter CHERIE SHEA Facility:[facility] Start: 10-13-2017 End: 10-13-2017 Discharged Recurring Crystal Watson [facility] Start: 10-10-2017 End: 10-11-2017 Patient encounter NELA TAN Facility:[facility] Start: 10-06-2017 Encounter for preprocedural laboratory examination DEFAULT PHYSICIAN [facility] Start: 10-06-2017 End: 10-07-2017 Patient encounter NELA TAN Facility:[facility] Start: 09-08-2017 End: 09-09-2017 Patient encounter NELA NENA Facility:[facility] Start: 09-01-2017 End: 09-02-2017 Patient encounter DEFAULT PHYSICIAN Facility:[facility] Encounter for preprocedural laboratory examination DEFAULT PHYSICIAN [facility] Procedures Date Procedure Procedure Detail Performing Clinician [...] EST Office Visit [facility] [address] [place] [phone] Imelda Perez NP [address] [place] [address] [facility] Start: 02-23-2025 Urine screening for protein Diabetes: Urine Protein Screening [facility] Start: 01-02-2025 End: 01-02-2025 Patient encounter procedure 01/02/2025 2:15 PM EDT Procedure Visit [facility] [address] [place] [phone] Dee Dee Timmons DPM [address] [address] [facility] Start: 12-10-2024 Influenza vaccination Influenz a Vaccine (Season Ended) [facility] Start: 12-01-2024 Urine screening for protein Diabetes: Urine Protein Screening [facility] Start: 11-30-2024 Hemoglobin A1c measurement Diabetes: Hemoglobin A1C [facility] Start: 09-04-2024 End: 09-04-2024 Patient encounter procedure 09/04/2024 3:15 PM EDT Procedure Visit [facility] [address] [place] [address] Dee Dee Timmons DPM [address] [place] [address] [facility] Start: 08-30-2024 End: 08-30-2024 Patient encounter procedure 08/30/2024 2:30 PM EDT [facility] [address] [place] [phone] Imelda Perez [employer] [address] [place] [address] [facility] Start: 06-19-2024 End: 06-19-2024 Patient encounter procedure 06/19/2024 2:00 PM EDT Office Visit [facility] [address] [place] [phone] Imelda Perez NP [address] [place] [address] Arrived [facility] Comment on above: Arrived Start: 06-01-2024 Hemoglobin A1c measurement Diabetes: Hemoglobin A1C [facility] Start: 05-07-2024 End: 05-07-2024 Patient encounter procedure 05/07/2024 3:15 PM EST Procedure Visit [facility] [address] [place] [phone] Dee Dee Timmons DPKandice [address] [place] [address] [facility] Start: 04-26-2024 Influenza vaccination Influenza Vacc ine (#1) [facility] Comment on above: Postponed from 12/10 (Patient Refused) Start: 03-01-2024 End: 03-01-2024 Patient encounter procedure [facility] Comment on above: Arrived Start: 02-29-2024 Hemoglobin A1c measurement Diabetes: Hemoglobin A1C [facility] Start: 01-02-2024 End: 01-02-2024 Patient encounter procedure [facility] Comment on above: Arrived Start: 12-11-2023 Influenza vaccination Influenza Vacc ine (#1) [facility] Start: 05-17-2020 Glaucoma screening Diabetes: R etinopathy Screening [facility] Start: 12-10-2018 Influenza vaccination Flu vaccine (# 1) [employer] Work Phone: Start: 1960 Screening for malign ant neoplasm of colon [facility] Immunizations Immunization Date Immunization Notes Care Provider Fa cility 01-25-2022 influenza, injectabl e, quadrivalent, preservative free Whitney Gilbert DO Work Phone: [facility] 01-25-2022 influenza virus vacc ine, unspecified formulation Whitney Gilbert DO Work Phone: [facility] 01-07-2021 influenza, injectabl e, quadrivalent, contains preservative Whitney Gilbert DO Work Phone: [facility] 07-31-2020 Moderna SARS-CoV-2 Vaccination Whitney Gilbert DO Work Phone: [facility] 07-23-2020 Pfizer Purple Cap SARS-CoV-2 Vaccination Whitney Gilbert DO Work Phone: [facility] 07-21-2020 COVID-19 Vaccine Pfi zer - Documentation Purposes Only Tondra Mapus Other [facility] 07-01-2020 Pfizer Purple Cap SARS-CoV-2 Vaccination Whitney Gilbert DO Work Phone: [facility] 06-09-2020 COVID-19 Vaccine Pfi zer - Documentation Purposes Only Tondra Mapus Other [facility] 01-07-2020 influenza, injectabl e, quadrivalent, contains preservative Whitney Gilbert DO Work Phone: [facility] 01-01-2019 seasonal influenza, intradermal, preservative free Whitney Gilbert DO Work Phone: [facility] 12-03-2017 seasonal influenza, intradermal, preservative free Whitney Gilbert DO Work Phone: [facility] 01-24-2017 pneumococcal conjuga te vaccine, 13 valent Whitney Gilbert DO Work Phone: [facility] 02-16-2016 influenza, injectabl e, quadrivalent, preservative free Whitney Gilbert DO Work Phone: [facility] 01-16-2015 influenza, seasonal, injectable Tondra Mapus Other [facility] 04-11-2008 pneumococcal polysaccharide vaccine, 23 valent Whitney Hunt DO Work Phone: [facility] Payers Date Payer Category Payer Unknown [id number] 2022 Self-pay 2020 Medicare [id number] 2019 [facility] er Subscriber Plan / Payer (Effective 2019-Present) Name: EarleAyden barretteileen Sanchez Relation to Subscriber: Self Name: Bharti Collier Payer ID: Not on file Type: Not on file Address: [place] [id number] 2019 Unknown 2019 Unknown [employer] xxxxxxxxxxxxxxx 2019-Present Indemnity xxxxxxxxxxxxxxx [id number] 2017 Worker's Compensation [id number] 1959 Unknown [id number] 2.16840.1.166551.3.579.2 .647 1959 Unknown [id number] 2.16.840.1.933941.3.579.2 .647 1959 Unknown [id number] 2.16840.1.641918.3.579.2 .647 1959 Unknown [id number] 2.16.840.1.727395.3.579.2 .647 1959 Unknown [id number] 2.16840.1.089631.3.579.2 .647 1959 Unknown [id number] 2.16.840.1.965266.3.579.2 .173 1959 Unknown [id number] 2.16.840.1.182546.3.579.2 .593 1959 Unknown [id number] 2.16.840.1.901568.3.579.2 .1259 1959 Unknown [id number] 2.16.840.1.085650.3.579.2 .1259 1959 Unknown [id number] 2.16.840.1.528215.3.579.2 .1259 1959 Unknown [id number] 2.16.840.1.352089.3.579.2 .9 1959 Unknown [id number] 2.16.840.1.153715.3.579.2 .1259 1959 Unknown [id number] 2.16840.1.884770.3.579.2 .1259 1959 Unknown [id number] 2.16.840.1.736180.3.579.2 .1286 1959 Unknown [id number] 2.16.840.1.737290.3.579.2 .1286 1959 Unknown [id number] 2.16.840.1.202541.3.579.2 .1286 1959 Unknown [id number] 2.16.840.1.627171.3.579.2 .128 1959 Unknown [id number] 2.16.840.1.098031.3.579.2 .1286 1959 Unknown [id number] 2.16.840.1.709930.3.579.2 .1285 1959 Unknown [id number] 2.16.840.1.704851.3.579.2 .1286 1959 Unknown [id number] 2.16.840.1.276429.3.579.2 .1286 1959 Unknown [id number] 2.16.840.1.856520.3.579.2 .1286 1959 Unknown [id number] 2.16.840.1.363692.3.579.2 .1286 1959 Unknown [id number] 2.16.840.1.981450.3.579.2 .1285 1959 Unknown [id number] 2.16.840.1.796791.3.579.2 .1286 1959 Unknown [id number] 2.16.840.1.887634.3.579.2 .1286 1960 [place] [address] [id number] 1960 Medicare [id number] Unknown [id number] Unknown [id number] 2.16.840.1.154716.3.579.2 .531 Social History Date Type Detail Facility Tobacco smoking stat us [facility] Unknown if ever smoked [employer] Phone: Start: 1960 Sex Assigned At Not on file [facility] [employer] Phone: Start: 09-02-2022 End: 08-30-2024 Sex Assigned At [facility] Start: 12-21-2018 Tobacco smoking stat [facility] Never smoked tobacco (finding) [facility] Start: 1960 Sex Assigned At Male [facility] Start: 08-23-2023 End: 01-02-2024 Tobacco smoking status LAIS Ex-smoker [facility] Start: 04-11-1973 End: 04-11-1999 History of tobacco use Current smoker [facility] Start: 04-11-1973 End: 04-11-1999 History of tobacco use Cigarette Smoker [facility] Start: 09-02-2022 End: 01-02-2024 Tobacco use and exposure Smokeless tobacco non-user [facility] Start: 01-02-2024 End: 08-30-2024 Alcoholic beverage intake Current drinker of alcohol (finding) [facility] Start: 09-02-2022 End: 08-30-2024 History of [...] Not at all [facility] (I/We) worried [facility] (my/our) food would run out before (I/we) got money to buy more. Never true [facility] Start: 09-01-2022 Tobacco Comment Last smoked 10 - 15 years [facility] Start: 09-01-2022 Alcohol Comment caffeine intak e: 2-3 cups per day [facility] Start: 06-14-2024 Sex Male (finding) [facility] Medical Equipment Procedure Code Equipment Code Equipment [...] Labs are stable documented in this encounter [facility] 09-04-2024 History of Presen t illness [...] insulin pen needle 32G x 6 mm amg [facility], Inject 1 each under the skin Daily, [...] Dee Timmons DPM documented in this encounter [facility] 09-04-2024 Instructions Dee Dee Timmons DPM - 09/04/2024 3:15 PM EDT As noted documented in this encounter [facility] 08-31-2024 Progress note Formatting of t his note might be different from the original. Let patient know his blood sugar result and his hgba1c. Labs are stable [facility] 06-19-2024 History of Presen t illness [...] markedly worsening symptoms. documented in this encounter [facility] 05-07-2024 History of Presen t illness Narrative Images from the original note were not included. Subjective Patient ID: Bharti Collier is a 63 y.o. male who presents for Nail care (Bharti oCllier is a 63 y.o. male who presents [...] Dee Timmons DPM documented in this encounter [facility] 03-01-2024 History of Presen t illness [...] excess calories (CMS/HCC) documented in this encounter [facility] 01-06-2024 Telephone encount er Note Needs an appointment to refill medication [facility] 01-06-2024 Miscellaneous Notes Formattin g of this note might be different from the original. Needs an appointment to refill medication documented in this encounter [facility] 01-02-2024 History of Presen t illness [...] Dee Timmons DPM documented in this encounter [facility] 01-02-2024 Instructions Dee Dee Timmons DPM - 01/02/2024 2:15 PM EDT As noted documented in this encounter [facility] 05-17-2023 Evaluation note Encounter Date Diagnosis [...] 6.8% 2. Blood glucose levels according to de[employer]INK g6 cgm download 05/04/2023-2023: Avg glucose 158, [...] or diabetes medication issues. 6. Prescriptions: [facility] [place] 05/17/23; DME: [facility] [place] at this time. 7. Prescriptions will not [...] hypertension material was printed on ivan May, editor publications current use of insulin (ICD-10 - Z79.4) May, Vitamin B 12 deficiency (ICD-10 - E53.8) Good food sources of vitamin B12 material was printed, 11/2021 Vit. B 12 411 at target May, BMI 37.0-37.9, adult (ICD-10 - Z68.37) Health and nutrition information material was printed 6 pound weight loss from last visit, continue with weight loss efforts [facility] Other 10-31-2023 Evaluation note* Encounter Date Diagnosis [...] f/u with pcp for further recommendation. Jan, senior living current use of insulin (ICD-10 - Z79.4) Jan, Vitamin B 12 deficiency (ICD-10 - E53.8) Good food sources of vitamin B12 material was printed, 11/2021 Vit. B 12 411 at target Jan, BMI 37.0-37.9, adult (ICD-10 - Z68.37) Health and nutrition information material was printed [facility] Other 07-27-2023 Evaluation note* Encounter Date Diagnosis [...] Blood glucose levels slightly higher. According to [employer] g6 cgm download 10/22/2022- 3: Avg glucose [...] f/u with pcp for further recommendation. Oct, editor publications current use of insulin (ICD-10 - Z79.4) Oct, Vitamin B 12 deficiency (ICD-10 - E53.8) Good food sources of vitamin B12 material was printed, 11/2021 Vit. B 12 411 at target Oct, Albuminuria (ICD-10 - R80.9) Protein, urine material was printed Reviewed importance of glucose/bp control to prevent further nephropathy. Oct, BMI 36.0-36.9,adult (ICD-10 - Z68.36) Health and nutrition information material was printed [employer] Other 03-29-2023 Evaluation note* Encounter Date Diagnosis [...] f/u with pcp for further recommendation. Jun, editor publications current use of insulin (ICD-10 - Z79.4) [...] last visit, continue with weight loss efforts [facility] Other 12-21-2022 Evaluation note* Encounter Date Diagnosis [...] days while 4.5mg/0.5ml is unavailable phoned to [facility]: Gurinder. Pt was given sample trulicity 1.5mg [...] hypertension material was printed on ivan. Mar, senior living current use of insulin (ICD-10 - Z79.4) [...] Health and nutrition information material was printed [facility] Other 09-14-2022 Evaluation note* Encounter Date Diagnosis [...] and he entered new transmitter/sensor codes into proj mgr and started cgm successfully. Notified dexcom rep [...] was printed on ivan. 14 Dec, 2021 editor publications current use of insulin (ICD-10 - Z79.4) [...] Health and nutrition information material was printed [facility] Other 2022 Evaluation note* Encounter Date Diagnosis Assessment Notes Treatment Notes Treatment Clinical Notes Dec, Type 2 diabetes mellitus with unspecified complications (ICD-10 - E11.8) [facility] Other 09-12-2022 Evaluation note* Encounter Date Diagnosis Assessment Notes Treatment Notes Treatment Clinical Notes Dec, Type 2 diabetes mellitus with hyperglycemia (ICD-10 - E11.65) [facility] Other 06-14-2022 Evaluation note* Encounter Date Diagnosis [...] was printed on ivan. 14 Sep, 2021 editor publications current use of insulin (ICD-10 - Z79.4) [...] Health and nutrition information material was printed [facility] Other 02-16-2022 Evaluation note* Encounter Date Diagnosis [...] starchy vegetables/lean protien. Pt to talk with inclusion special educator to troubleshoot dexcom g6. Note: pt [...] hypertension material was printed on ivan. May, editor publications current use of insulin (ICD-10 - Z79.4) [...] re-educating the patient by Evelia Sultana RN. [facility] Other 11-09-2021 Evaluation note* Encounter Date Diagnosis [...] hypertension material was printed on ivan. Feb, senior living current use of insulin (ICD-10 - Z79.4) [...] last visit, continue with weight loss efforts [employer] Other Evaluation noteNo InformationNort [employer] Other Evaluation noteNo assessment information available [facility] Work Phone: Evaluvvdts note* Diagnosis Type 2 diabetes mellitus with stage 2 chronic kidney disease, with long-term current use of insulin ([facility])- Primary Morbid obesity due to excess calories ([facility]) documented in this encounter [facility] HealthcareEvaluation note* Diagnosis Edema, unspecified type documented in this encounter [facility] HealthcareEvaluation note* Diagnosis Essential (primary) hypertension ([facility]) Unspecified essential hypertension documented in this encounter [facility] HealthcareEvaluation note* Diagnosis Dermatophytosis of nail- Primary Dystrophic nail Other specified disease of nail Pain around toenail, right foot Pain around toenail, left foot documented in this encounter [facility] HealthcareEvaluation note* Diagnosis Benign prostatic hyperplasia with lower urinary tract symptoms Essential hypertension (CMS/HCC) Unspecified essential hypertension Acquired hypothyroidism ([facility]) Unspecified hypothyroidism documented in this encounter [facility] HealthcareEvaluation note* Diagnosis Benign prostatic hyperplasia with lower urinary tract symptoms documented in this encounter [facility] HealthcareEvaluation note* Diagnosis Fever, unspecified fever cause- Primary Acute right otitis media Bronchitis Bronchitis, not specified as acute or chronic Viral URI with cough Influenza A Influenza with other respiratory manifestations documented in this encounter [facility] HealthcareEvaluation note* Diagnosis Onset Date Resolution Status Admit Date Adult BMI 37.0-37.9 kg/sq m acute June 14, 2024 2:48pm Dietary counseling and surveillance acute June 14, 2024 2:48pm Vitamin B 12 deficiency acute M 2024 2:48pm Diabetes chronic June 14 2:48pm HTN (hypertension) chronic June 14, 2024 2:48pm Hyperlipidemia chronic June 14, 2024 2:48pm [facility] Work Phone: Evaluation note* Diagnosis Dermatophytosis of nail- Primary Dystrophic nail Other specified disease of nail Pain around toenail, right foot Pain around toenail, left foot documented in this encounter [facility] HealthcareHistory general Narrative - Reported* Type Description Date Medical History DM2 Medical History HYPERLIPEDEMIA Medical History HTN Medical History Schizophrenic Surgical History bi-lat rotator cuff surgery 201 0 Surgical History right knee surgery 2004 Surgical History ulna nerve right arm 10-09-17 Hospitalization History Depression 1989 Hospitalization History Mental Issues 2018 [facility] Other Summary Purpose Family History No Family [...] Documents on File Type Date Recorded 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 Advance Directives and Living Will Power of Button Bradder Advance Directive Response Recorded Date/ Time Advance [...] June 14 2:48pm Dietary counseling and surveillance [facility] 2024 2:48pm Vitamin B 12 deficiency June [...] section and content) DATE CREATED AUTHOR 02/23/2018 [facility] DATE CREATED AUTHOR AUTHOR'S ORGANIZ ATION 05/14/2019 [facility] pital DATE CREATED AUTHOR AUTHOR'S ORGANIZ ATION 12/26/2020 [facility] pital DATE CREATED AUTHOR AUTHOR'S ORGANIZ ATION 09/06/2024 [facility] EPIC DATE CREATED AUTHOR AUTHOR'S ORGANIZ ATION 11/12/2024 [facility] DATE CREATED AUTHOR AUTHOR'S ORGANIZ ATION 11/17/2024 [facility] REASON FOR VISIT (unrecogniz ed section [...] May 17, 2023 End: May 17, 2023 Airline Pilot Flight Instructor Relationship Specialty Start Date End Date Whitney Hunt DO [address] [place] [address] PCP - ACO Reach 09/02/22 Samantha Dawn MD [address] [place] [address] PCP - General Family Medicine 05/02/23 Airline Pilot Flight Instructor Relationship Specialty Start Date End Date Whitney Hunt DO [address] [place] [address] PCP - ACO Reach 09/02/22 Samantha Dawn MD [address] [place] [address] PCP - General Family Medicine 05/02/23 Airline Pilot Flight Instructor Relationship Specialty Start Date End Date Whitney Hunt DO [address] [place] [address] PCP - ACO Reach 09/02/22 Samantha Dawn MD [address] [place] [address] PCP - General Family Medicine 05/02/23 Airline Pilot Flight Instructor Relationship Specialty Start Date End Date GilbertDariencasper ArteagaDO [address] [place] [address] PCP - ACO Reach 09/02/22 Samantha Dawn MD [address] [place] [address] PCP - General Family Medicine 05/02/23 Airline Pilot Flight Instructor Relationship Specialty Start Date End Date GilbertDariencasper ArteagaDO [address] [place] [address] PCP - ACO Reach 09/02/22 Samantha Dawn MD [address] [place] [address] PCP - General Family Medicine 05/02/23 Airline Pilot Flight Instructor Relationship Specialty Start Date End Date Whitney Hunt ChandlerDO [address] [place] [address] PCP - ACO Reach 09/02/22 Samantha Dawn MD [address] [place] [address] PCP - General Family Medicine 05/02/23 Airline Pilot Flight Instructor Relationship Specialty Start Date End Date Samantha Dawn MD [address] [place] [address] PCP - General Family Medicine 05/02/23 Whitney Hunt DO [address] [place] [address] PCP - ACO Reach 05/25/24 Airline Pilot Flight Instructor Relationship Specialty Start Date End Date Samantha Dawn MD [address] [facility] [place] [address] PCP - General Family Medicine 05/02/23 Whitney Hunt DO [address] [facility] [place] [address] PCP - ACO Reach 05/25/24 Airline Pilot Flight Instructor Relationship Specialty Start Date End Date Samantha Dawn MD [address] [facility] [place] [address] PCP - General Family Medicine 05/02/23 Whitney Hunt DO [address] [facility] [place] [address] PCP - ACO Reach 05/25/24 Team Status: [...] June 14, 2024 End: June 14, 2024 Airline Pilot Flight Instructor Relationship Specialty Start Date End Date Samantha Dawn MD [address] [facility] [place] [address] PCP - General Family Medicine 05/02/23 Airline Pilot Flight Instructor Relationship Specialty Start Date End Date Samantha Dawn MD [address] [place] [place] [address] PCP - General Family Medicine 05/02/23 Airline Pilot Flight Instructor Relationship Specialty Start Date End Date Samantha Dawn MD [address] [place], [place] [id number] PCP - General Family Medicine 05/02/23 Goals [...] BE BASED ON THE PRIMARY CLINICAL RECORDS. [employer] [facility]. provides no warranty or guarantee of the accuracy or completeness of information in this document.
[2024-12-11] MEDS: 0.9 % SODIUM CHLORIDE 1,000 ML 250 ML IV (01:23)
[2024-12-11] MEDS: METRONIDAZOLE/SODIUM CHLORIDE 500 MG/100 ML PREMIX 100 MG IV ×3 (01:24→16:02)
[2024-12-11] MEDS: HEPARIN SODIUM (PORCINE) 5,000 UNIT/ML VIAL 5000 UNIT SUBQ (01:29)
[2024-12-11 05:52] LABS: Hematocrit 31.9 % (42.0-54.0); Hemoglobin 11.0 g/dL (14.0-18.0); Mean Corpuscular HGB Conc 34.5 g/dL (29.9-35.2); Mean Corpuscular Hemoglobin 30.1 pg (25.9-34.0); Mean Corpuscular Volume 87.4 fL (80.0-94.0); Platelet Count 280 10^3/uL (150-450); Red Blood Count 3.65 10^6/uL (4.70-6.10); White Blood Count 13.8 10^3/uL (4.0-11.0)
[2024-12-11 06:03] LABS: Anion Gap 13.1; Blood Urea Nitrogen 25.0 mg/dL (7.0-18.0); Calcium 7.7 mg/dL (8.5-10.1); Carbon Dioxide 25.7 mmol/L (21.0-32.0); Chloride 101 mmol/L (98-107); Estimated GFR (African America 46 (>=60 mL/min/1.73m^2); Estimated GFR (Non-African Ame 38 (>=60 mL/min/1.73m^2); Glucose 235 mg/dL (74-106); Potassium 3.8 mmol/L (3.5-5.1); Sodium 136 mmol/L (136-145)
[2024-12-11 06:15] LABS: Lactate/Lactic Acid 1.5 mmol/L (0.4-2.0)
[2024-12-11] MEDS: 0.9 % SODIUM CHLORIDE 1,000 ML 125 ML IV (06:28)
[2024-12-11] MEDS: INSULIN ASPART 300 UNIT/3 ML PEN SUBQ ×2 (07:33→11:18)
--- NOTE | 2024-12-11 09:30 | CM.NOTE ---
Rounds made with Dr. Barragan, discussed plan of care with pt. RN will send stool today, testing entered by Dr. Barragan. Pt continues to c/o L sided abdominal pain. Hold ASA and Heparin today.
[2024-12-11] MEDS: LEVOFLOXACIN IN DEXTROSE 5 % 750 MG/150 ML PREMIX 100 MG IV (11:20)
[2024-12-11 11:59] LABS: C. Difficile PCR NEGATIVE
[2024-12-11] MEDS: PANTOPRAZOLE SODIUM 40 MG VIAL IV ×2 (13:49→21:02)
[2024-12-11 14:15] LABS: Hematocrit 30.9 % (42.0-54.0); Hemoglobin 10.6 g/dL (14.0-18.0)
--- NOTE | 2024-12-11 14:16 | PM.IMHP1 ---
Internal Medicine - H&P: HPI History of Present Illness Chief complaint: ENTEROCOLITIS ALTHEA ACUTE HYPERGLYCEMIA Narrative: Mr Collier is a 64-year-old male with a past medical history notable for anemia, diabetes, schizophrenia, and hypertension who presented to the hospital yesterday evening with a chief complaint of abdominal discomfort and diarrhea. Approximately 24 hours prior to arrival, the patient states he will eat at [employer]. Just before eating he had some heartburn sensation but otherwise was feeling well and at his normal state of health, shortly after he ate at [employer] he developed sudden onset abdominal discomfort and numerous episodes of diarrhea. No one else in his group that he ate with developed any symptoms. He subsequently came to emergency room, he reports no history of abdominal discomfort in the past. He has been compliant with medications recently. There has been no report of blood in his emesis. Of note, he was admitted to the hospital yesterday evening, the on-call night physician placed an basic admission orders and continuing on him antibiotics, my first time seeing the patient was this morning on rounds. This morning, he does endorse feeling little bit better, his pain is improved, he is not nauseous though there is an emesis bag next to him if needed. He is still having diarrhea. A sample was collected this morning, I did examine the specimen cup and it was noted to be mostly liquid and in the cup, the top half appeared to be a dark red. Review of Systems ROS Status of ROS 10 or more systems reviewed and unremarkable except as noted in history and below PFSH PFS Medical History (Updated 12/11/24 @ 14:23 by ROBIN BROWER DO) Hyperlipemia ?E78.5 - Hyperlipidemia, unspecified (ICD-10) Diabetes ?E11.9 - Type 2 diabetes mellitus without complications (ICD-10) Schizophrenia ?F20.9 - Schizophrenia, unspecified (ICD-10) HTN (hypertension) ?I10 - Essential (primary) hypertension (ICD-10) Surgical History (Updated 12/11/24 @ 01:00 by Amy Mann RN) Hx of elbow surgery ?Z98.890 - Other specified postprocedural states (ICD-10) Hx of shoulder surgery ?Z98.890 - Other specified postprocedural states (ICD-10) Family History (Updated 12/11/24 @ 01:00 by Amy Mann RN) Father Family history of CHF (congestive heart failure) Family history of diabetes mellitus Social History (Updated 12/11/24 @ 01:01 by Amy Mann RN) Within the past year, how often did you have a drink containing alcohol: never Score interpretation: A score less than 4 is consistent with normal alcohol consumption. Smoking status: Former smoker Non-prescribed substance use: denies use Previous occupational history: retired Highest level of school completed/degree received: high school graduate Are you now , , , , never or living with a partner: In a typical week, how many times do you talk on the telephone with family, friends, or neighbors: 3 or more times per week How often do you get together with friends or relatives: 3 or more times per week Little interest or pleasure in doing things: not at all Feeling down, depressed, or hopeless: not at all Feel stressed/tense/nervous/anxious/difficulty sleeping: not at all Do you think of yourself as: straight/heterosexual Gender Identity: male Meds Home Medications and Allergies Home Medications ?Medication ?Instructions ?Recorded ?Confirmed ?Type aspirin 81 mg tablet,delayed 81 mg PO DAILY 03/27/24 12/11/24 History release (Adult Low Dose Aspirin) benztropine 2 mg tablet 2 mg PO BID 03/27/24 12/11/24 History clozapine 100 mg tablet 150 mg PO QPM 03/27/24 12/11/24 History finasteride 5 mg tablet 5 mg PO DAILY 03/27/24 12/11/24 History furosemide 20 mg tablet 20 mg PO DAILY 03/27/24 12/11/24 History insulin aspart U-100 100 unit/mL 1 sliding scale dose subcut QID 03/27/24 12/11/24 History (3 mL) subcutaneous pen (Novolog FlexPen U-100 Insulin aspart) insulin degludec 200 unit/mL (3 70 unit subcut QPM 03/27/24 12/11/24 History mL) subcutaneous pen (Tresiba FlexTouch U-200 insulin) levothyroxine 25 mcg tablet 25 mcg PO .ACB 03/27/24 12/11/24 History lisinopril 10 mg tablet 10 mg PO DAILY 03/27/24 12/11/24 History metformin 1,000 mg tablet 1,000 mg PO BIDWM 03/27/24 12/11/24 History metoprolol succinate 50 mg 50 mg PO DAILY 03/27/24 12/11/24 History tablet,extended release 24 hr multivitamin 1 tab PO DAILY 03/27/24 12/11/24 History semaglutide 0.25 mg or 0.5 mg (2 0.5 mg subcut QWEEK 03/27/24 12/11/24 History mg/3 mL) subcutaneous pen injector (Ozempic) simvastatin 20 mg tablet 20 mg PO QPM 03/27/24 12/11/24 History tamsulosin 0.4 mg capsule 0.4 mg PO DAILY 03/27/24 12/11/24 History losartan 25 mg tablet 25 mg PO QAM 12/11/24 12/11/24 History Allergies Allergy/AdvReac Type Severity Reaction Status Date / Time Sulfa (Sulfonamide Allergy Severe Hives Verified 03/27/24 12:19 Antibiotics) Exam Narrative Exam Narrative: General: Awake and alert, mild distress HEENT: Normocephalic, atraumatic, no scleral icterus noted Lungs: Clear to auscultation bilaterally Cardiac: Regular rate and rhythm, no murmurs appreciated GI: Soft, tender to palpation most notably in the left lower quadrant and left periumbilical region. Brothers negative. Extremities: Active and passive range of motion intact throughout, no edema Neuro: Cranial nerves II through XII intact, no focal deficits noted Skin: No rashes or lesions, no signs of jaundice Constitutional Vital Signs, click to edit/add: Last Vital Signs Temp 98.0 F 12/11/24 11:24 Pulse 78 12/11/24 11:24 Resp 16 12/11/24 11:24 BP 148/68 H 12/11/24 11:24 Pulse Ox 90 L 12/11/24 11:24 O2 Del Method Room Air 12/11/24 11:24 Internal Medicine - H&P: Reslt Labs Labs: Short CBC 12/10/24 12/11/24 Range/Units 18:40 05:18 WBC 19.4 H 13.8 H (4.0-11.0) 10^3/uL Hgb 12.9 L 11.0 L (14.0-18.0) g/dL Hct 36.1 L 31.9 L (42.0-54.0) % Plt Count 354 280 (150-450) 10^3/uL BMP 12/10/24 12/11/24 18:40 05:18 Sodium 133 L 136 Potassium 4.7 3.8 Chloride 95 L 101 Carbon Dioxide 24.1 25.7 BUN 27.0 H 25.0 H Creatinine 2.79 H 1.81 H Glucose 334 H 235 H Calcium 9.0 7.7 L Liver Function 12/10/24 Range/Units 18:40 Total Bilirubin 0.5 (0.2-1.0) mg/dL AST 19 (15-37) U/L ALT 27 (16-63) U/L Alkaline Phosphatase 74 (46-116) U/L Albumin 3.5 (3.4-5.0) g/dL Assessment and Plan Assessment and Plan (1) Enterocolitis: Assessment and Plan: ? Patient was admitted as inpatient the evening of December 10 ? Continue IV fluids as ordered, anticipate stopping IV fluids tomorrow ? Continue antibiotics levofloxacin and metronidazole ? Lactic acid was elevated at 3.2 on admission, repeat after adequate fluid resuscitation showed this was to be normal. ? Stool sent for analysis, culture, ova and parasite, lactoferrin ? Hemoglobin dropped from 12.9 to 11 this morning, this may be secondary to dilution from IV fluids or also bleed from his enterocolitis. His baseline appears to be red around 11.5-12. ? Repeat afternoon H&H shows hemoglobin continues to trend down 10.6, this is not necessarily a significant drop though will continue to trend tomorrow. ? Initiate Protonix 40 mg twice daily IV push. (2) Acute hyperglycemia: Assessment and Plan: ? Continue insulin, glargine 25 units nightly with aspart 8 units with #2 sliding scale ACHS ? A1c the morning ? Fingersticks ACHS (3) ALTHEA (acute kidney injury): Assessment and Plan: ? Secondary to dehydration, hold metformin and see above (4) Lactic acid acidosis: Assessment and Plan: See above Plan ? DVT prophylaxis addressed with SCDs, hold Lovenox ? Regular diet ? Full code
--- NOTE | 2024-12-11 15:24 | SWNOTE1 ---
Important Message from Medicare reviewed and discussed with patient. Pt. verbalized understanding and signed the form. Original given to patient and copy placed in patient?s chart.
--- NOTE | 2024-12-11 15:24 | SWNOTE1 ---
SW met with pt to discuss dc needs. Pt lives at home with his daughter. Pt does not use any DME at home and is independent. Pt has no services coming in at this time. Pt voiced no anticipated discharge needs. SW to follow as needed.
[2024-12-11] MEDS: LEVOTHYROXINE SODIUM 25 MCG TABLET PO (16:03)
[2024-12-11] MEDS: INSULIN ASPART 300 UNIT/3 ML PEN 8 UNIT SUBQ (16:03)
[2024-12-11] MEDS: ATORVASTATIN CALCIUM 10 MG TABLET PO (21:01)
[2024-12-11] MEDS: BENZTROPINE MESYLATE 1 MG TABLET 2 MG PO (21:01)
[2024-12-11] MEDS: INSULIN GLARGINE 300 UNIT/3 ML INSULN.PEN 25 UNIT SQ (21:11)
[2024-12-12 02:58] VITALS: BP 163/75; TEMP 36.7
[2024-12-12] MEDS: LEVOTHYROXINE SODIUM 25 MCG TABLET PO (05:36)
[2024-12-12 05:49] LABS: Hematocrit 30.7 % (42.0-54.0); Hemoglobin 10.6 g/dL (14.0-18.0); Mean Corpuscular HGB Conc 34.5 g/dL (29.9-35.2); Mean Corpuscular Hemoglobin 30.5 pg (25.9-34.0); Mean Corpuscular Volume 88.5 fL (80.0-94.0); Platelet Count 261 10^3/uL (150-450); Red Blood Count 3.47 10^6/uL (4.70-6.10); White Blood Count 10.1 10^3/uL (4.0-11.0)
[2024-12-12 06:01] LABS: Alanine Aminotransferase 22 U/L (16-63); Albumin Globulin Ratio 0.9; Albumin Level 2.8 g/dL (3.4-5.0); Alkaline Phosphatase 57 U/L (46-116); Anion Gap 8.7; Aspartate Amino Transferase 17 U/L (15-37); Blood Urea Nitrogen 10.0 mg/dL (7.0-18.0); Calcium 7.9 mg/dL (8.5-10.1); Carbon Dioxide 27.3 mmol/L (21.0-32.0); Chloride 105 mmol/L (98-107); Estimated GFR (African America >60 (>=60 mL/min/1.73m^2); Estimated GFR (Non-African Ame >60 (>=60 mL/min/1.73m^2); Globulin 3.0 g/dL; Glucose 178 mg/dL (74-106); Potassium 4.0 mmol/L (3.5-5.1); Sodium 137 mmol/L (136-145); Total Protein 5.8 g/dL (6.4-8.2)
[2024-12-12 07:12] VITALS: BP 161/73; TEMP 36.8; O2SAT 94
[2024-12-12] MEDS: INSULIN ASPART 300 UNIT/3 ML PEN 8 UNIT SUBQ ×3 (07:27→21:06)
[2024-12-12] MEDS: INSULIN ASPART 300 UNIT/3 ML PEN SUBQ ×3 (07:27→21:05)
[2024-12-12] MEDS: METRONIDAZOLE/SODIUM CHLORIDE 500 MG/100 ML PREMIX 100 MG IV ×3 (08:40→16:15)
[2024-12-12] MEDS: 0.9 % SODIUM CHLORIDE 250 ML 10 ML IV (08:40)
[2024-12-12] MEDS: TAMSULOSIN HCL 0.4 MG CAPSULE PO (08:41)
[2024-12-12] MEDS: METOPROLOL SUCCINATE 50 MG TAB.ER.24H PO (08:41)
[2024-12-12] MEDS: BENZTROPINE MESYLATE 1 MG TABLET 2 MG PO ×2 (08:41→20:59)
[2024-12-12] MEDS: FINASTERIDE 5 MG TABLET PO (08:41)
[2024-12-12] MEDS: PANTOPRAZOLE SODIUM 40 MG VIAL IV ×2 (08:41→20:59)
[2024-12-12] MEDS: FUROSEMIDE 20 MG TABLET PO (08:41)
--- NOTE | 2024-12-12 10:00 | CM.NOTE ---
Rounds made with Dr. Barragan, pt continues with diarrhea and appears to have blood in stool.
[2024-12-12 12:00] VITALS: BP 130/61; PULSE 66; O2SAT 98
--- NOTE | 2024-12-12 12:53 | PM.PN ---
Progress Note: Subjective Subjective Interval history: Seen and evaluated this morning, he is resting in bed, laying right lateral decubitus. He wakes up very easily, he says his pain is improving though it is still evident. He is slowly advancing his diet and seems to be tolerating it well. He is still having diarrhea, there is still red/dark red coloration to it. Exam Narrative Exam Narrative: General: Awake and alert, no acute distress HEENT: Normocephalic, atraumatic, no scleral icterus noted Lungs: Clear to auscultation bilaterally Cardiac: Regular rate and rhythm, no murmurs appreciated GI: Soft, very slight tenderness to palpation in the right periumbilical region. Improving yesterday. Extremities: Active and passive range of motion intact throughout, no edema Neuro: Cranial nerves II through XII intact, no focal deficits noted Skin: No rashes or lesions, no signs of jaundice Constitutional Vital Signs, click to edit/add: Last Vital Signs Temp 98.2 F 12/12/24 07:12 Pulse 66 12/12/24 12:00 Resp 18 12/12/24 12:00 BP 130/61 12/12/24 12:00 Pulse Ox 98 12/12/24 12:00 O2 Del Method Room Air 12/12/24 12:00 Progress Note: Objective Labs Labs: Short CBC 12/11/24 12/12/24 Range/Units 14:02 05:39 WBC 10.1 (4.0-11.0) 10^3/uL Hgb 10.6 L 10.6 L (14.0-18.0) g/dL Hct 30.9 L 30.7 L (42.0-54.0) % Plt Count 261 (150-450) 10^3/uL BMP 12/12/24 05:39 Sodium 137 Potassium 4.0 Chloride 105 Carbon Dioxide 27.3 BUN 10.0 Creatinine 1.20 Glucose 178 H Calcium 7.9 L Liver Function 12/12/24 Range/Units 05:39 Total Bilirubin 0.3 (0.2-1.0) mg/dL AST 17 (15-37) U/L ALT 22 (16-63) U/L Alkaline Phosphatase 57 (46-116) U/L Albumin 2.8 L (3.4-5.0) g/dL Progress Note: A&P Assessment and Plan (1) Enterocolitis: Assessment and Plan: ? Stop IV fluids, encourage oral intake ? Continue antibiotics levofloxacin and metronidazole ? His acidosis normalized ? Stool sent for analysis, culture, ova and parasite, lactoferrin, all still pending as of today ? C. difficile negative ? Hemoglobin stabilized at 10.6 ? Continue Protonix 40 mg twice daily IV push. (2) Acute hyperglycemia: Assessment and Plan: ? Continue insulin as ordered, glargine 25 units nightly, aspart 8 units with #2 sliding scale ACHS ? His A1c was appropriate at 6.5 ? Fingersticks ACHS (3) ALTHEA (acute kidney injury): Assessment and Plan: ? Kidney function normalized, DC IV fluids, continue to hold metformin (4) Lactic acid acidosis: Assessment and Plan: Resolved Plan DVT prophylaxis with SCDs ? Regular diet ? Full code
[2024-12-12 19:21] VITALS: BP 147/69; PULSE 68; TEMP 36.3; O2SAT 94
[2024-12-12] MEDS: ATORVASTATIN CALCIUM 10 MG TABLET PO (20:59)
[2024-12-12] MEDS: CLOZAPINE 100 MG 150 EACH PO (21:00)
[2024-12-12] MEDS: INSULIN GLARGINE 300 UNIT/3 ML INSULN.PEN 25 UNIT SQ (21:06)
[2024-12-13] VITALS: BP 148/74; PULSE 65; TEMP 36.8; O2SAT 96
[2024-12-13] MEDS: METRONIDAZOLE/SODIUM CHLORIDE 500 MG/100 ML PREMIX 100 MG IV ×3 (01:55→16:26)
[2024-12-13 04:00] VITALS: BP 168/78; PULSE 70; TEMP 36.3; O2SAT 96
[2024-12-13 05:46] LABS: Hematocrit 33.3 % (42.0-54.0); Hemoglobin 11.5 g/dL (14.0-18.0); Mean Corpuscular HGB Conc 34.5 g/dL (29.9-35.2); Mean Corpuscular Hemoglobin 30.4 pg (25.9-34.0); Mean Corpuscular Volume 88.1 fL (80.0-94.0); Platelet Count 266 10^3/uL (150-450); Red Blood Count 3.78 10^6/uL (4.70-6.10); White Blood Count 8.9 10^3/uL (4.0-11.0)
[2024-12-13] MEDS: LEVOTHYROXINE SODIUM 25 MCG TABLET PO (05:50)
[2024-12-13 05:53] LABS: Alanine Aminotransferase 16 U/L (16-63); Albumin Globulin Ratio 0.9; Albumin Level 3.1 g/dL (3.4-5.0); Alkaline Phosphatase 57 U/L (46-116); Anion Gap 17.0; Aspartate Amino Transferase 22 U/L (15-37); Blood Urea Nitrogen 6.0 mg/dL (7.0-18.0); Calcium 8.3 mg/dL (8.5-10.1); Carbon Dioxide 23.9 mmol/L (21.0-32.0); Chloride 99 mmol/L (98-107); Estimated GFR (African America >60 (>=60 mL/min/1.73m^2); Estimated GFR (Non-African Ame >60 (>=60 mL/min/1.73m^2); Globulin 3.3 g/dL; Glucose 148 mg/dL (74-106); Magnesium 1.5 mg/dL (1.8-2.4); Potassium 3.9 mmol/L (3.5-5.1); Sodium 136 mmol/L (136-145); Total Protein 6.4 g/dL (6.4-8.2)
[2024-12-13 07:41] VITALS: BP 149/83; PULSE 67; TEMP 36.7; O2SAT 95
[2024-12-13] MEDS: INSULIN ASPART 300 UNIT/3 ML PEN 8 UNIT SUBQ ×3 (07:46→16:44)
[2024-12-13] MEDS: PANTOPRAZOLE SODIUM 40 MG VIAL IV ×2 (08:44→21:22)
[2024-12-13] MEDS: BENZTROPINE MESYLATE 1 MG TABLET 2 MG PO ×2 (08:44→21:22)
[2024-12-13] MEDS: FUROSEMIDE 20 MG TABLET PO (08:44)
[2024-12-13] MEDS: FINASTERIDE 5 MG TABLET PO (08:45)
[2024-12-13] MEDS: METOPROLOL SUCCINATE 50 MG TAB.ER.24H PO (08:45)
[2024-12-13] MEDS: TAMSULOSIN HCL 0.4 MG CAPSULE PO (08:45)
--- NOTE | 2024-12-13 09:30 | CM.NOTE ---
Rounds made with Dr. Barragan, pt continues with loose stools. Awaiting stool culture results. Continue treatment as ordered, possible discharge if stool culture would come back today.
[2024-12-13] MEDS: MAGNESIUM SULFATE IN WATER 4 GM/100 ML PIGGYBACK IV (10:04)
[2024-12-13] MEDS: LEVOFLOXACIN IN DEXTROSE 5 % 750 MG/150 ML PREMIX 100 MG IV (11:38)
--- NOTE | 2024-12-13 12:31 | PM.PN ---
Progress Note: Subjective Subjective Interval history: Seen and evaluated this morning, he is resting in bed, laying right lateral decubitus. He wakes up very easily, he says his pain is improving though it is still evident. He is slowly advancing his diet and seems to be tolerating it well. He is still having diarrhea, there is still red/dark red coloration to it. Exam Constitutional Vital Signs, click to edit/add: Last Vital Signs Temp 98.1 F 12/13/24 07:41 Pulse 67 12/13/24 07:41 Resp 18 12/13/24 07:41 BP 149/83 H 12/13/24 07:41 Pulse Ox 95 12/13/24 07:41 O2 Del Method Room Air 12/13/24 07:41 Progress Note: Objective Labs Labs: Short CBC 12/13/24 Range/Units 04:58 WBC 8.9 (4.0-11.0) 10^3/uL Hgb 11.5 L (14.0-18.0) g/dL Hct 33.3 L (42.0-54.0) % Plt Count 266 (150-450) 10^3/uL BMP 12/13/24 04:58 Sodium 136 Potassium 3.9 Chloride 99 Carbon Dioxide 23.9 BUN 6.0 L Creatinine 1.06 Glucose 148 H Calcium 8.3 L Liver Function 12/13/24 Range/Units 04:58 Total Bilirubin 0.5 (0.2-1.0) mg/dL AST 22 (15-37) U/L ALT 16 (16-63) U/L Alkaline Phosphatase 57 (46-116) U/L Albumin 3.1 L (3.4-5.0) g/dL Progress Note: A&P Assessment and Plan (1) Enterocolitis: (2) Acute hyperglycemia: (3) ALTHEA (acute kidney injury): (4) Lactic acid acidosis:
--- NOTE | 2024-12-13 12:31 | PM.PN ---
Progress Note: Subjective Subjective Interval history: Seen and evaluated this morning, he is laying in bed, he says his pain is continues to improve however he still has watery/red diarrhea. Exam Narrative Exam Narrative: General: Awake and alert, no acute distress HEENT: Normocephalic, atraumatic, no scleral icterus noted Lungs: Clear to auscultation bilaterally Cardiac: Regular rate and rhythm, no murmurs appreciated GI: Soft, had to press very hard today to elicit some tenderness in his right periumbilical region. Extremities: Active and passive range of motion intact throughout, no edema Neuro: Cranial nerves II through XII intact, no focal deficits noted Skin: No rashes or lesions, no signs of jaundice Constitutional Vital Signs, click to edit/add: Last Vital Signs Temp 98.1 F 12/13/24 07:41 Pulse 67 12/13/24 07:41 Resp 18 12/13/24 07:41 BP 149/83 H 12/13/24 07:41 Pulse Ox 95 12/13/24 07:41 O2 Del Method Room Air 12/13/24 07:41 Progress Note: Objective Labs Labs: Short CBC 12/13/24 Range/Units 04:58 WBC 8.9 (4.0-11.0) 10^3/uL Hgb 11.5 L (14.0-18.0) g/dL Hct 33.3 L (42.0-54.0) % Plt Count 266 (150-450) 10^3/uL BMP 12/13/24 04:58 Sodium 136 Potassium 3.9 Chloride 99 Carbon Dioxide 23.9 BUN 6.0 L Creatinine 1.06 Glucose 148 H Calcium 8.3 L Liver Function 12/13/24 Range/Units 04:58 Total Bilirubin 0.5 (0.2-1.0) mg/dL AST 22 (15-37) U/L ALT 16 (16-63) U/L Alkaline Phosphatase 57 (46-116) U/L Albumin 3.1 L (3.4-5.0) g/dL Progress Note: A&P Assessment and Plan (1) Enterocolitis: Assessment and Plan: ? Continue to encourage oral intake, change diet to normal diet today ? Continue levofloxacin and metronidazole ? C. difficile negative ? Hemorrhagic E. coli negative ? Campylobacter and Shigella still pending ? Continue Protonix 40 IV push daily (2) Acute hyperglycemia: Assessment and Plan: Resolved with adjustments in his insulin Just continue glargine 25 nightly, aspart 8 units with #2 sliding scale ? Fingersticks ACHS (3) ALTHEA (acute kidney injury): Assessment and Plan: Resolved (4) Lactic acid acidosis: Assessment and Plan: Resolved
[2024-12-13 15:12] VITALS: BP 153/80; PULSE 75; TEMP 36.6; O2SAT 96
[2024-12-13] MEDS: 0.9 % SODIUM CHLORIDE 250 ML 25 ML IV (16:25)
[2024-12-13] MEDS: INSULIN ASPART 300 UNIT/3 ML PEN SUBQ (16:43)
[2024-12-13 19:46] VITALS: BP 153/72; PULSE 78; TEMP 36.8; O2SAT 95
[2024-12-13] MEDS: ATORVASTATIN CALCIUM 10 MG TABLET PO (21:22)
[2024-12-13] MEDS: INSULIN GLARGINE 300 UNIT/3 ML INSULN.PEN 25 UNIT SQ (21:23)
[2024-12-13] MEDS: CLOZAPINE 100 MG 150 EACH PO (21:24)
[2024-12-13 23:37] VITALS: BP 176/74; PULSE 79; TEMP 36.9; O2SAT 97
[2024-12-14] VITALS: BP 173/76
[2024-12-14] MEDS: METRONIDAZOLE/SODIUM CHLORIDE 500 MG/100 ML PREMIX 100 MG IV ×2 (00:25→08:40)
[2024-12-14 03:52] VITALS: BP 179/75; PULSE 69; TEMP 36.6; O2SAT 95
[2024-12-14 05:30] LABS: Hematocrit 32.0 % (42.0-54.0); Hemoglobin 11.2 g/dL (14.0-18.0); Mean Corpuscular HGB Conc 35.0 g/dL (29.9-35.2); Mean Corpuscular Hemoglobin 30.6 pg (25.9-34.0); Mean Corpuscular Volume 87.4 fL (80.0-94.0); Platelet Count 276 10^3/uL (150-450); Red Blood Count 3.66 10^6/uL (4.70-6.10); White Blood Count 7.4 10^3/uL (4.0-11.0)
[2024-12-14] MEDS: LEVOTHYROXINE SODIUM 25 MCG TABLET PO (05:40)
[2024-12-14 05:52] LABS: Alanine Aminotransferase 29 U/L (16-63); Albumin Globulin Ratio 1.0; Albumin Level 2.9 g/dL (3.4-5.0); Alkaline Phosphatase 58 U/L (46-116); Anion Gap 12.3; Aspartate Amino Transferase 29 U/L (15-37); Blood Urea Nitrogen 7.0 mg/dL (7.0-18.0); Calcium 8.3 mg/dL (8.5-10.1); Carbon Dioxide 25.6 mmol/L (21.0-32.0); Chloride 104 mmol/L (98-107); Estimated GFR (African America >60 (>=60 mL/min/1.73m^2); Estimated GFR (Non-African Ame >60 (>=60 mL/min/1.73m^2); Globulin 3.0 g/dL; Glucose 181 mg/dL (74-106); Magnesium 1.8 mg/dL (1.8-2.4); Potassium 3.9 mmol/L (3.5-5.1); Sodium 138 mmol/L (136-145); Total Protein 5.9 g/dL (6.4-8.2)
[2024-12-14] MEDS: INSULIN ASPART 300 UNIT/3 ML PEN SUBQ ×2 (07:38→11:45)
[2024-12-14] MEDS: INSULIN ASPART 300 UNIT/3 ML PEN 8 UNIT SUBQ ×2 (07:39→11:45)
[2024-12-14 07:42] VITALS: BP 157/68; PULSE 70; TEMP 36.7; O2SAT 95
[2024-12-14] MEDS: FUROSEMIDE 20 MG TABLET PO (08:33)
[2024-12-14] MEDS: TAMSULOSIN HCL 0.4 MG CAPSULE PO (08:33)
[2024-12-14] MEDS: FINASTERIDE 5 MG TABLET PO (08:33)
[2024-12-14] MEDS: METOPROLOL SUCCINATE 50 MG TAB.ER.24H PO (08:33)
[2024-12-14] MEDS: BENZTROPINE MESYLATE 1 MG TABLET 2 MG PO (08:33)
[2024-12-14] MEDS: PANTOPRAZOLE SODIUM 40 MG VIAL IV (08:34)
[2024-12-14] MEDS: 0.9 % SODIUM CHLORIDE 250 ML 10 ML IV (08:40)
--- NOTE | 2024-12-14 09:00 | CM.NOTE ---
Rounds made with Dr. Barragan, pt will discharge to home today and f/u with PCP.
[2024-12-14] MEDS: METHYLPREDNISOLONE SOD SUCC PF 40 MG/ML VIAL IVP (09:31)
--- NOTE | 2024-12-14 11:24 | PM.DS1 ---
DS: Providers Provider Date of admission: 12/11/24 00:28 Primary care physician: Imelda Perez NP DS: Diagnosis Discharge Diagnosis (1) Enterocolitis: (2) Acute hyperglycemia: (3) ALTHEA (acute kidney injury): (4) Lactic acid acidosis: DS: Summary Time Spent with Patient Time attestation: Total time spent providing and/or coordinating discharge services: Exam Constitutional Vital Signs, click to edit/add: Last Vital Signs Temp 98.0 F 12/14/24 07:42 Pulse 70 12/14/24 07:42 Resp 18 12/14/24 07:42 BP 157/68 H 12/14/24 07:42 Pulse Ox 95 12/14/24 07:42 O2 Del Method Room Air 12/14/24 07:42 DS: Data Data Completed and Pending Labs on day of discharge: Labs from last 24 hours 12/14/24 12/13/24 12/13/24 04:57 21:05 16:39 WBC 7.4 RBC 3.66 L Hgb 11.2 L Hct 32.0 L MCV 87.4 MCH 30.6 MCHC 35.0 RDW 12.5 Plt Count 276 MPV 9.0 L Sodium 138 Potassium 3.9 Chloride 104 Carbon Dioxide 25.6 Anion Gap 12.3 BUN 7.0 Creatinine 1.21 Est GFR ( Amer) >60 Est GFR (Non-Af Amer) >60 BUN/Creatinine Ratio 5.8 Glucose 181 H Calcium 8.3 L Magnesium 1.8 Total Bilirubin 0.5 AST 29 ALT 29 Alkaline Phosphatase 58 Total Protein 5.9 L Albumin 2.9 L Globulin 3.0 Albumin/Globulin Ratio 1.0 POC Glucose 137 H 247 H 12/13/24 12/13/24 16:37 11:36 WBC RBC Hgb Hct MCV MCH MCHC RDW Plt Count MPV Sodium Potassium Chloride Carbon Dioxide Anion Gap BUN Creatinine Est GFR ( Amer) Est GFR (Non-Af Amer) BUN/Creatinine Ratio Glucose Calcium Magnesium Total Bilirubin AST ALT Alkaline Phosphatase Total Protein Albumin Globulin Albumin/Globulin Ratio POC Glucose 245 H 116 H Preliminary micro results at discharge 12/10/24 23:28 Blood Culture Result 2 - Preliminary Blood - Right Hand NO GROWTH AT 36-48 HOURS. FINAL TO FOLLOW. 12/10/24 23:20 Blood Culture Result 1 - Preliminary Blood - Left Wrist NO GROWTH AT 36-48 HOURS. FINAL TO FOLLOW. Discharge Plan Discharge Disposition: Home, Self-Care Condition: Fair Discharge Medications: New prednisone 10 mg tablet 10 mg PO .as directed Qty: 40 0RF Rx Instructions: Take 4 pills for 4 days Take 3 pills for 4 days Take 2 pills for 4 days Take 1 pill for 4 days then stop levofloxacin 750 mg tablet 750 mg PO DAILY 5 Days Qty: 5 0RF metronidazole 500 mg tablet 500 mg PO Q8H 5 Days Qty: 15 0RF Continued benztropine 2 mg tablet 2 mg PO BID clozapine 100 mg tablet 150 mg PO QPM finasteride 5 mg tablet 5 mg PO DAILY furosemide 20 mg tablet 20 mg PO DAILY insulin aspart U-100 [Novolog FlexPen U-100 Insulin] 100 unit/mL (3 mL) insulin pen 1 sliding scale dose SUBCUT QID insulin degludec [Tresiba FlexTouch U-200] 200 unit/mL (3 mL) insulin pen 70 unit SUBCUT QPM levothyroxine 25 mcg tablet 25 mcg PO .ACB metformin 1,000 mg tablet 1,000 mg PO BIDWM metoprolol succinate 50 mg tablet extended release 24 hr 50 mg PO DAILY Ozempic 0.25 mg or 0.5 mg (2 mg/3 mL) pen injector 0.5 mg SUBCUT QWEEK simvastatin 20 mg tablet 20 mg PO QPM tamsulosin 0.4 mg capsule 0.4 mg PO DAILY aspirin [Adult Low Dose Aspirin] 81 mg tablet,delayed release (DR/EC) 81 mg PO DAILY lisinopril 10 mg tablet 10 mg PO DAILY multivitamin Tablet 1 tab PO DAILY Discontinued losartan 25 mg tablet 25 mg PO QAM Print Language: Armenian Forms: Portal Instructions Follow Up Appointments: 12/19 @ 2pm with Imelda Perez, [facility] [phone]
[2024-12-14 13:08] LABS: Lactoferrin, Fecal, Quant. 562.18 ug/mL(g) (0.00-7.24)
--- NOTE | 2024-12-17 12:04 | CM.DCFOLLOWU ---
1st attempt 12/17/24, no answer
--- NOTE | 2024-12-18 12:49 | CM.DCFOLLOWU ---
2nd attempt 12/18/24, no answer
--- NOTE | 2024-12-19 14:56 | CM.DCFOLLOWU ---
3rd attempt 12/19/24, no answer
== END 2024-12-14 12:37 | disposition home or self-care (01) | DRG 392 ==
LOC: ER 23:01 → MS 12-11 00:32
PROVIDERS: Internal Medicine; Admitting Provider Internal Medicine; Emergency Provider Emergency Medicine; PCP Nurse Practitioner Family; Visit Provider Internal Medicine
DX: K52.9 Noninfective gastroenteritis and colitis, unspecified (principal); N17.9 Acute kidney failure, unspecified; E87.20 Acidosis, unspecified; Z79.82 Long term (current) use of aspirin; Z79.4 Long term (current) use of insulin; Z79.899 Other long term (current) drug therapy; Z79.84 Long term (current) use of oral hypoglycemic drugs; E11.65 Type 2 diabetes mellitus with hyperglycemia; I10 Essential (primary) hypertension; F20.9 Schizophrenia, unspecified; E78.5 Hyperlipidemia, unspecified; Z87.891 Personal history of nicotine dependence; E86.0 Dehydration; Z79.85 Long-term (current) use of injectable non-insulin antidiabetic drugs
CPT/HCPCS: 36415; 71045; 74176; 80048; 80053; 82948; 83036; 83605; 83631; 83690; 83735; 84484; 85014; 85018; 85025; 85027; 87040; 87045; 87046; 87177; 87209; 87427; 87493; 93005; 96361; 96365; 96375; 99285; J0744; J1644; J1836; J2270; J2919; J3475